=== PATIENT | male | born 1950 | race Caucasian/White ===

== ENCOUNTER 2016-09-20 05:25 | Inpatient (IN) ==
[2016-09-20 06:06] LABS: INR 1.1; Prothrombin Time 11.9 Seconds (9.4-12.1)
[2016-09-20 06:09] LABS: Activated Partial Thrombo Time 31.1 Seconds (26.0-36.0)
[2016-09-20 06:11] LABS: BUN/Creatinine Ratio 15 (6-26); Blood Urea Nitrogen 16 mg/dL (8-26); Calcium 9.6 mg/dL (8.6-10.8); Carbon Dioxide 21 mEq/L (19-29); Chloride 102 mEq/L (98-109); Glucose 313 mg/dL (70-99); Osmolality,Calculated 295 (280-300); Potassium 4.1 mEq/L (3.5-4.5); Sodium 136 mEq/L (136-145); eGFR For African Americans > 60 (> 60); eGFR For Non-African Americans > 60 (> 60)
[2016-09-20 06:22] LABS: Basophils % 0.3 %; Eosinophils # 0.2 K/mcL (0.0-0.6); Eosinophils % 1.8 %; Hemoglobin 14.9 g/dL (12.9-16.9); Immature Granulocytes % 0.6 % (0-4); Lymphocytes # 4.5 K/mcL (0.6-4.6); Lymphocytes % 43.5 %; Mean Corpuscular HGB Conc 33.9 g/dL (31.6-35.5); Mean Corpuscular Hemoglobin 30.7 pg (28.0-33.3); Mean Corpuscular Volume 90.7 fL (83.0-100.0); Mean Platelet Volume 11.4 fL (9.4-12.4); Monocytes # 0.6 K/mcL (0.0-1.3); Monocytes % 6.1 %; Platelet Count 180 K/mcL (140-400); Red Blood Count 4.85 M/mcL (4.19-5.50); Red Cell Distribution Width 13.5 % (11.5-14.5); Segmented Neutrophils % 47.7 %
[2016-09-20] MEDS ORDERED: Aspirin 81 MG TAB.CHEW PO ONE (06:35)
[2016-09-20] MEDS ORDERED: 0.9 % Sodium Chloride 1,000 ML IVC ONE (06:35)
[2016-09-20] MEDS ORDERED: *HR* Morphine 2 MG/ML SYRINGE IV ONE ×2 (06:35→07:33)
[2016-09-20] MEDS ORDERED: Ondansetron 4 MG/2 ML VIAL IV ONE (06:36)
--- NOTE | 2016-09-20 06:47 | Emergency Department Note ---
Disposition Clinical Impression: NSTEMI (non-ST elevated myocardial infarction) Disposition: Admitted As Inpatient Condition: Fair Chest Pain HPI - General Chief Complaint: ED Chest Pain Stated Complaint: CP Time Seen by Provider: 09/20/16 06:24 Source: patient, family Mode of arrival: private vehicle Limitations: no limitations Vital Signs Reviewed: Yes Nursing Notes Reviewed: Yes - History of Present Illness Pt complaint: chest pain Onset (ago): day(s) (1) Duration: constant (Since this AM prior to that it was intermittent) Pain Location: substernal, left chest, other (left arm) Severity: severe Severity scale (1-10): 10 Quality: aching Pain Radiation: RUE, LUE, neck Improves with: nothing Worsens with: nothing Associated symptoms: Reports: dyspnea ("a little"). Denies: nausea, vomiting, diaphoresis, syncope, palpitations, fever, cough, leg swelling Treatments prior to arrival chest pain: aspirin (yesterday, took one baby aspirin) - Related Data Home Medications Medication Instructions Recorded Confirmed Allopurinol [Zyloprim] 300 mg PO DAILY 04/11/15 05/23/15 Aspirin Enteric Coated [Aspirin EC] 81 mg PO DAILY 04/11/15 05/23/15 Atorvastatin Calcium [Lipitor] 80 mg PO HS 04/11/15 05/23/15 Cholecalciferol (Vitamin D3) 2,000 unit PO DAILY 04/11/15 05/23/15 [Vitamin D] Gabapentin [Neurontin] 1,200 mg PO TID 04/11/15 05/23/15 Furosemide 40 mg PO BID 05/23/15 05/23/15 Insulin Regular U-500 33 unit SQ BID 05/23/15 05/23/15 Metoprolol 25 mg PO BID 05/23/15 05/23/15 Multivitamin 1 tab PO DAILY 05/23/15 05/23/15 Plavix 75 mg PO DAILY 05/23/15 05/23/15 Potassium Chloride 40 meq PO BID 05/23/15 05/23/15 Allergies Allergy/AdvReac Type Severity Reaction Status Date / Time Penicillins Allergy Mild Rash, itch Verified 04/11/15 09:19 All systems ED: reviewed and negative except as stated. Constitutional: Denies: fever, chills, weakness, weight change, night sweats ENT ED: Denies: throat pain, dysphagia Cardiovascular: Reports: as per HPI, chest pain, dyspnea on exertion. Denies: palpitations, orthopnea, edema, syncope Respiratory: Reports: dyspnea. Denies: cough, wheezes, hemoptysis, stridor, sputum production Gastrointestinal: Denies: abdominal pain, nausea, vomiting, diarrhea Musculoskeletal: Denies: back pain, neck pain, joint swelling Integumentary: Denies: rash Neurological: Denies: headache, weakness, confusion, abnormal gait, vertigo Hematological/Lymphatic: Denies: easy bleeding, easy bruising Chest Pain PMH - Past Medical History Medical history: Reports: atrial fibrillation, coronary artery disease, diabetes , hyperlipidemia, hypertension, myocardial infarction, other Surgical history: Reports: cholecystectomy, coronary bypass (CABG), orthopedic, other Psychiatric history: Reports: no psych history - Social History Smoking Status: Never smoker Alcohol use: Reports: rarely Drug use: Reports: none Physical Exam - General Limitations: no limitations General appearance: alert, in no apparent distress - Head Head exam: atraumatic, normocephalic, normal inspection - Eye Eye exam: Present: normal appearance, PERRL. Absent: scleral icterus, conjunctival injection - ENT ENT exam: normal exam, normal oropharynx, mucous membranes moist - Neck Neck exam: Present: normal inspection, full ROM, trachea midline. Absent: meningismus - Chest Chest inspection: Present: symmetric chest wall rise, other (WHSS) - Respiratory Respiratory exam: Present: normal lung sounds bilaterally. Absent: respiratory distress, wheezes, stridor - Cardiovascular Cardiovascular exam: Present: regular rate, normal rhythm, normal heart sounds - Abdominal Exam Abdominal exam: Present: soft, Non-Tender. Absent: distention, guarding, rebound, mass - Extremities Exam Extremities exam: Present: full ROM, normal capillary refill. Absent: tenderness, joint swelling, calf tenderness - Back Exam Back exam: Present: normal inspection - Neurological Exam Neurological exam: Present: alert, oriented X3, CN II-XII intact - Psychiatric Psychiatric exam: Present: normal affect, normal mood - Skin Skin exam: Present: warm, dry, intact, normal color Course Course Narrative: Patient presents for evaluation of chest pain. He states, "my chest hurts, but I also have worsening neuropathic pain." He states that the pain began yesterday but was mild and tolerable then last night it increased. He took a baby aspirin and it seemed to help a little bit. As the night progressed, the pain increased so he came in for evaluation. He states that usually his neuropathy is just in his hands, feet and legs below the knees, but since last night. He has had pain in his arms and also in his chest. He describes it as burning and aching. He denies recent trauma. He has a history of coronary artery disease and had a CABG in 2015 at [facility]. He has had no stress test or heart catheterizations since then. He has no dyspnea on exertion or orthopnea, has no calf pain, redness or swelling, is not hypoxic or tachypneic and denies history of DVT or PE. Therefore, I do not suspect PE as the cause of his chest pain. He will require admission for a rule out. Case has been discussed with Dr. Wesley. He has had [id number] time with the patient, reviewed the EKG and lab findings, and agrees with the assessment and plan. - Reevaluation(s) Reevaluation #1: CP better, "neuropathy still an 8". Additional meds ordered. Time: 07:34 Vital Signs Temperature 98.0 F 09/20/16 05:31 Pulse Rate 75 09/20/16 05:31 Respiratory Rate 18 09/20/16 05:31 Blood Pressure 165/74 09/20/16 05:31 O2 Sat by Pulse Oximetry 96 09/20/16 05:31 Temperature 97.8 F 09/20/16 08:53 Pulse Rate 94 09/20/16 08:53 Respiratory Rate 16 09/20/16 08:53 Blood Pressure 160/75 09/20/16 08:53 O2 Sat by Pulse Oximetry 95 09/20/16 08:53 Oxygen Delivery Oxygen Delivery Room Air Chest Pain - Medical Records Medical records reviewed: Yes I reviewed the patient's medical records. - Lab Data Lab results reviewed: Yes I reviewed the patient's lab results. Lab results narrative: Laboratory Last Values WBC 10.4 K/mcL (4.3-11.1) 09/20/16 05:46 RBC 4.85 M/mcL (4.19-5.50) 09/20/16 05:46 Hgb 14.9 g/dL (12.9-16.9) 09/20/16 05:46 Hct 44.0 % (37.5-50.1) 09/20/16 05:46 MCV 90.7 fL (83.0-100.0) 09/20/16 05:46 MCH 30.7 pg (28.0-33.3) 09/20/16 05:46 MCHC 33.9 g/dL (31.6-35.5) 09/20/16 05:46 RDW 13.5 % (11.5-14.5) 09/20/16 05:46 Plt Count 180 K/mcL (140-400) 09/20/16 05:46 MPV 11.4 fL (9.4-12.4) 09/20/16 05:46 Immature Gran % 0.6 % (0-4) 09/20/16 05:46 Seg Neutrophils % 47.7 % 09/20/16 05:46 Lymphocytes % 43.5 % 09/20/16 05:46 Monocytes % 6.1 % 09/20/16 05:46 Eosinophils % 1.8 % 09/20/16 05:46 Basophils % 0.3 % 09/20/16 05:46 Neutrophils # 5.0 K/mcL (1.6-8.9) 09/20/16 05:46 Lymphocytes # 4.5 K/mcL (0.6-4.6) 09/20/16 05:46 Monocytes # 0.6 K/mcL (0.0-1.3) 09/20/16 05:46 Eosinophils # 0.2 K/mcL (0.0-0.6) 09/20/16 05:46 Basophils # 0.0 K/mcL (0.0-0.2) 09/20/16 05:46 PT 11.9 Seconds (9.4-12.1) 09/20/16 05:46 INR 1.1 09/20/16 05:46 APTT 31.1 Seconds (26.0-36.0) 09/20/16 05:46 Sodium 136 mEq/L (136-145) 09/20/16 05:46 Potassium 4.1 mEq/L (3.5-4.5) 09/20/16 05:46 Chloride 102 mEq/L (98-109) 09/20/16 05:46 Carbon Dioxide 21 mEq/L (19-29) 09/20/16 05:46 BUN 16 mg/dL (8-26) 09/20/16 05:46 Creatinine 1.07 mg/dL (0.72-1.25) 09/20/16 05:46 Est GFR ( Amer) > 60 (> 60) 09/20/16 05:46 Est GFR (Non-Af Amer) > 60 (> 60) 09/20/16 05:46 BUN/Creatinine Ratio 15 (6-26) 09/20/16 05:46 Glucose 313 mg/dL (70-99) H 09/20/16 05:46 Calculated Osmolality 295 (280-300) 09/20/16 05:46 Calcium 9.6 mg/dL (8.6-10.8) 09/20/16 05:46 Troponin I 0.07 ng/mL (0-0.03) H* 09/20/16 05:46 Result diagrams: 09/20/16 05:46 09/20/16 05:46 Lab Results 09/20/16 09/20/16 09/20/16 Range/Units 05:46 05:46 05:46 WBC 10.4 (4.3-11.1) K/mcL RBC 4.85 (4.19-5.50) M/mcL Hgb 14.9 (12.9-16.9) g/dL Hct 44.0 (37.5-50.1) % MCV 90.7 (83.0-100.0) fL MCH 30.7 (28.0-33.3) pg MCHC 33.9 (31.6-35.5) g/dL RDW 13.5 (11.5-14.5) % Plt Count 180 (140-400) K/mcL MPV 11.4 (9.4-12.4) fL Immature Gran % 0.6 (0-4) % Seg Neutrophils % 47.7 % Lymphocytes % 43.5 % Monocytes % 6.1 % Eosinophils % 1.8 % Basophils % 0.3 % Neutrophils # 5.0 (1.6-8.9) K/mcL Lymphocytes # 4.5 (0.6-4.6) K/mcL Monocytes # 0.6 (0.0-1.3) K/mcL Eosinophils # 0.2 (0.0-0.6) K/mcL Basophils # 0.0 (0.0-0.2) K/mcL PT 11.9 (9.4-12.1) Seconds INR 1.1 APTT 31.1 (26.0-36.0) Seconds Sodium 136 (136-145) mEq/L Potassium 4.1 (3.5-4.5) mEq/L Chloride 102 (98-109) mEq/L Carbon Dioxide 21 (19-29) mEq/L BUN 16 (8-26) mg/dL Creatinine 1.07 (0.72-1.25) mg/dL Est GFR ( Amer) > 60 (> 60) Est GFR (Non-Af Amer) > 60 (> 60) BUN/Creatinine Ratio 15 (6-26) Glucose 313 H (70-99) mg/dL Calculated Osmolality 295 (280-300) Calcium 9.6 (8.6-10.8) mg/dL Creatine Kinase 137 (30-200) Units/L Troponin I (0-0.03) ng/mL 09/20/16 Range/Units 05:46 WBC (4.3-11.1) K/mcL RBC (4.19-5.50) M/mcL Hgb (12.9-16.9) g/dL Hct (37.5-50.1) % MCV (83.0-100.0) fL MCH (28.0-33.3) pg MCHC (31.6-35.5) g/dL RDW (11.5-14.5) % Plt Count (140-400) K/mcL MPV (9.4-12.4) fL Immature Gran % (0-4) % Seg Neutrophils % % Lymphocytes % % Monocytes % % Eosinophils % % Basophils % % Neutrophils # (1.6-8.9) K/mcL Lymphocytes # (0.6-4.6) K/mcL Monocytes # (0.0-1.3) K/mcL Eosinophils # (0.0-0.6) K/mcL Basophils # (0.0-0.2) K/mcL PT (9.4-12.1) Seconds INR APTT (26.0-36.0) Seconds Sodium (136-145) mEq/L Potassium (3.5-4.5) mEq/L Chloride (98-109) mEq/L Carbon Dioxide (19-29) mEq/L BUN (8-26) mg/dL Creatinine (0.72-1.25) mg/dL Est GFR ( Amer) (> 60) Est GFR (Non-Af Amer) (> 60) BUN/Creatinine Ratio (6-26) Glucose (70-99) mg/dL Calculated Osmolality (280-300) Calcium (8.6-10.8) mg/dL Creatine Kinase (30-200) Units/L Troponin I 0.07 H* (0-0.03) ng/mL - Radiology Data Radiology results reviewed: Yes I reviewed the patient's radiology results. Chest X-Ray 09/20/16 05:38 IMPRESSION: No acute findings. D/ / Maria Guadalupe Colon MD / Maria Guadalupe Colon MD Interpreting Provider: Maria Guadalupe Colon MD - EKG Data EKG attestation: Yes I reviewed and interpreted this EKG. EKG shows normal: sinus rhythm Rate: normal Rhythm: NSR When compared to previous EKG there are: no significant changes Interpretation: unchanged when compared to prior tracing (date) - Core Measures AMI Core Measures Followed: Yes Heart Score - Score History: Moderately Suspicious EKG: Normal Age: Greater than 65 Risk Factors: 1-2 risk factors Troponin: 1-3x normal limit HEART Score Total: 5 Critical Care Time Critical Care Time: Yes Total Critical Care Time: 35 Attestation: Critical care time 35 minutes managing NSTEMI. Attestation Statement - Attestation Attestation: Patient was seen with physician assistant auto center manager. I reviewed the history, physical, assessment and plan, and agree with the findings. I also personally evaluated this patient and had [id number] time with this patient. 66-year-old male with a history of cardiovascular disease presents to the emergency department with chief complaint of chest pain and neuropathic pain. Patient says he has diabetic neuropathy usually in his hands feet and legs, but he says it is from his neck down now. He alsohad chest pain left sided to his shoulder which is very similar to his heart attack pain that prompted a triple bypass approximately year and a half ago. Said the pains been ongoing for last day or so and not getting progressively better. This prompted his visit to the ED. On examination heart is regular rhythm and rate. Lungs are clear to auscultation. Abdomen is soft and nontender. Extremities are unremarkable no appreciable swelling or tenderness. Neurologically the patient is intact. Workup on the patient revealed an elevated troponin. EKG did not show any ST segment elevation. Patient will be admitted to the hospital for an STEMI and pain management. Hospitalist was notified. I agree with the physician assistant auto center manager assessment and plan.
[2016-09-20 06:53] LABS: Creatine Kinase 137 Units/L (30-200)
[2016-09-20] MEDS ORDERED: Nitroglycerin 0.4 MG TAB.SUBL SL PRN (07:33)
[2016-09-20] MEDS ORDERED: *HR* LORazepam 1 MG TABLET PO ONE (12:08)
[2016-09-20] MEDS ORDERED: *HR* Morphine 2 MG/ML SYRINGE IVP PRN (12:13)
[2016-09-20] MEDS ORDERED: (Exenatide Microspheres [Bydureon Pen] 2 MG) SQ SCH (15:45)
[2016-09-20] MEDS ORDERED: Dextrose Gel 15 GM PO PRN ×2 (15:49)
[2016-09-20] MEDS ORDERED: D5% in Water 1,000 ML IV PRN (15:49)
[2016-09-20] MEDS ORDERED: *HR* Dextrose 50 % in Water (Syg) 50 ML SYRINGE IVP PRN (15:49)
--- NOTE | 2016-09-20 16:05 | Internal Med History&Physical ---
<Scott Hanna - Last Filed: 09/20/16 18:21> Date of Encounter: 09/20/16 Time of Encounter: 15:00 Assessment and Plan (1) Chest pain Current visit: Yes Status: Acute -L sided. Non exceptional. Relieved by morphine. CABAG in 2015. -Troponin 0.07x2. CXR WNL. EKG shows abnormalities, however, a lot of artifact. Will get repeat EKG. EKG in 04/14 shows sinus with 1st degree AV block. No ECHO in system -Home meds resumed-plavix, aspirin, HTN. Started on lovenox for DVT ppx, Labs ordered. Telemetry. -Positive troponins. Chronic? Consider cardiac cath, stress test, echo. Consulting cardiology in morning. 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 He takes a very high dose. -Continue home medication-insulin, plavix, aspirin (3) Hypertension Current visit: Yes Status: Acute -Asymptomatic -Continue home medication. Qualifiers: Hypertension type: essential hypertension Qualified Code(s): I10 - Essential (primary) hypertension (4) Peripheral neuropathy Current visit: Yes Status: Acute -Patient originally described sudden intensity of worsening peripheral neuropathy of his arms and legs that was not progressive, ascending or descending. 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 No myelitis. -Patient back to baseline after morphine administration. OARRS negative. -Resume home medication. -Worsening of neuropathy probably secondary to cardiac pathology. -Continue home dose of gabapentin 1200mg TID. Internal Medicine - H&P: HPI Chief complaint: neuropathic pain Admitted From: Emergency Dept Plans for Post Hospital Care: Home History of present illness: Mr. aRndle is a 66 year old male, PMH afib, CAD, DM, HTN, IL, Skin cancer, who presents to the ED with chest pain and worsening neuropathic pain. Patient began to have squeezing chest pain that radiated down the L arm while in a recliner. Pain lasted for a couple of hours. Pain alleviated somewhat by aspirin. Later on that night, the chest pain began suddenly and with more intensity. Patient also began to have worsening of his peripheral neuropathy in his arms and legs. Pain described as a burning/numbing sensation over his entire arms and legs. Patient normally has neuropathy in his legs below the knee and hands, but never in his upper legs, arms or chest. Nothing made the pain worse, morphine has improved symptoms. He denies SOB, headache, blurry vision, trouble speaking, abdominal pain, loss of bowl or bladder function, changes in muscle weakness, recent fever, vaccination, travel or trauma. Right now, the patient feels like he is back at his baseline following the morphine. He is talking with his family in the room, able to walk and is alert and orientedx3 Past Med Surg Social Fam HX - Past Medical History Medical history: atrial fibrillation, coronary artery disease, diabetes, hyperlipidemia, hypertension, myocardial infarction, other Psychiatric history: no psych history - Past Surgical History Surgical History: cholecystectomy, coronary bypass (CABG), orthopedic, other - Social History Smoking Status: Never smoker Smokeless Tobacco Status: No Alcohol use: rarely Drug use: none - Family History Mother Adopted: [place]: daniel Family Member Ethnicity: Non- Living Status: Age at : 77 Hx Family Cardiac Disorders: No Hx Family Respiratory Disorders: Yes (COPD) Hx Family Cancer: Yes Hx Family GI Disorders: No Hx Family Endocrine Disorder: Yes (DM,thyroid) Hx Family Neuromuscular Disorders: Yes (neuropathy) Hx Family Neurologic Disorders: No Hx Family HEENT Disorders: No Hx Family Autoimmune Disorders: No Internal Medicine - H&P: Meds Allopurinol [Zyloprim] 300 mg PO DAILY 04/11/15 [History] Aspirin Enteric Coated [Aspirin EC] 81 mg PO DAILY 04/11/15 [History] Atorvastatin Calcium [Lipitor] 80 mg PO DAILY 04/11/15 [History] Gabapentin [Neurontin] 1,200 mg PO TID 04/11/15 [History] Clopidogrel [Plavix] 75 mg PO DAILY 05/23/15 [History] Furosemide [Lasix] 40 mg PO DAILY 05/23/15 [History] Insulin Regular U-500 [HumuLIN R U-500] 33 unit SQ BID 05/23/15 [History] Metoprolol [Lopressor] 25 mg PO BID 05/23/15 [History] Multivitamin [One Daily Essential] 1 tab PO DAILY 05/23/15 [History] Albuterol Sulfate [Proair Hfa] 2 puff IH Q4H PRN 09/20/16 [History] Amitriptyline [Elavil] 25 mg PO HS 09/20/16 [History] Exenatide Microspheres [Bydureon Pen] 2 mg SQ QWEEK 09/20/16 [History] Lisinopril [Zestril] 20 mg PO DAILY 09/20/16 [History] Potassium Chloride [K-Tab ER] 20 meq PO DAILY 09/20/16 [History] Allergies Penicillins Allergy (Mild, Verified 09/20/16 13:50) Rash All Systems PM: A 10-system review of systems was performed and is negative for pertinent findings except as documented above in the HPI. - Constitutional Constitutional: no chills, no excessive sweating, no fever(s), no falls, no lethargy, no night sweats - EENT Eyes: no blurry vision, no change in vision Ears: ear discharge, no ear pain, no tinnitus Nose, mouth and throat: no dysphagia, no nasal discharge, no neck pain, no sore throat - Cardiovascular Cardiovascular ROS IM: as per HPI, no diaphoresis, no dyspnea, no lightheadedness, no palpitations, no syncope - Respiratory Respiratory: no cough, no dyspnea, no wheezing, no excessive phlegm production - Gastrointestinal Gastrointestinal: no abdominal pain, no change in bowel habits, no constipation , no diarrhea, no hematemesis, no hematochezia, no melena, no nausea, no vomiting - Genitourinary Genitourinary ROS male: no difficulty urinating, no hematuria, no urinary frequency, no urinary hesitancy - Musculoskeletal Musculoskeletal ROS IM: numbness, tingling, no arthralgias, no joint swelling, no muscle weakness - Integumentary Integumentary IM: no erythema, no new lesions, no non-healing lesions, no pruritus, no rash, no skin ulcer, no unusual bruising - Neurological Neurological ROS: numbness, tingling, no confusion, no convulsions, no focal weakness, no headache(s), no loss of vision, no memory loss, no tremor(s) - Constitutional Vitals: Temp Pulse Resp BP Pulse Ox 97.8 F 68 18 153/82 94 L 09/20/16 08:53 09/20/16 15:00 09/20/16 15:00 09/20/16 15:00 09/20/16 15:00 General appearance: Present: A&O X 3, obese, answers questions appropriately - Head Head exam: Present: atraumatic, normal inspection - Eye Eye exam: Present: EOMI, PERRL. Absent: nystagmus, periorbital swelling, periorbital tenderness Pupils: Present: normal accommodation - ENT ENT exam: Present: mucous membranes moist - Neck Neck exam general surgery: Present: normal inspection. Absent: tenderness - Respiratory Respiratory exam: Present: CTAB - Cardiovascular Cardiovascular exam: Present: RRR. Absent: diastolic murmur, systolic murmur - GI/Abdominal GI/Abdominal exam: Present: soft, no peritoneal signs. Absent: distended, tenderness - Expanded Upper Extremities Exam Neurosensory exam: Present: 2-point discrimination - Psychiatric Psychiatric exam: Present: normal affect, normal mood - Skin Additional comments: Sore on R arm from skin cancer biopsy. - Other Additional findings: -Upper extremity. Reflexes WNL, sensation equal bilaterally, normal cap refill, strength. Good peripheral pulses Lower extremity: Unable to elicit reflex and pulses deminished, cool (patient states this is normal). Sensation intact and able to lift legs and walk. Internal Med - H&P Results - Labs CBC & Chem 7: 09/20/16 05:46 09/20/16 05:46 Labs: Cardiac Enzymes 09/20/16 Range/Units 12:01 Troponin I 0.07 H* (0-0.03) ng/mL - Impressions ITS Impressions Cervical Spine MRI 09/20/16 12:06 IMPRESSION: 1. No evidence of a cervical spinal cord lesion or transverse myelitis. 2. Mild central spinal canal narrowing at C6-C7. 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 D/ / Sen Valenzuela MD / Sen Valenzuela MD Interpreting Provider: Sen Valenzuela MD Thoracic Spine MRI 09/20/16 12:06 IMPRESSION: No cord abnormality detected. Acquired on congenital spinal canal stenosis. 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 Current visit: Yes Status: Acute (4) Hypertension Current visit: Yes Status: Acute Qualifiers: Hypertension type: essential hypertension Qualified Code(s): I10 - Essential (primary) hypertension (5) Diabetes Current visit: Yes Status: Acute Qualifiers: Diabetes mellitus type: type 2 Diabetes mellitus complication status: with neurologic complications Diabetes mellitus complication detail: with polyneuropathy Diabetes mellitus residential insulin use: with residential use Qualified Code(s): E11.42 - Type 2 diabetes mellitus with diabetic polyneuropathy; Z79.4 - halfway (current) use of insulin Internal Medicine - H&P: HPI History of present illness: Mr. Randle is a 66 year old male All Systems PM: A 10-system review of systems was performed and is negative for pertinent findings except as documented above in the HPI. - Constitutional Vitals: Temp Pulse Resp BP Pulse Ox 97.8 F 68 18 153/82 94 L 09/20/16 08:53 09/20/16 15:00 09/20/16 15:00 09/20/16 15:00 09/20/16 15:00 Internal Med - H&P Results - Labs CBC & Chem 7: 09/20/16 05:46 09/20/16 05:46 Labs: Cardiac Enzymes 09/20/16 09/20/16 Range/Units 12:01 17:08 Troponin I 0.07 H* 0.06 H* (0-0.03) ng/mL - Impressions ITS Impressions Cervical Spine MRI 09/20/16 12:06 IMPRESSION: 1. No evidence of a cervical spinal cord lesion or transverse myelitis. 2. Mild central spinal canal narrowing at C6-C7. 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 D/ / Sen Valenzuela MD / Sen Valenzuela MD Interpreting Provider: Sen Valenzuela MD Thoracic Spine MRI 09/20/16 12:06 IMPRESSION: No cord abnormality detected. Acquired on congenital spinal canal stenosis. D/ / Sen Valenzuela MD / Sen Valenzuela MD Interpreting Provider: Sen Valenzuela MD - Attending Attestation I examined this patient and my medical decision-making was reviewed with the Resident Physician. I agree with the documented findings, disposition and treatment plan as described except to the extent set forth below. Mr. Randle is 66 y/o male with history of CAD s/p CABG, HTN and DM with diabetic neuropathy presented to ED with L side chest pain and neuropathy pain. He said yesterday he developed severe neuropathic type pain from his neck down. He said he has never had that before and usually it is just his knees down and his hands. It was extremely painful and finally was relieved with morphine in the ED. No prior trauma to neck. No headache or visual changes. No symptoms except some hand tingling currently. Exam alert. Comfortable Mucus membranes moist FRED Heart reg - distant Lungs clear at this time. Abd obese Legs - dependent rubor. Could not palpate pulses (chronic) Decreased sensation bilateral LE and hands. Strength equal. DTRs not hyper. I/P 1. Acute onset of neuropathic pain - MRIs of C,T,L spine nonacute. Continue symptomatic treatment. 2. Chest pain - r/o IL 3. CAD 4. HTN 5. DM with neuropathy Pt placed in observation. Risk is high due to chest pain with multiple risk factors.
[2016-09-20] MEDS: Aspirin Enteric Coated 81 MG Tablet PO SCH (16:26)
[2016-09-20] MEDS: Furosemide 40 MG TABLET PO SCH (16:31)
[2016-09-20] MEDS: Multivit/Ca/Min/Fe/FA 1 TAB TABLET PO SCH (16:32)
[2016-09-20] MEDS: Gabapentin 400 MG CAPSULE PO SCH ×2 (16:32→20:06)
[2016-09-20 18:05] LABS: Folate 13.1 ng/mL (7.0-31.4)
[2016-09-20] MEDS: *HR* Insulin Regular U-500 500 UNIT/ML SQ SCH (20:06)
[2016-09-21 04:25] LABS: Basophils % 0.5 %; Eosinophils # 0.3 K/mcL (0.0-0.6); Eosinophils % 3.4 %; Hematocrit 44.8 % (37.5-50.1); Hemoglobin 14.7 g/dL (12.9-16.9); Immature Granulocytes % 0.6 % (0-4); Lymphocytes # 4.1 K/mcL (0.6-4.6); Mean Corpuscular HGB Conc 32.8 g/dL (31.6-35.5); Mean Corpuscular Hemoglobin 30.6 pg (28.0-33.3); Mean Corpuscular Volume 93.3 fL (83.0-100.0); Mean Platelet Volume 10.8 fL (9.4-12.4); Monocytes # 0.8 K/mcL (0.0-1.3); Neutrophils # 3.3 K/mcL (1.6-8.9); Platelet Count 180 K/mcL (140-400); Red Cell Distribution Width 13.5 % (11.5-14.5); Segmented Neutrophils % 38.5 %
[2016-09-21 04:29] LABS: INR 1.1
[2016-09-21 04:32] LABS: Activated Partial Thrombo Time 32.3 Seconds (26.0-36.0)
[2016-09-21 04:44] LABS: Alanine Aminotransferase 33 Units/L (0-55); Albumin 3.1 g/dL (3.5-5.0); Albumin/Globulin Ratio 0.8 (1.1-2.2); Alkaline Phosphatase 75 Units/L (38-126); Aspartate Amino Transferase 33 Units/L (5-34); BUN/Creatinine Ratio 16 (6-26); Bilirubin,Total 0.8 mg/dL (0.2-1.2); Blood Urea Nitrogen 17 mg/dL (8-26); Calcium 9.2 mg/dL (8.6-10.8); Carbon Dioxide 28 mEq/L (19-29); Chloride 101 mEq/L (98-109); Globulin 3.7 g/dL (2.4-3.5); Glucose 85 mg/dL (70-99); Magnesium 1.7 mg/dL (1.6-2.6); Osmolality,Calculated 289 (280-300); Phosphorous 4.6 mg/dL (2.3-4.7); Potassium 4.1 mEq/L (3.5-4.5); Sodium 139 mEq/L (136-145); Total Protein 6.8 g/dL (6.0-8.3); eGFR For African Americans > 60 (> 60); eGFR For Non-African Americans > 60 (> 60)
--- NOTE | 2016-09-21 06:31 | Electrocardiograph Report ---
Test Date: 2016-09-20 Pat Name: Jesus Randle Department: 105 Room: 2NE26 Gender: M [employer] Supervisor: [facility] : 1950 Requested By: Shahriar Moreno Order Number: [id number] Reading MD: Lai Stone MD Measurements Intervals [place] Rate: 73 P: 32 RI: 236 QRS: 23 QRSD: 82 T: -24 QT: 358 QTc: 384 Interpretive Statements SINUS RHYTHM SEPTAL MYOCARDIAL INFARCTION Electronically Signed On 09-21-16 06:29:05 EST by Lai Stone MD
[2016-09-21] MEDS: *HR* Enoxaparin 40 MG/0.4 ML SYRINGE SQ SCH (08:26)
[2016-09-21] MEDS: Gabapentin 400 MG CAPSULE PO SCH ×3 (08:27→21:00)
[2016-09-21] MEDS: Furosemide 40 MG TABLET PO SCH (08:27)
[2016-09-21] MEDS: Multivit/Ca/Min/Fe/FA 1 TAB TABLET PO SCH (08:27)
[2016-09-21] MEDS: Lisinopril 20 MG TABLET PO SCH (08:27)
[2016-09-21] MEDS: Aspirin Enteric Coated 81 MG Tablet PO SCH (08:27)
[2016-09-21] MEDS: *HR* Insulin Regular U-500 500 UNIT/ML SQ SCH ×2 (08:28→21:01)
--- NOTE | 2016-09-21 08:47 | Cardiology Consult Note ---
Date of Encounter: 09/21/16 Time of Encounter: 09:00 Assessment and Plan (1) Chest pain Current Visit: Yes Status: Acute Per Cardiology: Chest pain atypical and occurred at rest in the setting of neuropathic pain. Additionally was noted to have systolic blood pressure in the 200s. 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 Troponins flat an adynamic at 0.07 2 and 0.06. Of note, had apparent non- STEMI March 2015 with peak troponin 0.45 with subsequent CABG 3. Patient's not had ischemic evaluation since bypass. Suspect demand ischemia in setting of hypertensive urgency, however further ischemic evaluation may be warranted. Has been experiencing increasing fatigue over the past few months. We'll check echocardiogram. I discussed and reviewed with patient regarding further ischemic evaluation in terms of stress test versus heart catheterization. Discussed and reviewed with Dr. Ortega, plans proceed with nonexercise nuclear stress test. Further recs pending echo and stress test results. Qualifiers: Chest pain type: precordial pain Qualified Code(s): R07.2 - Precordial pain (2) CAD (coronary artery disease) Current Visit: Yes Status: Chronic Per Cardiology: Non-STEMI with peak troponin 0.March. Last heart catheterization at [facility] and subsequent CABG 3, however upon review of last office note by Dr. Harley patient with HUBER to LAD and SVG to PDA. On aspirin, Plavix, statin, beta corona, and TROY inhibitor. Recommend providing SL nitroglycerin pill at discharge. Qualifiers: Coronary Disease-Associated Artery/Lesion type: [place] artery [place] vs. transplanted heart: [place] heart Associated angina: angina presence unspecified Qualified Code(s): I25.10 - Atherosclerotic heart disease of [place] coronary artery without angina pectoris (3) Hypertension Current Visit: Yes Status: Acute Per Cardiology: Present with systolic blood pressure in the 180s to 200s, currently better controlled. Continue with current medical regimen. Suspect contributing factor to troponin leak. Qualifiers: Hypertension type: essential hypertension Qualified Code(s): I10 - Essential (primary) hypertension (4) Peripheral neuropathy Current Visit: Yes Status: Acute Per Cardiology: Management per primary service. 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 No myelitis ". Potential contributing factor to chest pain symptoms. Qualifiers: Peripheral neuropathy type: polyneuropathy associated with underlying disease Qualified Code(s): G63 - Polyneuropathy in diseases classified elsewhere Discussion w patient/family: The assessment and plan as outlined above was discussed with the patient who expressed understanding and agreement. All questions were answered. Thank you for involving us in the care of your patient. Please call with any questions. History of Present Illness Consult date: 09/21/16 Requesting physician: Nadir Gardner Consult reason: CP Chief complaint: Chest Heaviness History of present illness: Mr. Randle is a 66 year old male, PMH afib, CAD, DM, HTN, IA, Skin cancer. Reports had multiple dermatological procedures recently. Presented with chest pain and worsening neuropathic pain. Patient began to have squeezing chest pain that radiated down the L arm while in a recliner. Pain lasted for a couple of hours. Pain alleviated somewhat by aspirin. Patient reports prior to this event has not been experiencing any chest pain symptoms. He reports he has not utilize nitroglycerin pills, however he does not have any. Reports his dyspnea on exertion remains about baseline since his bypass surgery March 2015. He does report increasing "sluggishness" the past few months. Denies any recent ischemic evaluation since bypass surgery. Denies any recent fever, chills, nausea, vomiting, diarrhea, cough. Denies any current active bleeding or blood loss. Denies any dizziness, syncope, falls. Denies any palpitations. Past Med Surg Social Fam HX - Past Medical History Attestation: Yes The following information was validated with the patient. Source: patient, old records reviewed Medical history: atrial fibrillation, coronary artery disease, diabetes, hyperlipidemia, hypertension, myocardial infarction, other Psychiatric history: no psych history - Past Surgical History Surgical History: cholecystectomy, coronary bypass (CABG) (CABG 3 at [facility] March 2015.), orthopedic, other - Social History Smoking Status: Never smoker Smokeless Tobacco Status: No Alcohol use: rarely Drug use: none - Family History Mother Adopted: [place]: [place] Family Member Ethnicity: Non- Living Status: Age at : 77 Hx Family Cardiac Disorders: No Hx Family Respiratory Disorders: Yes (COPD) Hx Family Cancer: Yes Hx Family GI Disorders: No Hx Family Endocrine Disorder: Yes (DM,thyroid) Hx Family Neuromuscular Disorders: Yes (neuropathy) Hx Family Neurologic Disorders: No Hx Family HEENT Disorders: No Hx Family Autoimmune Disorders: No Medications and Allergies Allopurinol [Zyloprim] 300 mg PO DAILY 04/11/15 [History] Aspirin Enteric Coated [Aspirin EC] 81 mg PO DAILY 04/11/15 [History] Atorvastatin Calcium [Lipitor] 80 mg PO DAILY 04/11/15 [History] Gabapentin [Neurontin] 1,200 mg PO TID 04/11/15 [History] Clopidogrel [Plavix] 75 mg PO DAILY 05/23/15 [History] Furosemide [Lasix] 40 mg PO DAILY 05/23/15 [History] Insulin Regular U-500 [HumuLIN R U-500] 33 unit SQ BID 05/23/15 [History] Metoprolol [Lopressor] 25 mg PO BID 05/23/15 [History] Multivitamin [One Daily Essential] 1 tab PO DAILY 05/23/15 [History] Albuterol Sulfate [Proair Hfa] 2 puff IH Q4H PRN 09/20/16 [History] Amitriptyline [Elavil] 25 mg PO HS 09/20/16 [History] Exenatide Microspheres [Bydureon Pen] 2 mg SQ QWEEK 09/20/16 [History] Lisinopril [Zestril] 20 mg PO DAILY 09/20/16 [History] Potassium Chloride [K-Tab ER] 20 meq PO DAILY 09/20/16 [History] Allergies Penicillins Allergy (Mild, Verified 09/20/16 13:50) Rash All Systems Review: A 10-system review of systems was performed and is negative for pertinent findings except as documented above in the HPI. - Constitutional Constitutional: fatigue, weight loss (down about 10 pounds) - Cardiovascular Cardiovascular: as per HPI, chest pain at rest, dyspnea on exertion, leg edema - Respiratory Respiratory: dyspnea - Integumentary Integumentary: other (recent lesion removal) - Neurological Neurological: other (Neuropathic pain to bilateral lower extremities) Physical Examination Vital Signs, Last 4 Hours Temp Pulse Resp BP Pulse Ox 09/21/16 07:02 97.8 F 64 16 124/85 97 09/21/16 05:12 98.0 F 59 14 158/80 91 L Selected Entries 09/20/16 06:29 09/20/16 07:20 Blood Pressure 200/90 181/85 General: Conversant, No Apparent Distress HEENT: Atraumatic, Normocephaly, Mucus Membranes Moist Neck: No JVD, Normal carotid pulses Cardiac: Reg Rate and Rhythm, Normal S1 and S2, No Murmur Lungs: Normal Breath Sounds, No Wheeze, Rales, Rhonchi Neuro: Alert and responsive, No focal deficits noted Abdomen: Other (obese) Skin: No rashes noted on visualized skin, Other (Bilateral lower extremities dusky in appearance) Musculoskeletal: No Chest Wall Tenderness Extremities: Other (+1-2 nonpitting bilateral LE, no wounds noted, DP bilateraL 1+ Palp) Results 09/21/16 03:43 09/21/16 03:43 Lab Results Laboratory Tests 04/26/15 09/20/16 09/20/16 08:06 05:46 12:01 INR Magnesium AST ALT Troponin I 0.45 H* 0.07 H* 0.07 H* Albumin 09/20/16 09/21/16 09/21/16 17:08 03:43 03:43 INR 1.1 Magnesium 1.7 AST 33 ALT 33 Troponin I 0.06 H* Albumin 3.1 L ITS Impressions Chest X-Ray 09/20/16 05:38 IMPRESSION: No acute findings. D/ / Maria Guadalupe Colon MD / Maria Guadalupe Colon MD Interpreting Provider: Maria Guadalupe Colon MD Cervical Spine MRI 09/20/16 12:06 IMPRESSION: 1. No evidence of a cervical spinal cord lesion or transverse myelitis. 2. Mild central spinal canal narrowing at C6-C7. 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 D/ / Sen Valenzuela MD / Sen Valenzuela MD Interpreting Provider: Sen Valenzuela MD Thoracic Spine MRI 09/20/16 12:06 IMPRESSION: No cord abnormality detected. Acquired on congenital spinal canal stenosis. D/ / Sen Valenzuela MD / Sen Valenzuela MD Interpreting Provider: Sen Valenzuela MD Active Medications Albuterol Sulfate (Albuterol Inhaler) 2 puff IH Q4H PRN PRN Reason: Shortness Of Breath Stop: 03/22/17 15:40 Allopurinol (Zyloprim) 300 mg PO DAILY JENNIFER Stop: 03/23/17 09:01 Last Admin: 09/21/16 08:27 Dose: 300 mg Amitriptyline HCl (Elavil) 25 mg PO HS PRN PRN Reason: Anxiety Stop: 03/22/17 15:40 Aspirin (Aspirin Ec) 81 mg PO DAILY JENNIFER Stop: 03/22/17 15:46 Last Admin: 09/21/16 08:27 Dose: 81 mg Atorvastatin Calcium (Lipitor) 80 mg PO DAILY JENNIFER Stop: 03/23/17 09:01 Last Admin: 09/21/16 08:27 Dose: 80 mg Clopidogrel Bisulfate (Plavix) 75 mg PO DAILY JENNIFER Stop: 03/22/17 15:46 Last Admin: 09/21/16 08:27 Dose: 75 mg Dextrose/Water (Dextrose 50% (Syg)) 25 ml IVP AD PRN PRN Reason: Hypoglycemia Stop: 03/22/17 15:50 Enoxaparin Sodium (Lovenox) 40 mg SQ 0700 JENNIFER PRN Reason: Protocol Stop: 09/25/16 07:01 Last Admin: 09/21/16 08:26 Dose: 40 mg Furosemide (Lasix) 40 mg PO DAILY JENNIFER Stop: 03/22/17 15:46 Last Admin: 09/21/16 08:27 Dose: 40 mg Gabapentin (Neurontin) 1,200 mg PO TID JENNIFER Stop: 03/22/17 15:46 Last Admin: 09/21/16 08:27 Dose: 1,200 mg Glucagon (Glucagen) 1 mg IM ONCE PRN PRN Reason: Hypoglycemia Stop: 03/22/17 15:50 Glucose (Gluctose) 15 gm PO ONCE PRN PRN Reason: Hypoglycemia Stop: 03/22/17 15:50 Glucose (Gluctose) 30 gm PO ONCE PRN PRN Reason: Hypoglycemia Stop: 03/22/17 15:50 Dextrose (Dextrose 5%) 1,000 mls @ 100 mls/hr IV CONT PRN PRN Reason: HYPOGLYCEMIA Stop: 03/22/17 15:50 Insulin Human Regular (Concentrated (Humulin R U-500) 33 unit SQ BID JENNIFER PRN Reason: Protocol Stop: 09/26/16 21:01 Last Admin: 09/21/16 08:28 Dose: Not Given Lisinopril (Zestril) 20 mg PO DAILY JENNIFER PRN Reason: Protocol Stop: 03/23/17 09:01 Last Admin: 09/21/16 08:27 Dose: 20 mg Metoprolol Tartrate (Lopressor) 25 mg PO BID [facility] Stop: 03/22/17 21:01 Last Admin: 09/21/16 08:27 Dose: 25 mg Morphine Sulfate (Morphine Sulfate) 4 mg IVP Q4HR PRN PRN Reason: Pain Stop: 03/22/17 12:14 Last Admin: 09/20/16 16:01 Dose: 4 mg Multivitamins/Calcium (Thera M Plus) 1 tab PO DAILY [facility] Stop: 03/22/17 15:46 Last Admin: 09/21/16 08:27 Dose: 1 tab Nitroglycerin (Nitroglycerin) 0.4 mg SL Q5MIN PRN PRN Reason: Chest Pain Stop: 03/22/17 07:34 Last Admin: 09/20/16 07:37 Dose: 0.4 mg Pharmacy Profile Note (Patient Taking Own Medication) 0 each SQ QWEEK [facility] Stop: 03/22/17 15:46 Last Admin: 09/20/16 16:27 Dose: Not Given Potassium Chloride (Potassium Chloride) 20 meq PO DAILY [facility] Stop: 03/23/17 09:01 Last Admin: 09/21/16 08:27 Dose: 20 meq - Imaging and Cardiology Chest Xray: report reviewed Echo: pending - EKG Interpretation EKG results cardiology: personally reviewed (Comparable to previous ECG), normal ECG, sinus rhythm (Rate in the 70s), other (24 hour telemetry reviewed with average heart rate 63, sinus rhythm, no significant events noted) Consult Discharge Plan - Plan Referrals: Azul Guillen CNP [Primary Care Provider] -
[2016-09-21] MEDS: Regadenoson 0.4 MG/5 ML SYRINGE IVP ONE ×2 (12:05→12:43)
--- NOTE | 2016-09-21 13:50 | ECHO - Doppler Report ---
Echocardiogram Name: Jesus Randle Date of Study: 09/21/2016 Date: 1950 Ht: 68.0 in Medical Record#: [id number] Age: 66 Wt: 281.0 lb Gender: Male BSA: 2.36 Order #: [id number] Location: [facility] Room #: 2NE26 Reading Physician: Дмитрий Grubbs, DO, FACC, MAGUI, WONG L D Rn: Daysi Tate, RVT, RDCS Ordering Physician: Jere Buchanan CNP Primary Physician: Azul Guillen CNP Indications: Chest pain Impressions: Technically sub-optimal due to body habitus. LVEF 60-65%. Normal LV chamber size and function. Moderate concentric left ventricular hypertrophy. Moderate left ventricular diastolic dysfunction. Right ventricle was not well visualized. Grossly, RV systolic function appears normal. No evidence of pulmonary hypertension. RVSP not well obtained and could be underestimated. No obvious significant valvular dysfunction. Left Ventricular Wall Motion: Rest Echo Findings All wall segments showed normal motion. Findings: Study Quality * Technically sub-optimal due to body habitus. ECG Findings * Normal sinus rhythm. Left Ventricle * LVEF 60-65%. * Normal LV chamber size and function. * Moderate concentric left ventricular hypertrophy. * Moderate left ventricular diastolic dysfunction. Right Ventricle * Right ventricle was not well visualized. Grossly, RV systolic function appears normal. Left Atrium * Mildly dilated left atrium. Right Atrium * Normal right atrial size. Interatrial Septum * Interatrial septum not well evaluated. Aortic Valve * Trileaflet aortic valve. * Mildly sclerotic aortic valve leaflets. * No aortic regurgitation. * No aortic stenosis. Mitral Valve * Normal mitral valve structure and function. * No mitral regurgitation. * No mitral stenosis. Tricuspid Valve * Normal tricuspid valve structure and function. * Trace tricuspid regurgitation. * No evidence of pulmonary hypertension. RVSP not well obtained and could be underestimated. Pulmonic Valve * Pulmonic valve is not well visualized. * No pulmonic regurgitation. Aorta * Normally sized aortic root. Pericardium * The pericardium appears normal. IVC * The IVC is not well evaluated. Pulmonary Artery * Pulmonary artery not well visualized. History Hypertension Diabetes Hypercholesteremia Family History of CAD History of CAD/PTCA Myocardial Infarction Coronary Artery Bypass Graft 07/12/13 a Previous Echo was performed. Measurements: BP: 122/ 69 2D Normal Values RVIDd: 3.90 cm <2.7 cm IVSd: 1.70 cm 0.6 - 1.0 cm LVIDd: 4.20 cm 3.7 - 5.6 cm LVPWd: 1.40 cm 0.6 - 1.1 cm LVIDs: 3.40 cm 1.5 - 3.6 cm AO: 2.60 cm < 4.0 cm LA: 3.70 cm 2.0 - 4.0cm %FS: 19.00 cm >25 % LA volume: 35 Mitral Valve Peak E:.73 m/sec Peak A:.59 m/sec E/A Ratio:1.2 Peak E' Lat Gilbert:10.6 cm/s Peak E' Med Gilbert:5.17 cm/s E/E' Lat Ratio:6.9 E/E' Med Ratio:14.1 Tricuspid Valve TV Regurg Peak Grad: 16.00mmHg TV Regurg Peak Gilbert: 2.03m/sec Updated by Дмитрий Grubbs DO, FACMaryana, WONG KILGORE on 09/21/2016 1:46:48 PM electronically signed on 09/21/2016 1:47:30 PM with status of Final Wall Motion Price: 1=Normal, 2=Hypokinesis, 3=Akinesis, 4=Dyskinesis, 5=Aneurysmal, 6=Hyperkinetic, X=Not Visualized (Blank)=Missing
[2016-09-22] MEDS: *HR* Enoxaparin 40 MG/0.4 ML SYRINGE SQ SCH (06:12)
[2016-09-22 07:58] VITALS: BP 167/89
--- NOTE | 2016-09-22 08:05 | Cardiology Progress Note ---
Date of Encounter: 09/22/16 Time of Encounter: 08:00 Assessment and Plan (1) Chest pain Current Visit: Yes Status: Acute Per Cardiology: Chest pain atypical and occurred at rest in the setting of neuropathic pain. Additionally was noted to have systolic blood pressure in the 200s. 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 Troponins flat an adynamic at 0.07 2 and 0.06. Of note, had apparent non- STEMI March 2015 with peak troponin 0.45 with subsequent CABG 3. Patient's not had ischemic evaluation since bypass. Suspect demand ischemia in setting of hypertensive urgency. Has been experiencing increasing fatigue over the past few months. Echocardiogram showed EF preserved 66 5%, moderate diastolic dysfunction, no significant valvular dysfunction, no segmental wall motion abnormalities. Patient presented yesterday for stress portion of nonexercise nuclear stress test with systolic blood pressure in the 80s unresponsive to 250 mL of saline. Patient proceeded with resting images only yesterday due to already being scheduled for today stress test due to weight. Unfortunately, patient received another resting dose for nuclear test this am instead of his stress dose this morning. Discussed and reviewed with Dr. Ortega, recommendations to proceed with stress portion tomorrow. I had lengthy discussion with patient and unfortunately he desires to leave AMA. Patient is willing to follow-up as outpatient to complete stress portion later this week. Patient will be scheduled for follow-up with cardiology in one to 2 weeks unless he needs to be seen sooner. He is agreeable to follow-up as outpatient. Plan reviewed and discussed with primary service. Qualifiers: Chest pain type: precordial pain Qualified Code(s): R07.2 - Precordial pain (2) CAD (coronary artery disease) Current Visit: Yes Status: Chronic Per Cardiology: Non-STEMI with peak troponin 0.March. Last heart catheterization at [facility] and subsequent CABG 3, however upon review of last office note by Dr. Harley patient with HUBER to LAD and SVG to PDA. On aspirin, Plavix, statin, beta corona, and TROY inhibitor. Patient with no previous history of stenting. Per discussion with Dr. Ortega, recommend discontinuing Plavix at this time. Recommend providing SL nitroglycerin pill at discharge. Patient provide education regarding utilization of nitroglycerin pills and when to call 911. Qualifiers: Coronary Disease-Associated Artery/Lesion type: [place] artery [place] vs. transplanted heart: [place] heart Associated angina: angina presence unspecified Qualified Code(s): I25.10 - Atherosclerotic heart disease of [place] coronary artery without angina pectoris (3) Hypertension Current Visit: Yes Status: Acute Per Cardiology: Present with systolic blood pressure in the 180s to 200s, suspect contributing factor to troponin leak. Patient noted to be hypotensive with systolic blood pressure in the 80s during attempted stress portion of nonexercise nuclear stress test yesterday. Current systolic blood pressures running 140s to 160s. Qualifiers: Hypertension type: essential hypertension Qualified Code(s): I10 - Essential (primary) hypertension (4) Peripheral neuropathy Current Visit: Yes Status: Acute Per Cardiology: Management per primary service. 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 No myelitis ". Potential contributing factor to chest pain symptoms. Qualifiers: Peripheral neuropathy type: polyneuropathy associated with underlying disease Qualified Code(s): G63 - Polyneuropathy in diseases classified elsewhere Discussion w patient/family: The assessment and plan as outlined above was discussed with the patient who expressed understanding and agreement. All questions were answered. Thank you for involving us in the care of your patient. Please call with any questions. Subjective Principal diagnosis: CP, Troponin Elevation Interval history: Patient denies any chest pain, shortness of breath, or palpitations overnight. Denies any clinical concerns other than needing his gabapentin for his neuropathy. Patient frustrated today regarding cancellation of his stress test. Objective Vital Signs, Last 4 Hours Temp Pulse Resp BP Pulse Ox 09/22/16 07:56 98.6 F 61 20 167/89 09/22/16 04:07 98.3 F 64 16 145/80 95 General: Conversant, No Apparent Distress HEENT: Atraumatic, Normocephaly Cardiac: Reg Rate and Rhythm, Normal S1 and S2, No Murmur Lungs: Normal Breath Sounds, No Wheeze, Rales, Rhonchi Neuro: Alert and responsive, No focal deficits noted Skin: No rashes noted on visualized skin Results 09/21/16 03:43 09/21/16 03:43 Active Medications Albuterol Sulfate (Albuterol Inhaler) 2 puff IH Q4H PRN PRN Reason: Shortness Of Breath Stop: 03/22/17 15:40 Allopurinol (Zyloprim) 300 mg PO DAILY [facility]ER Stop: 03/23/17 09:01 Last Admin: 09/21/16 08:27 Dose: 300 mg Amitriptyline HCl (Elavil) 25 mg PO HS PRN PRN Reason: Anxiety Stop: 03/22/17 15:40 Aspirin (Aspirin Ec) 81 mg PO DAILY [facility]ENN[facility]ER Stop: 03/22/17 15:46 Last Admin: 09/21/16 08:27 Dose: 81 mg Atorvastatin Calcium (Lipitor) 80 mg PO DAILY [facility] Stop: 03/23/17 09:01 Last Admin: 09/21/16 08:27 Dose: 80 mg Clopidogrel Bisulfate (Plavix) 75 mg PO DAILY [facility] Stop: 03/22/17 15:46 Last Admin: 09/21/16 08:27 Dose: 75 mg Dextrose/Water (Dextrose 50% (Syg)) 25 ml IVP AD PRN PRN Reason: Hypoglycemia Stop: 03/22/17 15:50 Enoxaparin Sodium (Lovenox) 40 mg SQ 0700 JENNIFER PRN Reason: Protocol Stop: 09/25/16 07:01 Last Admin: 09/22/16 06:12 Dose: 40 mg Furosemide (Lasix) 40 mg PO DAILY [facility] Stop: 03/22/17 15:46 Last Admin: 09/21/16 08:27 Dose: 40 mg Gabapentin (Neurontin) 1,200 mg PO TID [facility] Stop: 03/22/17 15:46 Last Admin: 09/21/16 21:00 Dose: 1,200 mg Glucagon (Glucagen) 1 mg IM ONCE PRN PRN Reason: Hypoglycemia Stop: 03/22/17 15:50 Glucose (Gluctose) 15 gm PO ONCE PRN PRN Reason: Hypoglycemia Stop: 03/22/17 15:50 Glucose (Gluctose) 30 gm PO ONCE PRN PRN Reason: Hypoglycemia Stop: 03/22/17 15:50 Dextrose (Dextrose 5%) 1,000 mls @ 100 mls/hr IV CONT PRN PRN Reason: HYPOGLYCEMIA Stop: 03/22/17 15:50 Insulin Human Regular (Concentrated (Humulin R U-500) 33 unit SQ BID JENNIFER PRN Reason: Protocol Stop: 09/26/16 21:01 Last Admin: 09/21/16 21:01 Dose: 33 unit Lisinopril (Zestril) 20 mg PO DAILY JENNIFER PRN Reason: Protocol Stop: 03/23/17 09:01 Last Admin: 09/21/16 08:27 Dose: 20 mg Metoprolol Tartrate (Lopressor) 25 mg PO BID [facility]ENN[facility]ER Stop: 03/22/17 21:01 Last Admin: 09/21/16 21:01 Dose: 25 mg Morphine Sulfate (Morphine Sulfate) 4 mg IVP Q4HR PRN PRN Reason: Pain Stop: 03/22/17 12:14 Last Admin: 09/20/16 16:01 Dose: 4 mg Multivitamins/Calcium (Thera M Plus) 1 tab PO DAILY JENN[facility]ER Stop: 03/22/17 15:46 Last Admin: 09/21/16 08:27 Dose: 1 tab Nitroglycerin (Nitroglycerin) 0.4 mg SL Q5MIN PRN PRN Reason: Chest Pain Stop: 03/22/17 07:34 Last Admin: 09/20/16 07:37 Dose: 0.4 mg Pharmacy Profile Note (Patient Taking Own Medication) 0 each SQ QWEEK [facility]ENN[facility]ER Stop: 03/22/17 15:46 Last Admin: 09/20/16 16:27 Dose: Not Given Potassium Chloride (Potassium Chloride) 20 meq PO DAILY [facility]ENN[facility]ER Stop: 03/23/17 09:01 Last Admin: 09/21/16 08:27 Dose: 20 meq - Imaging and Cardiology Stress Test: pending Echo: report reviewed - EKG Interpretation EKG results cardiology: other (24 hour telemetry reviewed with average heart rate 66, sinus rhythm, no significant events noted) Consult Discharge Plan - Plan Instructions: Diabetes Mellitus Type 2 in Adults (DC), Chronic Hypertension (DC ) Referrals: Wilmer,Azul Mejia CNP [Primary Care Provider] - 09/28/16 11:00 am Prescriptions: Nitroglycerin 0.4 mg SL Q5MIN PRN #20 tab.subl PRN Reason: Chest Pain
[2016-09-22] MEDS: Multivit/Ca/Min/Fe/FA 1 TAB TABLET PO SCH (09:48)
[2016-09-22] MEDS: Gabapentin 400 MG CAPSULE PO SCH (09:48)
[2016-09-22] MEDS: Furosemide 40 MG TABLET PO SCH (09:49)
[2016-09-22] MEDS: Aspirin Enteric Coated 81 MG Tablet PO SCH (09:49)
[2016-09-22] MEDS: Lisinopril 20 MG TABLET PO SCH (09:51)
--- NOTE | 2016-09-22 10:10 | Discharge Summary ---
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 Status: Acute (3) Hypertension Status: Acute Qualifiers: Hypertension type: essential hypertension Qualified Code(s): I10 - Essential (primary) hypertension (4) Peripheral neuropathy Status: Acute Qualifiers: Peripheral neuropathy type: polyneuropathy associated with underlying disease Qualified Code(s): G63 - Polyneuropathy in diseases classified elsewhere - Discharge Medications Prescriptions: Nitroglycerin 0.4 mg SL Q5MIN PRN #20 tab.subl PRN Reason: Chest Pain Home Medications: Allopurinol [Zyloprim] 300 mg PO DAILY 04/11/15 [History] Aspirin Enteric Coated [Aspirin EC] 81 mg PO DAILY 04/11/15 [History] Atorvastatin Calcium [Lipitor] 80 mg PO DAILY 04/11/15 [History] Gabapentin [Neurontin] 1,200 mg PO TID 04/11/15 [History] Furosemide [Lasix] 40 mg PO DAILY 05/23/15 [History] Insulin Regular U-500 [HumuLIN R U-500] 33 unit SQ BID 05/23/15 [History] Metoprolol [Lopressor] 25 mg PO BID 05/23/15 [History] Multivitamin [One Daily Essential] 1 tab PO DAILY 05/23/15 [History] Albuterol Sulfate [Proair Hfa] 2 puff IH Q4H PRN 09/20/16 [History] Amitriptyline [Elavil] 25 mg PO HS 09/20/16 [History] Exenatide Microspheres [Bydureon Pen] 2 mg SQ QWEEK 09/20/16 [History] Lisinopril [Zestril] 20 mg PO DAILY 09/20/16 [History] Potassium Chloride [K-Tab ER] 20 meq PO DAILY 09/20/16 [History] Nitroglycerin 0.4 mg SL Q5MIN PRN #20 tab.subl 09/22/16 [Rx] Allergies/Adverse Reactions: Allergies Penicillins Allergy (Mild, Verified 09/20/16 13:50) Rash Procedures/tests Complete & Pending: Procedures Performed prior 72 hours Category Date Time Status NM claribel perf SPECT multi [NM] Routine Exams 09/21/16 10:24 Taken MR cervical spine wo/w con [MR] Stat MRI 09/20/16 12:06 Completed MR lumbar spine wo/w con [MR] Stat MRI 09/20/16 12:06 Completed MR thoracic spine wo/w con [MR] Stat MRI 09/20/16 12:06 Completed EKG [ECG 12 lead ECG] [ECG] Routine Y 09/20/16 17:40 Ordered EV echocardiogram Routine Y 09/21/16 10:07 Completed SP pharm nuclear stress Routine Y 09/23/16 08:00 Ordered Date of admission: 09/20/16 08:14 Primary care physician: Azul Guillen CNP Consults: 09/21/16 07:00 Consult to Cardiology [CONS] Routine Comment: Consulting Provider: Cardiology Rosey Reason for Consult: Stress test vs Cath vs ECHO. New onset Chest pain. Possible EKG changes. Trop .07 x2. CABAG 2014. Call Completed: No Discharging clinician: Scott Hanna Anticipated date of discharge: 09/22/16 - Patient Status Disposition: Left Against Medical Advice Condition: Fair Functional capacity at discharge: independent ambulation Overall status at discharge: patient is back to baseline - Discharge Instructions Instructions: Diabetes Mellitus Type 2 in Adults (DC), Chronic Hypertension (DC ) Follow Up With: Azul Guillen CNP [Primary Care Provider] - 09/28/16 11:00 am - Diet and Activity Activity: resume usual activities as tolerated Diet: diabetic diet Hospital course: Mr. Randle is a 66 year old male CABAG, per cardiology patient can stop plavix and continue with the asprin. - Time Spent with Patient Total time spent providing and/or coordinating discharge services: - Constitutional Vitals: Temp Pulse Resp BP Pulse Ox 98.6 F 61 20 167/89 95 09/22/16 07:56 09/22/16 07:56 09/22/16 07:56 09/22/16 07:56 09/22/16 04:07 General appearance: Present: A&O X 3, obese, answers questions appropriately <Nadir Gardner - Last Filed: 09/22/16 18:01> Date of Encounter: 09/22/16 - Discharge Diagnosis (1) Chest pain Priority: Primary Status: Acute Qualifiers: Chest pain type: precordial pain Qualified Code(s): R07.2 - Precordial pain (2) Peripheral neuropathy Priority: Secondary Status: Acute Qualifiers: Peripheral neuropathy type: polyneuropathy associated with underlying disease Qualified Code(s): G63 - Polyneuropathy in diseases classified elsewhere (3) 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 Priority: Secondary Status: Acute (4) Hypertension Priority: Secondary Status: Acute Qualifiers: Hypertension type: essential hypertension Qualified Code(s): I10 - Essential (primary) hypertension (5) Diabetes Priority: Secondary Status: Acute Qualifiers: Diabetes mellitus type: type 2 Diabetes mellitus complication status: with neurologic complications Diabetes mellitus complication detail: with polyneuropathy Diabetes mellitus skilled nursing insulin use: with intermediate card tender use Qualified Code(s): E11.42 - Type 2 diabetes mellitus with diabetic polyneuropathy; 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 Randle is a 66 year old male - Time Spent with Patient Total time spent providing and/or coordinating discharge services: - Constitutional Vitals: Temp Pulse Resp BP Pulse Ox 98.6 F 61 20 167/89 95 09/22/16 07:56 09/22/16 07:56 09/22/16 07:56 09/22/16 07:56 09/22/16 04:07 - Attending Attestation I examined this patient and my medical decision-making was reviewed with the Resident Physician on 09/22/16. I agree with the documented findings, disposition and treatment plan as described except to the extent set forth below. Mr. Randle is very frustrated. He had first part of stress test yesterday ( rest) and was injected for rest not stress today. He wants to leave. He is going to leave AMA. Exam Alert. Comfortable Heart reg No wheeze Plan D/C AMA - he has been educated by card and med team about risks Scripts written.
[2016-09-23] MEDS ORDERED: Regadenoson 0.4 MG/5 ML SYRINGE IVP ONE (06:55)
[2016-09-23] MEDS: Regadenoson 0.4 MG/5 ML SYRINGE IVP ONE ×2 (06:56→08:56)
--- NOTE | 2016-10-04 10:59 | Internal Med Progress Note ---
Date of Encounter: 09/21/16 Time of Encounter: 10:57 - Assessment and plan (1) Chest pain Status: Acute Assessment and plan: No further pain since admit. Had first part of stress test today. Remainder will be tomorrow. Troponins negative. Qualifiers: Chest pain type: precordial pain Qualified Code(s): R07.2 - Precordial pain (2) Peripheral neuropathy Status: Chronic Assessment and plan: Related to diabetes. Seems to be improved at the current time. 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 (4) Hypertension Status: Acute Assessment and plan: Continue home meds. Controlled at this time. Qualifiers: Hypertension type: essential hypertension Qualified Code(s): I10 - Essential (primary) hypertension (5) Diabetes Status: Chronic Assessment and plan: Continue monitoring. 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 He remains moderate risk due to potential for worsening cardiac symptoms. Mr. Randle had part of his stress test today. Second half is to be tomorrow. No further chest pain. Denies SOB. Morphine seemed to make neuropathic pain much better and he has not needed any more since yesterday. - Constitutional Vitals: Temp Pulse Resp BP Pulse Ox 98.6 F 61 20 167/89 95 09/22/16 07:56 09/22/16 07:56 09/22/16 07:56 09/22/16 07:56 09/22/16 04:07 General appearance: Present: A&O X 3, obese, answers questions appropriately - Head Head exam: Present: normocephalic - Eye Eye exam: Present: conjuntiva pink - ENT ENT exam: Present: mucous membranes moist, normal exam - Respiratory Respiratory exam: Present: decreased breath sounds, CTAB. Absent: rhonchi, wheezes - Cardiovascular Cardiovascular exam: Present: distant heart sounds, RRR. Absent: tachycardia - GI/Abdominal GI/Abdominal exam: Present: soft. Absent: tenderness - Extremities Exam Extremities exam: Present: warm Additional comments: Dependent rubor present - Neurological Exam Neurological exam: Present: alert, oriented X3 - Psychiatric Psychiatric exam: Present: normal affect, normal mood - Skin Skin exam: Present: warm Internal Medicine: Result - Labs CBC & Chem 7: 09/21/16 03:43 09/21/16 03:43 - ABG Interpretation ABG results: PT/INR, D-dimer PT 12.0 Seconds (9.4-12.1) 09/21/16 03:43 Consult Discharge Plan - Plan Instructions: Diabetes Mellitus Type 2 in Adults (DC), Chronic Hypertension (DC ) Referrals: Azul Guillen CNP [Primary Care Provider] - 09/28/16 11:00 am Prescriptions: Nitroglycerin 0.4 mg SL Q5MIN PRN #20 tab.subl PRN Reason: Chest Pain
== END 2016-09-22 11:15 | disposition left against medical advice (07) | DRG 311 ==
LOC: EMEROO 05:25 → 2NENU 05:25
PROVIDERS: ADMIT Internal Medicine; ATTEND Internal Medicine

== ENCOUNTER 2016-09-23 16:27 | Inpatient (IN) ==
[2016-09-23] MEDS ORDERED: Aspirin 81 MG TAB.CHEW PO ONE (16:47)
--- NOTE | 2016-09-23 16:52 | Emergency Department Note ---
Disposition Clinical Impression: Unstable angina, ACS (acute coronary syndrome), Diabetic neuropathy, painful, Nausea Disposition: Admitted As Inpatient Condition: Fair Time of Disposition: 17:33 Chest Pain HPI - General Stated Complaint: CHest Pain Source: patient Limitations: no limitations Vital Signs Reviewed: Yes Nursing Notes Reviewed: Yes - History of Present Illness HPI Narrative: Patient is a 66-year-old male presents with chest pain as started 2 hours ago. Patient past medical history significant for triple bypass, COPD, hypertension, diabetes mellitus Patient reports that he had this pain before just 4 days ago. Patient was admitted to the hospital then but left AGAINST MEDICAL ADVICE yesterday. Patient reports back in today after having a stress test this morning. Patient's cleaning technician is Dr. Buchanan. Patient states chest pain 8 out of 10 left upper quadrant of his left chest with radiation to his left shoulder. Patient states the pain is pressure and constant. Patient has not had his aspirin today. Patient also states that his diabetic neuropathy both legs painful at 9 out of 10. Patient states that his pain on Wednesday resolved with aspirin and nitroglycerin. Severity scale (1-10): 8 - Related Data Home Medications Medication Instructions Recorded Confirmed Allopurinol [Zyloprim] 300 mg PO DAILY 04/11/15 09/23/16 Aspirin Enteric Coated [Aspirin EC] 81 mg PO DAILY 04/11/15 09/23/16 Atorvastatin Calcium [Lipitor] 80 mg PO DAILY 04/11/15 09/23/16 Gabapentin [Neurontin] 1,200 mg PO TID 04/11/15 09/23/16 Furosemide [Lasix] 40 mg PO DAILY 05/23/15 09/23/16 Insulin Regular U-500 [HumuLIN R 160 - 185 unit SQ BID 05/23/15 09/23/16 U-500] Metoprolol [Lopressor] 25 mg PO BID 05/23/15 09/23/16 Multivitamin [One Daily Essential] 1 tab PO DAILY 05/23/15 09/23/16 Albuterol Sulfate [Proair Hfa] 2 puff IH Q4H PRN 09/20/16 09/23/16 Amitriptyline [Elavil] 25 mg PO HS 09/20/16 09/23/16 Exenatide Microspheres [Bydureon 2 mg SQ QWEEK 09/20/16 09/23/16 Pen] Lisinopril [Zestril] 20 mg PO DAILY 09/20/16 09/23/16 Potassium Chloride [K-Tab ER] 20 meq PO DAILY 09/20/16 09/23/16 Previous Rx's Medication Instructions Recorded Nitroglycerin 0.4 mg SL Q5MIN PRN #20 tab.subl 09/22/16 Atorvastatin [Lipitor] 80 mg PO HS #30 tablet 09/25/16 Clopidogrel [Plavix] 75 mg PO DAILY #30 tablet 09/25/16 Allergies Allergy/AdvReac Type Severity Reaction Status Date / Time Penicillins Allergy Mild Rash Verified 09/20/16 13:50 Review of Systems: Patient admits to nausea, chest pain, shortness of breath. Patient denies vomiting, fever, chills, lightheadedness, dizziness, changes in vision, cough. Patient has extremity pain secondary to worsening neuropathy. Patient has bilateral lower leg edema All systems ED: reviewed and negative except as stated. Chest Pain PMH - Past Medical History Medical history: Reports: atrial fibrillation, CHF, coronary artery disease, diabetes, hyperlipidemia, hypertension, myocardial infarction, other Surgical history: Reports: cholecystectomy, coronary bypass (CABG) (CABG 3 at [facility] March 2015.), orthopedic, other Psychiatric history: Reports: no psych history - Social History Smoking Status: Never smoker Alcohol use: Reports: rarely Drug use: Reports: none Physical Exam Vital Signs Temperature 97.2 F L 09/23/16 16:30 Pulse Rate 81 09/23/16 16:30 Respiratory Rate 18 09/23/16 16:30 Blood Pressure 196/95 09/23/16 16:30 O2 Sat by Pulse Oximetry 98 09/23/16 16:30 Temperature 97.2 F L 09/23/16 16:30 Pulse Rate 81 09/23/16 16:30 Respiratory Rate 18 09/23/16 16:30 Blood Pressure 196/95 09/23/16 16:30 O2 Sat by Pulse Oximetry 98 09/23/16 16:30 Oxygen Delivery Oxygen Delivery Room Air -General Appearance: Patient is a 66-year-old male who is alert and oriented 3 and in no acute distress. Patient appears calm to at this time. -Neurological exam: Cranial nerves II-12 intact, no focal deficits observed, strength equal 5/5 bilaterally in upper and lower extremities - Head Head exam: atraumatic, normocephalic, normal inspection - Eye Eye exam: Present: normal appearance, PERRL, EOMI, negative for scleral icterus negative for conjunctival pallor - ENT ENT exam: normal exam, normal oropharynx, mucous membranes moist - Neck Neck exam: Present: normal inspection, full ROM, trachea midline, negative JVD - Chest Chest inspection: Present: Patient has bilateral equal rise and fall of chest wall. Non-tender to palpation. - Respiratory Respiratory exam: Clear to auscultation bilaterally without wheezes rales or rhonchi Cardiovascular Cardiovascular exam: Present: regular rate, normal rhythm, normal heart sounds, without murmurs rubs or gallops. - Abdominal Exam Abdominal exam: Present: soft, nondistended, tender to deep palpation lower right and lower left quadrant Bowel sounds normoactive throughout all 4 quadrants. Negative for hyper or hyperresonance. - Extremities Exam Extremities exam: Present: normal inspection, full ROM bilateral lower leg edema pitting 1+, pulses equal radial and pedal - Back Exam Back exam: Present: normal inspection, full ROM. Absent: tenderness, CVA tenderness (R), CVA tenderness (L) - Psychiatric Psychiatric exam: Present: normal affect, normal mood - Skin Skin exam: Present: warm, dry, intact, normal color - General Limitations: no limitations General appearance: alert, in no apparent distress Course Course Narrative: Patient seen and examined. Troponin ordered EKG ordered - Reevaluation(s) Reevaluation #1: Patient had persistent nitroglycerin no change in his chest pressure. Patient states still an 8 out of 10. Patient's blood pressure did come down to 136/76 second dose of nitroglycerin administered. - Consultations Consultation #1: Dr. Ortega of cardiology was consulted. He states as long as patient does not have a change in his troponins that he does not require to be started on heparin. Once patient admitted to the hospital and to expect heart catheterization in the morning he states the patient had an abnormal stress test earlier today. Time: 16:58 Consultation #2: Dr. West is accepted patient for admission Time: 17:32 Vital Signs Temperature 97.2 F L 09/23/16 16:30 Pulse Rate 81 09/23/16 16:30 Respiratory Rate 18 09/23/16 16:30 Blood Pressure 196/95 09/23/16 16:30 O2 Sat by Pulse Oximetry 98 09/23/16 16:30 Temperature 98.1 F 09/25/16 07:34 Pulse Rate 62 09/25/16 07:34 Respiratory Rate 15 09/25/16 07:34 Blood Pressure 131/66 09/25/16 07:34 O2 Sat by Pulse Oximetry 97 09/25/16 07:34 Oxygen Delivery Oxygen Delivery Room Air Chest Pain - MDM Narrative Medical decision making narrative: 66-year-old male with history of triple bypass, diabetes mellitus, hypertension , COPD presents with chest pain/pressure left upper chest with radiation to left shoulder. Patient consented for days ago with similar chest pain that resolved with nitroglycerin and aspirin and patient was admitted the patient left AGAINST MEDICAL ADVICE yesterday. Patient had a stress test this morning with cardiology. 2 hours prior to admission patient had sudden onset of chest pressure again. Troponin was ordered. Aspirin and nitroglycerin administered. Patient had no change in his chest pressure after 1 dose of nitroglycerin but blood pressure, down to 136/76 from 196/95. Dr. Ortega of cardiology was consult at. He stated patient had a abnormal stress test this morning. He recommends admitting the patient to the hospital. The patient's troponin has not changed he does not recommend starting on heparin. He states that patient will have a heart catheterization tomorrow morning. Patient's troponin 0.06 today. Patient has a heart score of 8 Patient is accepted for admission by Dr. West - Lab Data Result diagrams: 09/23/16 22:14 09/23/16 22:14 Lab Results 09/23/16 09/23/16 09/23/16 Range/Units 16:45 22:14 22:14 WBC 11.0 (4.3-11.1) K/mcL RBC 5.02 (4.19-5.50) M/mcL Hgb 15.6 (12.9-16.9) g/dL Hct 46.3 (37.5-50.1) % MCV 92.2 (83.0-100.0) fL MCH 31.1 (28.0-33.3) pg MCHC 33.7 (31.6-35.5) g/dL RDW 13.7 (11.5-14.5) % Plt Count 190 (140-400) K/mcL MPV 10.7 (9.4-12.4) fL Immature Gran % 0.3 (0-4) % Seg Neutrophils % 50.4 % Lymphocytes % 40.8 % Monocytes % 6.6 % Eosinophils % 1.6 % Basophils % 0.3 % Neutrophils # 5.6 (1.6-8.9) K/mcL Lymphocytes # 4.5 (0.6-4.6) K/mcL Monocytes # 0.7 (0.0-1.3) K/mcL Eosinophils # 0.2 (0.0-0.6) K/mcL Basophils # 0.0 (0.0-0.2) K/mcL Sodium (136-145) mEq/L Potassium (3.5-4.5) mEq/L Chloride (98-109) mEq/L Carbon Dioxide (19-29) mEq/L BUN (8-26) mg/dL Creatinine (0.72-1.25) mg/dL Est GFR ( Amer) (> 60) Est GFR (Non-Af Amer) (> 60) BUN/Creatinine Ratio (6-26) Glucose (70-99) mg/dL Calculated Osmolality (280-300) Calcium (8.6-10.8) mg/dL Magnesium 1.7 (1.6-2.6) mg/dL Troponin I 0.06 H* (0-0.03) ng/mL 09/23/16 09/23/16 Range/Units 22:14 22:14 WBC (4.3-11.1) K/mcL RBC (4.19-5.50) M/mcL Hgb (12.9-16.9) g/dL Hct (37.5-50.1) % MCV (83.0-100.0) fL MCH (28.0-33.3) pg MCHC (31.6-35.5) g/dL RDW (11.5-14.5) % Plt Count (140-400) K/mcL MPV (9.4-12.4) fL Immature Gran % (0-4) % Seg Neutrophils % % Lymphocytes % % Monocytes % % Eosinophils % % Basophils % % Neutrophils # (1.6-8.9) K/mcL Lymphocytes # (0.6-4.6) K/mcL Monocytes # (0.0-1.3) K/mcL Eosinophils # (0.0-0.6) K/mcL Basophils # (0.0-0.2) K/mcL Sodium 138 (136-145) mEq/L Potassium 4.3 (3.5-4.5) mEq/L Chloride 104 (98-109) mEq/L Carbon Dioxide 24 (19-29) mEq/L BUN 22 (8-26) mg/dL Creatinine 1.33 H (0.72-1.25) mg/dL Est GFR ( Amer) > 60 (> 60) Est GFR (Non-Af Amer) 53 L (> 60) BUN/Creatinine Ratio 17 (6-26) Glucose 260 H (70-99) mg/dL Calculated Osmolality 298 (280-300) Calcium 9.5 (8.6-10.8) mg/dL Magnesium (1.6-2.6) mg/dL Troponin I 0.07 H* (0-0.03) ng/mL - EKG Data EKG attestation: Yes I reviewed and interpreted this EKG. EKG results narrative: EKG taken 09/23/2016 at 1636 hrs. shows a sinus rhythm with no acute ST abnormalities. Presence of first-degree AV block No change from previous EKG taken 09/20/2016 Heart Score - Score History: Highly Suspicious EKG: Non Specific repolarisation Disturbance Age: Greater than 65 Risk Factors: Equal/Greater than 3 risk factor or history of atherosclerotic disease Troponin: 1-3x normal limit HEART Score Total: 8 Attestation Statement - Attestation Attestation: I examined this patient and my medical decision-making was reviewed with the Resident Physician. I agree with the documented findings, disposition and treatment plan as described.
[2016-09-23] MEDS: Nitroglycerin 0.4 MG TAB.SUBL SL PRN ×3 (16:59→17:42)
[2016-09-23] MEDS ORDERED: Acetaminophen 325 MG TABLET PO PRN (21:43)
[2016-09-23] MEDS ORDERED: Naloxone 0.4 MG/ML INJ IVP PRN (21:43)
[2016-09-23] MEDS ORDERED: Ondansetron 4 MG/2 ML VIAL IVP PRN (21:43)
[2016-09-23] MEDS ORDERED: *HR* Dextrose 50 % in Water (Syg) 50 ML SYRINGE IVP PRN (21:54)
[2016-09-23] MEDS ORDERED: Dextrose Gel 15 GM PO PRN ×2 (21:54)
[2016-09-23] MEDS ORDERED: D5% in Water 1,000 ML IV PRN (21:54)
[2016-09-23 22:38] LABS: Basophils % 0.3 %; Eosinophils # 0.2 K/mcL (0.0-0.6); Eosinophils % 1.6 %; Hematocrit 46.3 % (37.5-50.1); Hemoglobin 15.6 g/dL (12.9-16.9); Immature Granulocytes % 0.3 % (0-4); Lymphocytes # 4.5 K/mcL (0.6-4.6); Lymphocytes % 40.8 %; Mean Corpuscular HGB Conc 33.7 g/dL (31.6-35.5); Mean Corpuscular Hemoglobin 31.1 pg (28.0-33.3); Mean Corpuscular Volume 92.2 fL (83.0-100.0); Mean Platelet Volume 10.7 fL (9.4-12.4); Monocytes # 0.7 K/mcL (0.0-1.3); Monocytes % 6.6 %; Neutrophils # 5.6 K/mcL (1.6-8.9); Platelet Count 190 K/mcL (140-400); Red Blood Count 5.02 M/mcL (4.19-5.50); Red Cell Distribution Width 13.7 % (11.5-14.5); Segmented Neutrophils % 50.4 %
[2016-09-23 22:49] LABS: BUN/Creatinine Ratio 17 (6-26); Blood Urea Nitrogen 22 mg/dL (8-26); Calcium 9.5 mg/dL (8.6-10.8); Carbon Dioxide 24 mEq/L (19-29); Chloride 104 mEq/L (98-109); Glucose 260 mg/dL (70-99); Osmolality,Calculated 298 (280-300); Potassium 4.3 mEq/L (3.5-4.5); Sodium 138 mEq/L (136-145); eGFR For African Americans > 60 (> 60); eGFR For Non-African Americans 53 (> 60)
[2016-09-23] MEDS: *HR* Morphine 2 MG/ML SYRINGE IVP PRN (23:13)
--- NOTE | 2016-09-23 23:15 | Internal Med History&Physical ---
Date of Encounter: 09/23/16 Time of Encounter: 22:30 Assessment and Plan (1) Chest pain Current visit: No Status: Acute 1. patient has been experiencing off and on CP over past 4 days. He has an extensive cardiac hx and underwent a stress test this AM. Troponin 0.06 unchanged from previous presentation. We will continue to cycle cardiac troponins into these be elevated we will initiate on heparin drip 2 consult cardiology patient will undergo cardiac catheter in the a.m. Patient will be nothing by mouth after midnight 3 nitroglycerin morphine as needed for chest pain 4 oxygen as needed to maintain SPO2 greater than 92% 5 continuous cardiac monitoring Qualifiers: Chest pain type: precordial pain Qualified Code(s): R07.2 - Precordial pain (2) COPD (chronic obstructive pulmonary disease) Current visit: Yes Status: Acute 1 presently stable no wheezing noted will continue with oxygen as needed maintain SPO2 greater than 92% 2 bronchodilators as needed Qualifiers: COPD type: unspecified COPD Qualified Code(s): J44.9 - Chronic obstructive pulmonary disease, unspecified (3) 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 Current visit: Yes Status: Chronic 1 Accu-Cheks before meals at bedtime with sliding scale insulin-goals maintained postprandial less than 180 (4) Hypertension Current visit: No Status: Acute 1 we will continue with lisinopril metoprolol close maintain systolic blood pressure less than 140 Qualifiers: Hypertension type: essential hypertension Qualified Code(s): I10 - Essential (primary) hypertension (5) CAD (coronary artery disease) Current visit: No Status: Chronic 1 we will continue with aspirin and beta corona Bird, will obtain lipid profile Qualifiers: Coronary Disease-Associated Artery/Lesion type: [place] artery [place] vs. transplanted heart: [place] heart Associated angina: angina presence unspecified Qualified Code(s): I25.10 - Atherosclerotic heart disease of [place] coronary artery without angina pectoris (6) DVT prophylaxis Current visit: Yes Status: Acute 1) heparin subcutaneous Internal Medicine - H&P: HPI Chief complaint: CP Admitted From: Home Plans for Post Hospital Care: Home History of present illness: Mr. Randle is a 66 year old male with a past medical hx of HTN COPD DM diabetic neuropathy CAD CABGx3 2014, CHF. The patient had CP 4 days ago and presented to the ED Wednesday and was admitted . He left AMA yesterday without completion of stress test. He reported back today after having stress this morning. He began to experience midsternal chest pressure with SOB and nausea as well as neuropathy pain that radiated to his left shoulder . There were no aggravating factors and was relieved with nitro. He presented to the ED. He was noted to have an elevated troponin at 0.06. EKG with no ST T wave changes. ER notified cardiology via telephone and spoke with Dr Diaz who advised to admit patient and would perform cardiac cath in am. Patient was admitted for further workup and evaluation. Presently the patient continues to complain of neuropathy and intermittent chest pressure. He is requesting pain medication for neuropathy . He is hemodynamically stable at this time . I reviewed the case with Dr Weathers who agrees with plan Past Med Surg Social Fam HX - Past Medical History Medical history: atrial fibrillation, CHF, coronary artery disease, diabetes, hyperlipidemia, hypertension, myocardial infarction, other Psychiatric history: no psych history - Past Surgical History Surgical History: cholecystectomy, coronary bypass (CABG), orthopedic, other - Social History Smoking Status: Never smoker Smokeless Tobacco Status: No Alcohol use: rarely Drug use: none - Family History Mother Adopted: No Family Member Ethnicity: Non- Living Status: Hx Family Cardiac Disorders: No Hx Family Respiratory Disorders: Yes (COPD) Hx Family Cancer: Yes Hx Family GI Disorders: No Hx Family Endocrine Disorder: Yes (DM,thyroid) Hx Family Neuromuscular Disorders: Yes (neuropathy) Hx Family Neurologic Disorders: No Hx Family HEENT Disorders: No Hx Family Autoimmune Disorders: No Internal Medicine - H&P: Meds Allopurinol [Zyloprim] 300 mg PO DAILY 04/11/15 [History] Aspirin Enteric Coated [Aspirin EC] 81 mg PO DAILY 04/11/15 [History] Atorvastatin Calcium [Lipitor] 80 mg PO DAILY 04/11/15 [History] Gabapentin [Neurontin] 1,200 mg PO TID 04/11/15 [History] Furosemide [Lasix] 40 mg PO DAILY 05/23/15 [History] Insulin Regular U-500 [HumuLIN R U-500] 160 - 185 unit SQ BID 05/23/15 [History ] Metoprolol [Lopressor] 25 mg PO BID 05/23/15 [History] Multivitamin [One Daily Essential] 1 tab PO DAILY 05/23/15 [History] Albuterol Sulfate [Proair Hfa] 2 puff IH Q4H PRN 09/20/16 [History] Amitriptyline [Elavil] 25 mg PO HS 09/20/16 [History] Exenatide Microspheres [Bydureon Pen] 2 mg SQ QWEEK 09/20/16 [History] Lisinopril [Zestril] 20 mg PO DAILY 09/20/16 [History] Potassium Chloride [K-Tab ER] 20 meq PO DAILY 09/20/16 [History] Nitroglycerin 0.4 mg SL Q5MIN PRN #20 tab.subl 09/22/16 [Rx] Allergies Penicillins Allergy (Mild, Verified 09/20/16 13:50) Rash All Systems PM: A 10-system review of systems was performed and is negative for pertinent findings except as documented above in the HPI. - Constitutional Constitutional: no chills, no fever(s), no night sweats - Cardiovascular Cardiovascular ROS IM: chest pain, dyspnea, no diaphoresis, no lightheadedness, no palpitations, no syncope - Respiratory Respiratory: dyspnea, no cough, no wheezing, no excessive phlegm production - Gastrointestinal Gastrointestinal: nausea - Neurological Neurological ROS: no confusion, no convulsions, no focal weakness, no numbness, no tingling, no tremor(s) - Constitutional Vitals: Temp Pulse Resp BP Pulse Ox 98.2 F 69 17 159/77 97 09/23/16 20:34 09/23/16 20:34 09/23/16 20:34 09/23/16 20:34 09/23/16 20:34 General appearance: Present: A&O X 3, obese - Head Head exam: Present: atraumatic, normocephalic - Eye Eye exam: Present: PERRL, conjuntiva pink, sclera anicteric Pupils: Present: PERRL - Neck Neck exam general surgery: Present: supple, trachea midline. Absent: lymphadenopathy - Respiratory Respiratory exam: Present: CTAB. Absent: accessory muscle use, rales, rhonchi, wheezes - Cardiovascular Cardiovascular exam: Present: RRR, +S1, +S2. Absent: diastolic murmur, gallop, rubs, systolic murmur - GI/Abdominal GI/Abdominal exam: Present: normal bowel sounds, soft, no peritoneal signs. Absent: distended, tenderness - Extremities Exam Extremities exam: Present: cyanotic, pedal edema, warm, radial pulses palpable and symetrical. Absent: calf tenderness Additional comments: lower extremities dusky cool to touch - Neurological Exam Neurological exam: Present: CN II-XII intact, oriented X3, no focal deficits. Absent: pronater drift, facial droop, speech deficit - Skin Skin exam: Present: dry, intact Internal Med - H&P Results - Labs CBC & Chem 7: 09/23/16 22:14 09/23/16 22:14 Labs: Short CBC 09/23/16 Range/Units 22:14 WBC 11.0 (4.3-11.1) K/mcL Hgb 15.6 (12.9-16.9) g/dL Hct 46.3 (37.5-50.1) % Plt Count 190 (140-400) K/mcL Neutrophils # 5.6 (1.6-8.9) K/mcL BMP 09/23/16 22:14 Sodium 138 Potassium 4.3 Chloride 104 Carbon Dioxide 24 BUN 22 Creatinine 1.33 H Glucose 260 H Calcium 9.5 - EKG Data EKG shows normal: sinus rhythm Rate: normal - EKG Data EKG comments: 09/23/16 23:19 first degree AV block
[2016-09-23] MEDS: Insulin LISPRO 300 UNITS/3 ML VIAL SQ SCH (23:29)
[2016-09-24] MEDS: Nitroglycerin 0.4 MG TAB.SUBL SL PRN (00:42)
[2016-09-24] MEDS: *HR* Morphine 2 MG/ML SYRINGE IVP PRN ×2 (03:38→07:43)
[2016-09-24] MEDS: *HR* Heparin 5,000 UNIT/ML VIAL SQ SCH ×2 (05:17→18:08)
[2016-09-24 05:46] LABS: Chol/HDL Ratio 4.5 (0-4.9)
[2016-09-24] MEDS: Aspirin Enteric Coated 81 MG Tablet PO SCH (07:43)
[2016-09-24] MEDS: Lisinopril 20 MG TABLET PO SCH (07:43)
[2016-09-24] MEDS: Insulin LISPRO 300 UNITS/3 ML VIAL SQ SCH ×4 (07:44→21:48)
--- NOTE | 2016-09-24 08:36 | Cardiology Consult Note ---
Date of Encounter: 09/24/16 Time of Encounter: 09:00 Assessment and Plan (1) Chest pain Current Visit: No Status: Acute Per Cardiology: Continues to have atypical chest pain occurring at rest. Patient reports did not utilize nitroglycerin due to not feeling prescription yet. He does indicate nitroglycerin was relieved in the ER with nitroglycerin. 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 Peak troponin again 0.07 peak troponin during hospital cessation a few days ago 0.07 peak troponin during non-STEMI March 2015 0.45 with subsequent CABG 2. Currently chest pain-free. Qualifiers: Chest pain type: precordial pain Qualified Code(s): R07.2 - Precordial pain (2) Abnormal nuclear stress test Current Visit: Yes Status: Acute Per Cardiology: Completed nonexercise nuclear stress test. Patient was scheduled for outpatient follow-up today to discuss potential catheterization. Stress test results reviewed and discussed in showed medium-sized, mild to moderate intensity, reversible perfusion defect involving the inferolateral and anterolateral segments suggestive of ischemia. Patient agreeable to proceed with C today. Discussed and reviewed with Dr. Ortega. Further recs after catheterization. (3) CAD (coronary artery disease) Current Visit: No Status: Chronic Per Cardiology: Known history of CAD with CABG 2 at [facility] March 2015. Op report reviewed and confirmed bypass 2 with HUBER to LAD and SVG to right PDA. On aspirin, beta corona, TROY inhibitor. Will resume previous dose of statin. Plavix recently discontinued during previous hospital stay due to no recent stenting. Qualifiers: Coronary Disease-Associated Artery/Lesion type: [place] artery [place] vs. transplanted heart: [place] heart Associated angina: angina presence unspecified Qualified Code(s): I25.10 - Atherosclerotic heart disease of [place] coronary artery without angina pectoris Discussion w patient/family: The assessment and plan as outlined above was discussed with the patient who expressed understanding and agreement. All questions were answered. Thank you for involving us in the care of your patient. Please call with any questions. History of Present Illness Consult date: 09/24/16 Requesting physician: Nyasia Ambrosio Consult reason: CP Chief complaint: CP History of present illness: Mr. Randle is a 66 year old male with a relevant past medical history of CAD, hypertension, diabetes mellitus type 2, and paroxysmal atrial fibrillation. Patient recently left AMA and did not complete nonexercise nuclear stress test. Patient did return and complete stress portion as outpatient. Completed yesterday. Results noted show abnormal findings and was scheduled for outpatient follow-up this afternoon to discuss potential left heart catheterization. However, patient reports history evening he developed recurrence of his midsternal chest heaviness with accompanying tingling/pain throughout his entire body down to his feet. He reports he came back to the ER and chest pain was relieved with nitroglycerin. He reports the tingling sensations continued on and now relieved with proceeding IV morphine. Currently chest pain-free. He denies any new concerns or complaints. Denies any changes in his past medical history of the past few days. Past Med Surg Social Fam HX - Past Medical History Attestation: Yes The following information was validated with the patient. Source: patient, old records reviewed Medical history: atrial fibrillation, CHF, coronary artery disease, diabetes, hyperlipidemia, hypertension, myocardial infarction, other Psychiatric history: no psych history - Past Surgical History Surgical History: cholecystectomy, coronary bypass (CABG) (CABG 3 at [facility] March 2015.), orthopedic, other - Social History Smoking Status: Never smoker Smokeless Tobacco Status: No Alcohol use: rarely Drug use: none - Family History Mother Adopted: No Family Member Ethnicity: Non- Living Status: Hx Family Cardiac Disorders: No Hx Family Respiratory Disorders: Yes (COPD) Hx Family Cancer: Yes Hx Family GI Disorders: No Hx Family Endocrine Disorder: Yes (DM,thyroid) Hx Family Neuromuscular Disorders: Yes (neuropathy) Hx Family Neurologic Disorders: No Hx Family HEENT Disorders: No Hx Family Autoimmune Disorders: No Medications and Allergies Allopurinol [Zyloprim] 300 mg PO DAILY 04/11/15 [History] Aspirin Enteric Coated [Aspirin EC] 81 mg PO DAILY 04/11/15 [History] Atorvastatin Calcium [Lipitor] 80 mg PO DAILY 04/11/15 [History] Gabapentin [Neurontin] 1,200 mg PO TID 04/11/15 [History] Furosemide [Lasix] 40 mg PO DAILY 05/23/15 [History] Insulin Regular U-500 [HumuLIN R U-500] 160 - 185 unit SQ BID 05/23/15 [History ] Metoprolol [Lopressor] 25 mg PO BID 05/23/15 [History] Multivitamin [One Daily Essential] 1 tab PO DAILY 05/23/15 [History] Albuterol Sulfate [Proair Hfa] 2 puff IH Q4H PRN 09/20/16 [History] Amitriptyline [Elavil] 25 mg PO HS 09/20/16 [History] Exenatide Microspheres [Bydureon Pen] 2 mg SQ QWEEK 09/20/16 [History] Lisinopril [Zestril] 20 mg PO DAILY 09/20/16 [History] Potassium Chloride [K-Tab ER] 20 meq PO DAILY 09/20/16 [History] Nitroglycerin 0.4 mg SL Q5MIN PRN #20 tab.subl 09/22/16 [Rx] Allergies Penicillins Allergy (Mild, Verified 09/20/16 13:50) Rash All Systems Review: A 10-system review of systems was performed and is negative for pertinent findings except as documented above in the HPI. - Cardiovascular Cardiovascular: as per HPI, chest pain at rest, radiating jaw, neck or arm pain Physical Examination Vital Signs, Last 4 Hours Temp Pulse Resp BP Pulse Ox 09/24/16 07:59 97.3 F L 67 16 160/80 95 09/24/16 05:20 98.1 F 72 19 120/76 98 General: Conversant, No Apparent Distress HEENT: Atraumatic, Normocephaly, Mucus Membranes Moist Cardiac: Reg Rate and Rhythm, Normal S1 and S2, No Murmur Lungs: Normal Breath Sounds, No Wheeze, Rales, Rhonchi Neuro: Alert and responsive, No focal deficits noted Abdomen: Soft, Non-Tender Skin: Other (Bilateral lower extremities is dusky colored) Musculoskeletal: No Chest Wall Tenderness Extremities: Other (+2 nonpitting edema to bilateral lower extremities) Results 09/23/16 22:14 09/23/16 22:14 Lab Results Laboratory Tests 09/20/16 09/23/16 09/23/16 12:01 16:45 22:14 Creatinine 1.33 H Est GFR (Non-Af Amer) 53 L Troponin I 0.07 H* 0.06 H* 09/23/16 09/24/16 22:14 04:43 Creatinine Est GFR (Non-Af Amer) Troponin I 0.07 H* 0.05 H* Active Medications Acetaminophen (Tylenol) 650 mg PO Q6HR PRN PRN Reason: Mild Pain (1-3) Stop: 03/25/17 21:44 Albuterol Sulfate (Albuterol Inhaler) 2 puff IH Q4HR PRN PRN Reason: Shortness Of Breath/Wheezing Stop: 03/25/17 21:55 Allopurinol (Zyloprim) 300 mg PO DAILY [facility] Stop: 03/26/17 09:01 Last Admin: 09/24/16 07:43 Dose: 300 mg Amitriptyline HCl (Elavil) 25 mg PO HS [facility] Stop: 03/26/17 21:01 Aspirin (Aspirin Ec) 81 mg PO DAILY [facility] Stop: 03/26/17 09:01 Last Admin: 09/24/16 07:43 Dose: 81 mg Dextrose/Water (Dextrose 50% (Syg)) 25 ml IVP AD PRN PRN Reason: Hypoglycemia Stop: 03/25/17 21:55 Glucagon (Glucagen) 1 mg IM ONCE PRN PRN Reason: Hypoglycemia Stop: 03/25/17 21:55 Glucose (Gluctose) 15 gm PO ONCE PRN PRN Reason: Hypoglycemia Stop: 03/25/17 21:55 Glucose (Gluctose) 30 gm PO ONCE PRN PRN Reason: Hypoglycemia Stop: 03/25/17 21:55 Heparin Sodium (Porcine) (Heparin) 5,000 unit SQ Q12HCO [facility] Stop: 03/26/17 07:01 Last Admin: 09/24/16 05:17 Dose: Not Given Dextrose (Dextrose 5%) 1,000 mls @ 100 mls/hr IV CONT PRN PRN Reason: HYPOGLYCEMIA Stop: 03/25/17 21:55 Insulin Human Lispro (Humalog) 0 units SQ HS [facility] PRN Reason: Protocol Stop: 03/25/17 22:01 Last Admin: 09/23/16 23:29 Dose: 2 units Insulin Human Lispro (Humalog) 0 units SQ TIDAC [facility] PRN Reason: Protocol Stop: 03/26/17 07:31 Last Admin: 09/24/16 07:44 Dose: Not Given Lisinopril (Zestril) 20 mg PO DAILY [facility] PRN Reason: Protocol Stop: 03/26/17 09:01 Last Admin: 09/24/16 07:43 Dose: 20 mg Metoprolol Tartrate (Lopressor) 25 mg PO BID [facility] Stop: 03/25/17 22:01 Last Admin: 09/24/16 07:43 Dose: 25 mg Morphine Sulfate (Morphine Sulfate) 2 mg IVP Q4HR PRN PRN Reason: Moderate Pain Stop: 03/25/17 22:52 Last Admin: 09/24/16 07:43 Dose: 2 mg Naloxone HCl (Narcan) 0.4 mg IVP Q2MIN PRN PRN Reason: Opioid Reversal Stop: 03/25/17 21:44 Nitroglycerin (Nitroglycerin) 0.4 mg SL Q5MIN PRN PRN Reason: Chest Pain Stop: 03/25/17 16:48 Last Admin: 09/24/16 00:42 Dose: 0.4 mg Ondansetron HCl (Zofran) 4 mg IVP Q8HR PRN PRN Reason: Nausea And Vomiting Stop: 03/25/17 21:44 - Imaging and Cardiology Stress Test: report reviewed - EKG Interpretation EKG results cardiology: personally reviewed (Sinus rhythm in the 70s with nonspecific ST changes) Consult Discharge Plan - Plan Referrals: Azul Guillen [facility] [Primary Care Provider] -
--- NOTE | 2016-09-24 11:26 | Neurology - Consult Note ---
<Vern Lucas - Last Filed: 09/24/16 17:07> Date of Encounter: 09/24/16 Time of Encounter: 11:25 Assessment and Plan (1) Diabetic neuropathy, painful Current Visit: Yes Status: Acute - poorly controlled type II diabetes with a hemoglobin A-1 C 10.7 and glucose today of 297 - patient has diminished to absent sensation in his bilateral lower extremities with poor proprioception, he also has a noticeable foot drop to his right foot and reflexia in lower extremity - over the past several days patients neuropathy has worsened, he also has had intermittent chest pain with abnormal stress tests scheduled for heart catheterization today and may be contributing to worsening neuropathy. He is maxed out on his gabapentin and has failed multiple other treatments including Lyrica, Cymbalta, and Amitryptiline. Unfortunately there are limited options for further medical management of his painful diabetic neuropathy outside of better control of his sugars - we discussed increasing his Gabapentin with an additional 600 mg in the morning (3 in AM, 2 and 2) as he continues to tolerate the max dose without much side effects, patient and family are in agreement with plan - his neuropathy extends into his upper extremity however this has been ongoing for the past several years, Guillain [place] Syndrome was considered but highly unlikely - CBC is normal with normal Vit B12 level of 494 from prior admission as well as other vitamins that could suggest other causes for his neuropathy - recommend follow up in the office after discharge History of Present Illness Chief complaint: Diabetic neuropathy HPI: Mr. Randle is a 66 year old male with past medical history of CAD, CABG, uncontrolled insulin-dependent diabetes mellitus with diabetic neuropathy, hypertension, hyperlipidemia, CHF presents to the ED for chest pain. Patient was admitted with abnormal stress tests and is scheduled to have a heart catheterization as a result after leaving AMA from prior admission a few days ago. Neurology was consulted regarding his worsening diabetic neuropathy. Patient states for the past 14 years he has failed Lyrica and Cymbalta and is currently on Max dose 1200 mg TID Gabapentin for the past 10 years. Over the past several days his neuropathy as become increasingly painful. This has coincided with roughly 5 days of chest pain. He reports seeing Dr. Rodrigues, neurologist, 12 years ago. He also sees segment assembler here at [facility] for his diabetes which is poorly controlled. His current HbA1c is 10.7 with his blood sugars averaging 200 to 400 the past several days. He admits to a poor diet consisting mainly of meats and potatoes but he has cut out breads. He does not exercise and is morbidly obese. His neuropathy is mainly in his lower extremities extending up to the knee as well as his fingers up to the forearm. The paresthesias in his arms have been chronic over the past 4 years. He denies any fever, recent illness, stroke, blood clots. Denies any visual loss. He admits to a right foot drop and he has a unsteady gait. He recently was evaluated by Dr. Mcclelland reporting roughly 70% blood flow to the lower extremity. He denies any acute back pain, urinary incontinence, saddle anesthesia. Past Med Surg Social Fam HX - Past Medical History Medical history: atrial fibrillation, CHF, coronary artery disease, diabetes, hyperlipidemia, hypertension, myocardial infarction, other Psychiatric history: no psych history - Past Surgical History Surgical History: cholecystectomy, coronary bypass (CABG) (CABG 3 at [facility] March 2015.), orthopedic, other - Social History Smoking Status: Never smoker Smokeless Tobacco Status: No Alcohol use: rarely Drug use: none - Family History Mother Adopted: No Family Member Ethnicity: Non- Living Status: Hx Family Cardiac Disorders: No Hx Family Respiratory Disorders: Yes (COPD) Hx Family Cancer: Yes Hx Family GI Disorders: No Hx Family Endocrine Disorder: Yes (DM,thyroid) Hx Family Neuromuscular Disorders: Yes (neuropathy) Hx Family Neurologic Disorders: No Hx Family HEENT Disorders: No Hx Family Autoimmune Disorders: No Medications and Allergies Allopurinol [Zyloprim] 300 mg PO DAILY 04/11/15 [History] Aspirin Enteric Coated [Aspirin EC] 81 mg PO DAILY 04/11/15 [History] Atorvastatin Calcium [Lipitor] 80 mg PO DAILY 04/11/15 [History] Gabapentin [Neurontin] 1,200 mg PO TID 04/11/15 [History] Furosemide [Lasix] 40 mg PO DAILY 05/23/15 [History] Insulin Regular U-500 [HumuLIN R U-500] 160 - 185 unit SQ BID 05/23/15 [History ] Metoprolol [Lopressor] 25 mg PO BID 05/23/15 [History] Multivitamin [One Daily Essential] 1 tab PO DAILY 05/23/15 [History] Albuterol Sulfate [Proair Hfa] 2 puff IH Q4H PRN 09/20/16 [History] Amitriptyline [Elavil] 25 mg PO HS 09/20/16 [History] Exenatide Microspheres [Bydureon Pen] 2 mg SQ QWEEK 09/20/16 [History] Lisinopril [Zestril] 20 mg PO DAILY 09/20/16 [History] Potassium Chloride [K-Tab ER] 20 meq PO DAILY 09/20/16 [History] Nitroglycerin 0.4 mg SL Q5MIN PRN #20 tab.subl 09/22/16 [Rx] Allergies Penicillins Allergy (Mild, Verified 09/20/16 13:50) Rash All Systems: A 10-system review of systems was performed and is negative for pertinent findings except as documented above in the HPI. - Constitutional Constitutional ROS IM: no fever(s), no headache(s) - Nose, Mouth, Throat Nose, mouth and throat: as per HPI - Cardiovascular Cardiovascular ROS IM: as per HPI - Respiratory Respiratory IM: as per HPI - Gastrointestinal Gastrointestinal: as per HPI - Genitourinary Genitourinary ROS: as per HPI - Musculoskeletal Musculoskeletal ROS IM: abnormal gait, numbness, no muscle cramps, no neck pain - Integumentary Integumentary IM: as per HPI - Neurological Neurological ROS: abnormal gait, burning sensations, sensory deficit, tingling, no dizziness, no frequent falls, no headache(s), no lack of coordination, no loss of vision, no syncope - Endocrine Endocrine IM: as per HPI Physical Examination - Vital Signs Vital Signs: Initial Vital Signs Temp Pulse Resp BP Pulse Ox 97.2 F L 81 18 196/95 98 09/23/16 16:30 09/23/16 16:30 09/23/16 16:30 09/23/16 16:30 09/23/16 16:30 - Constitutional General appearance: comfortable - Neurologic Sensorimotor examination: intact Detailed motor examination: grossly full strength in all extremities, full strength in all major muscle groups Motor examination - right side: 1/5: toe extension (EHL), plantarflexion, 5/5: deltoids, biceps, triceps, wrist flexion, wrist extension, research and development researcher, hip flexors, tibialis Anterior, quadriceps Motor examination - left side: 5/5: deltoids, biceps, triceps, wrist flexion, wrist extension, hip flexors, research and development researcher, quadriceps, tibialis Anterior, toe extension (EHL), plantarflexion Detailed sensory examination: other (severely diminished sensation in bilateral foot and lower leg, dysthesia in the hands, fingers, and forearm) Reflex and gait examination: foot droop (Right) Reflexes: Biceps: 1+, Triceps: 1+, Brachioradialis: 1+, Patella: 1+, Achilles: 1 + Mental Status Examination: awake, alert, oriented to person, oriented to place, oriented to time, follows commands appropriately, answers questions appropriately, no agnosia, no aphasia, no aproxia Cranial nerve examination: PERRL, EOMI, visual ann intact, sensory to face intact, mastication intact, no facial asymmetry is present, no dysarthria, hearing is intact symmetrically, soft palate elevates bilaterally upon phonation , flexes SCM and trapezius muscles symmetrically with full power, tongue protrudes midline, no atrophy or facial fasiculations present Results - Laboratory Findings CBC and BMP: 09/23/16 22:14 09/23/16 22:14 Abnormal lab findings: Abnormal lab results Creatinine 1.33 mg/dL (0.72-1.25) H 09/23/16 22:14 Est GFR (Non-Af Amer) 53 (> 60) L 09/23/16 22:14 Glucose 260 mg/dL (70-99) H 09/23/16 22:14 Troponin I 0.05 ng/mL (0-0.03) H* 09/24/16 04:43 HDL Cholesterol 22 mg/dL (40-59) L 09/24/16 04:43 Consult Discharge Plan - Plan Referrals: [facility] [Provider Group] - 10/12/16 2:45 pm Guillen,Azul Mejia CNP [Primary Care Provider] - 09/28/16 11:00 am <William Rodrigues - Last Filed: 09/24/16 17:18> Time of Encounter: 17:09 Assessment and Plan (1) Diabetic neuropathy, painful Current Visit: Yes Status: Acute The patient was seen and examined the case was discussed with the patient and his family along with Dr. Lucas. I agree with his assessment and plan as outlined above. Ultimately I did stress the importance of strict glycemic control. I will likely follow up with him in my office after his discharge from the hospital. History of Present Illness HPI: The chart was reviewed, patient was seen and examined along with Dr. Lucas. I agree with Dr. Lucas's history as stated above. All Systems: A 10-system review of systems was performed and is negative for pertinent findings except as documented above in the HPI. Review of Systems: A 10 point review of systems is consistent with the history of present illness and otherwise negative. Physical Examination - Vital Signs Vital Signs: Initial Vital Signs Temp Pulse Resp BP Pulse Ox 97.2 F L 81 18 196/95 98 09/23/16 16:30 09/23/16 16:30 09/23/16 16:30 09/23/16 16:30 09/23/16 16:30 - Neurologic Sensorimotor examination: other (Decreased sensation to light touch and proprioception distally.) Results - Laboratory Findings CBC and BMP: 09/23/16 22:14 09/23/16 22:14 Abnormal lab findings: Abnormal lab results Creatinine 1.33 mg/dL (0.72-1.25) H 09/23/16 22:14 Est GFR (Non-Af Amer) 53 (> 60) L 09/23/16 22:14 Glucose 260 mg/dL (70-99) H 09/23/16 22:14 Troponin I 0.05 ng/mL (0-0.03) H* 09/24/16 04:43 HDL Cholesterol 22 mg/dL (40-59) L 09/24/16 04:43
--- NOTE | 2016-09-24 11:36 | Internal Med Progress Note ---
<Scott Hanna - Last Filed: 09/24/16 13:24> Date of Encounter: 09/24/16 Time of Encounter: 10:30 - Assessment and plan (1) Chest pain Current Visit: No Status: Acute Assessment and plan: -Patient had abnormal stress test. -Per cardiology, patient sent to ED and subsequently admitted -Patient seen by cardiology and will have a cardiac cath this afternoon. Qualifiers: Chest pain type: precordial pain Qualified Code(s): R07.2 - Precordial pain - Time Spent With Patient 25 - 35 minutes - Subjective Interval history: 66M being admitted for abnormal EKG and heart cath procedure today. Patient denies CP, SOB. Is resting comfortably in bed. States that the morphine helps with his peripheral neuropathy. - Constitutional Vitals: Temp Pulse Resp BP Pulse Ox 97.3 F L 67 16 160/80 95 09/24/16 07:59 09/24/16 07:59 09/24/16 07:59 09/24/16 07:59 09/24/16 07:59 General appearance: Present: A&O X 3, obese - Respiratory Respiratory exam: Present: CTAB. Absent: accessory muscle use, rales, rhonchi, wheezes - Cardiovascular Cardiovascular exam: Present: RRR, +S1, +S2. Absent: diastolic murmur, gallop, rubs, systolic murmur - Neurological Exam Neurological exam: Present: oriented X3, no focal deficits. Absent: pronater drift, facial droop, speech deficit - Psychiatric Psychiatric exam: Present: normal affect, normal mood Internal Medicine: Result - Labs CBC & Chem 7: 09/23/16 22:14 09/23/16 22:14 Labs: Cardiac Enzymes 09/24/16 Range/Units 04:43 Troponin I 0.05 H* (0-0.03) ng/mL Consult Discharge Plan - Plan Referrals: [facility] [Provider Group] - 10/12/16 2:45 pm Guillen,Azul Mejia CNP [Primary Care Provider] - 09/28/16 11:00 am <Nadir Gardner - Last Filed: 09/24/16 18:17> - Assessment and plan (1) Unstable angina Current Visit: Yes Status: Acute (2) Abnormal nuclear stress test Current Visit: Yes Status: Acute (3) Diabetic neuropathy, painful Current Visit: Yes Status: Acute (4) 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 transplanted heart: [place] heart Associated angina: angina presence unspecified Qualified Code(s): I25.10 - Atherosclerotic heart disease of [place] coronary artery without angina pectoris (7) Diabetes Current Visit: No Status: Acute Qualifiers: Diabetes mellitus type: type 2 Diabetes mellitus complication status: with neurologic complications Diabetes mellitus complication detail: with polyneuropathy Diabetes mellitus watermaster insulin use: with watermaster use Qualified Code(s): E11.42 - Type 2 diabetes mellitus with diabetic polyneuropathy; Z79.4 - assisted (current) use of insulin (8) Morbid obesity with BMI of 40.0-44.9, adult Current Visit: Yes Status: Acute - Constitutional Vitals: Temp Pulse Resp BP Pulse Ox 97.8 F 65 18 146/85 95 09/24/16 17:15 09/24/16 17:15 09/24/16 17:15 09/24/16 17:15 09/24/16 17:15 Internal Medicine: Result - Labs CBC & Chem 7: 09/23/16 22:14 09/23/16 22:14 Labs: Cardiac Enzymes 09/24/16 Range/Units 04:43 Troponin I 0.05 H* (0-0.03) ng/mL - Attending Attestation I examined this patient and my medical decision-making was reviewed with the Resident Physician on 09/24/16. I agree with the documented findings, disposition and treatment plan as described except to the extent set forth below. Mr. Randle is currently admitted for abnormal stress test and cardiac catheterization. He is high risk due to potential of worsening cardiac complications. Mr. Randle is to have cardiac cath today. His neuropathy pain is a lot worse as well. No other new issues. Exam Alert. Comfortable now. Heart reg Lungs clear I/P 1. [place] - cath today 2. CAD 3. Diabetes Further diagnoses and plan as above.
[2016-09-24] MEDS: Gabapentin 400 MG CAPSULE PO SCH ×3 (11:54→20:24)
--- NOTE | 2016-09-24 11:54 | Pre-Sedation Evaluation ---
Pre-sedation evaluation - Pre-sedation checklist Date of procedure: 09/24/16 Procedure: [facility] Recent Vitals: Last Vital Signs Temp 97.3 F L 09/24/16 07:59 Pulse 67 09/24/16 07:59 Resp 16 09/24/16 07:59 BP 160/80 09/24/16 07:59 Pulse Ox 95 09/24/16 07:59 H&P (including ROS) documented in medical record: Yes Previous reaction to sedatives/anesthetics: No Dietary Status: NPO after Midnight Dentition: No loose teeth or bridges ASA Classification *see protocol: CLASS II-Mild systemic disease Plan of Care: Pt appropriate candidate for procedure/moderate/conscious sedation , Risks/benefits of procedure/sedation discussed w/ patient/family
[2016-09-24] MEDS ORDERED: 0.9 % Sodium Chloride 1,000 ML ONE ×2 (12:21→12:58)
[2016-09-24] MEDS ORDERED: Nitroglycerin 1,000 MCG/10 ML VIAL IV ONE (12:22)
[2016-09-24] MEDS ORDERED: Heparin 1,000 UNITS/500 mL NS 500 ML ONE (12:22)
[2016-09-24] MEDS ORDERED: *HR* Heparin 10,000 UNIT/10 ML VIAL ONE (12:22)
[2016-09-24] MEDS ORDERED: *HR* FentaNYL (PF) 100 MCG/2 ML VIAL ONE (12:57)
[2016-09-24] MEDS ORDERED: *HR* Midazolam HCl 5 MG/5 ML VIAL IVP ONE (12:57)
[2016-09-24] MEDS ORDERED: Tirofiban 12.5 MG/250ML 12.5 MG/250 ML BAG ONE (14:01)
[2016-09-24] MEDS ORDERED: Tirofiban 12.5 MG/250ML 12.5 MG/250 ML BAG IVC SCH (14:30)
[2016-09-24] MEDS ORDERED: *HR* Morphine 2 MG/ML SYRINGE ONE (16:09)
--- NOTE | 2016-09-24 16:50 | Invasive Diagnostic Lab Proc ---
Name: Jesus Randle Date of Study: 09/24/2016 Date: 1950 Ht: 68.1in Medical Record#: [id number] Age: 66 Wt: 288.81lb Gender: Male BSA: 2.39 Order #: [id number] BMI: 43.77 Physicians Procedure Physician: Tyrese Summers MD, FACC Referring MD: Azul Guillen, FIRE HOSE CURER Referring MD: Staff Name Position Time In Flako Kamini RT (R) Scrub 12:57 PM [facility] Kamini RT (R) Monitor 12:57 PM Jacobo James RN Board Lining Machine Operator 12:57 PM Indications Indication Abnormal Test - Stress Unstable Angina Procedures Performed Procedure L HRT ART/GRFT ANGIO PRQ REVASC BYP GRAFT 1 VSL MOD SED OTH PHYS/QHP 5/>YRS MOD SED OTHER PHYS/QHP EA MOD SED OTHER PHYS/QHP EA Pre-Procedure Checklist Informed consent is complete signed and on chart. H\\T\\P is on chart. ID band is on and ID verified with patient. Patient NPO for procedure The procedure was described for the patient and questions were answered. Blood Pressure: 160/80 ECG is on chart. Plan of Care Patient will tolerate the procedure without complications. Adequate level of comfort will be maintained. Hemodynamics will remain stable Patient will recover from procedure without complications. Respiratory function will be maintained. Cardiac rhythm will remain stable. Patient temperature will be maintained. Patient and/or family have verbalized understanding of the procedure. Patient Education Chief Complaint/Reason for Test: Cardiac Cath Developmental Category: Geriatric (65+ years) Developmentally Appropriate for Age: Yes Learning Barriers: None Education Needs: Procedure Education Method: Verbal Information Taught: Cardiac Cath Educational Evaluation: Able to repeat information Intravenous Access Time IV Size Location DC'd Fluid/Drip Rate Units RN 12:37 PM 18g 1 09/02" Patent On Arrival Lt Antecubital 0.9NaCl 25 ml/hr Jacobo James RN Allergies Penicillins Vital Signs Time BP (mmHg) HR (bpm) O2 Sat. RR (bpm) LOC 12:37 PM 160 / 80 67 95 % 16 5 = Fully awake and oriented or at pre-proc level 12:58 PM / % 5 = Fully awake and oriented or at pre-proc level 01:02 PM 174 / 77 76 96 % 15 01:06 PM 129 / 77 65 90 % 24 01:11 PM 130 / 65 59 97 % 21 01:16 PM 134 / 61 60 94 % 17 01:21 PM 124 / 64 60 94 % 18 01:26 PM 115 / 54 59 96 % 16 01:31 PM 127 / 60 58 95 % 17 01:36 PM 127 / 64 68 96 % 19 01:41 PM 140 / 69 63 98 % 13 01:46 PM 154 / 72 66 98 % 27 01:51 PM 167 / 75 65 98 % 31 01:56 PM 164 / 75 64 98 % 16 02:01 PM 164 / 88 67 97 % 18 02:06 PM 178 / 82 65 97 % 21 02:11 PM 183 / 89 69 97 % 18 02:17 PM 170 / 83 70 98 % 17 02:21 PM 184 / 88 68 98 % 21 02:40 PM 153 / 69 61 97 % 18 5 = Fully awake and oriented or at pre-proc level 03:00 PM 162 / 78 59 97 % 18 5 = Fully awake and oriented or at pre-proc level 03:15 PM 147 / 68 59 93 % 16 5 = Fully awake and oriented or at pre-proc level 03:30 PM 125 / 61 58 94 % 16 5 = Fully awake and oriented or at pre-proc level 03:45 PM 167 / 89 57 96 % 16 5 = Fully awake and oriented or at pre-proc level 04:00 PM 156 / 71 61 96 % 16 5 = Fully awake and oriented or at pre-proc level 04:15 PM 149 / 74 56 94 % 16 5 = Fully awake and oriented or at pre-proc level 04:27 PM 147 / 67 55 94 % 16 5 = Fully awake and oriented or at pre-proc level Procedural Medications Time Medication Dose Units Method Given By 12:58 PM Oxygen 2 L/min nasal cannula Jacobo James RN 01:10 PM Versed 3 mg Intravenous HenthornJacobo tay RN 01:12 PM Fentanyl 50 mcg Intravenous VladislavthornJacobo tay RN 01:19 PM Lidocaine 2% 20 ml Subcutaneous Tyrese Summers MD, FACC 01:29 PM Versed 1 mg Intravenous FernandoornJacobo tay RN 01:29 PM Fentanyl 25 mcg Intravenous VladislavthornJacobo tay RN 01:29 PM Lidocaine 2% 10 ml Subcutaneous Tyrese Summers MD, FACC 01:47 PM Heparin 4000 units Intravenous Jacobo James RN 02:02 PM Aggrastat Bolus: 66 ml Intravenous Jacobo James RN 02:03 PM Aggrastat 12.5mg/250ml 24 ml Intravenous Jacobo James RN 02:17 PM Plavix 600 mg Orally Jacobo James RN 04:13 PM Morphine 2 mg Intravenous Maria Luz Lawson RN ASA Classification: CLASS II- Mild systemic disease (i.e. well-controlled diabetes, hypertension, asthma, cigarette smoking) Amy Score Preprocedure Postprocedure Activity 2- Moves 4 extremities sustained head lift Activity 2- Moves 4 extremities sustained head lift Circulation 2- SBP +/= 20 points of pre-anesthetic level Circulation 2- SBP +/= 20 points of pre-anesthetic level Consciousness 2- Awake and alert oriented x 3 Consciousness 2- Awake and alert oriented x 3 O2 Saturation 2- Able to maintain O2 satruation of 92% on room air O2 Saturation 2- Able to maintain O2 satruation of 92% on room air Respiratory 2- Able to deep breathe and cough well Respiratory 2- Able to deep breathe and cough well Total Score 10 Total Score 10 Contrast Agent: Isovue Diagnostic Contrast: 118 ml Total Contrast: 118 ml Fluoro Dose: 1061 mGy Activated Clotting Time Time Seconds to Clot 02:23 PM 201 01:30 PM 168 Procedure Log Time Note Enter By 12:36 PM CathStat 12:57 PM Pt arrived to optical laboratory mechanic 2 at 12:57 twilson 12:57 PM Physician arrived 12:57 twilson 12:57 PM Meet and greet completed twilson 12:57 PM Sign in performed according to hospital policy. twilson 12:57 PM Procedure start 12:57 twilson 12:57 PM Kamini Arriola RT (R) Position: Scrub Time in: 12:57 twilson 12:57 PM Kamini Peters RT (R) Position: Monitor Time in: 12:57 twilson 12:57 PM Jacobo James RN Position: Board Lining Machine Operator Time in: 12:57 twilson 12:57 PM Patient charges- Angio tray pack, Navilyst 3mm J, Pulse Oximetry and ACIST tubing and transducer twilson 12:57 PM Case Delayed No twilson 12:58 PM Time: 12:58 Oxygen on at 2 L/min per nasal cannula by Jacobo James RN twilson 12:58 PM Time: 12:58 Patient comfortable and pain free: Yes twilson 12:58 PM Time: 12:58LOC: 5 = Fully awake and oriented or at pre-proc level twilson 12:58 PM Clinical Presentation: Unstable angina twilson 01:00 PM Vitals capture started with the following parameters, Patient=Adult, Interval=5 min, Initial Ixirmvxq=142 mmHg, Deflation Rate=5 mmHg, Cuff placed on Right Arm 01:02 PM HR=76 bpm, ZBBV=083/77 mmhg, SpO2=96.0 %, Resp=15 B/min 01:06 PM HR=65 bpm, UCDG=196/77 mmhg, SpO2=90.0 %, Resp=24 B/min 01:07 PM Hair removed from procedure site in holding area using clippers. Bilateral groin prepped with Chloraprep by Kamini ArriolaR) then patient draped. Skin intact. twilson 01:08 PM Recorded ECG: HR=62 Condition=Condition 1 01:11 PM HR=59 bpm, OGHW=677/65 mmhg, SpO2=97.0 %, Resp=21 B/min 01:12 PM Time: 13:10 Versed 3 mg Intravenous Given by Jacobo James RN tsites 01:12 PM Time: 13:12 Fentanyl 50 mcg Intravenous Given by Jacobo James RN tsites 01:13 PM Pressure channel 1 zeroed. 01:16 PM HR=60 bpm, HVTY=951/61 mmhg, SpO2=94.0 %, Resp=17 B/min 01:18 PM Time out performed according to hospital policy tsites 01:19 PM Time: 13:19 20 ml Lidocaine 2% to right groin Subcutaneous Given by Tyrese Summers MD, [facility] tsites 01:20 PM Access obtained by percutaneous puncture. 5Fr 10cm Terumo [place] sheath placed in right Femoral artery. [id number] tsites 01:21 PM HR=60 bpm, CVZA=455/64 mmhg, SpO2=94.0 %, Resp=18 B/min 01:22 PM 5cc of contrast injected into the rt fem artery tsites 01:23 PM pressure held to right groin per Dr. Summers tsites 01:26 PM HR=59 bpm, QGVC=284/54 mmhg, SpO2=96 %, Resp=16 B/min 01:29 PM Time: 13:29 Versed 1 mg Intravenous Given by Jacobo James RN tsites 01:29 PM Time: 13:29 Fentanyl 25 mcg Intravenous Given by Jacobo James RN tsites 01:30 PM Time: 13:29 10 ml Lidocaine 2% to right groin Subcutaneous Given by Tyrese Summers MD, [facility] tsites 01:31 PM Access obtained by percutaneous puncture. 5Fr 10cm Terumo [place] sheath placed in right Femoral artery. [id number] tsites 01:31 PM 0.035 145cm Navilyst 3mmJ wire [id number] tsites 01:31 PM 5Fr FL 4 catheter inserted over the wire DN tsites 01:31 PM HR=58 bpm, XYQY=253/60 mmhg, SpO2=95.0 %, Resp=17 B/min 01:32 PM LCA angiography performed in multiple views. tsites 01:34 PM wire reinserted catheter removed tsites 01:34 PM 5Fr FR 4 catheter inserted over the wire [facility] tsites 01:35 PM Recorded Pressure: Ao, HR=65, Condition=Condition 1 (Aorta) Ao 165/62/87 01:36 PM HR=68 bpm, TUDP=237/64 mmhg, SpO2=96.0 %, Resp=19 B/min 01:36 PM SVG to the RPDA angio performed in multiple views. tsites 01:36 PM Recorded Pressure: Ao, HR=67, Condition=Condition 1 (Aorta) Ao 181/-15/60 01:37 PM RCA angiography performed in multiple views. tsites 01:37 PM repositioning catheter tsites 01:37 PM 0.035 260cm Navilyst 3mmJ wire [id number] tsites 01:37 PM Catheter removed tsites 01:40 PM 5Fr IM catheter inserted over the wire [id number] tsites 01:41 PM Left JOHNNIE to the LAD angio performed in multiple views. tsites 01:41 PM HR=63 bpm, ZJSP=502/69 mmhg, SpO2=98.0 %, Resp=13 B/min 01:43 PM wire reinserted catheter removed tsites 01:43 PM Bolus angiogram of right Femoral complete: 2 ml/sec for a total of 4 mls tsites 01:44 PM Sheath exchanged for a 6 Fr 11 cm Cordis Janell sheath [id number] tsites 01:44 PM PCI Status Urgent tsites 01:44 PM PCI Indication: PCI for high risk Non-STEMI or unstable angina tsites 01:46 PM HR=66 bpm, IOOX=197/72 mmhg, SpO2=98.0 %, Resp=27 B/min 01:47 PM Time: 13:47 Heparin 4000 units Intravenous Given by Jacobo James RN tsites 01:47 PM PCI lesion in SVG to Right PDA. tsites 01:48 PM 6Fr MPA Runway guide catheter was used to cannulate the PCI vessel successfully. reused? No tsites 01:48 PM Inflation device was opened. tsites 01:49 PM Filter wire inserted to target lesion. tsites 01:51 PM HR=65 bpm, WJRB=747/75 mmhg, SpO2=98 %, Resp=31 B/min 01:52 PM Coronary Dominance: right tsites 01:53 PM Lesion found in Mid RCA. Pre Stenosis: 100 Pre [place] Flow: 0: No Flow/No perfusion tsites 01:53 PM Lesion found in Proximal LAD. Pre Stenosis: 90 Pre [place] Flow: tsites 01:54 PM Right Coronary, Right Posterior Descending Arteries with Right Posterolateral and Acute Marginal branches with 100 % stenosis. If graft is supplying this area, % stenosis tsites 01:55 PM 2.25 mm x 30 mm Trek Rx balloon across target lesion- successful. reused? No tsites 01:56 PM Balloon inflated @ 12 art for 9 seconds tsites 01:56 PM HR=64 bpm, DSHK=589/75 mmhg, SpO2=98 %, Resp=16 B/min 01:57 PM Balloon inflated @ 14 art for 10 seconds tsites 01:58 PM Balloon catheter removed intact. tsites 02:00 PM 2.75mm x 38mm Synergy drug-eluting stent across target lesion- successful Lot #[id number] tsites 02:01 PM HR=67 bpm, AAVB=442/88 mmhg, SpO2=97.0 %, Resp=18 B/min 02:02 PM Stent deployed @ 18 art for 16 seconds tsites 02:02 PM Time: 14:02 Aggrastat Bolus: 66 ml Intravenous Given by Jacobo James RN [place] pump tsites 02:03 PM Time: 14:03 Aggrastat 12.5mg/250ml 24 ml Intravenous Given by Jacobo James RN [place] pump tsites 02:05 PM Stent delivery system removed intact. tsites 02:05 PM 3.0 mm x 8 mm Emerge Monorail balloon across target lesion- successful. reused? No tsites 02:06 PM Balloon inflated @ 14 art for 11 seconds tsites 02:06 PM HR=65 bpm, BFLY=437/82 mmhg, SpO2=97.0 %, Resp=21 B/min 02:07 PM Balloon catheter removed intact. tsites 02:09 PM filter retrieveal device inserted tsites 02:10 PM filter and retrieveal device removed tsites 02:11 PM Guide catheter removed intact. tsites 02:11 PM HR=69 bpm, YKRE=107/89 mmhg, SpO2=97.0 %, Resp=18 B/min, Comment=SR 02:12 PM 5Fr Pigtail catheter inserted over the wire [facility] tsites 02:12 PM Pressure channel 1 zero failed. 02:13 PM Pressure channel 1 zero failed. 02:13 PM Pressure channel 1 zeroed. 02:13 PM Recorded Pressure: LV, HR=68, Condition=Condition 1 (Left Ventricle) LV 188/-16/8 02:13 PM Catheter selectively placed in left ventricle tsites 02:13 PM Bolus angiogram of left Ventricle complete: 10 ml/sec for a total of 20 mls tsites 02:14 PM Recorded Pressure: LV, Ao, HR=70, Condition=Condition 1 (Left Ventricle) LV 185/-11/13, (Aorta) Ao 182/71/117 02:14 PM Catheter removed tsites 02:14 PM Procedure completed at 14:14 tsites 02:17 PM HR=70 bpm, LLTH=542/83 mmhg, SpO2=98.0 %, Resp=17 B/min, Comment=SR 02:17 PM Sign out completed: Radiation Dose 1061.22 mGy Fluoro Time: 8.8 Isovue 370 - 200ml contrast 118 ml given by Tyrese Summers MD, [facility]. Complications: NoneCardiac Rehab Consult needed: YesConfirmed administered medications: Yes tsites 02:17 PM Time: 14:17 Plavix 600 mg Orally Given by Jacobo James RN tsites 02:20 PM Isovue 370 - 200ml,1 Bottle(s) used. tsites 02:20 PM Sheath left in place to be pulled on floor/holding area tsites 02:20 PM Post ECG NSR tsites 02:20 PM Post Blood Pressure 170/83 tsites 02:21 PM HR=68 bpm, BFAT=588/88 mmhg, SpO2=98.0 %, Resp=21 B/min, Comment=SR 02:22 PM Information taught PCI tsites 02:22 PM Education needs Plan of Care and Responsibilities of Patient in Care tsites 02:22 PM Learning barriers :None tsites 02:22 PM Education Methods Verbal tsites 02:22 PM Education evaluation Able to repeat information tsites 02:22 PM Site status No bleeding/hematoma - Rt Groin as reported by Kamini Arriola RT (R) at 14:22 tsites 02:22 PM Opsite applied tsites 02:22 PM Plavix, Effient or Brilinta given Yes tsites 02:23 PM Delay to floor Bed availability tsites 02:23 PM Family placed in consult room. tsites 02:23 PM Complications: None tsites 02:23 PM At 14:23 the ACT was 201 seconds. tsites 02:23 PM 14:23 Post Pulses Bilateral DP \\T\\ PT Doppler tsites 02:26 PM Vitals capture stopped. 03:38 PM Arterial sheath pulled using manual compression and V+ Pad for 15 minutes by Maria Luz Lawson RN mprater 03:53 PM Arterial sheath pulled, 2x2 closure device used and was Successful S/N. mprater 04:13 PM pt c/o back pain 8/10. morphine 2mg IV given mprater 04:21 PM report called to [facility] mprater 04:40 PM pateint transported to [address] [place] [address] Complications Complication None Hemodynamics Pressures Site Systolic/A Wave Diastolic/V Wave Mean AO 165 62 87 AO 181 -15 60 LV 188 -16 8 LV 185 -11 13 AO 182 71 117 Post Procedure Information Blood Pressure: 170/83 mmHg Rhythm: NSR Post procedural instructions were given Site Checks Time Location Status Staff Sheath In? Note 02:22 PM Rt Groin No bleeding/hematoma Kamini Arriola RT (R) Yes 02:40 PM Rt Groin No bleeding/ No Hematoma Adal Cardenas RN Yes 03:00 PM Rt Groin No bleeding/ No Hematoma Adal Cardenas RN Yes 03:15 PM Rt Groin No bleeding/ No Hematoma Maria Luz Lawson RN Yes 03:30 PM Rt Groin No bleeding/ No Hematoma Maria Luz Lawson RN Yes 04:00 PM Rt Groin No bleeding/ No Hematoma Maria Luz Lawson RN 04:15 PM Rt Groin No bleeding/ No Hematoma Maria Luz Lawson RN 04:25 PM Rt Groin No bleeding/ No Hematoma Maria Luz Lawson RN Pulses Time Site Pre-Procedure Post-Procedure Note 09/24/2016 12:37:00 PM Bilateral DP None 09/24/2016 12:37:00 PM Bilateral PT 1+ 09/24/2016 2:21:00 PM Bilateral DP 2:23:00 PM Bilateral DP \\T\\ PT Doppler 09/24/2016 2:40:00 PM Bilateral DP \\T\\ PT Doppler 09/24/2016 3:00:00 PM Bilateral DP \\T\\ PT 1+ 09/24/2016 3:15:00 PM Bilateral DP \\T\\ PT 1+ 09/24/2016 3:30:00 PM Bilateral DP \\T\\ PT 1+ 09/24/2016 4:00:00 PM Bilateral DP \\T\\ PT 1+ 09/24/2016 4:15:00 PM Bilateral DP \\T\\ PT 1+ 09/24/2016 4:25:00 PM Bilateral DP \\T\\ PT 1+ Updated by Maria Luz Lawson RN on 09/24/2016 4:45:24 PM Maria Luz Lawson RN electronically signed on 09/24/2016 4:46:50 PM with status of Final
[2016-09-25] MEDS: *HR* Heparin 5,000 UNIT/ML VIAL SQ SCH (05:34)
[2016-09-25 07:36] VITALS: BP 131/66
[2016-09-25] MEDS: Insulin LISPRO 300 UNITS/3 ML VIAL SQ SCH ×2 (08:18→11:50)
[2016-09-25] MEDS: Gabapentin 400 MG CAPSULE PO SCH (08:18)
[2016-09-25] MEDS: Aspirin Enteric Coated 81 MG Tablet PO SCH (08:19)
[2016-09-25] MEDS: Lisinopril 20 MG TABLET PO SCH (08:19)
--- NOTE | 2016-09-25 08:20 | Cardiology Progress Note ---
Date of Encounter: 09/25/16 Time of Encounter: 08:30 Assessment and Plan (1) Chest pain Current Visit: No Status: Acute Per Cardiology: Peak troponin 0.07 and peak troponin 0.07 during hospital admission a few days ago. Of note, during non-STEMI March 2015 trop 0.45 with subsequent CABG 2. Suspect NSTEMI vs demand ischemia. Status post left heart catheterization with drug-eluting stent placement to SVG to right PDA. Per discussion with Dr. Summers, patent HUBER to LAD. Cardiac rehabilitation consulted. Currently chest pain- free. Cardiology signoff, reconsult as needed, follow-up appointment scheduled. Qualifiers: Chest pain type: precordial pain Qualified Code(s): R07.2 - Precordial pain (2) Abnormal nuclear stress test Current Visit: Yes Status: Acute Per Cardiology: Stress test results showed medium-sized, mild to moderate intensity, reversible perfusion defect involving the inferolateral and anterolateral segments suggestive of ischemia. (3) CAD (coronary artery disease) Current Visit: No Status: Chronic Per Cardiology: Known history of CAD with CABG 2 at [facility] March 2015. Op report reviewed and confirmed bypass 2 with HUBER to LAD and SVG to right PDA. On aspirin, beta corona, TROY inhibitor, statin, and plavix. Most recent echo during last hospital stay showed EF preserved 60-65%, moderate diastolic dysfunction. Qualifiers: Coronary Disease-Associated Artery/Lesion type: [place] artery [place] vs. transplanted heart: [place] heart Associated angina: angina presence unspecified Qualified Code(s): I25.10 - Atherosclerotic heart disease of [place] coronary artery without angina pectoris Discussion w patient/family: The assessment and plan as outlined above was discussed with the patient who expressed understanding and agreement. All questions were answered. Thank you for involving us in the care of your patient. Please call with any questions. Subjective Principal diagnosis: CP, Abnormal stress test Interval history: Patient denies any CP. Reports some bilateral leg tingling. Objective Vital Signs, Last 4 Hours Temp Pulse Resp BP Pulse Ox 09/25/16 07:34 98.1 F 62 15 131/66 97 General: Conversant, No Apparent Distress HEENT: Atraumatic, Normocephaly Cardiac: Reg Rate and Rhythm, Normal S1 and S2, No Murmur Lungs: Normal Breath Sounds, No Wheeze, Rales, Rhonchi Neuro: Alert and responsive, No focal deficits noted Skin: Other (Right groin site dry and intact no hematoma no ecchymosis, no bleeding, right DP and posterior tibial pulses 2+ palpable) Extremities: Other (+2 nonpitting edema) Results 09/23/16 22:14 09/23/16 22:14 Active Medications Acetaminophen (Tylenol) 650 mg PO Q6HR PRN PRN Reason: Mild Pain (1-3) Stop: 03/25/17 21:44 Albuterol Sulfate (Albuterol Inhaler) 2 puff IH Q4HR PRN PRN Reason: Shortness Of Breath/Wheezing Stop: 03/25/17 21:55 Allopurinol (Zyloprim) 300 mg PO DAILY [facility] Stop: 03/26/17 09:01 Last Admin: 09/24/16 07:43 Dose: 300 mg Amitriptyline HCl (Elavil) 25 mg PO HS [facility] Stop: 03/26/17 21:01 Last Admin: 09/24/16 20:20 Dose: Not Given Aspirin (Aspirin Ec) 81 mg PO DAILY [facility] Stop: 03/26/17 09:01 Last Admin: 09/24/16 07:43 Dose: 81 mg Atorvastatin Calcium (Lipitor) 80 mg PO HS [facility] Stop: 03/26/17 21:01 Last Admin: 09/24/16 20:23 Dose: 80 mg Clopidogrel Bisulfate (Plavix) 75 mg PO DAILY [facility] Stop: 03/27/17 09:01 Dextrose/Water (Dextrose 50% (Syg)) 25 ml IVP AD PRN PRN Reason: Hypoglycemia Stop: 03/25/17 21:55 Gabapentin (Neurontin) 1,200 mg PO TID [facility] Stop: 03/26/17 11:01 Last Admin: 09/24/16 20:24 Dose: 1,200 mg Glucagon (Glucagen) 1 mg IM ONCE PRN PRN Reason: Hypoglycemia Stop: 03/25/17 21:55 Glucose (Gluctose) 15 gm PO ONCE PRN PRN Reason: Hypoglycemia Stop: 03/25/17 21:55 Glucose (Gluctose) 30 gm PO ONCE PRN PRN Reason: Hypoglycemia Stop: 03/25/17 21:55 Heparin Sodium (Porcine) (Heparin) 5,000 unit SQ Q12HCO [facility] Stop: 03/26/17 07:01 Last Admin: 09/25/16 05:34 Dose: 5,000 unit Dextrose (Dextrose 5%) 1,000 mls @ 100 mls/hr IV CONT PRN PRN Reason: HYPOGLYCEMIA Stop: 03/25/17 21:55 Insulin Human Lispro (Humalog) 0 units SQ HS JENNIFER PRN Reason: Protocol Stop: 03/25/17 22:01 Last Admin: 09/24/16 21:48 Dose: 6 units Insulin Human Lispro (Humalog) 0 units SQ TIDAC JENNIFER PRN Reason: Protocol Stop: 03/26/17 07:31 Last Admin: 09/24/16 18:07 Dose: Not Given Lisinopril (Zestril) 20 mg PO DAILY JENNIFER PRN Reason: Protocol Stop: 03/26/17 09:01 Last Admin: 09/24/16 07:43 Dose: 20 mg Metoprolol Tartrate (Lopressor) 25 mg PO BID JENNIFER Stop: 03/25/17 22:01 Last Admin: 09/24/16 20:23 Dose: 25 mg Morphine Sulfate (Morphine Sulfate) 2 mg IVP Q4HR PRN PRN Reason: Moderate Pain Stop: 03/25/17 22:52 Last Admin: 09/24/16 07:43 Dose: 2 mg Naloxone HCl (Narcan) 0.4 mg IVP Q2MIN PRN PRN Reason: Opioid Reversal Stop: 03/25/17 21:44 Nitroglycerin (Nitroglycerin) 0.4 mg SL Q5MIN PRN PRN Reason: Chest Pain Stop: 03/25/17 16:48 Last Admin: 09/24/16 00:42 Dose: 0.4 mg Ondansetron HCl (Zofran) 4 mg IVP Q8HR PRN PRN Reason: Nausea And Vomiting Stop: 03/25/17 21:44 - Imaging and Cardiology Cardiac cath: report reviewed - EKG Interpretation EKG results cardiology: other (24 hour telemetry reviewed with average heart rate 67, sinus rhythm, currently 62 on telemetry) Consult Discharge Plan - Plan Referrals: [facility] [Provider Group] - 10/12/16 2:45 pm Guillen,Azul Mejia CNP [Primary Care Provider] - 09/28/16 11:00 am
--- NOTE | 2016-09-25 08:34 | Neurology Progress Note ---
<Vern Lucas - Last Filed: 09/25/16 09:41> Date of Encounter: 09/25/16 Time of Encounter: 08:34 Assessment and Plan (1) Diabetic neuropathy, painful Status: Acute - marked improvement to neuropathy status post heart catheterization, he received 1200 mg Gabapentin this morning and wishes to not make any changes at this time - he has eaten a diabetic diet here in the hospital and sugars have been in the mid 200s - recommend follow up with Dr. Rodrigues neurology as an outpatient in a week or so to discuss his neuropathic pain, for now will continue his home regimen of 1200 TID and reevaluate - strict glucose control at home is recommended Subjective Principal diagnosis: CP, Abnormal stress test Interval history: Patient seen and examined. He reports marked improvement in his neuropathy as well as being chest pain free. We discussed the options of increasing his Gabapentin to 1800 in the morning, but because of the improvement he wishes to keep the same dosing regimen of 1200 TID. He agrees to bettter glucose control at home and knows that he will have family pushing him to do so. Objective - Constitutional Vitals: Temp Pulse Resp BP Pulse Ox 98.1 F 62 15 131/66 97 09/25/16 07:34 09/25/16 07:34 09/25/16 07:34 09/25/16 07:34 09/25/16 07:34 - Neurological Exam Sensorimotor examination: Present: other (Decreased sensation to light touch and proprioception distally.) Motor Examination: Present: grossly full strength in all extremities, full strength in all major muscle groups Motor examination - right side: 1/5: toe extension (EHL), plantarflexion, 5/5: deltoids, biceps, triceps, wrist flexion, wrist extension, bladder tier, hip flexors, tibialis Anterior, quadriceps Motor examination - left side: 5/5: deltoids, biceps, triceps, wrist flexion, wrist extension, hip flexors, bladder tier, quadriceps, tibialis Anterior, toe extension (EHL), plantarflexion Sensation intact: Present: other (severely diminished sensation in bilateral foot, improvement in sensation on lower leg) Reflex and gait examination: foot droop (Right) Reflexes: Biceps: 1+, Triceps: 1+, Brachioradialis: 1+, Patella: 1+, Achilles: 1 + Mental Status Examination: Present: awake, alert, oriented to person, oriented to place, oriented to time, follows commands appropriately, answers questions appropriately, no agnosia, no aphasia, no aproxia Cranial nerve examination: Present: PERRL, EOMI, visual ann intact, sensory to face intact, mastication intact, no facial asymmetry is present, no dysarthria, hearing is intact symmetrically, soft palate elevates bilaterally upon phonation, flexes SCM and trapezius muscles symmetrically with full power, tongue protrudes midline, no atrophy or facial fasiculations present Results - Laboratory Findings CBC and BMP: 09/23/16 22:14 09/23/16 22:14 Abnormal lab findings: Abnormal lab results Creatinine 1.33 mg/dL (0.72-1.25) H 09/23/16 22:14 Est GFR (Non-Af Amer) 53 (> 60) L 09/23/16 22:14 Glucose 260 mg/dL (70-99) H 09/23/16 22:14 Troponin I 0.05 ng/mL (0-0.03) H* 09/24/16 04:43 HDL Cholesterol 22 mg/dL (40-59) L 09/24/16 04:43 Consult Discharge Plan - Plan Instructions: Atorvastatin (By mouth), Clopidogrel (By mouth), Chest Pain (DC) , Coronary Intravascular Stent Placement (DC), Diabetes Mellitus Type 2 in Adults (DC), Chronic Obstructive Pulmonary Disease (DC), Chronic Hypertension ( DC), Coronary Intravascular Stent Placement, Tin Flopper (GEN) Additional Instructions: RISK FACTORS: STOP SMOKING: If you smoke, STOP. Smoking or tobacco use significantly increases your risk of vascular disease because nicotine causes the arteries to narrow or constrict. It also causes fats to stick to the artery. Your chances of having vascular problems are greatly increased if you continue to smoke. For more information, call the education line for smoking cessation 1-873-XIKSUOW EAT A LOW FAT/CHOLESTEROL/SODIUM DIET: This diet may help reduce your chances of having vascular problems. LIFTING: Avoid lifting anything more than 10 pounds for 5-7 days Prior to straining, laughing, sneezing and/or coughing, apply manual pressure directly over insertion site. ACTIVITY: You may walk or climb stairs as tolerated You can resume sexual activity as tolerated In general, you are encouraged to engage in physical activity, such as walking, 20 minutes twice a day. BATHING Do not submerge the site into water (bath tub, hot tub, swimming pool) for 1 week. This can be a source for infection into the blood stream. You may shower after 24 hours SITE CARE: After 24 hours, you may remove the dressing and leave the site open to air. Keep the site clean and dry. Clean gently and pat dry. You can expect bruising and tenderness that gradually resolve within a week or two. Return to work as instructed per your physician Resume driving as instructed per physician Keep all scheduled follow up appointments Resume medications as instructed IMPORTANT: If prescribed a Platelet Aggregation Inhibitor such as, Plavix, Brilinta or Effient: Duration of therapy is minimum 3 months These medications are often used in combination with Aspirin Never discontinue unless advised by your Vascular Surgeon. STROKE (CVA) Risk factors for a stroke are: Age, cigarette smoking, diabetes, excessive alcohol consumption, family history, high blood pressure, overweight, physical inactivity, prior stroke, heart attack, carotid artery disease or other artery disease. Warning signs: Sudden numbness or weakness of the face, arm or leg; especially on one side of the body, sudden confusion, trouble speaking or understanding, sudden trouble seeing in one eye, sudden trouble walking, dizziness, loss of balance or coordination, sudden severe headache with no cause. Call 911 or go to the Emergency Room. BLEEDING: Although the risk of bleeding is minimal, it can happen. If you have any bleeding from the site, apply firm pressure above the puncture site for 10-15 minutes. If the bleeding does not stop, continue manual pressure and call 911 Contact your physician if: You develop a fever greater than 101 degrees Fahrenheit Your site becomes reddened or has any drainage You have an increase in pain or burning at the site or if a large knot forms at the site.Follow-up with her primary care doctor in the next 4-5 days. Please, Follow-up with your interpretive program coordinator for better control of your diabetes. Referrals: [facility] [Provider Group] - 10/12/16 2:45 pm (Drug eluding stent placement on 09/25/16) Azul Guillen CNP [Primary Care Provider] - 09/28/16 11:00 am Prescriptions: Atorvastatin [Lipitor] 80 mg PO HS #30 tablet Clopidogrel [Plavix] 75 mg PO DAILY #30 tablet <Rodrigues,William E - Last Filed: 09/25/16 16:06> Assessment and Plan (1) Diabetic neuropathy, painful Status: Acute I agree with the above plan as discussed with Dr. Lucas. Objective - Constitutional Vitals: Temp Pulse Resp BP Pulse Ox 98.1 F 62 15 131/66 97 09/25/16 07:34 09/25/16 07:34 09/25/16 07:34 09/25/16 07:34 09/25/16 07:34 Results - Laboratory Findings CBC and BMP: 09/23/16 22:14 09/23/16 22:14 Abnormal lab findings: Abnormal lab results Creatinine 1.33 mg/dL (0.72-1.25) H 09/23/16 22:14 Est GFR (Non-Af Amer) 53 (> 60) L 09/23/16 22:14 Glucose 260 mg/dL (70-99) H 09/23/16 22:14 Troponin I 0.05 ng/mL (0-0.03) H* 09/24/16 04:43 HDL Cholesterol 22 mg/dL (40-59) L 09/24/16 04:43
--- NOTE | 2016-09-25 09:41 | Discharge Summary ---
<Scott Hanna - Last Filed: 09/25/16 10:21> Date of Encounter: 09/25/16 Time of Encounter: 08:00 - Discharge Diagnosis (1) Chest pain Priority: Primary Status: Acute Comments: -Drug eluding stent placement. -Continue plavix, beta corona, statin, TROY and resume home medication Qualifiers: Chest pain type: precordial pain Qualified Code(s): R07.2 - Precordial pain (2) Peripheral neuropathy Priority: Primary Status: Acute Comments: -Neurology saw patient. Patient neuropathy improved with stent placement. Neurology decided not to increase neurotin. Will see as outpatient. Qualifiers: Peripheral neuropathy type: polyneuropathy associated with underlying disease Qualified Code(s): G63 - Polyneuropathy in diseases classified elsewhere (3) Diabetes Status: Acute Qualifiers: Diabetes mellitus type: type 2 Diabetes mellitus complication status: with neurologic complications Diabetes mellitus complication detail: with polyneuropathy Diabetes mellitus mcfp insulin use: with mcfp use Qualified Code(s): E11.42 - Type 2 diabetes mellitus with diabetic polyneuropathy; Z79.4 - snf (current) use of insulin - Discharge Medications Prescriptions: Atorvastatin [Lipitor] 80 mg PO HS #30 tablet Clopidogrel [Plavix] 75 mg PO DAILY #30 tablet Home Medications: Allopurinol [Zyloprim] 300 mg PO DAILY 04/11/15 [History] Aspirin Enteric Coated [Aspirin EC] 81 mg PO DAILY 04/11/15 [History] Atorvastatin Calcium [Lipitor] 80 mg PO DAILY 04/11/15 [History] Gabapentin [Neurontin] 1,200 mg PO TID 04/11/15 [History] Furosemide [Lasix] 40 mg PO DAILY 05/23/15 [History] Insulin Regular U-500 [HumuLIN R U-500] 160 - 185 unit SQ BID 05/23/15 [History ] Metoprolol [Lopressor] 25 mg PO BID 05/23/15 [History] Multivitamin [One Daily Essential] 1 tab PO DAILY 05/23/15 [History] Albuterol Sulfate [Proair Hfa] 2 puff IH Q4H PRN 09/20/16 [History] Amitriptyline [Elavil] 25 mg PO HS 09/20/16 [History] Exenatide Microspheres [Bydureon Pen] 2 mg SQ QWEEK 09/20/16 [History] Lisinopril [Zestril] 20 mg PO DAILY 09/20/16 [History] Potassium Chloride [K-Tab ER] 20 meq PO DAILY 09/20/16 [History] Nitroglycerin 0.4 mg SL Q5MIN PRN #20 tab.subl 09/22/16 [Rx] Atorvastatin [Lipitor] 80 mg PO HS #30 tablet 09/25/16 [Rx] Clopidogrel [Plavix] 75 mg PO DAILY #30 tablet 09/25/16 [Rx] Allergies/Adverse Reactions: Allergies Penicillins Allergy (Mild, Verified 09/20/16 13:50) Rash Procedures/tests Complete & Pending: Procedures Performed prior 72 hours Category Date Time Status CL Cardiac Catheterization [CL] Routine Aggregate Conveyor Operator 09/24/16 09:47 Ordered ECG 12 lead ECG [ECG] Routine Y 09/24/16 00:54 Completed Date of admission: 09/24/16 02:52 Primary care physician: Azul Guillen CNP Consults: 09/24/16 10:14 Consult to Neurology [CONS] Routine Consulting Provider: [facility] Reason for Consult: Worsening Peripheral Neuropathy Call Completed: Yes 09/24/16 14:17 Consult to Cardiac Rehabilitation-Phase1 [CONS] Routine Comment: Reason for Consult: post op cath Call Completed: Yes Discharging clinician: Scott Hanna Anticipated date of discharge: 09/25/16 - Patient Status Disposition: Home, Self-Care Condition: Fair - Discharge Instructions Instructions: Atorvastatin (By mouth), Clopidogrel (By mouth), Chest Pain (DC) , Coronary Intravascular Stent Placement (DC), Diabetes Mellitus Type 2 in Adults (DC), Chronic Obstructive Pulmonary Disease (DC), Chronic Hypertension ( DC), Coronary Intravascular Stent Placement, Commercial Director (GEN) Follow Up With: Azul Guillen CNP [Primary Care Provider] - 09/28/16 11:00 am [facility] [Provider Group] - 10/12/16 2:45 pm (Drug eluding stent placement on 09/25/16) Forms: ED Satisfaction Letter Additional Instructions: RISK FACTORS: STOP SMOKING: If you smoke, STOP. Smoking or tobacco use significantly increases your risk of vascular disease because nicotine causes the arteries to narrow or constrict. It also causes fats to stick to the artery. Your chances of having vascular problems are greatly increased if you continue to smoke. For more information, call the education line for smoking cessation 5-350-HUCSDAH EAT A LOW FAT/CHOLESTEROL/SODIUM DIET: This diet may help reduce your chances of having vascular problems. LIFTING: Avoid lifting anything more than 10 pounds for 5-7 days Prior to straining, laughing, sneezing and/or coughing, apply manual pressure directly over insertion site. ACTIVITY: You may walk or climb stairs as tolerated You can resume sexual activity as tolerated In general, you are encouraged to engage in physical activity, such as walking, 20 minutes twice a day. BATHING Do not submerge the site into water (bath tub, hot tub, swimming pool) for 1 week. This can be a source for infection into the blood stream. You may shower after 24 hours SITE CARE: After 24 hours, you may remove the dressing and leave the site open to air. Keep the site clean and dry. Clean gently and pat dry. You can expect bruising and tenderness that gradually resolve within a week or two. Return to work as instructed per your physician Resume driving as instructed per physician Keep all scheduled follow up appointments Resume medications as instructed IMPORTANT: If prescribed a Platelet Aggregation Inhibitor such as, Plavix, Brilinta or Effient: Duration of therapy is minimum 3 months These medications are often used in combination with Aspirin Never discontinue unless advised by your Vascular Surgeon. STROKE (CVA) Risk factors for a stroke are: Age, cigarette smoking, diabetes, excessive alcohol consumption, family history, high blood pressure, overweight, physical inactivity, prior stroke, heart attack, carotid artery disease or other artery disease. Warning signs: Sudden numbness or weakness of the face, arm or leg; especially on one side of the body, sudden confusion, trouble speaking or understanding, sudden trouble seeing in one eye, sudden trouble walking, dizziness, loss of balance or coordination, sudden severe headache with no cause. Call 911 or go to the Emergency Room. BLEEDING: Although the risk of bleeding is minimal, it can happen. If you have any bleeding from the site, apply firm pressure above the puncture site for 10-15 minutes. If the bleeding does not stop, continue manual pressure and call 911 Contact your physician if: You develop a fever greater than 101 degrees Fahrenheit Your site becomes reddened or has any drainage You have an increase in pain or burning at the site or if a large knot forms at the site.Follow-up with her primary care doctor in the next 4-5 days. Please, Follow-up with your shipyard helper for better control of your diabetes. - Diet and Activity Activity: increase activity as tolerated Diet: diabetic diet Interval History: Patient feeling great today. Peripheral neuropathy has improved. Patient stated that he said has slept better than he has slept in years. Denies chest pain, shortness of breath. Hospital course: Mr. Randle is a 66 year old male who presented to the ED because of abnormal stress test. Seen by cardiology, she received a drug-eluting stent. Patient feels great today. States that his peripheral neuropathy has improved significantly. Patient seen by neurology for peripheral neuropathy. Patient feeling much better, so decided not to increase neurotin dose. They will follow- up as an outpatient - Time Spent with Patient Total time spent providing and/or coordinating discharge services: Greater than 30 minutes - Constitutional Vitals: Temp Pulse Resp BP Pulse Ox 98.1 F 62 15 131/66 97 09/25/16 07:34 09/25/16 07:34 09/25/16 07:34 09/25/16 07:34 09/25/16 07:34 General appearance: Present: cooperative, A&O X 3, pleasant, no acute distress, obese - Respiratory Respiratory exam: Present: CTAB. Absent: accessory muscle use, rales, rhonchi, wheezes - Cardiovascular Cardiovascular exam: Present: RRR, +S1, +S2. Absent: diastolic murmur, gallop, rubs, systolic murmur - GI/Abdominal GI/Abdominal exam: Present: soft, no peritoneal signs. 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 transplanted heart: [place] heart Associated angina: angina presence unspecified Qualified Code(s): I25.810 - Atherosclerosis of coronary artery bypass graft(s) without angina pectoris (7) Diabetes Priority: Secondary Status: Chronic Qualifiers: Diabetes mellitus type: type 2 Diabetes mellitus complication status: with neurologic complications Diabetes mellitus complication detail: with polyneuropathy Diabetes mellitus mcfp insulin use: with mcfp use Qualified Code(s): E11.42 - Type 2 diabetes mellitus with diabetic polyneuropathy; Z79.4 - termite treater helper (current) use of insulin (8) Morbid obesity with BMI of 40.0-44.9, adult Priority: Secondary Status: Chronic Procedures/tests Complete & Pending: Procedures Performed prior 72 hours Category Date Time Status CL Cardiac Catheterization [CL] Routine Aggregate Conveyor Operator 09/24/16 09:47 Ordered ECG 12 lead ECG [ECG] Routine Y 09/24/16 00:54 Completed Date of admission: 09/24/16 02:52 Primary care physician: Azul Guillen CNP Consults: 09/24/16 10:14 Consult to Neurology [CONS] Routine Consulting Provider: [facility] Reason for Consult: Worsening Peripheral Neuropathy Call Completed: Yes 09/24/16 14:17 Consult to Cardiac Rehabilitation-Phase1 [CONS] Routine Comment: Reason for Consult: post op cath Call Completed: Yes Hospital course: Mr. Randle is a 66 year old male - Time Spent with Patient Total time spent providing and/or coordinating discharge services: 40min - Constitutional Vitals: Temp Pulse Resp BP Pulse Ox 98.1 F 62 15 131/66 97 09/25/16 07:34 09/25/16 07:34 09/25/16 07:34 09/25/16 07:34 09/25/16 07:34 - Attending Attestation I examined this patient and my medical decision-making was reviewed with the Resident Physician on 09/25/16. I agree with the documented findings, disposition and treatment plan as described except to the extent set forth below. Mr. Randle feels much better since stent placement. Neuropathy pain feels better as well. Exam alert. Comfortable Heart reg Lungs clear Plan D/C home with outpatient follow up.
--- NOTE | 2016-09-25 16:09 | Electrocardiograph Report ---
[facility] Test Date: 2016-09-24 Pat Name: ALESSIA WIGGINS Department: 111 Room: 2NE24 Gender: M Physician Office Assistant: JADEN : 1950 Requested By: Nadir Gardner Order Number: [id number] Reading MD: Дмитрий Grubbs DO Measurements Intervals [place] Rate: 73 P: -8 [place]: 247 QRS: 22 QRSD: 98 T: 12 QT: 383 QTc: 409 Interpretive Statements SINUS RHYTHM WITH FIRST DEGREE AV BLOCK NONSPECIFIC ST \T\ T-WAVE ABNORMALITY Electronically Signed On 09-25-16 16:08:47 EST by Дмитрий Grubbs DO
--- NOTE | 2016-09-30 14:33 | Invasive Diagnostic Lab ---
Name: Jesus Randle Date of Study: 09/24/2016 Date: 1950 Ht: 173.0 cm /68.1 in Medical Record#: [id number] Age: 66 Wt: 131. kg / 288.81 lb Account/Order#: [id number] Gender: Male BSA: 2.39 Order #: [id number] Fluoro Dose: 1061 mGy BMI: 43.77 Procedure Physician: Tyrese Summers MD, [facility] Referring MD: Azul Guillen MD Referring MD: Procedures Performed: LEFT HEART CATH W/ GRAFTS PCI of Bypass Graft MOD SED OTH PHYS/QHP 5/>YRS MOD SED OTHER PHYS/QHP EA MOD SED OTHER PHYS/QHP EA Iliofemoral angiography Indications: Abnormal Test - Stress, Unstable Angina Impressions: There is severe two vessel coronary artery disease with 2/2 patent but diseased bypass grafts The left ventricle is normal and has normal contractility EF 55% Patient had successful PTCA/Drug-Eluting Stent placement SVG to RPDA with embolic protection device Recommendations: Optimal medical therapy of patient's disease. Aggressive risk factor modification. If continued anginal symptoms, consider PCI HUBER LAD History/Risk Factors: Diabetes Hypertension Dyslipidemia CHF Prior IA Previous CABG Procedure Access obtained in the right Femoral artery by percutaneous puncture Patient had successful PTCA/Drug-Eluting Stent placement in SVG to the RPDA. Right iliofemoral angiography via sheath. Complications: None Contrast: Isovue 118ml Hemodynamics: Pressures Site Systolic/ A Wave Diastolic/ V Wave End Diastolic/ Mean HR AO 165 62 87 65 AO 181 -15 60 67 LV 188 -16 8 68 LV 185 -11 13 70 AO 182 71 117 72 LV Ventriculography Ejection Method: LV Gram Ejection Fraction: 55% Wall Motion: BARRIOS Anterobasal Normal Anterolateral Normal Apical: Normal Inferoapical Normal Inferobasal Normal Coronary Dominance: right Lesion Findings/Interventions * Left Main Coronary Artery The LMCA is angiographically free of disease. * Left Anterior Descending There is a 90% stenosis in the Proximal LAD and 100% mid stenosis. * Circumflex The Circumflex has a proximal 80% stenosis. The 1st Marginal has a 60% stenosis. * Right Coronary Artery There is a 100% stenosis in the Mid RCA. The lesion has a SALBAD[place] flow of 0. There is a long 70-80% stenosis in the SVG to the Right PDA which provides collaterals to the LCx distribution. Additional Findings: Grafts * The saphenous vein graft to the Right PDA with long 70-80 % stenosis in the body of the graft. SALBADOR flow is 3. Interventional Device(s) Vessel Segment Type Name Diameter (mm) Length (mm) Right PDA balloon Emerge Monorail 3 8 Right PDA drug-eluting stent Synergy 2.75 38 Right PDA balloon Trek Rx 2.25 30 Visualized portion of the distal external iliac, PROCUREMENT INSPECTOR, proximal SFA/profunda without significant disease and appropriate sheath placement. Updated by Kamini Sites, RT (R) on 09/24/2016 2:40:06 PM Tyrese Summers MD, FACC electronically signed on 09/30/2016 2:09:12 PM with status of Final
== END 2016-09-25 13:00 | disposition home or self-care (01) | DRG 247 ==
LOC: 2NENU 16:27 → EMEROO 16:27 → 2NENU 20:19
PROVIDERS: ADMIT Internal Medicine; ATTEND Internal Medicine

== ENCOUNTER 2016-10-10 09:36 | Observation (INO) ==
--- NOTE | 2016-10-10 09:38 | Emergency Department Note ---
Disposition Clinical Impression: COPD (chronic obstructive pulmonary disease), Morbid obesity with BMI of 40.0- 44.9, adult, Hypertension, Peripheral neuropathy, CAD (coronary artery disease) , Chest pain, Elevated troponin, Abnormal EKG, Hyperlipidemia, Thrombocythemia Disposition: Admitted As Inpatient Referrals: Azul Guillen CNP [Primary Care Provider] - Forms: ED Satisfaction Letter General Adult HPI - General Chief complaint: ED Chest Pain Stated complaint: chest pain, recent STEMI Time Seen by Provider: 10/10/16 09:38 - History of Present Illness HPI Narrative: 66-year-old male with a history of known coronary artery disease status post coronary bypass graft 7 years ago and recent cardiac stent a few days ago at this institution reports the emergency department complaining of midsternal chest pain which began at 5 AM when he awoke. The patient took 3 nitroglycerin and seemed to get significant relief. The patient has had no jairo shortness of breath there is no history of acute leg swelling or pain or coughing up blood or fever. There is no history of abdominal pain vomiting or diarrhea. No trouble moving the arms or legs independently apart from his chronic right drop foot. There is no history of fall fever or acute back pain no syncope. The patient describes a general numbness throughout his body on both sides. He has known peripheral neuropathy and is treated for that he is diabetic and has a history of hypertension CHF hyperlipidemia and atrial fibrillation. The patient denies being on any blood thinning medication at this time. There is no history of slurred speech or fever or headache. - Related Data Home Medications Medication Instructions Recorded Confirmed Allopurinol [Zyloprim] 300 mg PO DAILY 04/11/15 09/23/16 Aspirin Enteric Coated [Aspirin EC] 81 mg PO DAILY 04/11/15 09/23/16 Atorvastatin Calcium [Lipitor] 80 mg PO DAILY 04/11/15 09/23/16 Gabapentin [Neurontin] 1,200 mg PO TID 04/11/15 09/23/16 Furosemide [Lasix] 40 mg PO DAILY 05/23/15 09/23/16 Insulin Regular U-500 [HumuLIN R 160 - 185 unit SQ BID 05/23/15 09/23/16 U-500] Metoprolol [Lopressor] 25 mg PO BID 05/23/15 09/23/16 Multivitamin [One Daily Essential] 1 tab PO DAILY 05/23/15 09/23/16 Albuterol Sulfate [Proair Hfa] 2 puff IH Q4H PRN 09/20/16 09/23/16 Amitriptyline [Elavil] 25 mg PO HS 09/20/16 09/23/16 Exenatide Microspheres [Bydureon 2 mg SQ QWEEK 09/20/16 09/23/16 Pen] Lisinopril [Zestril] 20 mg PO DAILY 09/20/16 09/23/16 Potassium Chloride [K-Tab ER] 20 meq PO DAILY 09/20/16 09/23/16 Previous Rx's Medication Instructions Recorded Nitroglycerin 0.4 mg SL Q5MIN PRN #20 tab.subl 09/22/16 Atorvastatin [Lipitor] 80 mg PO HS #30 tablet 09/25/16 Clopidogrel [Plavix] 75 mg PO DAILY #30 tablet 09/25/16 Allergies Allergy/AdvReac Type Severity Reaction Status Date / Time Penicillins Allergy Mild Rash Verified 09/20/16 13:50 All systems ED: reviewed and negative except as stated. Past Medical History - Past Medical History Medical history: Reports: atrial fibrillation, CHF, coronary artery disease, diabetes, hyperlipidemia, hypertension, myocardial infarction, other Surgical history: Reports: cholecystectomy, coronary bypass (CABG) (CABG 3 at [facility] March 2015.), orthopedic, other Psychiatric history: Reports: no psych history - Social History Smoking Status: Never smoker Smokeless Tobacco Status: No Alcohol use: Reports: rarely Drug use: Reports: none Physical Exam - General Limitations: no limitations General appearance: alert, in no apparent distress - Head Head exam: atraumatic, normocephalic, normal inspection - Eye Eye exam: Present: normal appearance, PERRL, EOMI. Absent: scleral icterus, conjunctival injection - ENT ENT exam: normal exam, normal oropharynx, mucous membranes moist, TM's normal bilaterally, normal external ear exam - Neck Neck exam: Present: normal inspection, full ROM, trachea midline - Chest Chest inspection: Present: symmetric chest wall rise. Absent: tenderness - Respiratory Respiratory exam: Present: normal lung sounds bilaterally. Absent: respiratory distress - Cardiovascular Cardiovascular exam: Present: regular rate, normal rhythm, normal heart sounds - Abdominal Exam Abdominal exam: Present: soft, Non-Tender, normal bowel sounds. Absent: tenderness, distention, guarding, rebound, rigidity, trauma, pulsatile mass - Extremities Exam Extremities exam: Present: normal inspection, full ROM, normal capillary refill. Absent: tenderness, pedal edema, joint swelling, calf tenderness - Expanded Lower Extremity Exam Neurovascular/Tendon exam: Absent: pulse deficit, motor deficit, sensory deficit , tendon deficit, extremity cold to touch, pallor - Back Exam Back exam: Present: normal inspection, full ROM. Absent: tenderness, CVA tenderness (R), CVA tenderness (L), vertebral tenderness - Neurological Exam Neurological exam: Present: alert, oriented X3, CN II-XII intact, motor sensory deficit (Dropfoot right side chronic, chronic dysesthesia lower extremities per patient, otherwise unremarkable exam from acute standpoint) - Psychiatric Psychiatric exam: Present: normal affect, normal mood - Skin Skin exam: Present: warm, dry, intact, normal color. Absent: rash, cyanosis, diaphoresis, erythema, pallor, mottled Course Vital Signs Temperature 97.9 F 10/10/16 09:38 Pulse Rate 72 10/10/16 09:38 Respiratory Rate 20 10/10/16 09:38 Blood Pressure 194/100 10/10/16 09:38 O2 Sat by Pulse Oximetry 98 10/10/16 09:38 Temperature 97.9 F 10/10/16 09:38 Pulse Rate 64 10/10/16 10:27 Respiratory Rate 16 10/10/16 10:27 Blood Pressure 168/77 10/10/16 10:27 O2 Sat by Pulse Oximetry 97 10/10/16 10:27 Oxygen Delivery Oxygen Delivery Room Air Medical Decision Making - [facility] Narrative Medical decision making narrative: The patient is elderly, has a history of coronary disease with recent cardiac stent, hyperlipidemia, hypertension, diabetes, and is complaining of new onset chest morning which started this morning. His troponin is slightly elevated. His EKG does not show acute ST changes. Based on his comorbidities recent heart stent and acute symptomatology I thought it woud be appropriate to observe the patient in the Hospital. Aspirin was ordered. The patient is currently stable I discussed the case with the hospitalist on-call. - Lab Data Lab results reviewed: Yes I reviewed the patient's lab results. Result diagrams: 10/10/16 09:42 10/10/16 09:42 Lab Results 10/10/16 10/10/16 10/10/16 Range/Units 09:42 09:42 09:42 WBC (4.3-11.1) K/mcL RBC (4.19-5.50) M/mcL Hgb (12.9-16.9) g/dL Hct (37.5-50.1) % MCV (83.0-100.0) fL MCH (28.0-33.3) pg MCHC (31.6-35.5) g/dL RDW (11.5-14.5) % Plt Count (140-400) K/mcL MPV (9.4-12.4) fL Immature Gran % (0-4) % Seg Neutrophils % % Lymphocytes % % Monocytes % % Eosinophils % % Basophils % % Neutrophils # (1.6-8.9) K/mcL Lymphocytes # (0.6-4.6) K/mcL Monocytes # (0.0-1.3) K/mcL Eosinophils # (0.0-0.6) K/mcL Basophils # (0.0-0.2) K/mcL PT 12.1 (9.4-12.1) Seconds INR 1.1 APTT 30.5 (26.0-36.0) Seconds Sodium 137 (136-145) mEq/L Potassium 4.2 (3.5-4.5) mEq/L Chloride 101 (98-109) mEq/L Carbon Dioxide 25 (19-29) mEq/L BUN 16 (8-26) mg/dL Creatinine 1.21 (0.72-1.25) mg/dL Est GFR ( Amer) > 60 (> 60) Est GFR (Non-Af Amer) 60 (> 60) BUN/Creatinine Ratio 13 (6-26) Glucose 312 H (70-99) mg/dL Calculated Osmolality 297 (280-300) Calcium 9.8 (8.6-10.8) mg/dL Total Bilirubin 1.2 (0.2-1.2) mg/dL Direct Bilirubin 0.5 (0.0-0.5) mg/dL Indirect Bilirubin 0.7 (0.0-1.2) mg/dL AST 25 (5-34) Units/L ALT 26 (0-55) Units/L Alkaline Phosphatase 82 (38-126) Units/L Troponin I (0-0.03) ng/mL B-Natriuretic Peptide 97 (0-100) pg/mL Serum Total Protein 7.7 (6.0-8.3) g/dL Albumin 3.7 (3.5-5.0) g/dL Globulin 4.0 H (2.4-3.5) g/dL Albumin/Globulin Ratio 0.9 L (1.1-2.2) Lipase 21 (8-78) Units/L 10/10/16 10/10/16 Range/Units 09:42 09:42 WBC 11.9 H (4.3-11.1) K/mcL RBC 4.83 (4.19-5.50) M/mcL Hgb 15.0 (12.9-16.9) g/dL Hct 43.9 (37.5-50.1) % MCV 90.9 (83.0-100.0) fL MCH 31.1 (28.0-33.3) pg MCHC 34.2 (31.6-35.5) g/dL RDW 14.1 (11.5-14.5) % Plt Count 175 (140-400) K/mcL MPV 10.7 (9.4-12.4) fL Immature Gran % 0.4 (0-4) % Seg Neutrophils % 36.2 % Lymphocytes % 56.2 % Monocytes % 5.3 % Eosinophils % 1.6 % Basophils % 0.3 % Neutrophils # 4.3 (1.6-8.9) K/mcL Lymphocytes # 6.7 H (0.6-4.6) K/mcL Monocytes # 0.6 (0.0-1.3) K/mcL Eosinophils # 0.2 (0.0-0.6) K/mcL Basophils # 0.0 (0.0-0.2) K/mcL PT (9.4-12.1) Seconds INR APTT (26.0-36.0) Seconds Sodium (136-145) mEq/L Potassium (3.5-4.5) mEq/L Chloride (98-109) mEq/L Carbon Dioxide (19-29) mEq/L BUN (8-26) mg/dL Creatinine (0.72-1.25) mg/dL Est GFR ( Amer) (> 60) Est GFR (Non-Af Amer) (> 60) BUN/Creatinine Ratio (6-26) Glucose (70-99) mg/dL Calculated Osmolality (280-300) Calcium (8.6-10.8) mg/dL Total Bilirubin (0.2-1.2) mg/dL Direct Bilirubin (0.0-0.5) mg/dL Indirect Bilirubin (0.0-1.2) mg/dL AST (5-34) Units/L ALT (0-55) Units/L Alkaline Phosphatase (38-126) Units/L Troponin I 0.07 H* (0-0.03) ng/mL B-Natriuretic Peptide (0-100) pg/mL Serum Total Protein (6.0-8.3) g/dL Albumin (3.5-5.0) g/dL Globulin (2.4-3.5) g/dL Albumin/Globulin Ratio (1.1-2.2) Lipase (8-78) Units/L - Radiology Data Radiology results reviewed: Yes I reviewed the patient's radiology results.
[2016-10-10] MEDS ORDERED: 0.9 % Sodium Chloride 500 ML IVC ONE (09:39)
[2016-10-10] MEDS ORDERED: Aspirin 81 MG TAB.CHEW PO ONE (09:39)
[2016-10-10 09:54] LABS: Basophils % 0.3 %; Eosinophils # 0.2 K/mcL (0.0-0.6); Eosinophils % 1.6 %; Hematocrit 43.9 % (37.5-50.1); Immature Granulocytes % 0.4 % (0-4); Lymphocytes # 6.7 K/mcL (0.6-4.6); Lymphocytes % 56.2 %; Mean Corpuscular HGB Conc 34.2 g/dL (31.6-35.5); Mean Corpuscular Hemoglobin 31.1 pg (28.0-33.3); Mean Corpuscular Volume 90.9 fL (83.0-100.0); Mean Platelet Volume 10.7 fL (9.4-12.4); Monocytes # 0.6 K/mcL (0.0-1.3); Monocytes % 5.3 %; Neutrophils # 4.3 K/mcL (1.6-8.9); Platelet Count 175 K/mcL (140-400); Red Blood Count 4.83 M/mcL (4.19-5.50); Red Cell Distribution Width 14.1 % (11.5-14.5); Segmented Neutrophils % 36.2 %
[2016-10-10 10:00] LABS: INR 1.1; Prothrombin Time 12.1 Seconds (9.4-12.1)
[2016-10-10 10:03] LABS: Activated Partial Thrombo Time 30.5 Seconds (26.0-36.0)
[2016-10-10 10:07] LABS: Alanine Aminotransferase 26 Units/L (0-55); Albumin 3.7 g/dL (3.5-5.0); Albumin/Globulin Ratio 0.9 (1.1-2.2); Alkaline Phosphatase 82 Units/L (38-126); Aspartate Amino Transferase 25 Units/L (5-34); BUN/Creatinine Ratio 13 (6-26); Bilirubin,Direct 0.5 mg/dL (0.0-0.5); Bilirubin,Indirect 0.7 mg/dL (0.0-1.2); Bilirubin,Total 1.2 mg/dL (0.2-1.2); Blood Urea Nitrogen 16 mg/dL (8-26); Calcium 9.8 mg/dL (8.6-10.8); Carbon Dioxide 25 mEq/L (19-29); Chloride 101 mEq/L (98-109); Glucose 312 mg/dL (70-99); Lipase 21 Units/L (8-78); Osmolality,Calculated 297 (280-300); Potassium 4.2 mEq/L (3.5-4.5); Sodium 137 mEq/L (136-145); Total Protein 7.7 g/dL (6.0-8.3); eGFR For African Americans > 60 (> 60); eGFR For Non-African Americans 60 (> 60)
[2016-10-10] MEDS ORDERED: *HR* Labetalol 20 MG/4 ML SYRINGE IVP ONE (10:24)
--- NOTE | 2016-10-10 11:06 | Internal Med History&Physical ---
Date of Encounter: 10/10/16 Time of Encounter: 11:02 Assessment and Plan (1) Hyperlipidemia Current visit: Yes Status: Acute We will continue with Lipitor. Check lipid panel in the morning. Cardiac diet. Qualifiers: Hyperlipidemia type: mixed hyperlipidemia Qualified Code(s): E78.2 - Mixed hyperlipidemia (2) Hypertension Current visit: Yes Status: Acute Patient's blood pressure was elevated on presentation. We will obtain pain control and continue treatment of blood pressure with IV labetalol as needed. Resume his home medications including lisinopril and metoprolol. Qualifiers: Hypertension type: essential hypertension Qualified Code(s): I10 - Essential (primary) hypertension (3) CAD (coronary artery disease) Current visit: Yes Status: Chronic Continue with aspirin and Plavix beta corona statin and TROY inhibitor. Consult cardiology. Recent cardiac catheter report reviewed shows significant stenosis status post PCI with stent placement to the SVG graft to RPDA. Qualifiers: Coronary Disease-Associated Artery/Lesion type: bypass graft [place] vs. transplanted heart: samish heart Associated angina: with unstable angina Qualified Code(s): I25.700 - Atherosclerosis of coronary artery bypass graft(s) , unspecified, with unstable angina pectoris (4) Morbid obesity with BMI of 40.0-44.9, adult Current visit: Yes Status: Chronic Outpatient weight loss regimen. Follow-up with PCP. (5) DVT prophylaxis Current visit: No Status: Acute We will use subcutaneous Lovenox. (6) Unstable angina Current visit: No Status: Acute This is postinfarct unstable angina and high risk for progression to acute myocardial infarction and therefore will place the patient in observation, monitor on telemetry, trend troponin every 6 hours. Consult cardiology. We will use nitroglycerin glycerin and morphine for pain, continue aspirin and Plavix Lipitor and metoprolol. 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 We will check hemoglobin A1c. Diabetic diet. (8) Diabetic peripheral neuropathy associated with type 2 diabetes mellitus Current visit: Yes Status: Acute Continue gabapentin per home dose. We will use morphine for uncontrolled pain related to neuropathy. Internal Medicine - H&P: HPI Chief complaint: Chest pressure Admitted From: Emergency Dept Plans for Post Hospital Care: Home History of present illness: Mr. Randle is a 66 year old male with past medical history significant for insulin-dependent diabetes, hypertension and coronary artery disease status post CABG and status post CO with a recent stent placement who presented to the hospital for sudden onset severe, 10/10 precordial chest pressure that started at 5:00 this morning. He says the sensation is similar to the one he had when he had his last heart attack. He reports associated mild nausea, no diaphoresis shortness of breath or lightheadedness. He took 3 tablets of nitroglycerin at home but chest pressure did not improve. Evaluation in the emergency department revealed elevated blood pressure of 194/ 100. EKG was nondiagnostic. Troponin was 0.07. He was referred for admission and further care. Review of systems: Positive for bilateral lower extremity swelling, positive for chronic low back pain, positive for burning sensation in upper and lower extremities secondary to peripheral neuropathy. The remainder of 10 point review of systems was negative except as described above. Family history: Pertinent for history of myocardial infarction in the patient's father, diagnosed in his early 50s. Patient's mother suffered with ovarian cancer and thyroid cancer. Patient has 2 brothers who also suffer with coronary artery disease. Past Med Surg Social Fam HX - Past Medical History Medical history: atrial fibrillation, CHF, coronary artery disease, diabetes, hyperlipidemia, hypertension, myocardial infarction, other Psychiatric history: no psych history - Past Surgical History Surgical History: cholecystectomy, coronary bypass (CABG) (CABG 3 at [facility] March 2015.), orthopedic, other - Social History Smoking Status: Never smoker Smokeless Tobacco Status: No Alcohol use: rarely Drug use: none - Family History Mother Adopted: No Family Member Ethnicity: Non- Living Status: Hx Family Cardiac Disorders: No Hx Family Respiratory Disorders: Yes (COPD) Hx Family Cancer: Yes Hx Family GI Disorders: No Hx Family Endocrine Disorder: Yes (DM,thyroid) Hx Family Neuromuscular Disorders: Yes (neuropathy) Hx Family Neurologic Disorders: No Hx Family HEENT Disorders: No Hx Family Autoimmune Disorders: No Internal Medicine - H&P: Meds Allopurinol [Zyloprim] 300 mg PO DAILY 04/11/15 [History] Aspirin Enteric Coated [Aspirin EC] 81 mg PO DAILY 04/11/15 [History] Atorvastatin Calcium [Lipitor] 80 mg PO DAILY 04/11/15 [History] Gabapentin [Neurontin] 1,200 mg PO TID 04/11/15 [History] Furosemide [Lasix] 40 mg PO DAILY 05/23/15 [History] Insulin Regular U-500 [HumuLIN R U-500] 160 - 185 unit SQ BID 05/23/15 [History ] Metoprolol [Lopressor] 25 mg PO BID 05/23/15 [History] Multivitamin [One Daily Essential] 1 tab PO DAILY 05/23/15 [History] Albuterol Sulfate [Proair Hfa] 2 puff IH Q4H PRN 09/20/16 [History] Amitriptyline [Elavil] 25 mg PO HS 09/20/16 [History] Exenatide Microspheres [Bydureon Pen] 2 mg SQ QWEEK 09/20/16 [History] Lisinopril [Zestril] 20 mg PO DAILY 09/20/16 [History] Potassium Chloride [K-Tab ER] 20 meq PO DAILY 09/20/16 [History] Nitroglycerin 0.4 mg SL Q5MIN PRN #20 tab.subl 09/22/16 [Rx] Atorvastatin [Lipitor] 80 mg PO HS #30 tablet 09/25/16 [Rx] Clopidogrel [Plavix] 75 mg PO DAILY #30 tablet 09/25/16 [Rx] Allergies Penicillins Allergy (Mild, Verified 09/20/16 13:50) Rash All Systems PM: A 10-system review of systems was performed and is negative for pertinent findings except as documented above in the HPI. - Constitutional Vitals: Temp Pulse Resp BP Pulse Ox 97.9 F 69 18 160/79 98 10/10/16 09:38 10/10/16 10:58 10/10/16 10:58 10/10/16 10:58 10/10/16 10:58 - Neck Neck exam general surgery: Present: supple, trachea midline. Absent: lymphadenopathy - Respiratory Respiratory exam: Present: CTAB. Absent: accessory muscle use, rales, rhonchi, wheezes - Cardiovascular Cardiovascular exam: Present: RRR, +S1, +S2. Absent: diastolic murmur, gallop, rubs, systolic murmur Additional comments: Sternotomy scar noted. Healing well. - GI/Abdominal GI/Abdominal exam: Present: normal bowel sounds, soft, no peritoneal signs. Absent: distended, tenderness - Extremities Exam Extremities exam: Present: pedal edema, warm, radial pulses palpable and symetrical. Absent: calf tenderness, cyanotic Additional comments: Bilateral 2+ lower extremity pitting edema - Neurological Exam Neurological exam: Present: CN II-XII intact, oriented X3, no focal deficits. Absent: pronater drift, facial droop, speech deficit - Skin Skin exam: Present: dry, intact Internal Med - H&P Results - Labs CBC & Chem 7: 10/10/16 09:42 10/10/16 09:42 - EKG Data EKG comments: 10/10/16 11:07 EKG reviewed by Alejandro shows normal sinus rhythm at 73 bpm first-degree AV block, no ST or T-wave changes, Q waves in lead 3 and aVF which are unchanged compared to the EKG from 09/24/2016.
[2016-10-10] MEDS ORDERED: Ondansetron 4 MG/2 ML VIAL IVP PRN ×2 (11:20→15:04)
[2016-10-10] MEDS ORDERED: Acetaminophen 325 MG TABLET PO PRN (11:20)
[2016-10-10] MEDS ORDERED: Naloxone 0.4 MG/ML INJ IVP PRN (11:20)
[2016-10-10] MEDS ORDERED: Dextrose Gel 15 GM PO PRN ×2 (11:26)
[2016-10-10] MEDS ORDERED: D5% in Water 1,000 ML IV PRN (11:26)
[2016-10-10] MEDS ORDERED: *HR* Dextrose 50 % in Water (Syg) 50 ML SYRINGE IVP PRN (11:26)
[2016-10-10] MEDS ORDERED: 0.9 % Sodium Chloride 1,000 ML IVC SCH (11:30)
[2016-10-10] MEDS ORDERED: Nitroglycerin 0.4 MG TAB.SUBL SL PRN (11:30)
--- NOTE | 2016-10-10 12:37 | Cardiology Consult Note ---
Date of Encounter: 10/10/16 Time of Encounter: 12:34 Assessment and Plan (1) Chest pain Current Visit: Yes Status: Acute Sxs worrisome for ACS/USA - given recent stenting despite negative work up so far - recommend repeat Angio. NPO now. Risks benefits rationale and alternatives reviewed - patient is agreeable. Continue stardard R/O NH type care. Contine home CV meds. Additional recs based on Angio results. Qualifiers: Ischemic chest pain type: unstable angina pectoris Qualified Code(s): I20.0 - Unstable angina (2) CAD (coronary artery disease) Current Visit: Yes Status: Chronic Continue with aspirin and Plavix beta corona statin and TROY inhibitor. Cath as above. . Qualifiers: Coronary Disease-Associated Artery/Lesion type: bypass graft [place] vs. transplanted heart: [place] heart Associated angina: with unstable angina Qualified Code(s): I25.700 - Atherosclerosis of coronary artery bypass graft(s) , unspecified, with unstable angina pectoris (3) ACS (acute coronary syndrome) Current Visit: No Status: Acute Discussion w patient/family: The assessment and plan as outlined above was discussed with the patient and/or family members who expressed understanding and agreement. All questions were answered. Thank you for involving us in the care of your patient. Please call with any questions. History of Present Illness Consult date: 10/10/16 Consult reason: chest pain Chief complaint: same History of present illness: Mr. Randle is a 66 year old male with known CAD, s/p CABG, s/p PCI < 1 month ago, presents with an anterior chest pain, starting ~ 5 AM this morning slowly getting worse - ultimately bringing him to the ER. Feels identical to his previous anginal pain. Some improvement with NTG - but still having some chest pain Work up so far, EKG, Trop, CXR negative. Denies any other recent sxs - except his chronic Neuropathy - which has flared. He denies missing any medication doses and reports very good compliance. Past Med Surg Social Fam HX - Past Medical History Medical history: atrial fibrillation, CHF, coronary artery disease, diabetes, hyperlipidemia, hypertension, myocardial infarction, other Psychiatric history: no psych history - Past Surgical History Surgical History: cholecystectomy, coronary bypass (CABG), orthopedic, other - Social History Smoking Status: Never smoker Smokeless Tobacco Status: No Alcohol use: rarely Drug use: none - Family History Mother Adopted: No Family Member Ethnicity: Non- Living Status: Hx Family Cardiac Disorders: No Hx Family Respiratory Disorders: Yes (COPD) Hx Family Cancer: Yes Hx Family GI Disorders: No Hx Family Endocrine Disorder: Yes (DM,thyroid) Hx Family Neuromuscular Disorders: Yes (neuropathy) Hx Family Neurologic Disorders: No Hx Family HEENT Disorders: No Hx Family Autoimmune Disorders: No Medications and Allergies Allopurinol [Zyloprim] 300 mg PO DAILY 04/11/15 [History] Aspirin Enteric Coated [Aspirin EC] 81 mg PO DAILY 04/11/15 [History] Atorvastatin Calcium [Lipitor] 80 mg PO DAILY 04/11/15 [History] Gabapentin [Neurontin] 1,200 mg PO TID 04/11/15 [History] Furosemide [Lasix] 40 mg PO DAILY 05/23/15 [History] Insulin Regular U-500 [HumuLIN R U-500] 32 - 36 unit SQ BID 05/23/15 [History] Metoprolol [Lopressor] 25 mg PO BID 05/23/15 [History] Exenatide Microspheres [Bydureon Pen] 2 mg SQ QWEEK 09/20/16 [History] Lisinopril [Zestril] 20 mg PO DAILY 09/20/16 [History] Nitroglycerin 0.4 mg SL Q5MIN PRN #20 tab.subl 09/22/16 [Rx] Clopidogrel [Plavix] 75 mg PO DAILY #30 tablet 09/25/16 [Rx] Potassium Gluconate [Potassium] 198 mg PO DAILY 10/10/16 [History] Allergies amitriptyline Allergy (Mild, Verified 10/10/16 11:53) Itching Penicillins Allergy (Mild, Verified 09/20/16 13:50) Rash All Systems Review: A 10-system review of systems was performed and is negative for pertinent findings except as documented above in the HPI. - Cardiovascular Cardiovascular: chest pain at rest, chest pain with exertion, dyspnea at rest - Respiratory Respiratory: no cough, no dyspnea - Gastrointestinal Gastrointestinal: no abdominal pain Physical Examination Vital Signs, Last 4 Hours Temp Pulse Resp BP Pulse Ox 10/10/16 11:50 98.1 F 62 12 158/74 98 10/10/16 11:06 18 149/67 10/10/16 10:58 69 18 160/79 98 General: Conversant, No Apparent Distress, Other (able to lie flat - breathing easily c/o chest pain) HEENT: Atraumatic, Normocephaly Neck: No JVD Cardiac: Reg Rate and Rhythm, Normal S1 and S2 Lungs: Normal Breath Sounds, No Wheeze, Rales, Rhonchi Neuro: Alert and responsive, No focal deficits noted Abdomen: Soft Skin: No rashes noted on visualized skin Musculoskeletal: No Chest Wall Tenderness Extremities: No Clubbing, No Cyanosis Results 10/10/16 09:42 10/10/16 09:42 - Imaging and Cardiology Chest Xray: report reviewed Cardiac cath: other (Recent cath and PCI report reviewed.) - EKG Interpretation EKG results cardiology: personally reviewed, no diagnostic ischemia Consult Discharge Plan - Plan Referrals: Azul Guillen CNP [Primary Care Provider] -
[2016-10-10] MEDS ORDERED: *HR* Midazolam HCl 2 MG/2 ML VIAL ONE ×2 (13:45→14:12)
[2016-10-10] MEDS ORDERED: *HR* FentaNYL (PF) 100 MCG/2 ML VIAL ONE ×2 (13:45→14:12)
[2016-10-10] MEDS ORDERED: *HR* Heparin 10,000 UNIT/10 ML VIAL ONE (13:46)
[2016-10-10] MEDS ORDERED: 0.9 % Sodium Chloride 1,000 ML ONE ×2 (13:46→14:12)
[2016-10-10] MEDS ORDERED: Heparin 1,000 UNITS/500 mL NS 500 ML ONE (13:46)
[2016-10-10] MEDS ORDERED: Nitroglycerin 1,000 MCG/10 ML VIAL IV ONE (13:47)
[2016-10-10] MEDS: *HR* Morphine 2 MG/ML SYRINGE IVP PRN ×3 (13:53→21:30)
[2016-10-10] MEDS: Insulin LISPRO 300 UNITS/3 ML VIAL SQ SCH ×2 (13:53→21:41)
--- NOTE | 2016-10-10 14:27 | Pre-Sedation Evaluation ---
Pre-sedation evaluation - Pre-sedation checklist Date of procedure: 10/10/16 Procedure: [facility] Recent Vitals: Last Vital Signs Temp 98.1 F 10/10/16 11:50 Pulse 62 10/10/16 11:50 Resp 12 10/10/16 11:50 BP 158/74 10/10/16 11:50 Pulse Ox 98 10/10/16 11:50 H&P (including ROS) documented in medical record: Yes Previous reaction to sedatives/anesthetics: No Dietary Status: NPO after Midnight Dentition: No loose teeth or bridges Possible difficult airway: No ASA Classification *see protocol: CLASS II-Mild systemic disease Plan of Care: Pt appropriate candidate for procedure/moderate/conscious sedation , Risks/benefits of procedure/sedation discussed w/ patient/family, If not NPO; Risk of intake outweiged by necessity to perform procedure
[2016-10-10] MEDS ORDERED: *HR* Bivalirudin 250 MG VIAL IVC ONE (14:49)
--- NOTE | 2016-10-10 15:42 | Invasive Diagnostic Lab Proc ---
Name: Jesus Randle Date of Study: 10/10/2016 Date: 1950 Ht: 68.1in Medical Record#: [id number] Age: 66 Wt: 288.81lb Gender: Male BSA: 2.39 Order #: [id number] BMI: 43.77 Physicians Procedure Physician: Jasvir Santos MD Referring MD: Referring MD: Staff Name Position Time In Jana Garcia RN Applications Programmer Analyst 02:10 PM Cristiana Serna RT 02:10 PM Danna Ramsey RN Monitor 02:10 PM Fran, Kamini RT (R) Scrub 02:10 PM Indications Indication Unstable Angina Procedures Performed Procedure CORONARY ART/GRFT ANGIO S\\T\\I PRQ REVASC BYP GRAFT 1 VSL Pre-Procedure Checklist Informed consent is complete signed and on chart. H\\T\\P is on chart. ID band is on and ID verified with patient. Patient NPO for procedure The procedure was described for the patient and questions were answered. Blood Pressure: 158/74 ECG is on chart. Plan of Care Patient will tolerate the procedure without complications. Adequate level of comfort will be maintained. Hemodynamics will remain stable Patient will recover from procedure without complications. Respiratory function will be maintained. Cardiac rhythm will remain stable. Patient temperature will be maintained. Patient and/or family have verbalized understanding of the procedure. Patient Education Intravenous Access Time IV Size Location DC'd Fluid/Drip Rate Units RN 02:08 PM 18g 1 /" Patent On Arrival Rt Antecubital 0.9NaCl 25 ml/hr Jana Garcia RN Allergies Penicillins amitriptyline Vital Signs Time BP (mmHg) HR (bpm) O2 Sat. RR (bpm) LOC 02:20 PM 158 / 74 62 98 % 16 5 = Fully awake and oriented or at pre-proc level 02:42 PM / % 5 = Fully awake and oriented or at pre-proc level 02:42 PM / % 5 = Fully awake and oriented or at pre-proc level 02:57 PM / % 5 = Fully awake and oriented or at pre-proc level 02:33 PM 196 / 89 65 100 % 15 02:37 PM 183 / 87 67 100 % 14 02:42 PM 179 / 89 69 98 % 15 02:47 PM 184 / 85 75 98 % 10 02:52 PM 138 / 80 76 98 % 23 02:58 PM 166 / 80 70 98 % 23 03:02 PM 173 / 81 72 99 % 18 03:07 PM 172 / 84 68 % 19 03:30 PM 136 / 70 68 98 % 18 Procedural Medications Time Medication Dose Units Method Given By 02:39 PM Lidocaine 2% 13 ml Subcutaneous Jasvir Santos MD 02:51 PM Nitroglycerin 200 mcg Intracoronary Jasvir Santos MD 02:52 PM Angiomax 0.75mg/kg bolus: 19.5 ml Intravenous Jana Garcia RN 02:52 PM Angiomax 1.75mg/kg/hr: 45.5 ml Intravenous Jana Garcia RN 02:38 PM Oxygen 2 L/min nasal cannula Jana Garcia RN 03:06 PM Plavix 300 mg Orally Jana Garcia RN 02:25 PM Versed 1 mg Intravenous Jana Garcia RN 02:25 PM Fentanyl 50 mcg Intravenous Jana Garcia RN ASA Classification: CLASS II- Mild systemic disease (i.e. well-controlled diabetes, hypertension, asthma, cigarette smoking) Amy Score Preprocedure Postprocedure Activity 2- Moves 4 extremities sustained head lift Activity Circulation 2- SBP +/= 20 points of pre-anesthetic level Circulation Consciousness 2- Awake and alert oriented x 3 Consciousness O2 Saturation 2- Able to maintain O2 satruation of 92% on room air O2 Saturation Respiratory 2- Able to deep breathe and cough well Respiratory Total Score 10 Total Score Contrast Agent: Isovue Diagnostic Contrast: 140 ml Total Contrast: 140 ml Fluoro Dose: 6 mGy Procedure Log Time Note Enter By 02:08 PM CathStat 02:10 PM Pt arrived to [facility] [place] 2 at 14:10 scoates 02:10 PM Jana Garcia RN Position: Applications Programmer Analyst Time in: 14:10 scoates 02:10 PM Kamini kim RT Position: Scrub Time in: 14:10 scoates 02:10 PM Danna Ramsey RN Position: Monitor Time in: 14:10 scoates 02:10 PM Patient charges- .Angio tray pack, Navilyst 3mm J, Pulse Oximetry and ACIST tubing and transducer scoates 02:25 PM Time: 14:25 Versed 1 mg Intravenous Given by Jana Garcia RNoheusebio 02:25 PM Meet and greet completed ejohnson 02:25 PM Sign in performed according to hospital policy. ejohnson 02:25 PM Time: 14:25 Fentanyl 50 mcg Intravenous Given by Jana Garcia RN ejohnson 02:25 PM Procedure start 14: ejohnson 02:25 PM ASA Class CLASS II- Mild systemic disease (i.e. well-controlled diabetes, hypertension, asthma, cigarette smoking) ejohnson 02: PM Tia completed ejohnson 02: PM Sign in performed according to hospital policy. ejohnson 02: PM Procedure start 14: ejohnson 02:31 PM Vitals capture started with the following parameters, Patient=Adult, Interval=5 min, Initial Dqrngoum=187 mmHg, Deflation Rate=5 mmHg, Cuff placed on Left Leg 02:31 PM Recorded ECG: HR=69 Condition=Condition 1 02:33 PM LI=006 bpm, QOBG=825/89 mmhg, JoA6=320.0 %, Resp=15 B/min, Comment=SR 02:37 PM HR=67 bpm, IYXW=492/87 mmhg, UbO5=258.0 %, Resp=14 B/min, Comment=SR 02:38 PM Time out performed according to hospital policy ejohnson 02:38 PM Time: 14:38 Oxygen on at 2 L/min per nasal cannula by Jana Garcia RN ejohnson 02:38 PM Pressure channel 1 zeroed. 02:39 PM Time: 14:39 13 ml Lidocaine 2% to right groin Subcutaneous Given by Jasvir Santos MD ejohnson 02:39 PM Access obtained by percutaneous puncture. 6Fr 10cm Terumo [place] sheath placed in right Femoral artery. [id number] ejohnson 02:40 PM 5Fr FL 4 catheter inserted over the wire DN ejohnson 02:41 PM Recorded Pressure: Ao, HR=66, Condition=Condition 1 (Aorta) Ao 170/66/105 02:41 PM Recorded Pressure: Ao, HR=67, Condition=Condition 1 (Aorta) Ao 145/71/102 02:41 PM LCA angiography performed in multiple views. ejohnson 02:42 PM HR=69 bpm, UTDM=509/89 mmhg, SpO2=98.0 %, Resp=15 B/min, Comment=SR 02:42 PM Time: 14:42 Patient comfortable and pain free: Yes ejohnson 02:42 PM Time: 14:42LOC: 5 = Fully awake and oriented or at pre-proc level ejohnson 02:43 PM Catheter removed ejohnson 02:44 PM 5Fr MPA catheter inserted over the wire [id number] ejohnson 02:44 PM Lesion found in Proximal LAD. Pre Stenosis: 90 Pre SALBADOR Flow: 3: Complete and Brisk Flow/Perfusion ejohnson 02:44 PM Lesion found in Mid LAD. Pre Stenosis: 100 Pre SALBADOR Flow: 3 ejohnson 02:44 PM Lesion found in Proximal Circumflex. Pre Stenosis: 30 Pre SALBADOR Flow: 3: Complete and Brisk Flow/Perfusion ejohnson 02:45 PM Lesion found in 1st Marginal. Pre Stenosis: 60 Pre SALBADOR Flow: 3: Complete and Brisk Flow/Perfusion ejohnson 02:45 PM Proximal Left Anterior Descending Coronary Artery with 90% stenosis. ejohnson 02:45 PM Recorded Pressure: Ao, HR=75, Condition=Condition 1 (Aorta) Ao 148/81/113 02:45 PM Mid/Distal Left Anterior Descending Coronary Artery and diagonal branches with 100% stenosis. ejohnson 02:45 PM Circumflex, Obtuse Marginal, Left Posterior Descending, and Left Posterolateral Coronary Arteries with 60 % stenosis. ejohnson 02:46 PM RCA angiography performed in multiple views. ejohnson 02:46 PM 5Fr FR 4 catheter inserted over the wire DN ejohnson 02:47 PM HR=75 bpm, YHRS=390/85 mmhg, SpO2=98.0 %, Resp=10 B/min, Comment=SR 02:47 PM SVG to the RPDA angio performed in multiple views. ejohnson 02:48 PM Catheter removed ejohnson 02:49 PM 6Fr IM Runway guide catheter was used to cannulate the PCI vessel successfully. reused? No ejohnson 02:51 PM Recorded Pressure: Ao, HR=75, Condition=Condition 1 (Aorta) Ao 170/68/110 02:51 PM Time: 14:51 Nitroglycerin 200 mcg Intracoronary Given by Jasvir Santos MD ejohnson 02:52 PM HR=76 bpm, FWYS=516/80 mmhg, SpO2=98.0 %, Resp=23 B/min, Comment=SR 02:52 PM Time: 14:52 Angiomax 0.75mg/kg bolus: 19.5 ml Intravenous Given by Jana Garcia RN [place] pump ejohnson 02:52 PM Time: 14:52 Angiomax 1.75mg/kg/hr: 45.5 ml Intravenous Given by Jana Garcia RN [place] pump ejohnson 02:53 PM Recorded Pressure: Ao, HR=71, Condition=Condition 1 (Aorta) Ao 147/69/101 02:54 PM Recorded Pressure: Ao, HR=70, Condition=Condition 1 (Aorta) Ao 148/68/100 02:56 PM Recorded Pressure: Ao, HR=69, Condition=Condition 1 (Aorta) Ao 142/65/95 02:56 PM 2.0 mm x 8 mm Emerge Monorail balloon across target lesion- successful. reused? No ejohnson 02:56 PM Balloon inflated @ 12 art for 14 seconds ejohnson 02:57 PM Balloon catheter removed intact. ejohnson 02:57 PM Time: 14:42LOC: 5 = Fully awake and oriented or at pre-proc level ejohnson 02:57 PM Time: 14:42 Patient comfortable and pain free: Yes ejohnson 02:58 PM HR=70 bpm, DRLY=548/80 mmhg, SpO2=98.0 %, Resp=23 B/min, Comment=SR 02:58 PM 2.5mm x 12mm Promus Premier Rx drug-eluting stent across target lesion- successful Lot #[id number] ejohnson 02:58 PM Stent deployed @ 14 art for 6 seconds ejohnson 02:59 PM Stent delivery system removed intact. ejohnson 02:59 PM 2.75 mm x 8mm NC Emerge balloon across target lesion- successful. reused? No ejohnson 03:00 PM Recorded Pressure: Ao, HR=73, Condition=Condition 1 (Aorta) Ao 138/60/92 03:00 PM Balloon inflated @ 14 art for 6 seconds ejohnson 03:01 PM Balloon catheter removed intact. ejohnson 03:01 PM Guide wire removed intact. ejohnson 03:01 PM Guide catheter removed intact. ejohnson 03:02 PM Procedure completed at 15:02 ejohnson 03:02 PM HR=72 bpm, QJLW=323/81 mmhg, SpO2=99.0 %, Resp=18 B/min, Comment=SR 03:03 PM Sign out completed: Radiation Dose 5.6 mGy Fluoro Time: 973.27 Isovue 370 - 200ml contrast 140 ml given by Jasvir Santos MD. Complications: NoneCardiac Rehab Consult needed: YesConfirmed administered medications: Yes ejohnson 03:03 PM Time: 14:57LOC: 5 = Fully awake and oriented or at pre-proc level ejohnson 03:03 PM Time: 14:57 Patient comfortable and pain free: Yes ejohnson 03:03 PM Isovue 370 - 200ml,1 Bottle(s) used. ejohnson 03:03 PM Sheath left in place to be pulled on floor/holding area ejohnson 03:04 PM Post ECG NSR ejohnson 03:04 PM Post Blood Pressure 173/81 ejohnson 03:04 PM 15:04 Post Pulses Bilateral DP \\T\\ PT Doppler ejohnson 03:05 PM Information taught Cardiac Cath and PCI ejohnson 03:05 PM Education needs Plan of Care and Responsibilities of Patient in Care ejohnson 03:05 PM Learning barriers :None ejohnson 03:05 PM Education Methods Verbal ejohnson 03:05 PM Education evaluation Able to repeat information ejohnson 03:05 PM Site status No bleeding/hematoma - Rt Groin as reported by Sites, Kamini RT (R) at 15:05 ejohnson 03:05 PM Opsite applied ejohnson 03:05 PM Delay to floor waiting on bed management to call back ejohnson 03:06 PM Time: 15:06 Plavix 300 mg Orally Given by Jana Garcia RN ejohnson 03:07 PM HR=68 bpm, EQNC=917/84 mmhg, Resp=19 B/min 03:11 PM Coronary Dominance: right ejohnson 03:15 PM Family placed in consult room. ejohnson 03:24 PM Fluoro Time: 973.27 ejohnson 03:36 PM Report given to La SARMIENTO Pt taken to 2N Room #7. 15:36 ejohnson 03:36 PM Patient out of room: 15:36 ejohnson 03:36 PM Complications: None ejohnson Complications Complication None None Hemodynamics Pressures Site Systolic/A Wave Diastolic/V Wave Mean AO 170 66 105 AO 145 71 102 AO 148 81 113 AO 170 68 110 AO 147 69 101 AO 148 68 100 AO 142 65 95 AO 138 60 92 Post Procedure Information Blood Pressure: 173/81 mmHg Rhythm: NSR Post procedural instructions were given Site Checks Time Location Status Staff Sheath In? Note 03:05 PM Rt Groin No bleeding/hematoma Sites, Kamini RT (R) Pulses Time Site Pre-Procedure Post-Procedure Note 10/10/2016 2:09:00 PM Bilateral DP \\T\\ PT Doppler 10/10/2016 2:09:00 PM Bilateral radial 2+ 3:04:00 PM Bilateral DP \\T\\ PT Doppler Updated by Danna Ramsey RN on 10/10/2016 3:38:55 PM Danna Ramsey RN electronically signed on 10/10/2016 3:39:40 PM with status of Final
--- NOTE | 2016-10-10 15:55 | Invasive Diagnostic Lab ---
Name: Jesus Randle Date of Study: 10/10/2016 Date: 1950 Ht: 173.0 cm /68.1 in Medical Record#: [id number] Age: 66 Wt: 131. kg / 288.81 lb Account/Order#: [id number] Gender: Male BSA: 2.39 Order #: [id number] Fluoro Dose: 6 mGy BMI: 43.77 Procedure Physician: Jasvir Santos MD Referring MD: Referring MD: Procedures Performed: CORONARY ANGIOGRAPHY W/ GRAFTS PCI of Bypass Graft Indications: Unstable Angina Impressions: There is severe two vessel coronary artery disease. Patient had successful PTCA/Drug-Eluting Stent placement in the HUBER to the LAD at the anastomosis site S/P CABG 2 of 2 patent bypass grafts. Recommendations: Optimal medical therapy of patient's disease. Aggressive risk factor modification. History/Risk Factors: AFib CAD Diabetes Hypertension Dyslipidemia CHF Prior [place] Procedure Access obtained in the right Femoral artery by percutaneous puncture Patient had successful PTCA/Drug-Eluting Stent placement in the HUBER to the mid LAD at the anastomosis. Complications: None Contrast: Isovue 140ml Hemodynamics: Pressures Site Systolic/ A Wave Diastolic/ V Wave End Diastolic/ Mean HR AO 170 66 105 66 AO 145 71 102 67 AO 148 81 113 75 AO 170 68 110 75 AO 147 69 101 71 AO 148 68 100 70 AO 142 65 95 69 AO 138 60 92 73 Coronary Dominance: right Lesion Findings/Interventions * Left Main Coronary Artery The LMCA is angiographically free of disease. * Left Anterior Descending There is a 90% stenosis in the Proximal LAD. The lesion has a SALBADOR flow of 3. There is a 100% stenosis in the Mid LAD. * Circumflex There is a 30% stenosis in the Proximal Circumflex. The lesion has a SALBADOR flow of 3. There is a 60% stenosis in the 1st Marginal. The lesion has a SALBADOR flow of 3. *Right Coronary Artery Additional Findings: Grafts * The saphenous vein graft to the Right PDA is patent. SALBADOR flow is 3. * The left internal mammary graft to the Mid LAD has a 90% stenosis at the anastomosis. SALBADOR flow is 3. Interventional Device(s) Vessel Segment Type Name Diameter (mm) Length (mm) HUBER to Mid LAD balloon NC Emerge 2.75 8 HUBER to Mid LAD drug-eluting stent Promus Premier Rx 2.5 12 HUBER to Mid LAD balloon Emerge Monorail 2 8 Updated by Danna Ramsey RN on 10/10/2016 3:17:12 PM Jasvir Santos MD electronically signed on 10/10/2016 3:52:32 PM with status of Final
[2016-10-10] MEDS ORDERED: *HR* Atropine Sulfate 1 MG/10 ML SYRINGE ONE (16:45)
[2016-10-10] MEDS: *HR* Labetalol 20 MG/4 ML SYRINGE IVP PRN ×3 (18:13→20:34)
[2016-10-10] MEDS: Gabapentin 400 MG CAPSULE PO SCH ×2 (19:23→21:31)
[2016-10-10] MEDS ORDERED: Insulin DETEMIR 100 UNIT/ML X5UNITS SQ SCH (21:00)
[2016-10-11] MEDS: *HR* Morphine 2 MG/ML SYRINGE IVP PRN (01:34)
[2016-10-11] MEDS: Insulin LISPRO 300 UNITS/3 ML VIAL SQ SCH ×3 (01:34→08:01)
[2016-10-11 06:36] LABS: BUN/Creatinine Ratio 13 (6-26); Blood Urea Nitrogen 16 mg/dL (8-26); Calcium 8.8 mg/dL (8.6-10.8); Carbon Dioxide 26 mEq/L (19-29); Chloride 103 mEq/L (98-109); Chol/HDL Ratio 4.3 (0-4.9); Cholesterol 85 mg/dL (< 200); Glucose 247 mg/dL (70-99); HDL Cholesterol 20 mg/dL (40-59); LDL Cholesterol,Calculated 30 mg/dL (0-99); Osmolality,Calculated 295 (280-300); Potassium 3.9 mEq/L (3.5-4.5); Sodium 138 mEq/L (136-145); Triglycerides 176 mg/dL (< 150); eGFR For African Americans > 60 (> 60); eGFR For Non-African Americans 56 (> 60)
[2016-10-11 06:37] LABS: Basophils % 0.2 %; Eosinophils # 0.2 K/mcL (0.0-0.6); Eosinophils % 2.3 %; Hematocrit 41.1 % (37.5-50.1); Hemoglobin 13.5 g/dL (12.9-16.9); Immature Granulocytes % 0.4 % (0-4); Lymphocytes # 3.7 K/mcL (0.6-4.6); Lymphocytes % 38.2 %; Mean Corpuscular HGB Conc 32.8 g/dL (31.6-35.5); Mean Corpuscular Hemoglobin 30.8 pg (28.0-33.3); Mean Corpuscular Volume 93.6 fL (83.0-100.0); Mean Platelet Volume 10.8 fL (9.4-12.4); Monocytes # 0.8 K/mcL (0.0-1.3); Monocytes % 7.8 %; Neutrophils # 4.9 K/mcL (1.6-8.9); Platelet Count 157 K/mcL (140-400); Red Blood Count 4.39 M/mcL (4.19-5.50); Segmented Neutrophils % 51.1 %
[2016-10-11] MEDS ORDERED: *HR* Enoxaparin 40 MG/0.4 ML SYRINGE SQ SCH (07:00)
[2016-10-11] MEDS ORDERED: Perflutren Lipid Microsphere 1.3 ML in 0.9 % Sodium Chloride 8.7 ML IVP ONE (07:47)
[2016-10-11] MEDS: Gabapentin 400 MG CAPSULE PO SCH (07:58)
[2016-10-11] MEDS ORDERED: Insulin LISPRO 300 UNITS/3 ML VIAL SQ SCH ×3 (08:00→21:00)
[2016-10-11] MEDS ORDERED: Perflutren Lipid Microsphere 2 ML VIAL ONE (08:01)
[2016-10-11] MEDS ORDERED: *HR* Dextrose 50 % in Water (Syg) 50 ML SYRINGE IVP PRN (08:30)
[2016-10-11] MEDS ORDERED: Dextrose Gel 15 GM PO PRN ×2 (08:30)
[2016-10-11] MEDS ORDERED: D5% in Water 1,000 ML IV PRN (08:30)
[2016-10-11] MEDS ORDERED: Lisinopril 20 MG TABLET PO SCH (09:00)
[2016-10-11] MEDS ORDERED: Aspirin Enteric Coated 81 MG Tablet PO SCH (09:00)
[2016-10-11] MEDS ORDERED: Aspirin 81 MG TAB.CHEW PO SCH (09:00)
--- NOTE | 2016-10-11 10:30 | Cardiology Progress Note ---
Date of Encounter: 10/11/16 Time of Encounter: 10:28 Assessment and Plan (1) Chest pain Current Visit: Yes Status: Acute Resolved following PCI yesterday. Will need Dual anti-platelet therapy for at least 1 year. Continue previous CV meds. Ongoing aggressive risk factor modification. OK to home today - f/u Cardiology as previously scheduled. Qualifiers: Ischemic chest pain type: unstable angina pectoris Qualified Code(s): I20.0 - Unstable angina (2) CAD (coronary artery disease) Current Visit: Yes Status: Chronic Continue with aspirin and Plavix beta corona statin and TROY inhibitor. Plan as above. . Qualifiers: Coronary Disease-Associated Artery/Lesion type: bypass graft [place] vs. transplanted heart: [place] heart Associated angina: with unstable angina Qualified Code(s): I25.700 - Atherosclerosis of coronary artery bypass graft(s) , unspecified, with unstable angina pectoris (3) ACS (acute coronary syndrome) Current Visit: No Status: Acute Discussion w patient/family: The assessment and plan as outlined above was discussed with the patient and/or family members who expressed understanding and agreement. All questions were answered. Thank you for involving us in the care of your patient. Please call with any questions. Subjective Principal diagnosis: CAD Interval history: Patient reports his chest pain/pressure has completely resolved - he is feeling back to baseline - denies any new complaints. Results of yesterdays Angio were reviewed in detail and questions were answered. Objective Vital Signs, Last 4 Hours Temp Pulse Resp BP Pulse Ox 10/11/16 07:40 98.8 F 99 18 142/65 97 General: Conversant, No Apparent Distress HEENT: Atraumatic, Normocephaly Neck: No JVD, Normal carotid pulses Cardiac: Reg Rate and Rhythm, Normal S1 and S2 Lungs: Normal Breath Sounds, No Wheeze, Rales, Rhonchi Neuro: Alert and responsive, No focal deficits noted Abdomen: Soft, Non-Tender Skin: No rashes noted on visualized skin Musculoskeletal: No Chest Wall Tenderness Extremities: No Clubbing, No Cyanosis, Other (access site WNL) Results 10/11/16 05:47 10/11/16 05:47 Lab Results 10/10/16 10/10/16 10/11/16 12:48 18:35 05:47 WBC 9.6 Hgb 13.5 D Hct 41.1 Plt Count 157 Sodium Potassium Chloride Carbon Dioxide BUN Creatinine Glucose Calcium Troponin I 0.07 H* 0.09 H* 10/11/16 05:47 WBC Hgb Hct Plt Count Sodium 138 Potassium 3.9 Chloride 103 Carbon Dioxide 26 BUN 16 Creatinine 1.28 H Glucose 247 H Calcium 8.8 Troponin I - Imaging and Cardiology Cardiac cath: report reviewed, image reviewed - EKG Interpretation EKG results cardiology: no diagnostic ischemia Consult Discharge Plan - Plan Referrals: Azul Guillen [facility] [Primary Care Provider] -
[2016-10-11] MEDS ORDERED: 0.9 % Sodium Chloride 1,000 ML IVC SCH (11:15)
[2016-10-11 12:06] VITALS: BP 138/63
--- NOTE | 2016-10-11 12:21 | Discharge Summary ---
Date of Encounter: 10/11/16 Time of Encounter: 11:00 - Discharge Diagnosis (1) COPD (chronic obstructive pulmonary disease) Priority: Secondary Status: Acute Qualifiers: COPD type: emphysema Emphysema type: other Qualified Code(s): J43.8 - Other emphysema (2) Hyperlipidemia Priority: Secondary Status: Acute Qualifiers: Hyperlipidemia type: mixed hyperlipidemia Qualified Code(s): E78.2 - Mixed hyperlipidemia (3) Hypertension Priority: Secondary Status: Acute Qualifiers: Hypertension type: essential hypertension Qualified Code(s): I10 - Essential (primary) hypertension (4) CAD (coronary artery disease) Priority: Primary Status: Chronic Qualifiers: Coronary Disease-Associated Artery/Lesion type: bypass graft [place] vs. transplanted heart: [place] heart Associated angina: with unstable angina Qualified Code(s): I25.700 - Atherosclerosis of coronary artery bypass graft(s) , unspecified, with unstable angina pectoris (5) NSTEMI (non-ST elevated myocardial infarction) Priority: Primary Status: Acute (6) Diabetes Priority: Secondary Status: Chronic Qualifiers: Diabetes mellitus type: type 2 Diabetes mellitus complication status: with neurologic complications Diabetes mellitus complication detail: with polyneuropathy Diabetes mellitus longterm insulin use: with longterm use Qualified Code(s): E11.42 - Type 2 diabetes mellitus with diabetic polyneuropathy; Z79.4 - skilled nursing (current) use of insulin - Discharge Medications Home Medications: Allopurinol [Zyloprim] 300 mg PO DAILY 04/11/15 [History] Aspirin Enteric Coated [Aspirin EC] 81 mg PO DAILY 04/11/15 [History] Atorvastatin Calcium [Lipitor] 80 mg PO DAILY 04/11/15 [History] Gabapentin [Neurontin] 1,200 mg PO TID 04/11/15 [History] Furosemide [Lasix] 40 mg PO DAILY 05/23/15 [History] Insulin Regular U-500 [HumuLIN R U-500] 32 - 36 unit SQ BID 05/23/15 [History] Metoprolol [Lopressor] 25 mg PO BID 05/23/15 [History] Exenatide Microspheres [Bydureon Pen] 2 mg SQ QWEEK 09/20/16 [History] Lisinopril [Zestril] 20 mg PO DAILY 09/20/16 [History] Nitroglycerin 0.4 mg SL Q5MIN PRN #20 tab.subl 09/22/16 [Rx] Clopidogrel [Plavix] 75 mg PO DAILY #30 tablet 09/25/16 [Rx] Potassium Gluconate [Potassium] 198 mg PO DAILY 10/10/16 [History] Allergies/Adverse Reactions: Allergies amitriptyline Allergy (Mild, Verified 10/10/16 11:53) Itching Penicillins Allergy (Mild, Verified 09/20/16 13:50) Rash Procedures/tests Complete & Pending: Procedures Performed prior 72 hours Category Date Time Status CL Cardiac Catheterization [CL] Routine Languages And Literature Instructor 10/10/16 12:29 Completed EV limited echocardiogram Routine Y 10/10/16 12:29 Completed Date of admission: 10/10/16 10:39 Primary care physician: Azul Guillen CNP Consults: 10/10/16 11:24 Consult to Physician [CONS] Routine Consulting Provider: Tyrese Summers Reason for Consult: Unstable angina Time Notified: 11:25 Call Completed: Yes 10/10/16 15:04 Consult to Cardiac Rehabilitation-Phase1 [CONS] Routine Comment: Reason for Consult: post op cath Call Completed: Yes Discharging clinician: Tri Brown Anticipated date of discharge: 10/11/16 - Patient Status Disposition: Home, Self-Care Condition: Good Functional capacity at discharge: independent ambulation Overall status at discharge: patient is back to baseline - Discharge Instructions Follow Up With: Azul Guillen CNP [Primary Care Provider] - - Diet and Activity Activity: increase activity as tolerated Diet: diabetic diet Interval History: Mr. Randle is a 66 year old male with past medical history significant for insulin-dependent diabetes, hypertension and coronary artery disease status post CABG and status post CA with a recent stent placement who presented to the hospital for sudden onset severe, 10/10 precordial chest pressure that started at 5:00 this morning. He says the sensation is similar to the one he had when he had his last heart attack. He reports associated mild nausea, no diaphoresis shortness of breath or lightheadedness. He took 3 tablets of nitroglycerin at home but chest pressure did not improve. Hospital course: Mr. Randle is a 66 year old male admitted for chest pain. His troponin is elevated. Cardiology consult was called and the patient did catheterization by cardiology. Patient has stent placed by cardiology. After procedure, patient has no further chest pain or shortness of breath. Cardiology saw patient today and cleared patient for discharge home. Patient was seen and examined. He is awake, alert, oriented 3. Denies chest pain or shortness of breath. Vitals are stable. Patient was discharged home and to follow-up with cardiology and PCP. Patient's diabetes is poorly controlled generally, he was advised to closely follow up PCP as outpatient. - Time Spent with Patient Total time spent providing and/or coordinating discharge services: 43 minutes Greater than 30 minutes - Constitutional Vitals: Temp Pulse Resp BP Pulse Ox 99.2 F 88 16 138/63 98 10/11/16 12:01 10/11/16 12:01 10/11/16 12:01 10/11/16 12:01 10/11/16 12:01 General appearance: Present: A&O X 3, no acute distress, answers questions appropriately - Head Head exam: Present: atraumatic, normocephalic - Eye Eye exam: Present: PERRL, conjuntiva pink, sclera anicteric Pupils: Present: PERRL - Neck Neck exam general surgery: Present: supple, trachea midline. Absent: lymphadenopathy - Respiratory Respiratory exam: Present: CTAB. Absent: accessory muscle use, rales, rhonchi, wheezes - Cardiovascular Cardiovascular exam: Present: RRR, +S1, +S2. Absent: diastolic murmur, gallop, rubs, systolic murmur - GI/Abdominal GI/Abdominal exam: Present: normal bowel sounds, soft, no peritoneal signs. Absent: distended, tenderness - Extremities Exam Extremities exam: Present: warm, radial pulses palpable and symetrical. Absent : calf tenderness, cyanotic, pedal edema - Neurological Exam Neurological exam: Present: CN II-XII intact, oriented X3, no focal deficits. Absent: pronater drift, facial droop, speech deficit - Skin Skin exam: Present: dry, intact
--- NOTE | 2016-10-11 12:31 | ECHO - Doppler Report ---
Limited Echocardiogram Name: Jesus Randle Date of Study: 10/11/2016 Date: 1950 Ht: 68.0 in Medical Record#: [id number] Age: 66 Wt: 290.0 lb Gender: Male BSA: 2.39 Order #: [id number] Location: [facility] Room #: 2N7 Reading Physician: Tamar Villalta DO Antenna Design Engineer: Zita Acosta RDCS Ordering Physician: Bernard Costa MD Primary Physician: Azul Guillen CNP Indications: Chest pain, Status post cath Impressions: LVEF 60%. Not all myocardial segments were well visualized. Normal left ventricular size and systolic function. Normal right ventricular size and function. Left Ventricular Wall Motion: Rest Echo Findings All wall segments showed normal motion. Findings: Study Quality * Technically challenging. Not all myocardial segments were well visualized. ECG Findings * Normal sinus rhythm. Left Ventricle * Normal LV chamber size, wall thickness and function. * LVEF 60%. Right Ventricle * Normal right ventricular structure and function. History Hypertension Diabetes Hypercholesteremia Family History of CAD History of CAD/PTCA Myocardial Infarction Coronary Artery Bypass Graft 09-24-16 a Previous Echo was performed. Measurements: BP: 132/ 62 2D Normal Values IVSd: 1.20 cm 0.6 - 1.0 cm LVIDd: 4.10 cm 3.7 - 5.6 cm LVPWd: 1.20 cm 0.6 - 1.1 cm LVIDs: 2.50 cm 1.5 - 3.6 cm AO: 3.10 cm < 4.0 cm LA: 3.80 cm 2.0 - 4.0cm %FS: 39.00 cm >25 % LVOT Diam: 2.10 cm LA volume: 64 Updated by Tamar Villalta on 10/11/2016 12:24:52 PM electronically signed on 10/11/2016 12:25:37 PM with status of Final Wall Motion Price: 1=Normal, 2=Hypokinesis, 3=Akinesis, 4=Dyskinesis, 5=Aneurysmal, 6=Hyperkinetic, X=Not Visualized (Blank)=Missing
--- NOTE | 2016-10-11 14:04 | Electrocardiograph Report ---
[place] [id number] Test Date: 2016-10-10 Pat Name: Jesus Randle Department: 103 Room: 2N07 Gender: M Industrial Eng: : 1950 Requested By: Fareed Madrid Order Number: [id number] Reading MD: Tamar Villalta Measurements Intervals [place] Rate: 73 P: MN: 0 QRS: 29 QRSD: 98 T: -2 QT: 381 QTc: 407 Interpretive Statements ARTIFACTUAL BASELINE UNCLEAR UNDERLYING RHYTHM CONSIDER NSR CONSIDER OLD INFERIOR INFARCT Electronically Signed On 10-11-2016 14:02:20 EST by Tamar Villalta
== END 2016-10-11 13:39 | disposition home or self-care (01) ==
LOC: EMEROO 09:36 → 3BNU 09:36 → 2NNU 15:29
PROVIDERS: ADMIT Internal Medicine; ATTEND Internal Medicine

== ENCOUNTER 2016-10-17 19:51 | Observation (INO) ==
[2016-10-17] MEDS ORDERED: Aspirin 81 MG TAB.CHEW PO ONE (19:59)
[2016-10-17] MEDS ORDERED: Nitroglycerin 0.4 MG TAB.SUBL SL ONE (19:59)
--- NOTE | 2016-10-17 20:10 | Emergency Department Note ---
Disposition Clinical Impression: Elevated troponin Chest pain Qualifiers: Chest pain type: unspecified Qualified Code(s): R07.9 - Chest pain, unspecified Dyspnea Qualifiers: Dyspnea type: unspecified Qualified Code(s): R06.00 - Dyspnea, unspecified Disposition: Admitted As Inpatient Condition: Critical Chest Pain HPI - General Chief Complaint: ED Chest Pain Stated Complaint: chest pressure Time Seen by Provider: 10/17/16 19:57 Source: patient, EMS Limitations: no limitations Vital Signs Reviewed: Yes Nursing Notes Reviewed: Yes - History of Present Illness HPI Narrative: Mr. Randle, a 66yo male, presents from home via EMS with chief complaint of chest pressure. Onset 45 minutes prior to arrival. Improved but not relieved with a single sublingual nitroglycerin of his own prescription. All chest pressure located in the upper sternum, described as a heaviness, "like a brick sitting on my chest." Nonradiating. With associated left arm weakness and tingling and dyspnea. In the last 3 weeks, patient has has PCI x2 with stents x2. His symptoms today are identical to those in the 2 recent occasions where he was stented. Anticoagulated on Plavix and aspirin 81 mg. PMH: Double bypass. ACS with stent x2 (24 Sep 2016, 10 Oct 2016). Hypertension , hyperlipidemia, [id number]. Bilateral peripheral neuropathy in lower extremities to level of knee and upper extremities and hands. Admits: Chest pressure, nausea, left upper extremity weakness, dyspnea, peripheral neuropathy, difficulty hearing from left ear. Denies: Back pain, abdominal pain, vertigo, fever, chills. Severity scale (1-10): 0 - Related Data Home Medications Medication Instructions Recorded Confirmed Allopurinol [Zyloprim] 300 mg PO DAILY 04/11/15 10/10/16 Aspirin Enteric Coated [Aspirin EC] 81 mg PO DAILY 04/11/15 10/10/16 Atorvastatin Calcium [Lipitor] 80 mg PO DAILY 04/11/15 10/10/16 Gabapentin [Neurontin] 1,200 mg PO TID 04/11/15 10/10/16 Furosemide [Lasix] 40 mg PO DAILY 05/23/15 10/10/16 Insulin Regular U-500 [HumuLIN R 32 - 36 unit SQ BID 05/23/15 10/10/16 U-500] Metoprolol [Lopressor] 25 mg PO BID 05/23/15 10/10/16 Exenatide Microspheres [Bydureon 2 mg SQ QWEEK 09/20/16 10/10/16 Pen] Lisinopril [Zestril] 20 mg PO DAILY 09/20/16 10/10/16 Potassium Gluconate [Potassium] 198 mg PO DAILY 10/10/16 10/10/16 FentaNYL PATCH [Duragesic] 12 mcg TD Q72H 10/17/16 10/17/16 Spironolactone [Aldactone] 25 mg PO DAILY 10/17/16 10/17/16 Previous Rx's Medication Instructions Recorded Nitroglycerin 0.4 mg SL Q5MIN PRN #20 tab.subl 09/22/16 Clopidogrel [Plavix] 75 mg PO DAILY #30 tablet 09/25/16 Allergies Allergy/AdvReac Type Severity Reaction Status Date / Time amitriptyline Allergy Mild Itching Verified 10/10/16 11:53 Penicillins Allergy Mild Rash Verified 09/20/16 13:50 All systems ED: reviewed and negative except as stated. (As per history of present illness) Chest Pain PMH - Past Medical History Medical history: Reports: atrial fibrillation, CHF, COPD, coronary artery disease, diabetes, hyperlipidemia, hypertension, myocardial infarction, other Surgical history: Reports: cholecystectomy, coronary bypass (CABG), orthopedic, other Psychiatric history: Reports: no psych history - Social History Smoking Status: Never smoker Alcohol use: Reports: rarely Drug use: Reports: none Physical Exam General: Patient is alert, oriented, and in no acute distress. HEENT: No facial asymmetry. Head is normocephalic and atraumatic. PERRLA. Oral mucosa moist. Trachea midline. Cardiovascular: Heart regular rate and rhythm without clicks, rubs, gallops, or murmurs. No JVD. PMI nondisplaced. Bilateral 1+ pedal edema. Bilateral peripheral venous stasis changes. Dorsalis pedis bilaterally 1+. Respiratory: Symmetric chest rise with good respiratory effort. Bilateral breath sounds are clear without wheezing, crackles, or rhonchi. Abdomen: Obese. Bowel sounds present normoactive x-4 quadrants. Abdomen is soft, nondistended, and nontender. No organomegaly noted. Psych: Patient's affect is appropriate for situation. - General Limitations: no limitations General appearance: alert, in no apparent distress Course Course Narrative: Perform chest pain workup. 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 AFter Nitro x3, patient's CP taken from 04/08 to 01/06. Will begin nitro drip. Spoke with patient regarding his lab findings and my concerns and wish for admission for continued management. He is on board. 21:[address] Villalta, clinic receptionist cardiology. We reviewed shayy's recent cath reports and cardiology progress note. She recommends starting IV Heparin, Plavix 300mg bolus, continue Nitro drip. She will consult with hospitalist admitting. 21:[address] Reddy, clinic receptionist hospitalist. He accepts the patient with request for tele bed. 22:20 Patient reports bilateral hip pain. Previously relieved with morphine. Will dose Fentanyl. BP 121 systolic on nitro drip. Vital Signs Temperature 97.7 F 10/17/16 19:55 Pulse Rate 66 10/17/16 19:55 Respiratory Rate 13 10/17/16 19:55 Blood Pressure 154/76 10/17/16 19:55 O2 Sat by Pulse Oximetry 98 10/17/16 19:55 Temperature 97.7 F 10/17/16 19:55 Pulse Rate 70 10/17/16 22:18 Respiratory Rate 16 10/17/16 22:44 Blood Pressure 100/46 10/17/16 22:44 O2 Sat by Pulse Oximetry 98 10/17/16 22:18 Oxygen Delivery Oxygen Delivery Nasal Cannula Chest Pain - Medical Records Medical records reviewed: Yes I reviewed the patient's medical records. - Lab Data Lab results reviewed: Yes I reviewed the patient's lab results. Result diagrams: 10/17/16 20:28 10/17/16 20:28 Lab Results 10/17/16 10/17/16 10/17/16 Range/Units 20:28 20:28 20:28 WBC 13.9 H D (4.3-11.1) K/mcL RBC 4.89 (4.19-5.50) M/mcL Hgb 14.9 (12.9-16.9) g/dL Hct 43.5 (37.5-50.1) % MCV 89.0 (83.0-100.0) fL MCH 30.5 (28.0-33.3) pg MCHC 34.3 (31.6-35.5) g/dL RDW 14.3 (11.5-14.5) % Plt Count 218 (140-400) K/mcL MPV 10.4 (9.4-12.4) fL Immature Gran % 0.4 (0-4) % Seg Neutrophils % 41.8 % Lymphocytes % 49.1 % Monocytes % 7.3 % Eosinophils % 1.3 % Basophils % 0.1 % Neutrophils # 5.8 (1.6-8.9) K/mcL Lymphocytes # 6.8 H (0.6-4.6) K/mcL Monocytes # 1.0 (0.0-1.3) K/mcL Eosinophils # 0.2 (0.0-0.6) K/mcL Basophils # 0.0 (0.0-0.2) K/mcL PT 13.2 H (9.4-12.1) Seconds INR 1.2 APTT 30.0 (26.0-36.0) Seconds Sodium (136-145) mEq/L Potassium (3.5-4.5) mEq/L Chloride (98-109) mEq/L Carbon Dioxide (19-29) mEq/L BUN (8-26) mg/dL Creatinine (0.72-1.25) mg/dL Est GFR ( Amer) (> 60) Est GFR (Non-Af Amer) (> 60) BUN/Creatinine Ratio (6-26) Glucose (70-99) mg/dL Calculated Osmolality (280-300) Calcium (8.6-10.8) mg/dL Troponin I (0-0.03) ng/mL B-Natriuretic Peptide 22 (0-100) pg/mL 10/17/16 10/17/16 Range/Units 20:28 20:28 WBC (4.3-11.1) K/mcL RBC (4.19-5.50) M/mcL Hgb (12.9-16.9) g/dL Hct (37.5-50.1) % MCV (83.0-100.0) fL MCH (28.0-33.3) pg MCHC (31.6-35.5) g/dL RDW (11.5-14.5) % Plt Count (140-400) K/mcL MPV (9.4-12.4) fL Immature Gran % (0-4) % Seg Neutrophils % % Lymphocytes % % Monocytes % % Eosinophils % % Basophils % % Neutrophils # (1.6-8.9) K/mcL Lymphocytes # (0.6-4.6) K/mcL Monocytes # (0.0-1.3) K/mcL Eosinophils # (0.0-0.6) K/mcL Basophils # (0.0-0.2) K/mcL PT (9.4-12.1) Seconds INR APTT (26.0-36.0) Seconds Sodium 138 (136-145) mEq/L Potassium 3.6 (3.5-4.5) mEq/L Chloride 105 (98-109) mEq/L Carbon Dioxide 20 (19-29) mEq/L BUN 19 (8-26) mg/dL Creatinine 1.27 H (0.72-1.25) mg/dL Est GFR ( Amer) > 60 (> 60) Est GFR (Non-Af Amer) 56 L (> 60) BUN/Creatinine Ratio 15 (6-26) Glucose 96 (70-99) mg/dL Calculated Osmolality 288 (280-300) Calcium 9.5 (8.6-10.8) mg/dL Troponin I 0.07 H* (0-0.03) ng/mL B-Natriuretic Peptide (0-100) pg/mL - EKG Data EKG attestation: Yes I reviewed and interpreted this EKG. EKG results narrative: EKG dated 10/17/16 interpreted as sinus rhythm with a rate of 63. First-degree AV block with prolonged MA interval of 234. QRS 96, QT/QTc 383/91. Normal axis. Patient has T-wave flattening in leads V4, V5, V6. Compared to previous dated 10/10/2016 whose comparable leads of V4, V5 and V6 do not show this T- wave flattening. Heart Score - Score History: Highly Suspicious EKG: Significant ST-Depression Age: Greater than 65 Risk Factors: Equal/Greater than 3 risk factor or history of atherosclerotic disease Troponin: 1-3x normal limit HEART Score Total: 9 Critical Care Time Critical Care Time: Yes Total Critical Care Time: 40 Attestation: Critical care performed: Time is exclusive of separately billable procedures. Time includes: direct patient care, patient reassessment, coordination of patient care, interpretation of data (laboratory data, radiology data, and respiratory data), review of patient's medical records, medical consultation and documentation of patient care. Procedures included in critical care time: Procedures excluded from critical care time: Attestation Statement - Attestation Attestation: I, Shahriar Moreno MD, personally performed a history and physical exam of the patient and discussed their management with the resident. I reviewed the resident's note and agree with the documented findings, medical decision making , and plan of care. 66-year-old male presents to the emergency department complaining of some upper chest pressure and heaviness which radiates to the left arm. He also complains of shortness of breath. No diaphoresis. Patient states this feels the same as his recent previous episodes of chest pain which required coronary artery stents. He has a history of bypass in the past and had a coronary stent placed on 09/18/16 and had another coronary artery stent placed on 10/10/16. He states these symptoms feel the same as his pain at that time. He did take nitroglycerin at home with some improvement in the chest pain. He rated the pain a 9 out of 10 at the worst. Presently rates the pain as 6 out of 10. On examination patient is a well-developed well-nourished elderly male in no acute distress. He is alert and oriented 3. There is no cyanosis or diaphoresis. Chest is nontender to palpation. Breath sounds are clear and equal bilaterally. Heart regular rate and rhythm. Labs reviewed. Troponin 0.07 which appears to be baseline when compared to previous labs. EKG does show some lateral ischemic changes with flattened slightly inverted T waves which were not present on his prior EKG. Chest x-ray negative. Dr. Don discussed the case with the auto body mechanic apprentice on-call, Dr. Villalta. She recommended admission by the hospitalist with cardiology consultation. The patient will be placed on heparin and nitroglycerin infusion. We will consult the hospitalist for admission.
[2016-10-17 20:33] LABS: Basophils % 0.1 %; Eosinophils # 0.2 K/mcL (0.0-0.6); Eosinophils % 1.3 %; Hematocrit 43.5 % (37.5-50.1); Hemoglobin 14.9 g/dL (12.9-16.9); Immature Granulocytes % 0.4 % (0-4); Lymphocytes # 6.8 K/mcL (0.6-4.6); Lymphocytes % 49.1 %; Mean Corpuscular HGB Conc 34.3 g/dL (31.6-35.5); Mean Corpuscular Hemoglobin 30.5 pg (28.0-33.3); Mean Platelet Volume 10.4 fL (9.4-12.4); Monocytes % 7.3 %; Neutrophils # 5.8 K/mcL (1.6-8.9); Platelet Count 218 K/mcL (140-400); Red Blood Count 4.89 M/mcL (4.19-5.50); Red Cell Distribution Width 14.3 % (11.5-14.5); Segmented Neutrophils % 41.8 %
[2016-10-17 20:38] LABS: INR 1.2; Prothrombin Time 13.2 Seconds (9.4-12.1)
[2016-10-17 20:45] LABS: BUN/Creatinine Ratio 15 (6-26); Blood Urea Nitrogen 19 mg/dL (8-26); Calcium 9.5 mg/dL (8.6-10.8); Carbon Dioxide 20 mEq/L (19-29); Chloride 105 mEq/L (98-109); Glucose 96 mg/dL (70-99); Osmolality,Calculated 288 (280-300); Potassium 3.6 mEq/L (3.5-4.5); Sodium 138 mEq/L (136-145); eGFR For African Americans > 60 (> 60); eGFR For Non-African Americans 56 (> 60)
[2016-10-17] MEDS ORDERED: Nitroglycerin 25 MG/250 ML INFUS..BTL IVC SCH (21:00)
[2016-10-17] MEDS ORDERED: Ondansetron 4 MG/2 ML VIAL IVP ONE (21:01)
[2016-10-17] MEDS ORDERED: *HR* Morphine 2 MG/ML SYRINGE IVP ONE (21:01)
[2016-10-17] MEDS ORDERED: *HR* Heparin 5,000 UNIT/ML VIAL IVP ONE (21:43)
[2016-10-17] MEDS: Heparin 25,000 UNIT/500 ML D5W 25,000 UNIT/500 ML MLS IVC SCH (22:16)
[2016-10-17] MEDS ORDERED: *HR* FentaNYL (PF) 100 MCG/2 ML VIAL IVP ONE (22:20)
[2016-10-17] MEDS ORDERED: 0.9 % Sodium Chloride 250 ML IVC ONE (22:33)
[2016-10-17] MEDS ORDERED: 0.9 % Sodium Chloride 250 ML ONE (22:34)
[2016-10-17] MEDS ORDERED: Acetaminophen 325 MG TABLET PO PRN (23:25)
[2016-10-17] MEDS ORDERED: Naloxone 0.4 MG/ML INJ IVP PRN (23:25)
[2016-10-17] MEDS ORDERED: Ondansetron 4 MG/2 ML VIAL IVP PRN (23:25)
--- NOTE | 2016-10-17 23:32 | Internal Med History&Physical ---
Date of Encounter: 10/17/16 Time of Encounter: 22:50 Internal Medicine - H&P: HPI Chief complaint: SOB, CHEST PAIN X 1 DAY, nausea x 3 days Admitted From: Emergency Dept Plans for Post Hospital Care: Home History of present illness: Mr. Randle is a 66 year old male Jer, with severe CAD sp 2-vessel CABG, 2 ADMISSION AND 2 c WITH DEPLOYMENT OF 2 stents in the past month, presents with SOB and chest pRESSURE x 1 day. Symptoms was preceded for 2 days by nausea , which he relates to recent prescription for Fentanyl patch for peripheral neuropathy. He was brought in by EMS. It is described as heaviness, and "brick sitting on my chest." The pain is non-radiating. It is associated with weakness , dyspnea. hE WAS PARTICULARLY WORRIED ABOUT sob HE HAD NEVER HAD SOb WITH PRIOR EPISODES OF ACS. In the past month, 2 cardiac cath and 2 PCI intervations. In the ED, Edin Roland (bottom pounder cement shoes) was sort, she recommended, heparin drip, nitro drip. He is DNR-CCA as per discussion. He nominates his son as his NOK/POA. i WILL RFER TO NOTES ON LAST ADMISSION FOR SUMMARY OF CARDIAC REPORTS. ROS: a 10-POINT ros WAS PERFORMED, POSITIVES AND RELEVANT NEGATIVES ARE DETAILED , SYSTEM-SYMPTOMS NOT MENTAION ARE ASSUMED NEGATIVE UNLESS OTHERWISE STATE Vital Signs Temperature 97.7 F 10/17/16 19:55 Pulse Rate 66 10/17/16 19:55 Respiratory Rate 13 10/17/16 19:55 Blood Pressure 154/76 10/17/16 19:55 O2 Sat by Pulse Oximetry 98 10/17/16 19:55 Temperature 97.7 F 10/17/16 19:55 Pulse Rate 70 10/17/16 22:18 Respiratory Rate 20 10/17/16 22:18 Blood Pressure 121/59 10/17/16 22:18 O2 Sat by Pulse Oximetry 98 10/17/16 22:18 O/E: Not in distress, obese HEENT: Not pale, anicteric, afebrile, acyanotic Chest: CTAB Heart: RRR, HS1.2 no murmur Abdomen: soft, non-tender, no masses. BS+ cook station; aao x 3, anesthesia in the skin of the lower foot bilaterally. Psychiatry: mood is good, affect is congruent, speech is normal. Thought process is logical and goal-directed. Extremities: No pedal edema, normal pedal edema, no calf tenderness. Stasis dermatitis in the LE bilaterally. Faily good pulse in the lower extremities. Lab Results 10/17/16 10/17/16 10/17/16 Range/Units 20:28 20:28 20:28 WBC 13.9 H D (4.3-11.1) K/mcL RBC 4.89 (4.19-5.50) M/mcL Hgb 14.9 (12.9-16.9) g/dL Hct 43.5 (37.5-50.1) % MCV 89.0 (83.0-100.0) fL MCH 30.5 (28.0-33.3) pg MCHC 34.3 (31.6-35.5) g/dL RDW 14.3 (11.5-14.5) % Plt Count 218 (140-400) K/mcL MPV 10.4 (9.4-12.4) fL Immature Gran % 0.4 (0-4) % Seg Neutrophils % 41.8 % Lymphocytes % 49.1 % Monocytes % 7.3 % Eosinophils % 1.3 % Basophils % 0.1 % Neutrophils # 5.8 (1.6-8.9) K/mcL Lymphocytes # 6.8 H (0.6-4.6) K/mcL Monocytes # 1.0 (0.0-1.3) K/mcL Eosinophils # 0.2 (0.0-0.6) K/mcL Basophils # 0.0 (0.0-0.2) K/mcL PT 13.2 H (9.4-12.1) Seconds INR 1.2 APTT 30.0 (26.0-36.0) Seconds Sodium (136-145) mEq/L Potassium (3.5-4.5) mEq/L Chloride (98-109) mEq/L Carbon Dioxide (19-29) mEq/L BUN (8-26) mg/dL Creatinine (0.72-1.25) mg/dL Est GFR ( Amer) (> 60) Est GFR (Non-Af Amer) (> 60) BUN/Creatinine Ratio (6-26) Glucose (70-99) mg/dL Calculated Osmolality (280-300) Calcium (8.6-10.8) mg/dL Troponin I (0-0.03) ng/mL B-Natriuretic Peptide 22 (0-100) pg/mL 10/17/16 10/17/16 Range/Units 20:28 20:28 WBC (4.3-11.1) K/mcL RBC (4.19-5.50) M/mcL Hgb (12.9-16.9) g/dL Hct (37.5-50.1) % MCV (83.0-100.0) fL MCH (28.0-33.3) pg MCHC (31.6-35.5) g/dL RDW (11.5-14.5) % Plt Count (140-400) K/mcL MPV (9.4-12.4) fL Immature Gran % (0-4) % Seg Neutrophils % % Lymphocytes % % Monocytes % % Eosinophils % % Basophils % % Neutrophils # (1.6-8.9) K/mcL Lymphocytes # (0.6-4.6) K/mcL Monocytes # (0.0-1.3) K/mcL Eosinophils # (0.0-0.6) K/mcL Basophils # (0.0-0.2) K/mcL PT (9.4-12.1) Seconds INR APTT (26.0-36.0) Seconds Sodium 138 (136-145) mEq/L Potassium 3.6 (3.5-4.5) mEq/L Chloride 105 (98-109) mEq/L Carbon Dioxide 20 (19-29) mEq/L BUN 19 (8-26) mg/dL Creatinine 1.27 H (0.72-1.25) mg/dL Est GFR ( Amer) > 60 (> 60) Est GFR (Non-Af Amer) 56 L (> 60) BUN/Creatinine Ratio 15 (6-26) Glucose 96 (70-99) mg/dL Calculated Osmolality 288 (280-300) Calcium 9.5 (8.6-10.8) mg/dL Troponin I 0.07 H* (0-0.03) ng/mL B-Natriuretic Peptide (0-100) pg/mL CXR: No acute cardiopulmoary process. EKG NSR @ 63, first degree heart block, T-wave flattening in V4-V6 (suggest lateral ischemia). IMP Atypical chest pain, NSTEMI vs unstable angina with chronically elevated troponin. Stent occlusion and small vessel disease is a consideration Chronic morbidities HTN HLD CAD s/p 2 -vessel CABG (2014), PCI (08/2016) dm2 PERIPHERAL NEUROPATHY Obesity Mild MAI PLAN Admit case already discussed with cardiology Heparin and nitro drip initiated Morphine IV for chest pain Mild increase in serum creatinine may be related to contrast study Gentle hydration Continue other essential medications of chronic morbidities DVT prophylaxis heparin, I discussed my findings and assessment with the patient, he verbalized understanding, his was at bedise. They were agreeable to admission. Past Med Surg Social Fam HX - Past Medical History Medical history: atrial fibrillation, CHF, COPD, coronary artery disease, diabetes, hyperlipidemia, hypertension, myocardial infarction, other Psychiatric history: no psych history - Past Surgical History Surgical History: cholecystectomy, coronary bypass (CABG), orthopedic, other - Social History Smoking Status: Never smoker Smokeless Tobacco Status: No Alcohol use: rarely Drug use: none - Family History Mother Adopted: No Family Member Ethnicity: Non- Living Status: Hx Family Cardiac Disorders: No Hx Family Respiratory Disorders: Yes (COPD) Hx Family Cancer: Yes Hx Family GI Disorders: No Hx Family Endocrine Disorder: Yes (DM,thyroid) Hx Family Neuromuscular Disorders: Yes (neuropathy) Hx Family Neurologic Disorders: No Hx Family HEENT Disorders: No Hx Family Autoimmune Disorders: No Internal Medicine - H&P: Meds Allopurinol [Zyloprim] 300 mg PO DAILY 04/11/15 [History] Aspirin Enteric Coated [Aspirin EC] 81 mg PO DAILY 04/11/15 [History] Atorvastatin Calcium [Lipitor] 80 mg PO DAILY 04/11/15 [History] Gabapentin [Neurontin] 1,200 mg PO TID 04/11/15 [History] Furosemide [Lasix] 40 mg PO DAILY 05/23/15 [History] Insulin Regular U-500 [HumuLIN R U-500] 32 - 36 unit SQ BID 05/23/15 [History] Metoprolol [Lopressor] 25 mg PO BID 05/23/15 [History] Exenatide Microspheres [Bydureon Pen] 2 mg SQ QWEEK 09/20/16 [History] Lisinopril [Zestril] 20 mg PO DAILY 09/20/16 [History] Nitroglycerin 0.4 mg SL Q5MIN PRN #20 tab.subl 09/22/16 [Rx] Clopidogrel [Plavix] 75 mg PO DAILY #30 tablet 09/25/16 [Rx] Potassium Gluconate [Potassium] 198 mg PO DAILY 10/10/16 [History] FentaNYL PATCH [Duragesic] 12 mcg TD Q72H 10/17/16 [History] Spironolactone [Aldactone] 25 mg PO DAILY 10/17/16 [History] Allergies amitriptyline Allergy (Mild, Verified 10/10/16 11:53) Itching Penicillins Allergy (Mild, Verified 09/20/16 13:50) Rash All Systems PM: A 10-system review of systems was performed and is negative for pertinent findings except as documented above in the HPI. - Constitutional Vitals: Temp Pulse Resp BP Pulse Ox 97.7 F 70 16 100/46 98 10/17/16 19:55 10/17/16 22:18 10/17/16 22:44 10/17/16 22:44 10/17/16 22:18 Internal Med - H&P Results - Labs CBC & Chem 7: 10/17/16 20:28 10/17/16 20:28
[2016-10-18] MEDS: *HR* Morphine 2 MG/ML SYRINGE IVP PRN ×2 (00:30→03:39)
[2016-10-18] MEDS: 0.9 % Sodium Chloride 1,000 ML IVC SCH ×2 (00:32→20:19)
[2016-10-18] MEDS: *HR* HYDROcodone/Acet 5/325 mg TABLET PO PRN ×2 (03:39→09:01)
[2016-10-18] MEDS ORDERED: *HR* Insulin Regular U-500 500 UNIT/ML SQ SCH (08:00)
[2016-10-18] MEDS: POTASSIUM GLUCONATE 198 MG PO SCH (08:52)
[2016-10-18] MEDS: Aspirin Enteric Coated 81 MG Tablet PO SCH (08:53)
[2016-10-18] MEDS: Gabapentin 400 MG CAPSULE PO SCH ×3 (08:53→20:19)
[2016-10-18] MEDS: Spironolactone 25 MG TABLET PO SCH (08:53)
[2016-10-18] MEDS: *HR* Insulin Regular U-500 500 UNIT/ML SQ SCH ×2 (08:56→16:58)
--- NOTE | 2016-10-18 09:32 | Cardiology Consult Note ---
<CarlosMikelArlin L - Last Filed: 10/18/16 09:39> Date of Encounter: 10/18/16 Time of Encounter: 07:20 Assessment and Plan (1) Elevated troponin Current Visit: Yes Status: Acute Troponin 0.07, 0.06--noted to be chronically elevated. Recent PCI to HUBER on 07/16. No acute ischemic ECG changes. Pain free upon exam. Recent PCI to HUBER-LAD and also SVG-R PDA. Reports medication compliance. EF 60% per TTE on 10/11/16. Agree with heparin gtt, infuse for at least 24 hours. Re-loaded with plavix in ED. Recommend medical management, patient agrees. Start long-acting nitrate; if patient continues to have symptoms despite medical therapy, will re-consider LHC. Continue DAPT ( asa + plavix) uninterrupted for at least 1 year. Continue betablocker and statin. Will continue to follow. (2) CAD (coronary artery disease) Current Visit: Yes Status: Chronic plan as above. Qualifiers: Coronary Disease-Associated Artery/Lesion type: [place] artery [place] vs. transplanted heart: [place] heart Associated angina: with stable angina Qualified Code(s): I25.118 - Atherosclerotic heart disease of [place] coronary artery with other forms of angina pectoris (3) Hypertension Current Visit: Yes Status: Acute Controlled, continue current medications. Qualifiers: Hypertension type: essential hypertension Qualified Code(s): I10 - Essential (primary) hypertension Discussion w patient/family: The assessment and plan as outlined above was discussed with the patient and/or family members who expressed understanding and agreement. All questions were answered. Thank you for involving us in the care of your patient. Please call with any questions. The patient will be discussed and reviewed with Dr. Villalta; changes to be made accordingly. History of Present Illness Consult date: 10/18/16 Requesting physician: Garcia Reddy Consult reason: Elevated troponin Chief complaint: Chest pain, shortness of breath History of present illness: Mr. Randle is a 66 year old male with PMH significant for CAD s/p CABG, PCI, HTN, DMII, HLD, and peripheral neuropathy who presents to the ED with acute onset of shortness of breath and chest discomfort. He reports severe peripheral neuropathy symptoms over the past week, he was recently started on Fentanyl transdermal patch and has not felt right since--reports nausea and fatigue. Has been recently admitted x2 in the past 3 weeks with chest discomfort and with subsequent PCI to bypass grafts. Upon exam he is pain free--NTG gtt has been off. Recent CV testing includes: 10/11/16 TTE: EF 60%, normal wall motion 10/10/16 LHC: PTCA/JOSEPH to HUBER-LAD at anastomosis site, s/p 2 of 2 patent bypass grafts 09/24/16 LHC: PTCA/JOSEPH to SVG to R PDA with embolic protection device, recommend PCI to HUBER with recurrent angina 09/21/16 TTE: EF 60-65%, moderate cLVH, moderate LVDD, no significant valvular dysfunction. Past Med Surg Social Fam HX - Past Medical History Medical history: atrial fibrillation, CHF (chronic, diastolic), COPD, coronary artery disease, diabetes, hyperlipidemia, hypertension, myocardial infarction Psychiatric history: no psych history - Past Surgical History Surgical History: cholecystectomy, coronary bypass (CABG), orthopedic, other - Social History Smoking Status: Never smoker Smokeless Tobacco Status: No Alcohol use: rarely Drug use: none - Family History Mother Adopted: No Family Member Ethnicity: Non- Living Status: Hx Family Cardiac Disorders: No Hx Family Respiratory Disorders: Yes (COPD) Hx Family Cancer: Yes Hx Family GI Disorders: No Hx Family Endocrine Disorder: Yes (DM,thyroid) Hx Family Neuromuscular Disorders: Yes (neuropathy) Hx Family Neurologic Disorders: No Hx Family HEENT Disorders: No Hx Family Autoimmune Disorders: No Medications and Allergies Allopurinol [Zyloprim] 300 mg PO DAILY 04/11/15 [History] Aspirin Enteric Coated [Aspirin EC] 81 mg PO DAILY 04/11/15 [History] Atorvastatin Calcium [Lipitor] 80 mg PO DAILY 04/11/15 [History] Gabapentin [Neurontin] 1,200 mg PO TID 04/11/15 [History] Furosemide [Lasix] 40 mg PO DAILY PRN 05/23/15 [History] Insulin Regular U-500 [HumuLIN R U-500] 39 unit SQ BID 05/23/15 [History] Metoprolol [Lopressor] 25 mg PO BID 05/23/15 [History] Exenatide Microspheres [Bydureon Pen] 2 mg SQ TU 09/20/16 [History] Lisinopril [Zestril] 20 mg PO DAILY 09/20/16 [History] Nitroglycerin 0.4 mg SL Q5MIN PRN #20 tab.subl 09/22/16 [Rx] Clopidogrel [Plavix] 75 mg PO DAILY #30 tablet 09/25/16 [Rx] FentaNYL PATCH [Duragesic] 12 mcg TD Q72H 10/17/16 [History] Spironolactone [Aldactone] 25 mg PO DAILY 10/17/16 [History] Potassium Chloride [Potassium Chloride] 20 meq PO DAILY 10/18/16 [History] Allergies amitriptyline Allergy (Mild, Verified 10/10/16 11:53) Itching Penicillins Allergy (Mild, Verified 09/20/16 13:50) Rash All Systems Review: A 10-system review of systems was performed and is negative for pertinent findings except as documented above in the HPI. - Cardiovascular Cardiovascular: as per HPI Physical Examination Vital Signs, Last 4 Hours Temp Pulse Resp BP Pulse Ox 10/18/16 07:17 98.7 F 60 18 131/77 97 General: Conversant, No Apparent Distress, Other (obese) Cardiac: Reg Rate and Rhythm, Normal S1 and S2 Lungs: Normal Breath Sounds Neuro: Alert and responsive Abdomen: Soft, Other (large, distended) Skin: No rashes noted on visualized skin Musculoskeletal: No Chest Wall Tenderness Extremities: Other (BLE discoloration, reports no feeling (chronic), pulses by doppler) Results 10/17/16 20:28 10/17/16 20:28 Lab Results 10/18/16 10/18/16 03:37 06:13 APTT 90.5 H D Troponin I 0.06 H* Active Medications Acetaminophen (Tylenol) 650 mg PO Q6HR PRN PRN Reason: Mild Pain (1-3) Stop: 04/18/17 23:26 Acetaminophen/Hydrocodone Bitart ([place] 5-325 Mg) 1 tab PO Q4HR PRN PRN Reason: Moderate Pain Stop: 04/19/17 01:24 Last Admin: 10/18/16 09:01 Dose: 1 tab Allopurinol (Zyloprim) 300 mg PO DAILY [facility] Stop: 04/19/17 09:01 Last Admin: 10/18/16 08:53 Dose: 300 mg Aspirin (Aspirin Ec) 81 mg PO DAILY [facility] Stop: 04/19/17 09:01 Last Admin: 10/18/16 08:53 Dose: 81 mg Atorvastatin Calcium (Lipitor) 80 mg PO DAILY [facility] Stop: 04/19/17 09:01 Last Admin: 10/18/16 08:53 Dose: 80 mg Clopidogrel Bisulfate (Plavix) 75 mg PO DAILY [facility] Stop: 04/19/17 09:01 Last Admin: 10/18/16 08:53 Dose: 75 mg Gabapentin (Neurontin) 1,200 mg PO TID [facility] Stop: 04/19/17 09:01 Last Admin: 10/18/16 08:53 Dose: 1,200 mg Heparin Sodium/Dextrose (Heparin 25,000 Unit/500 Ml D5w) 25,000 unit in 500 mls @ 22.861 mls/hr IVC .[id number] [facility]; 12 UNIT/KG/HR PRN Reason: Protocol Stop: 04/18/17 21:46 Last Admin: 10/17/16 22:16 Dose: 12 unit/kg/hr, 22.861 mls/hr Sodium Chloride (0.9 % Sodium Chloride) 1,000 mls @ 50 mls/hr IVC .Q20H [facility] Stop: 04/18/17 23:31 Last Admin: 10/18/16 00:32 Dose: 50 mls/hr Insulin Human Regular (Concentrated (Humulin R U-500) 167 unit SQ BIDWM [facility] PRN Reason: Protocol Stop: 04/19/17 08:01 Last Admin: 10/18/16 08:56 Dose: Not Given Isosorbide Mononitrate (Imdur) 30 mg PO DAILY [facility] Stop: 04/19/17 09:46 Metoprolol Tartrate (Lopressor) 25 mg PO BID [facility] Stop: 04/19/17 09:01 Last Admin: 10/18/16 08:53 Dose: 25 mg Morphine Sulfate (Morphine Sulfate) 2 mg IVP Q2HR PRN PRN Reason: Severe Pain (7-10) Stop: 04/18/17 23:26 Last Admin: 10/18/16 03:39 Dose: 2 mg Naloxone HCl (Narcan) 0.4 mg IVP Q2MIN PRN PRN Reason: Opioid Reversal Stop: 04/18/17 23:26 Ondansetron HCl (Zofran) 4 mg IVP Q8HR PRN PRN Reason: Nausea And Vomiting Stop: 04/18/17 23:26 Pharmacy Profile Note (Patient Taking Own Medication) 0 each PO DAILY [facility] Stop: 04/19/17 09:01 Last Admin: 10/18/16 08:52 Dose: Not Given Spironolactone (Aldactone) 25 mg PO DAILY [facility] Stop: 04/19/17 09:01 Last Admin: 10/18/16 08:53 Dose: 25 mg - Imaging and Cardiology Echo: report reviewed Cardiac cath: report reviewed - EKG Interpretation EKG results cardiology: personally reviewed Consult Discharge Plan - Plan Referrals: Azul Guillen CNP [Primary Care Provider] - <Tamar Villalta - Last Filed: 10/18/16 19:51> Date of Encounter: 10/18/16 Assessment and Plan Discussion w patient/family: The assessment and plan as outlined above was discussed with the patient and/or family members who expressed understanding and agreement. All questions were answered. Thank you for involving us in the care of your patient. Please call with any questions. History of Present Illness History of present illness: Mr. Randle is a 66 year old male All Systems Review: A 10-system review of systems was performed and is negative for pertinent findings except as documented above in the HPI. Results 10/17/16 20:28 10/17/16 20:28 Lab Results 10/18/16 10/18/16 10/18/16 03:37 06:13 12:15 APTT 90.5 H D 61.0 H Troponin I 0.06 H* - Attending Attestation I examined this patient and my medical decision-making was reviewed with the PERSONAL FINANCIAL COUNSELOR/PA/Advanced Practice Nurse/Resident Physician. I agree with the documented findings, disposition and treatment plan. Mr. Randle presents with chest pain and flat and adynamic troponin elevation after recent PCI. He has been compliant with medical therapy. ECG demonstrates nonspecific findings. We recommend and have discussed medical therapy for now. The patient is in agreement. We will add on Imdur and re- evaluate patient tomorrow. He should have also received plavix load and has been started on heparin. He is now chest pain free.
[2016-10-18] MEDS: Isosorbide MONOnitrate (24 HR) 30 MG TAB.ER.24H PO SCH (11:46)
[2016-10-18] MEDS ORDERED: *HR* FentaNYL PATCH 12 MCG PATCH TD SCH (17:00)
--- NOTE | 2016-10-18 17:21 | Internal Med Progress Note ---
Date of Encounter: 10/18/16 Time of Encounter: 17:00 - Assessment and plan (1) Unstable angina Current Visit: Yes Status: Acute Assessment and plan: Has been started on long acting Imdur and appears to have some improvement. Will continue to follow overnight and anticipate d/c tomorrow if no acute issues. (2) Diabetes Current Visit: Yes Status: Chronic Assessment and plan: Monitoring blood sugar and covering with insulin. Takes very high dose insulin at home. Qualifiers: Diabetes mellitus type: type 2 Diabetes mellitus complication status: with neurologic complications Diabetes mellitus complication detail: with polyneuropathy Diabetes mellitus care home insulin use: with long term acute care registered nurse use Qualified Code(s): E11.42 - Type 2 diabetes mellitus with diabetic polyneuropathy; Z79.4 - care home (current) use of insulin (3) Chronic pain Current Visit: Yes Status: Chronic Assessment and plan: Related to diabetic neuropathy. On Fentanyl patch. [place] has helped as well. Qualifiers: Chronic pain type: other chronic pain Qualified Code(s): G89.29 - Other chronic pain (4) Hypertension Current Visit: Yes Status: Chronic Assessment and plan: Continuing home medications. Qualifiers: Hypertension type: essential hypertension Qualified Code(s): I10 - Essential (primary) hypertension (5) Hyperlipidemia Current Visit: Yes Status: Chronic Assessment and plan: Continuing home medications. Qualifiers: Hyperlipidemia type: mixed hyperlipidemia Qualified Code(s): E78.2 - Mixed hyperlipidemia (6) CAD (coronary artery disease) Current Visit: Yes Status: Chronic Qualifiers: Coronary Disease-Associated Artery/Lesion type: [place] artery [place] vs. transplanted heart: [place] heart Associated angina: with stable angina Qualified Code(s): I25.118 - Atherosclerotic heart disease of [place] coronary artery with other forms of angina pectoris (7) History of coronary artery stent placement Current Visit: Yes Status: Chronic (8) Obesity (BMI 30-39.9) Current Visit: Yes Status: Chronic - Subjective Interval history: Mr. Randle is currently in observation for chest pain and nausea. He is high risk due to his recent prior history of cardiac disease and 2 recent stents. Mr. Randle is feeling better at this time. He thinks the [place] has helped. He is still wearing his Fentanyl patch and it is due to be changed. No further nausea. No fever or cough. - Constitutional Vitals: Temp Pulse Resp BP Pulse Ox 98.4 F 60 16 146/71 96 10/18/16 11:26 10/18/16 11:26 10/18/16 11:26 10/18/16 11:26 10/18/16 11:26 General appearance: Present: A&O X 3, pleasant, answers questions appropriately - Head Head exam: Present: normocephalic - Eye Eye exam: Present: conjuntiva pink - ENT ENT exam: Present: mucous membranes moist - Respiratory Respiratory exam: Present: decreased breath sounds, CTAB - Cardiovascular Cardiovascular exam: Present: RRR. Absent: tachycardia - GI/Abdominal GI/Abdominal exam: Present: soft. Absent: tenderness - Extremities Exam Extremities exam: Present: warm - Neurological Exam Neurological exam: Present: alert, oriented X3 - Psychiatric Psychiatric exam: Present: normal affect, normal mood - Skin Skin exam: Present: dry, warm Internal Medicine: Result - Labs CBC & Chem 7: 10/17/16 20:28 10/17/16 20:28 Labs: Cardiac Enzymes 10/18/16 Range/Units 03:37 Troponin I 0.06 H* (0-0.03) ng/mL - ABG Interpretation ABG results: PT/INR, D-dimer PT 13.2 Seconds (9.4-12.1) H 10/17/16 20:28 Consult Discharge Plan - Plan Referrals: Azul Guillen CNP [Primary Care Provider] -
[2016-10-18] MEDS: Heparin 25,000 UNIT/500 ML D5W 25,000 UNIT/500 ML MLS IVC SCH (20:59)
[2016-10-19] MEDS: Gabapentin 400 MG CAPSULE PO SCH (09:58)
[2016-10-19] MEDS: Spironolactone 25 MG TABLET PO SCH (09:59)
[2016-10-19] MEDS: Aspirin Enteric Coated 81 MG Tablet PO SCH (10:00)
[2016-10-19] MEDS: *HR* Insulin Regular U-500 500 UNIT/ML SQ SCH (10:00)
[2016-10-19] MEDS: Isosorbide MONOnitrate (24 HR) 30 MG TAB.ER.24H PO SCH (10:00)
[2016-10-19] MEDS: POTASSIUM GLUCONATE 198 MG PO SCH (10:00)
--- NOTE | 2016-10-19 10:27 | Cardiology Progress Note ---
Date of Encounter: 10/19/16 Time of Encounter: 10:20 Assessment and Plan (1) Elevated troponin Current Visit: Yes Status: Acute Troponin 0.07, 0.06--noted to be chronically elevated. Recent PCI to HUBER on 07/16. No acute ischemic ECG changes. Pain free upon exam. Recent PCI to HUBER-LAD and also SVG-R PDA. Reports medication compliance. EF 60% per TTE on 10/11/16. Stop IV heparin gtt. Has been chest pain free since addition of long-acting nitrate, Imdur 30; has been up and ambulating in [place] without symptoms. Continue DAPT ( asa + plavix) uninterrupted for at least 1 year. Continue betablocker and statin. Follow-up with [facility] in 2-3 weeks. Cardiology will sign-off, please call with questions. Will coordinate appt. with office. (2) CAD (coronary artery disease) Current Visit: Yes Status: Chronic plan as above. Qualifiers: Coronary Disease-Associated Artery/Lesion type: [place] artery [place] vs. transplanted heart: [place] heart Associated angina: with stable angina Qualified Code(s): I25.118 - Atherosclerotic heart disease of [place] coronary artery with other forms of angina pectoris (3) Hypertension Current Visit: Yes Status: Chronic Controlled, continue current medications. Qualifiers: Hypertension type: essential hypertension Qualified Code(s): I10 - Essential (primary) hypertension Discussion w patient/family: The assessment and plan as outlined above was discussed with the patient and/or family members who expressed understanding and agreement. All questions were answered. Thank you for involving us in the care of your patient. Please call with any questions. The patient was discussed and reviewed with Dr. Jackson; Cardiology will sign-off , please call with questions. Subjective Principal diagnosis: Elevated troponin Interval history: Seen and examined. Denies recurrent chest pain or discomfort overnight. Denies dyspnea. Fentanyl patch re-applied without issues, states BLE pain nearly resolved. Objective Vital Signs, Last 4 Hours Temp Pulse Resp BP Pulse Ox 10/19/16 08:00 97.7 F 60 16 104/68 100 General: Conversant, No Apparent Distress HEENT: Atraumatic, Normocephaly, Mucus Membranes Moist Cardiac: Reg Rate and Rhythm, Normal S1 and S2 Lungs: Normal Breath Sounds Neuro: Alert and responsive Abdomen: Soft Skin: No rashes noted on visualized skin Extremities: Other (dusky/purple BLE, pulses per doppler) Results 10/17/16 20:28 10/17/16 20:28 Lab Results 10/18/16 12:15 APTT 61.0 H Active Medications Acetaminophen (Tylenol) 650 mg PO Q6HR PRN PRN Reason: Mild Pain (1-3) Stop: 04/18/17 23:26 Acetaminophen/Hydrocodone Bitart ([place] 5-325 Mg) 1 tab PO Q4HR PRN PRN Reason: Moderate Pain Stop: 04/19/17 01:24 Last Admin: 10/18/16 09:01 Dose: 1 tab Allopurinol (Zyloprim) 300 mg PO DAILY [facility] Stop: 04/19/17 09:01 Last Admin: 10/19/16 10:00 Dose: 300 mg Aspirin (Aspirin Ec) 81 mg PO DAILY [facility] Stop: 04/19/17 09:01 Last Admin: 10/19/16 10:00 Dose: 81 mg Atorvastatin Calcium (Lipitor) 80 mg PO DAILY [facility] Stop: 04/19/17 09:01 Last Admin: 10/19/16 09:59 Dose: 80 mg Clopidogrel Bisulfate (Plavix) 75 mg PO DAILY [facility] Stop: 04/19/17 09:01 Last Admin: 10/19/16 09:59 Dose: 75 mg Fentanyl (Duragesic) 12 mcg TD Q72H [facility] Stop: 04/19/17 17:01 Last Admin: 10/18/16 17:07 Dose: 12 mcg Gabapentin (Neurontin) 1,200 mg PO TID [facility] Stop: 04/19/17 09:01 Last Admin: 10/19/16 09:58 Dose: 1,200 mg Sodium Chloride (0.9 % Sodium Chloride) 1,000 mls @ 50 mls/hr IVC .Q20H [facility] Stop: 04/18/17 23:31 Last Admin: 10/18/16 20:19 Dose: 50 mls/hr Insulin Human Regular (Concentrated (Humulin R U-500) 167 unit SQ BIDWM JENNIFER PRN Reason: Protocol Stop: 04/19/17 08:01 Last Admin: 10/19/16 10:00 Dose: Not Given Isosorbide Mononitrate (Imdur) 30 mg PO DAILY [facility] Stop: 04/19/17 09:46 Last Admin: 10/19/16 10:00 Dose: 30 mg Metoprolol Tartrate (Lopressor) 25 mg PO BID [facility] Stop: 04/19/17 09:01 Last Admin: 10/19/16 09:59 Dose: 25 mg Morphine Sulfate (Morphine Sulfate) 2 mg IVP Q2HR PRN PRN Reason: Severe Pain (7-10) Stop: 04/18/17 23:26 Last Admin: 10/18/16 03:39 Dose: 2 mg Naloxone HCl (Narcan) 0.4 mg IVP Q2MIN PRN PRN Reason: Opioid Reversal Stop: 04/18/17 23:26 Ondansetron HCl (Zofran) 4 mg IVP Q8HR PRN PRN Reason: Nausea And Vomiting Stop: 04/18/17 23:26 Pharmacy Profile Note (Patient Taking Own Medication) 0 each PO DAILY [facility] Stop: 04/19/17 09:01 Last Admin: 10/19/16 10:00 Dose: Not Given Potassium Chloride (Potassium Chloride) 20 meq PO DAILY [facility] Stop: 04/20/17 09:01 Last Admin: 10/19/16 09:59 Dose: 20 meq Spironolactone (Aldactone) 25 mg PO DAILY [facility] Stop: 04/19/17 09:01 Last Admin: 10/19/16 09:59 Dose: 25 mg - Imaging and Cardiology Echo: report reviewed Cardiac cath: report reviewed - EKG Interpretation EKG results cardiology: personally reviewed Consult Discharge Plan - Plan Referrals: Azul Guillen PRECISION AGRONOMIST [Primary Care Provider] -
[2016-10-19 12:20] VITALS: BP 130/72
--- NOTE | 2016-10-19 12:42 | Discharge Summary ---
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 (3) Chronic pain Priority: Secondary Status: Chronic Qualifiers: Chronic pain type: other chronic pain Qualified Code(s): G89.29 - Other chronic pain (4) Hypertension Priority: Secondary Status: Chronic Qualifiers: Hypertension type: essential hypertension Qualified Code(s): I10 - Essential (primary) hypertension (5) Hyperlipidemia Priority: Secondary Status: Chronic Qualifiers: Hyperlipidemia type: mixed hyperlipidemia Qualified Code(s): E78.2 - Mixed hyperlipidemia (6) CAD (coronary artery disease) Priority: Secondary Status: Chronic Qualifiers: Coronary Disease-Associated Artery/Lesion type: [place] artery [place] vs. transplanted heart: [place] heart Associated angina: with stable angina Qualified Code(s): I25.118 - Atherosclerotic heart disease of [place] coronary artery with other forms of angina pectoris (7) History of coronary artery stent placement Priority: Secondary Status: Chronic (8) Obesity (BMI 30-39.9) Priority: Secondary Status: Chronic - Discharge Medications Prescriptions: HYDROcodone/Acet 5/325 mg [[place] 5-325 mg] 1 tab PO Q4HR PRN #30 tablet PRN Reason: Moderate Pain Isosorbide MONOnitrate (24 HR) [Imdur] 30 mg PO DAILY #30 tab.er.24h Home Medications: Allopurinol [Zyloprim] 300 mg PO DAILY 04/11/15 [History] Aspirin Enteric Coated [Aspirin EC] 81 mg PO DAILY 04/11/15 [History] Atorvastatin Calcium [Lipitor] 80 mg PO DAILY 04/11/15 [History] Gabapentin [Neurontin] 1,200 mg PO TID 04/11/15 [History] Furosemide [Lasix] 40 mg PO DAILY PRN 05/23/15 [History] Insulin Regular U-500 [HumuLIN R U-500] 39 unit SQ BID 05/23/15 [History] Metoprolol [Lopressor] 25 mg PO BID 05/23/15 [History] Exenatide Microspheres [Bydureon Pen] 2 mg SQ TU 09/20/16 [History] Lisinopril [Zestril] 20 mg PO DAILY 09/20/16 [History] Nitroglycerin 0.4 mg SL Q5MIN PRN #20 tab.subl 09/22/16 [Rx] Clopidogrel [Plavix] 75 mg PO DAILY #30 tablet 09/25/16 [Rx] FentaNYL PATCH [Duragesic] 12 mcg TD Q72H 10/17/16 [History] Spironolactone [Aldactone] 25 mg PO DAILY 10/17/16 [History] Potassium Chloride 20 meq PO DAILY 10/18/16 [History] HYDROcodone/Acet 5/325 mg [[place] 5-325 mg] 1 tab PO Q4HR PRN #30 tablet [Rx] Isosorbide MONOnitrate (24 HR) [Imdur] 30 mg PO DAILY #30 tab.er.24h 10/19/16 [ Rx] Allergies/Adverse Reactions: Allergies amitriptyline Allergy (Mild, Verified 10/10/16 11:53) Itching Penicillins Allergy (Mild, Verified 09/20/16 13:50) Rash Date of admission: 10/17/16 22:18 Primary care physician: Azul Guillen CNP Consults: Cardiology Discharging clinician: Nadir Gardner Anticipated date of discharge: 10/19/16 - Patient Status Disposition: Home, Self-Care Condition: Fair Functional capacity at discharge: independent ambulation Overall status at discharge: patient is progressing back to baseline - Discharge Instructions Follow Up With: Azul Guillen CNP [Primary Care Provider] - Additional Instructions: Follow with cardiology in 2-3 weeks - to be arranged. - Diet and Activity Activity: increase activity as tolerated Diet: advance to your usual diet Hospital course: Mr. Randle is a 66 year old male with hx of insulin requiring DM (with significant insulin resistance), diabetic neuropathy and CAD s/p 2 stents presented to ED with complaints of chest pain. He has had 2 JOSEPH placed in the last month. Due to concern for further coronary disease, he was placed in observation. Mr. Randle was placed in observation. Heparin drip was started and he was evaluated by cardiology. Troponins did not elevate. Symptoms overall improved after the addition of PO Imdur. He had no new issues overnight. On the morning of 10/19/16 he was feeling well. His BP was stable on current management. Heparin drip was stopped and he was felt stable for discharge home. Prescription for PO [place] was added to his regimen as it helped his pain significantly. He was discharged in stable condition. - Time Spent with Patient Total time spent providing and/or coordinating discharge services: 39min - Constitutional Vitals: Temp Pulse Resp BP Pulse Ox 98.4 F 58 16 130/72 97 10/19/16 12:00 10/19/16 12:00 10/19/16 12:00 10/19/16 12:00 10/19/16 12:00 General appearance: Present: A&O X 3, pleasant, answers questions appropriately - Head Head exam: Present: normocephalic - Eye Eye exam: Present: conjuntiva pink - ENT ENT exam: Present: mucous membranes moist - Respiratory Respiratory exam: Present: decreased breath sounds, CTAB - Cardiovascular Cardiovascular exam: Present: RRR. Absent: systolic murmur, tachycardia - GI/Abdominal GI/Abdominal exam: Present: soft. Absent: tenderness - Extremities Exam Extremities exam: Present: warm. Absent: tenderness - Neurological Exam Neurological exam: Present: alert, oriented X3 - Psychiatric Psychiatric exam: Present: normal affect, normal mood - Skin Skin exam: Present: dry, warm. Absent: rash
--- NOTE | 2016-10-20 06:25 | Electrocardiograph Report ---
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
== END 2016-10-19 14:02 | disposition home or self-care (01) ==
LOC: 2NENU 19:51 → EMEROO 19:51 → 2NENU 23:48
PROVIDERS: ADMIT Internal Medicine; ATTEND Internal Medicine

== ENCOUNTER 2016-11-03 14:41 | Observation (INO) ==
[2016-11-03 15:14] LABS: Basophils % 0.4 %; Eosinophils # 0.1 K/mcL (0.0-0.6); Eosinophils % 1.2 %; Hematocrit 43.4 % (37.5-50.1); Hemoglobin 14.8 g/dL (12.9-16.9); Immature Granulocytes % 0.6 % (0-4); Lymphocytes # 4.5 K/mcL (0.6-4.6); Lymphocytes % 42.9 %; Mean Corpuscular HGB Conc 34.1 g/dL (31.6-35.5); Mean Corpuscular Hemoglobin 30.6 pg (28.0-33.3); Mean Corpuscular Volume 89.9 fL (83.0-100.0); Mean Platelet Volume 10.7 fL (9.4-12.4); Monocytes # 0.6 K/mcL (0.0-1.3); Monocytes % 5.4 %; Neutrophils # 5.2 K/mcL (1.6-8.9); Platelet Count 174 K/mcL (140-400); Red Blood Count 4.83 M/mcL (4.19-5.50); Red Cell Distribution Width 14.4 % (11.5-14.5); Segmented Neutrophils % 49.5 %
[2016-11-03 15:22] LABS: INR 1.2; Prothrombin Time 12.6 Seconds (9.4-12.1)
[2016-11-03 15:28] LABS: BUN/Creatinine Ratio 13 (6-26); Blood Urea Nitrogen 18 mg/dL (8-26); Calcium 9.6 mg/dL (8.6-10.8); Carbon Dioxide 23 mEq/L (19-29); Chloride 100 mEq/L (98-109); Glucose 330 mg/dL (70-99); Osmolality,Calculated 293 (280-300); Potassium 4.5 mEq/L (3.5-4.5); Sodium 134 mEq/L (136-145); eGFR For African Americans > 60 (> 60); eGFR For Non-African Americans 50 (> 60)
--- NOTE | 2016-11-03 15:46 | Emergency Department Note ---
Disposition Clinical Impression: Elevated troponin Chest pain Qualifiers: Chest pain type: unspecified Qualified Code(s): R07.9 - Chest pain, unspecified Disposition: Admitted As Inpatient Referrals: Azul Guillen CNP [Primary Care Provider] - Forms: ED Satisfaction Letter Time of Disposition: 18:37 Chest Pain HPI - General Chief Complaint: ED Chest Pain Stated Complaint: CP Time Seen by Provider: 11/03/16 14:54 Source: patient Limitations: no limitations Vital Signs Reviewed: Yes Nursing Notes Reviewed: Yes - History of Present Illness HPI Narrative: 58-year-old male with history of coronary artery disease status post remote CABG as well as 2 stents in the last month presents with multiple complaints including abrupt onset chest pain and shortness of breath which she states has been going on for the last several days, but is worse this morning. Additionally, he notes that he has poorly-controlled neuropathy to bilateral hands and feet. He did note to the attending physician of this feels just like the pain that caused him to have a stent last month, but reported differently to me. He took a nitroglycerin home without significant improvement. He denies any hemoptysis, cough, fever, confusion, abdominal pain, change in urination or bowel movements, nausea or vomiting or diaphoresis. Severity scale (1-10): 8 - Related Data Home Medications Medication Instructions Recorded Confirmed Allopurinol [Zyloprim] 300 mg PO DAILY 04/11/15 10/18/16 Aspirin Enteric Coated [Aspirin EC] 81 mg PO DAILY 04/11/15 10/18/16 Atorvastatin Calcium [Lipitor] 80 mg PO DAILY 04/11/15 10/18/16 Gabapentin [Neurontin] 1,200 mg PO TID 04/11/15 10/18/16 Furosemide [Lasix] 40 mg PO DAILY PRN 05/23/15 10/18/16 Insulin Regular U-500 [HumuLIN R 39 unit SQ BID 05/23/15 10/18/16 U-500] Metoprolol [Lopressor] 25 mg PO BID 05/23/15 10/18/16 Exenatide Microspheres [Bydureon 2 mg SQ TU 09/20/16 10/18/16 Pen] Lisinopril [Zestril] 20 mg PO DAILY 09/20/16 10/18/16 FentaNYL PATCH [Duragesic] 12 mcg TD Q72H 10/17/16 10/18/16 Spironolactone [Aldactone] 25 mg PO DAILY 10/17/16 10/18/16 Potassium Chloride 20 meq PO DAILY 10/18/16 10/18/16 Previous Rx's Medication Instructions Recorded Nitroglycerin 0.4 mg SL Q5MIN PRN #20 tab.subl 09/22/16 Clopidogrel [Plavix] 75 mg PO DAILY #30 tablet 09/25/16 HYDROcodone/Acet 5/325 mg [[place] 1 tab PO Q4HR PRN #30 tablet 10/19/16 5-325 mg] Isosorbide MONOnitrate (24 HR) 30 mg PO DAILY #30 tab.er.24h 10/19/16 [Imdur] Allergies Allergy/AdvReac Type Severity Reaction Status Date / Time amitriptyline Allergy Mild Itching Verified 10/10/16 11:53 Penicillins Allergy Mild Rash Verified 09/20/16 13:50 All systems ED: reviewed and negative except as stated. Chest Pain PMH - Past Medical History Medical history: Reports: atrial fibrillation, CHF, COPD, coronary artery disease, diabetes, hyperlipidemia, hypertension, myocardial infarction Surgical history: Reports: cholecystectomy, coronary bypass (CABG), orthopedic, other Psychiatric history: Reports: no psych history - Social History Smoking Status: Never smoker Alcohol use: Reports: rarely Drug use: Reports: none Physical Exam - Head Head exam: atraumatic, normocephalic, normal inspection - Eye Eye exam: Present: normal appearance, PERRL, EOMI - ENT ENT exam: normal exam, normal oropharynx, mucous membranes moist - Neck Neck exam: Present: normal inspection, full ROM, trachea midline - Chest Nontender. Status post CABG. - Respiratory Respiratory exam: Clear to auscultation bilaterally without wheezes rales or rhonchi Cardiovascular Cardiovascular exam: Present: regular rate, normal rhythm, normal heart sounds - Abdominal Exam Abdominal exam: Present: soft, Non-Tender. Absent: tenderness, distention, guarding, rebound, rigidity - Extremities Exam Extremities exam: Present: normal inspection, full ROM - Expanded Lower Extremity Exam Hip/Pelvis exam: Present: normal inspection, full ROM - Back Exam Back exam: Present: normal inspection, full ROM. Absent: tenderness, CVA tenderness (R), CVA tenderness (L) - Neurological Exam Neurological exam: Present: alert, oriented X3, CN II-XII intact - Psychiatric Psychiatric exam: Present: normal affect, normal mood - Skin Skin exam: Present: warm, dry, intact, normal color - General Limitations: no limitations General appearance: alert, anxious Course - Reevaluation(s) Reevaluation #1: Troponin improved from prior. 0.06 is essentially the lowest we ever see the patient. EKG improved from prior. D-dimer is slightly elevated. CTA is pending. Time: 17:03 Reevaluation #2: Troponin is unchanged from prior. CT of the chest is negative. Patient is feeling better and would like to go home at this time. I encouraged him to at least stay for a repeat troponin to make sure that it is stable 2. We will also repeat an EKG and give the patient something to eat. He has an appointment scheduled with Dr. Guillen tomorrow in the morning. Time: 17:40 Reevaluation #3: Accepted by Nyasia Ambrosio nurse practitioner with hospitalist service. Time: 18:36 Vital Signs Temperature 97.9 F 11/03/16 14:44 Pulse Rate 77 11/03/16 14:44 Respiratory Rate 20 11/03/16 14:44 Blood Pressure 176/75 11/03/16 14:44 O2 Sat by Pulse Oximetry 98 11/03/16 14:44 Temperature 97.9 F 11/03/16 14:44 Pulse Rate 73 11/03/16 18:46 Respiratory Rate 18 11/03/16 18:46 Blood Pressure 138/72 11/03/16 18:46 O2 Sat by Pulse Oximetry 95 11/03/16 18:46 Oxygen Delivery Oxygen Delivery Room Air Chest Pain - Lab Data Result diagrams: 11/03/16 15:05 11/03/16 15:05 Lab Results 11/03/16 11/03/16 11/03/16 Range/Units 15:05 15:05 15:05 WBC 10.4 (4.3-11.1) K/mcL RBC 4.83 (4.19-5.50) M/mcL Hgb 14.8 (12.9-16.9) g/dL Hct 43.4 (37.5-50.1) % MCV 89.9 (83.0-100.0) fL MCH 30.6 (28.0-33.3) pg MCHC 34.1 (31.6-35.5) g/dL RDW 14.4 (11.5-14.5) % Plt Count 174 (140-400) K/mcL MPV 10.7 (9.4-12.4) fL Immature Gran % 0.6 (0-4) % Seg Neutrophils % 49.5 % Lymphocytes % 42.9 % Monocytes % 5.4 % Eosinophils % 1.2 % Basophils % 0.4 % Neutrophils # 5.2 (1.6-8.9) K/mcL Lymphocytes # 4.5 (0.6-4.6) K/mcL Monocytes # 0.6 (0.0-1.3) K/mcL Eosinophils # 0.1 (0.0-0.6) K/mcL Basophils # 0.0 (0.0-0.2) K/mcL PT 12.6 H (9.4-12.1) Seconds INR 1.2 APTT 31.0 (26.0-36.0) Seconds D-Dimer 846 H (0-500) ng/mLFEU Sodium 134 L (136-145) mEq/L Potassium 4.5 (3.5-4.5) mEq/L Chloride 100 (98-109) mEq/L Carbon Dioxide 23 (19-29) mEq/L BUN 18 (8-26) mg/dL Creatinine 1.40 H (0.72-1.25) mg/dL Est GFR ( Amer) > 60 (> 60) Est GFR (Non-Af Amer) 50 L (> 60) BUN/Creatinine Ratio 13 (6-26) Glucose 330 H (70-99) mg/dL Calculated Osmolality 293 (280-300) Calcium 9.6 (8.6-10.8) mg/dL Troponin I (0-0.03) ng/mL 11/03/16 11/03/16 Range/Units 15:05 17:46 WBC (4.3-11.1) K/mcL RBC (4.19-5.50) M/mcL Hgb (12.9-16.9) g/dL Hct (37.5-50.1) % MCV (83.0-100.0) fL MCH (28.0-33.3) pg MCHC (31.6-35.5) g/dL RDW (11.5-14.5) % Plt Count (140-400) K/mcL MPV (9.4-12.4) fL Immature Gran % (0-4) % Seg Neutrophils % % Lymphocytes % % Monocytes % % Eosinophils % % Basophils % % Neutrophils # (1.6-8.9) K/mcL Lymphocytes # (0.6-4.6) K/mcL Monocytes # (0.0-1.3) K/mcL Eosinophils # (0.0-0.6) K/mcL Basophils # (0.0-0.2) K/mcL PT (9.4-12.1) Seconds INR APTT (26.0-36.0) Seconds D-Dimer (0-500) ng/mLFEU Sodium (136-145) mEq/L Potassium (3.5-4.5) mEq/L Chloride (98-109) mEq/L Carbon Dioxide (19-29) mEq/L BUN (8-26) mg/dL Creatinine (0.72-1.25) mg/dL Est GFR ( Amer) (> 60) Est GFR (Non-Af Amer) (> 60) BUN/Creatinine Ratio (6-26) Glucose (70-99) mg/dL Calculated Osmolality (280-300) Calcium (8.6-10.8) mg/dL Troponin I 0.06 H* 0.07 H* (0-0.03) ng/mL - EKG Data EKG attestation: Yes I reviewed and interpreted this EKG. EKG results narrative: Normal sinus rhythm at 76 normal axis, WI increased to 228. No ST elevation or depression. No T-wave inversions. There are nonspecific flattening of T waves in lead 3. There are septal Q waves. EKG is improved from 10/17/2016. Repeat EKG at 1801 is normal sinus rhythm at 66 with first-degree AV block with [place] interval of 243. Nonspecific ST flattening is again seen in lead 3. This EKG is unchanged from prior EKG. Attestation Statement - Attestation Attestation: I examined this patient and my medical decision-making was reviewed with the PRIMER WATERPROOFING MACHINE OPERATOR/PA/Advanced Practice Nurse/Resident Physician. I agree with the documented findings, disposition and treatment plan as described except to the extent set forth below. Patient presents to the emergency department with chest pain. Substernal. It felt like it did when he had 2 stents put in a month ago. Patient states that the pain is [place] is neuropathy pain worsening needs a pain shot. On exam he is in no distress. He is obese. Lungs clear. Plan. The patient's Department is positive, but it is always positive. Will discuss with cardiology. Patient's repeat troponin elevated. He is admitted to medicine.
[2016-11-03] MEDS ORDERED: Nitroglycerin 0.4 MG TAB.SUBL SL PRN (16:14)
[2016-11-03] MEDS ORDERED: Ondansetron 4 MG/2 ML VIAL IVP STA (16:50)
[2016-11-03] MEDS ORDERED: *HR* Morphine 2 MG/ML SYRINGE IV ONE (16:50)
[2016-11-03] MEDS: *HR* Morphine 2 MG/ML SYRINGE IVP PRN (22:15)
[2016-11-03] MEDS ORDERED: Naloxone 0.4 MG/ML INJ IVP PRN (23:34)
--- NOTE | 2016-11-03 23:39 | Internal Med History&Physical ---
Date of Encounter: 11/03/16 Time of Encounter: 23:20 Assessment and Plan (1) Chest pain Current visit: Yes Status: Acute Patient with Known Coronary Artery Disease and Recent Interventions Presents with Chest Pain. Mild elevation of troponin, similar to the previous admission. Will consult quality assurance advisor for further advice. Telemetry monitoring. trend troponins. Qualifiers: Chest pain type: unspecified Qualified Code(s): R07.9 - Chest pain, unspecified (2) Elevated troponin Current visit: Yes Status: Acute Troponn 0.07, which is similar to previous admission. Trend troponins. Cardiology consultation. (3) Diabetic peripheral neuropathy associated with type 2 diabetes mellitus Current visit: Yes Status: Chronic Continue gabapentin (4) Insulin dependent type 2 diabetes mellitus Current visit: No Status: Acute (5) Hyperlipidemia Current visit: Yes Status: Chronic Continue atorvastatin Qualifiers: Hyperlipidemia type: mixed hyperlipidemia Qualified Code(s): E78.2 - Mixed hyperlipidemia (6) Hypertension Current visit: Yes Status: Chronic Continue home medications Qualifiers: Hypertension type: essential hypertension Qualified Code(s): I10 - Essential (primary) hypertension (7) Morbid obesity with BMI of 40.0-44.9, adult Current visit: Yes Status: Chronic supportive care Internal Medicine - H&P: HPI Chief complaint: Chest pain Admitted From: Emergency Dept Plans for Post Hospital Care: Home History of present illness: Mr. Randle is a 66 year old male PMH significant for CAD s/p CABG, PCI, HTN, DM, peripheral neuropathy, COPD, and hyperlipidemia presents to the ED with chest pain. He reports that he woke up at about 5 AM with chest pain in the central chest, felt like pressure (8.5/10) and was nonradiating. He took nitroglycerin which relieved the pain and he went back to sleep. Later in the day he had another episode of chest pain which was promptly relieved with nitroglycerin. At about 2 PM he had another episode of chest pain which was not relieved with nitroglycerin and hence he presented to the emergency department. He reports that the pain was similar to his previous episode of chest pain, which needed Left heart cath. Chest pain was relieved after treatment in the emergency department. He had no further chest pain. He denies palpitations, but reports shortness of breath, with chest pain. No cough , expectation, fever, chills, abdominal pain, urinary or bowel problems. He reports peripheral neuropathy affecting upper and lower extremities and has been on gabapentin for many years. He thinks it is not effective anymore. He was supposed to see his primary care physician to adjust the dosing earlier today but could not make it. Patient was evaluated in the emergency department and admitted to the hospitalist so further management. 10/10/16 LHC: PTCA/JOSEPH to HUBER-LAD at anastomosis site, s/p 2 of 2 patent bypass grafts 09/24/16 LHC: PTCA/JOSEPH to SVG to R PDA with embolic protection device, recommend PCI to HUBER with recurrent angina Past Med Surg Social Fam HX - Past Medical History Medical history: atrial fibrillation, CHF, COPD, coronary artery disease, diabetes, hyperlipidemia, hypertension, myocardial infarction Psychiatric history: no psych history - Past Surgical History Surgical History: cholecystectomy, coronary bypass (CABG), orthopedic, other - Social History Smoking Status: Never smoker Smokeless Tobacco Status: No Alcohol use: rarely Drug use: none - Family History Mother Adopted: No Family Member Ethnicity: Non- Living Status: Hx Family Cardiac Disorders: No Hx Family Respiratory Disorders: Yes (COPD) Hx Family Cancer: Yes Hx Family GI Disorders: No Hx Family Endocrine Disorder: Yes (DM,thyroid) Hx Family Neuromuscular Disorders: Yes (neuropathy) Hx Family Neurologic Disorders: No Hx Family HEENT Disorders: No Hx Family Autoimmune Disorders: No Internal Medicine - H&P: Meds Allopurinol [Zyloprim] 300 mg PO DAILY 04/11/15 [History] Aspirin Enteric Coated [Aspirin EC] 81 mg PO DAILY 04/11/15 [History] Atorvastatin Calcium [Lipitor] 80 mg PO DAILY 04/11/15 [History] Gabapentin [Neurontin] 1,200 mg PO TID 04/11/15 [History] Furosemide [Lasix] 40 mg PO DAILY PRN 05/23/15 [History] Insulin Regular U-500 [HumuLIN R U-500] 200 unit SQ BID 05/23/15 [History] Metoprolol [Lopressor] 25 mg PO BID 05/23/15 [History] Exenatide Microspheres [Bydureon Pen] 2 mg SQ TU 09/20/16 [History] Lisinopril [Zestril] 20 mg PO DAILY 09/20/16 [History] Nitroglycerin 0.4 mg SL Q5MIN PRN #20 tab.subl 09/22/16 [Rx] Clopidogrel [Plavix] 75 mg PO DAILY #30 tablet 09/25/16 [Rx] FentaNYL PATCH [Duragesic] 12 mcg TD Q72H 10/17/16 [History] Spironolactone [Aldactone] 25 mg PO DAILY 10/17/16 [History] Potassium Chloride 20 meq PO DAILY 10/18/16 [History] HYDROcodone/Acet 5/325 mg [[place] 5-325 mg] 1 tab PO Q4HR PRN #30 tablet [Rx] Isosorbide MONOnitrate (24 HR) [Imdur] 30 mg PO DAILY #30 tab.er.24h 10/19/16 [ Rx] Docusate [Colace] 100 mg PO BID 11/03/16 [History] Allergies amitriptyline Allergy (Mild, Verified 10/10/16 11:53) Itching Penicillins Allergy (Mild, Verified 09/20/16 13:50) Rash All Systems PM: A 10-system review of systems was performed and is negative for pertinent findings except as documented above in the HPI. - Constitutional Vitals: Temp Pulse Resp BP Pulse Ox 98.2 F 65 16 152/71 96 11/03/16 23:28 11/03/16 23:28 11/03/16 23:28 11/03/16 23:28 11/03/16 23:28 Exam: General: Not in acute distress at the time of my evaluation HEENT: Oral mucosa is moist. No conjunctival palor or scleral icterus Neck: No obvious neck swellings Lungs: Clear to auscultation Cardiac: Regular rate and rhythm. No significant murmurs Abdomen: Soft, non tender. Bowel sounds present Genitourinary: No gale catheter Neurological: Alert and oriented. No gross localizing deficits Psych: Not aggressive or agitated Extremities: leg edema present Skin: No generalized rash Internal Med - H&P Results - Labs CBC & Chem 7: 11/03/16 15:05 11/03/16 15:05 - EKG Data -: EKG Interpreted by Myself EKG shows normal: sinus rhythm - EKG Data EKG comments: 1st degree A-V block; no acute ischemic changes 11/04/16 07:40 - Impressions ITS Impressions Chest X-Ray 11/03/16 14:49 IMPRESSION: No acute cardiopulmonary process. D/ / Claudia Phelps MD / Claudia Phelps MD Interpreting Provider: Claudia Phelps MD Chest CTA 11/03/16 16:35 IMPRESSION: No evidence of pulmonary embolism or acute pulmonary abnormality. D/ / 11/03/2016 17:33:44 Carloz Felix MD / earnold Interpreting Provider: Carloz Felix MD
[2016-11-04] MEDS ORDERED: Furosemide 40 MG TABLET PO PRN (01:56)
[2016-11-04] MEDS ORDERED: *HR* HYDROcodone/Acet 5/325 mg TABLET PO PRN (01:56)
[2016-11-04] MEDS ORDERED: *HR* FentaNYL PATCH 12 MCG PATCH TD SCH (02:00)
[2016-11-04 02:05] LABS: Chol/HDL Ratio 4.5 (0-4.9)
[2016-11-04] MEDS ORDERED: Ondansetron 4 MG/2 ML VIAL IV ONE (04:16)
[2016-11-04] MEDS ORDERED: *HR* Dextrose 50 % in Water (Syg) 50 ML SYRINGE IVP PRN (07:46)
[2016-11-04] MEDS ORDERED: D5% in Water 1,000 ML IV PRN (07:46)
[2016-11-04] MEDS ORDERED: Dextrose Gel 15 GM PO PRN ×2 (07:46)
[2016-11-04] MEDS ORDERED: Spironolactone 25 MG TABLET PO SCH (09:00)
[2016-11-04] MEDS ORDERED: Lisinopril 20 MG TABLET PO SCH (09:00)
[2016-11-04] MEDS ORDERED: Isosorbide MONOnitrate (24 HR) 30 MG TAB.ER.24H PO SCH ×3 (09:00→17:53)
[2016-11-04] MEDS ORDERED: Isosorbide MONOnitrate (24 HR) 30 MG TAB.ER.24H PO ONE (09:31)
[2016-11-04] MEDS: *HR* Morphine 2 MG/ML SYRINGE IVP PRN (09:38)
--- NOTE | 2016-11-04 10:19 | Cardiology Consult Note ---
Date of Encounter: 11/04/16 Time of Encounter: 09:00 Assessment and Plan (1) Chest pain Current Visit: Yes Status: Acute Per cardiology: -Atypical chest pain that occured at rest. -KNown history of CAD with recent PTCA. -Chest pain 11/06 in the setting of suspected viral illness. -ECG unchanged from previous admission. -Currently on imdur 30mg PO daily. -Hypertensive on admission with BP 170-180 systolic. -Will check limited echocardiogram. -Will increase imdur to 60mg PO Daily. -Will increase beta corona. -Further recommedations pending echo. (MARIA D) Qualifiers: Chest pain type: unspecified Qualified Code(s): R07.9 - Chest pain, unspecified (2) Nausea Current Visit: No Status: Acute Per cardiology: -Nause at home. -Admits to dry heaves and poor oral intake. -Admits sick contacts. -Will check influenza swab per discussion with Dr. Grubbs. -Management per primary service. (MARIA D) (3) Elevated troponin Current Visit: Yes Status: Acute Per cardiology: -Troponins flat and adynamic 0.06, 0.07, 0.07, 0.07. Similar to previous admission. -Hypertensive on admission with BPs 170-180 systolic -Recent cath 09/24/16 with JOSEPH to SVG to PDA. -Most recent cath 10/10/16 left main angiographyically free of disease, 90% stenosis proximal LAD, 100% stenosis mid LAD. 30% stenosis proximal circumflex. 60% stenosis 1st OM. SVG to PDA patent. HUBER to LAD with 90% stenosis at anastamosis wit successful JOSEPH to HUBER to LAD. -Patient on asa, plavix, imdur, beta corona, jason, and lipitor. -ECG unchanged from previous admission. -Will check echocardiogram. -Further recommendations once echocardiogram complete. (MARIA D) (4) Hypertension Current Visit: Yes Status: Chronic Per cardiology: -KNown history of hypertension. -Hypertensive on admission with systolic BPS 170-180s. -BP currently 150-160s systolic and 70s diastolic, -Will increase lopressor to 50mg po BID. -WIll continue to monitor. (MARIA D) Qualifiers: Hypertension type: essential hypertension Qualified Code(s): I10 - Essential (primary) hypertension (5) CAD (coronary artery disease) Current Visit: No Status: Chronic Per cardiology: -Patient with known history of CAD status post 2 vessel CABG and recent stenting. See cath above. -ON asa, plavix, imdur, beta corona, jason, and nitro PRN. -Echo 08/2016 with EF 60-65%, no pulmonary hypertension, no significant valvular issues, no wall motion abnormalities, moderate diastolic dysfunction. -Echo 09/2016 EF 60%, normal LV size and function, no wall motion abnormalities. -Echo pending. -Will continue to monitor. (MARIA D). Qualifiers: Coronary Disease-Associated Artery/Lesion type: koi artery [place] vs. transplanted heart: koi heart Associated angina: with stable angina Qualified Code(s): I25.118 - Atherosclerotic heart disease of koi coronary artery with other forms of angina pectoris Discussion w patient/family: The assessment and plan as outlined above was discussed with the patient who expressed understanding and agreement. All questions were answered. Thank you for involving us in the care of your patient. Please call with any questions. Patient was seen and examined with ARAVIND Oquendo Discussed and reviewed with Dr. Grubbs. History of Present Illness Consult date: 11/04/16 Requesting physician: Val Campbell Consult reason: chest pain Chief complaint: chest pain History of present illness: Mr. Randle is a 66 year old male with a relevant past medical history of CAD status post CABG and PTCA, HTN, COPD, DM, hyperlipidemia, ANATOLY, and diabetic neuropathy. Patient presented with chest pain and nausea. Patient states for the past 3 days he has had chills, dry, heaves, and generally not feeling well. Patient states he has not eaten in 3 days. Reports poor oral intake. Patient also states he has chest pain 3/10. Pateint states he attempted nitro at home. He states first two episodes were relieved with nitro. Patient states third episode was not relieved with nitro and he came into the hospital. Patient states his girlfriend and granddaughter have also had vomiting. Patient states he does not believe he has missed any doses of asa or plavis, but he said he was not positive. Patient states current chest pain 3/10. (MARIA D) Past Med Surg Social Fam HX - Past Medical History Attestation: Yes The following information was validated with the patient. Source: patient, old records reviewed Medical history: atrial fibrillation, CHF, COPD, coronary artery disease, diabetes, hyperlipidemia, hypertension, myocardial infarction Psychiatric history: no psych history - Past Surgical History Surgical History: angioplasty/stent, cholecystectomy, coronary bypass (CABG), orthopedic, other - Social History Smoking Status: Never smoker Smokeless Tobacco Status: No Alcohol use: rarely Drug use: none - Family History Mother Adopted: No Family Member Ethnicity: Non- Living Status: Hx Family Cardiac Disorders: No Hx Family Respiratory Disorders: Yes (COPD) Hx Family Cancer: Yes Hx Family GI Disorders: No Hx Family Endocrine Disorder: Yes (DM,thyroid) Hx Family Neuromuscular Disorders: Yes (neuropathy) Hx Family Neurologic Disorders: No Hx Family HEENT Disorders: No Hx Family Autoimmune Disorders: No Medications and Allergies Allopurinol [Zyloprim] 300 mg PO DAILY 04/11/15 [History] Aspirin Enteric Coated [Aspirin EC] 81 mg PO DAILY 04/11/15 [History] Atorvastatin Calcium [Lipitor] 80 mg PO DAILY 04/11/15 [History] Gabapentin [Neurontin] 1,200 mg PO TID 04/11/15 [History] Furosemide [Lasix] 40 mg PO DAILY PRN 05/23/15 [History] Insulin Regular U-500 [HumuLIN R U-500] 200 unit SQ BID 05/23/15 [History] Metoprolol [Lopressor] 25 mg PO BID 05/23/15 [History] Exenatide Microspheres [Bydureon Pen] 2 mg SQ TU 09/20/16 [History] Lisinopril [Zestril] 20 mg PO DAILY 09/20/16 [History] Nitroglycerin 0.4 mg SL Q5MIN PRN #20 tab.subl 09/22/16 [Rx] Clopidogrel [Plavix] 75 mg PO DAILY #30 tablet 09/25/16 [Rx] FentaNYL PATCH [Duragesic] 12 mcg TD Q72H 10/17/16 [History] Spironolactone [Aldactone] 25 mg PO DAILY 10/17/16 [History] Potassium Chloride 20 meq PO DAILY 10/18/16 [History] HYDROcodone/Acet 5/325 mg [[place] 5-325 mg] 1 tab PO Q4HR PRN #30 tablet [Rx] Isosorbide MONOnitrate (24 HR) [Imdur] 30 mg PO DAILY #30 tab.er.24h 10/19/16 [ Rx] Docusate [Colace] 100 mg PO BID 11/03/16 [History] Allergies amitriptyline Allergy (Mild, Verified 10/10/16 11:53) Itching Penicillins Allergy (Mild, Verified 09/20/16 13:50) Rash All Systems Review: A 10-system review of systems was performed and is negative for pertinent findings except as documented above in the HPI. - Constitutional Constitutional: chills - Cardiovascular Cardiovascular: as per HPI, chest pain at rest, leg edema - Gastrointestinal Gastrointestinal: nausea Physical Examination Vital Signs, Last 4 Hours Temp Pulse Resp BP Pulse Ox 11/04/16 07:11 98.2 F 64 17 163/72 97 General: Conversant, No Apparent Distress HEENT: Atraumatic, Normocephaly, Mucus Membranes Moist Neck: No JVD, Normal carotid pulses Cardiac: Reg Rate and Rhythm, Normal S1 and S2, No Murmur Lungs: No Wheeze, Rales, Rhonchi, Other (Diminished lung sounds bilateral lower bases. ) Neuro: Alert and responsive, No focal deficits noted Abdomen: Soft, Non-Tender Skin: No rashes noted on visualized skin, Other (Bilateral lower extremities with discoloration. ) Musculoskeletal: No Chest Wall Tenderness Extremities: No Clubbing, No Cyanosis, Other (Bilateral lower extremities with 3 + pitting edema. ) Results 11/03/16 15:05 11/03/16 15:05 Lab Results Laboratory Tests 09/20/16 09/20/16 09/20/16 05:46 05:46 12:01 Creatinine 1.07 Troponin I 0.07 H* 0.07 H* 09/20/16 09/21/16 09/23/16 17:08 03:43 16:45 Creatinine 1.07 Troponin I 0.06 H* 0.06 H* 09/23/16 09/23/16 09/24/16 22:14 22:14 04:43 Creatinine 1.33 H Troponin I 0.07 H* 0.05 H* 10/07/16 10/10/16 10/10/16 09:43 09:42 09:42 Creatinine 1.32 H 1.21 Troponin I 0.07 H* 10/10/16 10/10/16 10/11/16 12:48 18:35 05:47 Creatinine 1.28 H Troponin I 0.07 H* 0.09 H* 10/15/16 10/17/16 10/17/16 10:13 20:28 20:28 Creatinine 1.37 H 1.27 H Troponin I 0.07 H* 10/18/16 11/03/16 11/03/16 03:37 15:05 15:05 Creatinine 1.40 H Troponin I 0.06 H* 0.06 H* 11/03/16 11/04/16 11/04/16 17:46 01:35 06:46 Creatinine Troponin I 0.07 H* 0.07 H* 0.07 H* Impressions Chest X-Ray 11/03/16 14:49 IMPRESSION: No acute cardiopulmonary process. D/ / Claudia Phelps MD / Claudia Phelps MD Interpreting Provider: Claudia Phelps MD Chest CTA 11/03/16 16:35 IMPRESSION: No evidence of pulmonary embolism or acute pulmonary abnormality. D/ / 11/03/2016 17:33:44 Carloz Felix MD / earnold Interpreting Provider: Carloz Felix MD Active Medications Acetaminophen/Hydrocodone Bitart ([place] 5-325 Mg) 1 tab PO Q4HR PRN PRN Reason: Moderate Pain Stop: 05/06/17 01:57 Allopurinol (Zyloprim) 300 mg PO DAILY [facility] Stop: 05/06/17 09:01 Aspirin (Aspirin Ec) 81 mg PO DAILY [facility] Stop: 05/06/17 09:01 Atorvastatin Calcium (Lipitor) 80 mg PO DAILY [facility] Stop: 05/06/17 09:01 Clopidogrel Bisulfate (Plavix) 75 mg PO DAILY [facility] Stop: 05/06/17 09:01 Dextrose/Water (Dextrose 50% (Syg)) 25 ml IVP AD PRN PRN Reason: Hypoglycemia Stop: 05/06/17 07:47 Docusate Sodium (Colace) 100 mg PO BID [facility]ENN[facility]ER PRN Reason: Protocol Stop: 05/06/17 09:01 Fentanyl (Duragesic) 12 mcg TD Q72H [facility] Stop: 05/06/17 02:01 Last Admin: 11/04/16 04:29 Dose: Not Given Furosemide (Lasix) 40 mg PO DAILY PRN PRN Reason: fluid retention Stop: 05/06/17 01:57 Gabapentin (Neurontin) 1,200 mg PO TID [facility] Stop: 05/06/17 09:01 Glucagon (Glucagen) 1 mg IM ONCE PRN PRN Reason: Hypoglycemia Stop: 05/06/17 07:47 Glucose (Gluctose) 15 gm PO ONCE PRN PRN Reason: Hypoglycemia Stop: 05/06/17 07:47 Glucose (Gluctose) 30 gm PO ONCE PRN PRN Reason: Hypoglycemia Stop: 05/06/17 07:47 Dextrose (Dextrose 5%) 1,000 mls @ 100 mls/hr IV CONT PRN PRN Reason: HYPOGLYCEMIA Stop: 05/06/17 07:47 Insulin Human Lispro (Humalog) 0 units SQ TIDAC [facility] PRN Reason: Protocol Stop: 05/06/17 08:01 Insulin Human Lispro (Humalog) 0 units SQ HS [facility] PRN Reason: Protocol Stop: 05/06/17 21:01 Insulin Human Regular (Concentrated (Humulin R U-500) 200 unit SQ BID [facility]ER PRN Reason: Protocol Stop: 05/06/17 09:01 Isosorbide Mononitrate (Imdur) 60 mg PO DAILY [facility] Stop: 05/06/17 09:01 Lisinopril (Zestril) 20 mg PO DAILY [facility] PRN Reason: Protocol Stop: 05/06/17 09:01 Metoprolol Tartrate (Lopressor) 50 mg PO BID [facility] Stop: 05/06/17 09:01 Morphine Sulfate (Morphine Sulfate) 2 mg IVP Q4HR PRN PRN Reason: Moderate Pain Stop: 05/05/17 21:45 Last Admin: 11/04/16 09:38 Dose: 2 mg Naloxone HCl (Narcan) 0.4 mg IVP Q2MIN PRN PRN Reason: Opioid Reversal Stop: 05/05/17 23:35 Nitroglycerin (Nitroglycerin) 0.4 mg SL Q5MIN PRN PRN Reason: Chest Pain Stop: 05/05/17 16:15 Last Admin: 11/03/16 16:38 Dose: 0.4 mg Pharmacy Profile Note (Patient Taking Own Medication) 0 each SQ TU [facility] Stop: 05/12/17 01:57 Spironolactone (Aldactone) 25 mg PO DAILY [facility] Stop: 05/06/17 09:01 - Imaging and Cardiology Chest Xray: report reviewed Echo: pending, report reviewed Cardiac cath: report reviewed Other Results: CTA report reviewed. - EKG Interpretation EKG results cardiology: personally reviewed (ECG with sinus rhythm with 1st degree block, HR 66.), other (Telemetry reviewed with average heart rate 67. Rare PVCs noted.) Consult Discharge Plan - Plan Referrals: Azul Guillen DIFFERENTIAL SPECIALIST [Primary Care Provider] -
[2016-11-04] MEDS: Aspirin Enteric Coated 81 MG Tablet PO SCH (11:20)
[2016-11-04] MEDS: Gabapentin 400 MG CAPSULE PO SCH ×3 (11:21→20:41)
[2016-11-04] MEDS: Insulin LISPRO 300 UNITS/3 ML VIAL SQ SCH ×3 (12:17→18:36)
[2016-11-04] MEDS: *HR* Insulin Regular U-500 500 UNIT/ML SQ SCH ×2 (12:38→20:41)
--- NOTE | 2016-11-04 13:50 | Electrocardiograph Report ---
[place] [id number] Test Date: 2016-11-03 Pat Name: Jesus Randle Department: 105 Room: 3B21 Gender: M Resin Coater: : 1950 Requested By: Dwight Mohr Order Number: [id number] Reading MD: Tyrese Summers MD Measurements Intervals [place] Rate: 66 P: -16 [place]: 243 QRS: 8 QRSD: 96 T: 20 QT: 399 QTc: 413 Interpretive Statements SINUS RHYTHM WITH FIRST DEGREE AV BLOCK Electronically Signed On 11-04-2016 13:49:00 EST by Tyrese Summers MD
--- NOTE | 2016-11-04 13:56 | Internal Med Progress Note ---
Date of Encounter: 11/04/16 Time of Encounter: 12:30 - Assessment and plan (1) Chest pain Current Visit: Yes Status: Acute Assessment and plan: Patient sitting his chest pain has improved but remains with mild chest pain. His biggest complaint is generalized body aches. Patient stating he has had flu symptoms since Wednesday. Cardiology is on board, metoprolol and Imdur dosage is increased. Patient requesting an increase on his gabapentin however he is already maxed out at 5600 mg per day. We will continue to address his pain. Echocardiogram pending. Mild troponin elevation noted however chronic for the patient. Mild acute kidney injury versus chronic kidney disease stage 2 - will continue to trend. Chest x-ray negative. Chest CT and negative. ITS Impressions Chest X-Ray 11/03/16 14:49 IMPRESSION: No acute cardiopulmonary process D/ / Claudia Phelps MD / Claudia Phelps MD Interpreting Provider: Claudia Phelps MD Chest CTA 11/03/16 16:35 IMPRESSION: No evidence of pulmonary embolism or acute pulmonary abnormality. D/ / 11/03/2016 17:33:44 Carloz Felix MD / [facility] Interpreting Provider: Carloz Felix MD Qualifiers: Chest pain type: unspecified Qualified Code(s): R07.9 - Chest pain, unspecified (2) Elevated troponin Current Visit: Yes Status: Chronic Assessment and plan: Acute on chronic, the patient's troponins have been elevated since 2014, they are currently at the low end of his normal. (3) Hyperlipidemia Current Visit: Yes Status: Chronic Assessment and plan: Mildly elevated triglycerides, rest of lipid panel unremarkable. Recommend low- cholesterol diet and continuing high-dose statin (4) Hypertension Current Visit: Yes Status: Chronic Assessment and plan: Borderline hypertensive at times however patient still endorsing severe pain. At home, patient is on spironolactone 25 mg, metoprolol 25 mg twice a day, lisinopril 20 mg daily, Imdur 30 mg daily, furosemide 40 mg daily as needed. Metoprolol dosage increased to 50 mg twice a day and Imdur increased to 60 mg daily. Continue to trend. Qualifiers: Hypertension type: essential hypertension Qualified Code(s): I10 - Essential (primary) hypertension (5) Morbid obesity with BMI of 40.0-44.9, adult Current Visit: Yes Status: Chronic (6) COPD (chronic obstructive pulmonary disease) Current Visit: No Status: Chronic Assessment and plan: No acute exacerbation. Patient denies shortness of breath above his norm. (7) DVT prophylaxis Current Visit: No Status: Acute Assessment and plan: IPC's ordered (8) Diabetic neuropathy, painful Current Visit: No Status: Chronic Assessment and plan: Acute on chronic. Patient stating he was going to see his primary care provider yesterday to increase his gabapentin dosage however he is already on the maximal dose of 3600 mg daily. I spoke to him about possibly adding Cymbalta however he states he tried this a couple years ago and it did not work. He has a documented allergy to amitriptyline. Recommend continued follow -up outpatient. (9) Insulin dependent type 2 diabetes mellitus Current Visit: No Status: Chronic Assessment and plan: Uncontrolled with an A1c of 11.0% last month. Continue sliding scale while admitted-glucose is currently in the 300s, we will increase for medium sliding scale to high dose sliding scale (10) Nausea Current Visit: No Status: Resolved Assessment and plan: Tolerating a regular diet (11) CAD (coronary artery disease) Current Visit: No Status: Chronic (12) Chronic pain Current Visit: No Status: Chronic Assessment and plan: At home, patient is on [place] 5 mg every 4 hours as needed, fentanyl patch (13) History of coronary artery stent placement Current Visit: No Status: Chronic - Subjective Interval history: Patient seen and examined. On examination, patient sitting upright on the side of his bed eating lunch. Patient complains of generalized body aches with increased pain to his hands and feet. He states his pain is but going on for quite some time. He states that he has not been eating and drinking very much since Wednesday secondary to what he refers to as "the flu." Patient still endorsing mild chest pain. - Constitutional Vitals: Temp Pulse Resp BP Pulse Ox 98.5 F 73 17 134/74 97 11/04/16 10:54 11/04/16 10:54 11/04/16 10:54 11/04/16 11:24 11/04/16 10:54 General appearance: Present: A&O X 3, morbidly obese, no acute distress, answers questions appropriately - Head Head exam: Present: atraumatic, normocephalic - Eye Eye exam: Present: PERRL, conjuntiva pink, sclera anicteric Pupils: Present: PERRL - Neck Neck exam general surgery: Present: supple, trachea midline. Absent: lymphadenopathy - Respiratory Respiratory exam: Present: decreased breath sounds. Absent: accessory muscle use, rales, respiratory distress, rhonchi, wheezes - Cardiovascular Cardiovascular exam: Present: RRR, +S1, +S2. Absent: diastolic murmur, gallop, rubs, systolic murmur - GI/Abdominal GI/Abdominal exam: Present: distended, normal bowel sounds, soft, no peritoneal signs. Absent: tenderness - Extremities Exam Extremities exam: Present: warm, radial pulses palpable and symetrical. Absent : calf tenderness, cyanotic, pedal edema - Neurological Exam Neurological exam: Present: alert, CN II-XII intact, normal gait, oriented X3, no focal deficits, strengths equal and symetr throughout. Absent: pronater drift, facial droop, speech deficit - Skin Skin exam: Present: dry, intact, normal color, warm Internal Medicine: Result - Labs CBC & Chem 7: 11/03/16 15:05 11/03/16 15:05 Labs: Cardiac Enzymes 11/04/16 11/04/16 Range/Units 01:35 06:46 Troponin I 0.07 H* 0.07 H* (0-0.03) ng/mL - ABG Interpretation ABG results: PT/INR, D-dimer PT 12.6 Seconds (9.4-12.1) H 11/03/16 15:05 D-Dimer 846 ng/mLFEU (0-500) H 11/03/16 15:05 Consult Discharge Plan - Plan Referrals: Azul Guillen CNP [Primary Care Provider] -
[2016-11-04] MEDS ORDERED: 0.9 % Sodium Chloride 1,000 ML ONE (17:43)
[2016-11-04] MEDS ORDERED: 0.9 % Sodium Chloride 500 ML IVC ONE (17:52)
[2016-11-04] MEDS ORDERED: Perflutren Lipid Microsphere 1.3 ML in 0.9 % Sodium Chloride 8.7 ML IVP ONE (20:07)
[2016-11-04] MEDS ORDERED: Perflutren Lipid Microsphere 2 ML VIAL ONE (20:14)
[2016-11-04] MEDS ORDERED: Insulin LISPRO 300 UNITS/3 ML VIAL SQ SCH (21:00)
[2016-11-05] MEDS ORDERED: 0.9 % Sodium Chloride 500 ML IVC ONE (00:05)
--- NOTE | 2016-11-05 03:09 | Electrocardiograph Report ---
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
[2016-11-05 05:06] LABS: Calcium 8.6 mg/dL (8.6-10.8); Potassium 3.5 mEq/L (3.5-4.5)
--- NOTE | 2016-11-05 07:44 | ECHO - Doppler Report ---
Limited Echo with Imaging Enhancement Agent Name: Jesus Randle Date of Study: 11/04/2016 Date: 1950 Ht: 68.0 in Medical Record#: [id number] Age: 66 Wt: 290.0 lb Gender: Male BSA: 2.39 Order #: [id number] Location: [facility] Room #: 3B21 Reading Physician: William Ortega MD, [facility] Journeyman Painter: Mendy Bazzi Ordering Physician: Jere Buchanan CNP Primary Physician: Azul Guillen CNP Indications: Chest pain, Elevated troponin Impressions: Normal LV systolic function, LVEF 60%. Atypical septal motion consistent with prior cardiac surgery. Moderate concentric left ventricular hypertrophy. Valvular function was not assessed on this limited study. Left Ventricular Wall Motion: Rest Echo Findings All wall segments showed normal motion. Findings: Study Quality * Suboptimal echo windows. Echo contrast was used. ECG Findings * Normal sinus rhythm. Left Ventricle * Normal LV systolic function, LVEF 60%. * Atypical septal motion consistent with prior cardiac surgery. * Moderate concentric left ventricular hypertrophy. Right Ventricle * Normal right ventricular size and function. Left Atrium * Normal left atrial size. Right Atrium * Normal right atrial size. Aorta * Normally sized aortic root. Pericardium * There is no pericardial effusion present. History Hypertension Diabetes Hypercholesteremia Family History of CAD History of CAD/PTCA Myocardial Infarction Coronary Artery Bypass Graft 10/11/2016 a Previous Echo was performed. Contrast: Definity 1.3 ml in 8.7 ml of saline 2 ml. Measurements: BP: 92/ 58 2D Normal Values IVSd: 1.60 cm 0.6 - 1.0 cm LVIDd: 4.10 cm 3.7 - 5.6 cm LVPWd: 1.60 cm 0.6 - 1.1 cm LVIDs: 2.80 cm 1.5 - 3.6 cm AO: 3.20 cm < 4.0 cm %FS: 32.40 cm >25 % LA volume: 40 Updated by William Ortega MD, [facility] on 11/05/2016 7:38:13 AM electronically signed on 11/05/2016 7:40:07 AM with status of Final Wall Motion Price: 1=Normal, 2=Hypokinesis, 3=Akinesis, 4=Dyskinesis, 5=Aneurysmal, 6=Hyperkinetic, X=Not Visualized (Blank)=Missing
[2016-11-05] MEDS: Insulin LISPRO 300 UNITS/3 ML VIAL SQ SCH ×2 (08:31→13:31)
--- NOTE | 2016-11-05 09:14 | Cardiology Progress Note ---
Date of Encounter: 11/05/16 Time of Encounter: 09:12 Assessment and Plan (1) Chest pain Current Visit: Yes Status: Acute Per cardiology: Atypical chest pain that occured at rest. Known history of CAD with recent PTCA. ECG unchanged from previous admission. Hypertensive on admission with BP 170-180 systolic, which could have contributed to symptoms. Limited echo EF preserved 60%, no wall motion abnormalities noted. Moderate LVH. BB and Nitrates increased yesterday, but pt became hypotensive with BP as ow as 70s/40s. Will decrease back to original home dose. No further cardiac work-up warranted. Cardiology signing off. Reconsult PRN. Recommend outpt follow-up in 2-3 weeks. Qualifiers: Chest pain type: unspecified Qualified Code(s): R07.9 - Chest pain, unspecified (2) Elevated troponin Current Visit: Yes Status: Chronic Per cardiology: Troponins flat and adynamic 0.06, 0.07, 0.07, 0.07. Similar to previous admission. Hypertensive on admission with BPs 170-180 systolic. Recent cath 10/10/16 left main angiographyically free of disease, 90% stenosis proximal LAD, 100% stenosis mid LAD. 30% stenosis proximal circumflex. 60% stenosis 1st OM. SVG to PDA patent. HUBER to LAD with 90% stenosis at anastamosis wit successful JOSEPH to HUBER to LAD. Continue asa, plavix, imdur, beta corona, and lipitor. Hold TROY-I due to MAI. EKG with no acute ischemic changes. Limited echo EF preserved 60%, no wall motion abnormalities. No repeat ischemic work-up warranted. (3) Hypertension Current Visit: Yes Status: Chronic Per cardiology: Hypertensive on admission with systolic BP 170-180s. Lopressor and Imdur were increased yesterday, then pt became hypotensive with lowest BP 70s/40s, requiring fluid boluses. Now with MAI likely secondary to hypotension. Decrease BB and Imdur back to home dose. Hold TROY-I in setting of MAI. BP 103/60 this AM. Qualifiers: Hypertension type: essential hypertension Qualified Code(s): I10 - Essential (primary) hypertension (4) CAD (coronary artery disease) Current Visit: No Status: Chronic Per cardiology: Hx of CAD status post 2 vessel CABG and recent stenting. See cath above. Continue asa, plavix, imdur, beta corona. Qualifiers: Coronary Disease-Associated Artery/Lesion type: bypass graft [place] vs. transplanted heart: [place] heart Associated angina: with stable angina Qualified Code(s): I25.708 - Atherosclerosis of coronary artery bypass graft(s) , unspecified, with other forms of angina pectoris (5) MAI (acute kidney injury) Current Visit: Yes Status: Acute Creatinine 1.40 11/03, now worsened to 2.51. Hold all nephrotoxic agents. MAI likely secondary to hypotension that occurred overnight. Management per primary team. Recommend nephrology consult if no improvement. (6) Nausea Current Visit: No Status: Resolved Per cardiology: Influenza swab negative. Discussion w patient/family: The assessment and plan as outlined above was discussed with the patient and/or family members who expressed understanding and agreement. All questions were answered. Thank you for involving us in the care of your patient. Please call with any questions. I will discuss all the above with Dr. Grubbs and make changes as necessary. Subjective Principal diagnosis: Chest pain Interval history: Pt denies any recurrent chest pain overnight. Only complaint this AM is low back pain. Pt became hypotensive overnight after BB and nitrates were increased yesterday--requiring fluid boluses. Limited echo revealed EF preserved 60% with no wall motion abnormalities, moderate LVH. Renal function worsened--creatinine 1.4 on 11/03, 2.51 today. Objective Vital Signs, Last 4 Hours Temp Pulse Resp BP Pulse Ox 11/05/16 07:39 97.7 F 60 17 103/60 97 Vital Signs Temp Pulse Resp BP Pulse Ox 11/05/16 07:39 97.7 F 60 17 103/60 97 11/05/16 03:39 97.4 F L 55 16 103/56 98 11/05/16 01:46 55 15 110/55 94 L 11/05/16 00:45 88/47 11/05/16 00:09 85/55 11/04/16 23:41 80/50 11/04/16 23:38 97.9 F 61 16 77/46 95 11/04/16 20:53 98 F 59 16 111/66 96 11/04/16 18:38 97.7 F 59 16 125/70 96 11/04/16 16:46 60 100/58 11/04/16 15:06 98.3 F 58 16 92/58 94 L 11/04/16 11:24 134/74 11/04/16 10:54 98.5 F 73 17 163/70 97 Intake and Output 11/04/16 11/05/16 11/05/16 23:59 07:59 15:59 Other: Blood Glucose* 187 85 General: Conversant, No Apparent Distress HEENT: Atraumatic, Normocephaly, Mucus Membranes Moist Neck: No JVD, Normal carotid pulses Cardiac: Reg Rate and Rhythm, Normal S1 and S2, No Murmur Lungs: Normal Breath Sounds, No Wheeze, Rales, Rhonchi Neuro: Alert and responsive, No focal deficits noted Abdomen: Soft, Non-Tender Skin: No rashes noted on visualized skin Musculoskeletal: No Chest Wall Tenderness Extremities: No Clubbing, No Cyanosis, No Edema, Normal Pulses Results 11/03/16 15:05 11/05/16 03:57 Lab Results 11/04/16 11/05/16 18:02 03:57 Sodium 139 Potassium 3.5 D Chloride 102 Carbon Dioxide 27 BUN 29 H D Creatinine 2.51 H D Glucose 68 L Calcium 8.6 Troponin I 0.07 H* BMP 11/05/16 Range/Units 03:57 Sodium 139 (136-145) mEq/L Potassium 3.5 D (3.5-4.5) mEq/L Chloride 102 (98-109) mEq/L Carbon Dioxide 27 (19-29) mEq/L BUN 29 H D (8-26) mg/dL Creatinine 2.51 H D (0.72-1.25) mg/dL Glucose 68 L (70-99) mg/dL Calcium 8.6 (8.6-10.8) mg/dL Cardiac Enzymes 11/04/16 Range/Units 18:02 Troponin I 0.07 H* (0-0.03) ng/mL Active Medications Acetaminophen/Hydrocodone Bitart ([place] 5-325 Mg) 1 tab PO Q4HR PRN PRN Reason: Moderate Pain Stop: 05/06/17 01:57 Last Admin: 11/04/16 12:45 Dose: 1 tab Allopurinol (Zyloprim) 300 mg PO DAILY [facility] Stop: 05/06/17 09:01 Last Admin: 11/04/16 11:19 Dose: 300 mg Aspirin (Aspirin Ec) 81 mg PO DAILY [facility] Stop: 05/06/17 09:01 Last Admin: 11/04/16 11:20 Dose: 81 mg Atorvastatin Calcium (Lipitor) 80 mg PO DAILY [facility] Stop: 05/06/17 09:01 Last Admin: 11/04/16 11:18 Dose: 80 mg Clopidogrel Bisulfate (Plavix) 75 mg PO DAILY [facility] Stop: 05/06/17 09:01 Last Admin: 11/04/16 11:20 Dose: 75 mg Dextrose/Water (Dextrose 50% (Syg)) 25 ml IVP AD PRN PRN Reason: Hypoglycemia Stop: 05/06/17 07:47 Docusate Sodium (Colace) 100 mg PO BID [facility] PRN Reason: Protocol Stop: 05/06/17 09:01 Last Admin: 11/04/16 20:54 Dose: Not Given Fentanyl (Duragesic) 12 mcg TD Q72H [facility] Stop: 05/06/17 02:01 Last Admin: 11/04/16 04:29 Dose: Not Given Furosemide (Lasix) 40 mg PO DAILY PRN PRN Reason: fluid retention Stop: 05/06/17 01:57 Gabapentin (Neurontin) 1,200 mg PO TID [facility] Stop: 05/06/17 09:01 Last Admin: 11/04/16 20:41 Dose: 1,200 mg Glucagon (Glucagen) 1 mg IM ONCE PRN PRN Reason: Hypoglycemia Stop: 05/06/17 07:47 Glucose (Gluctose) 15 gm PO ONCE PRN PRN Reason: Hypoglycemia Stop: 05/06/17 07:47 Glucose (Gluctose) 30 gm PO ONCE PRN PRN Reason: Hypoglycemia Stop: 05/06/17 07:47 Dextrose (Dextrose 5%) 1,000 mls @ 100 mls/hr IV CONT PRN PRN Reason: HYPOGLYCEMIA Stop: 05/06/17 07:47 Insulin Human Lispro (Humalog) 0 units SQ HS [facility] PRN Reason: Protocol Stop: 05/06/17 21:01 Last Admin: 11/04/16 20:55 Dose: Not Given Insulin Human Lispro (Humalog) 0 units SQ TIDAC [facility] PRN Reason: Protocol Stop: 05/06/17 08:01 Last Admin: 11/05/16 08:31 Dose: Not Given Insulin Human Regular (Concentrated (Humulin R U-500) 200 unit SQ BID [facility] PRN Reason: Protocol Stop: 05/06/17 09:01 Last Admin: 11/04/16 20:41 Dose: 200 unit Isosorbide Mononitrate (Imdur) 30 mg PO DAILY [facility] Stop: 05/07/17 09:16 Lisinopril (Zestril) 20 mg PO DAILY JENNIFER PRN Reason: Protocol Stop: 05/06/17 09:01 Last Admin: 11/04/16 11:17 Dose: 20 mg Metoprolol Tartrate (Lopressor) 25 mg PO BID [facility] Stop: 05/06/17 21:01 Last Admin: 11/04/16 20:54 Dose: Not Given Morphine Sulfate (Morphine Sulfate) 2 mg IVP Q4HR PRN PRN Reason: Moderate Pain Stop: 05/05/17 21:45 Last Admin: 11/04/16 09:38 Dose: 2 mg Naloxone HCl (Narcan) 0.4 mg IVP Q2MIN PRN PRN Reason: Opioid Reversal Stop: 05/05/17 23:35 Nitroglycerin (Nitroglycerin) 0.4 mg SL Q5MIN PRN PRN Reason: Chest Pain Stop: 05/05/17 16:15 Last Admin: 11/03/16 16:38 Dose: 0.4 mg Pharmacy Profile Note (Patient Taking Own Medication) 0 each SQ TU [facility] Stop: 05/12/17 01:57 Spironolactone (Aldactone) 25 mg PO DAILY [facility] Stop: 05/06/17 09:01 Last Admin: 11/04/16 11:20 Dose: 25 mg - Imaging and Cardiology Echo: report reviewed (EF 60%, no wall motion abnormalities. Moderate LVH.) - EKG Interpretation EKG results cardiology: other (12 hour tele AVG HR 58, no significant pauses or arrhythmias.) Consult Discharge Plan - Plan Referrals: Guillen,Azul Mejia, LADLE FILLER [Primary Care Provider] -
[2016-11-05] MEDS ORDERED: Isosorbide MONOnitrate (24 HR) 30 MG TAB.ER.24H PO SCH (09:15)
[2016-11-05] MEDS: Aspirin Enteric Coated 81 MG Tablet PO SCH (11:02)
[2016-11-05] MEDS: Gabapentin 400 MG CAPSULE PO SCH (11:02)
[2016-11-05] MEDS: *HR* Insulin Regular U-500 500 UNIT/ML SQ SCH (11:04)
[2016-11-05 15:00] LABS: Calcium 8.6 mg/dL (8.6-10.8); Potassium 4.1 mEq/L (3.5-4.5)
[2016-11-05 15:13] VITALS: BP 93/56
--- NOTE | 2016-11-05 15:47 | Discharge Summary ---
Date of Encounter: 11/05/16 Time of Encounter: 09:30 (and 1430) - Discharge Diagnosis (1) Chest pain Priority: Primary Status: Resolved Comments: Patient denied chest pain on the discharge. Chest x-ray negative. Chest CTA negative. Echocardiogram unremarkable for acute changes. Cardiology on board and initially adjusted his medications however patient became hypotensive so his medications were returned back to normal. No indication for further ischemic workup, follow-up outpatient. Qualifiers: Chest pain type: unspecified Qualified Code(s): R07.9 - Chest pain, unspecified (2) Elevated troponin Priority: Secondary Status: Chronic Comments: Chronic, adynamic, stable (3) Hyperlipidemia Priority: Secondary Status: Chronic Comments: Mildly elevated triglycerides, rest of lipid panel unremarkable. Recommend low- cholesterol diet and continuing high-dose statin (4) Hypertension Priority: Secondary Status: Chronic Comments: Patient was initially borderline hypertensive however after his medications were adjusted, he became hypotensive after his metoprolol and Imdur were increased. Medications changed back to the original dosing, and blood pressure was better controlled. Recommend daily blood pressure checks at home, and following up outpatient. Qualifiers: Hypertension type: essential hypertension Qualified Code(s): I10 - Essential (primary) hypertension (5) Morbid obesity with BMI of 40.0-44.9, adult Priority: Secondary Status: Chronic (6) COPD (chronic obstructive pulmonary disease) Priority: Secondary Status: Chronic Comments: No acute exacerbation. Patient denies shortness of breath above his norm throughout this admission (7) DVT prophylaxis Priority: Primary Status: Acute Comments: IPCs while admitted (8) Diabetic neuropathy, painful Priority: Secondary Status: Chronic Comments: Acute on chronic. Patient stating he was going to see his primary care provider yesterday to increase his gabapentin dosage however he is already on the maximal dose of 3600 mg daily. I spoke to him about possibly adding Cymbalta however he states he tried this a couple years ago and it did not work. He has a documented allergy to amitriptyline. Recommend continued follow -up outpatient. (9) Insulin dependent type 2 diabetes mellitus Priority: Secondary Status: Chronic Comments: Uncontrolled with an A1c of 11.0% last month. Recommend continued follow-up outpatient (10) Nausea Priority: Primary Status: Resolved (11) CAD (coronary artery disease) Priority: Secondary Status: Chronic (12) Chronic pain Priority: Secondary Status: Chronic (13) History of coronary artery stent placement Priority: Secondary Status: Chronic (14) Malaise Priority: Primary Status: Suspected - Discharge Medications Home Medications: Allopurinol [Zyloprim] 300 mg PO DAILY 04/11/15 [History] Aspirin Enteric Coated [Aspirin EC] 81 mg PO DAILY 04/11/15 [History] Atorvastatin Calcium [Lipitor] 80 mg PO DAILY 04/11/15 [History] Gabapentin [Neurontin] 1,200 mg PO TID 04/11/15 [History] Furosemide [Lasix] 40 mg PO DAILY PRN 05/23/15 [History] Insulin Regular U-500 [HumuLIN R U-500] 200 unit SQ BID 05/23/15 [History] Metoprolol [Lopressor] 25 mg PO BID 05/23/15 [History] Exenatide Microspheres [Bydureon Pen] 2 mg SQ TU 09/20/16 [History] Nitroglycerin 0.4 mg SL Q5MIN PRN #20 tab.subl 09/22/16 [Rx] Clopidogrel [Plavix] 75 mg PO DAILY #30 tablet 09/25/16 [Rx] FentaNYL PATCH [Duragesic] 12 mcg TD Q72H 10/17/16 [History] Potassium Chloride 20 meq PO DAILY 10/18/16 [History] HYDROcodone/Acet 5/325 mg [[place] 5-325 mg] 1 tab PO Q4HR PRN #30 tablet [Rx] Isosorbide MONOnitrate (24 HR) [Imdur] 30 mg PO DAILY #30 tab.er.24h 10/19/16 [ Rx] Docusate [Colace] 100 mg PO BID 11/03/16 [History] Allergies/Adverse Reactions: Allergies amitriptyline Allergy (Mild, Verified 10/10/16 11:53) Itching Penicillins Allergy (Mild, Verified 09/20/16 13:50) Rash Procedures/tests Complete & Pending: Procedures Performed prior 72 hours Category Date Time Status EKG [ECG 12 lead ECG] [ECG] Stat Y 11/04/16 17:45 Completed EV limited echo w enhance Routine Y 11/04/16 09:31 Completed Date of admission: 11/03/16 19:25 Primary care physician: Azul Guillen CNP Consults: 11/03/16 23:37 Consult to Cardiology [CONS] Routine Comment: Consulting Provider: Georgie Currie Reason for Consult: Chest pain Call Completed: No Discharging clinician: Trice Slade Anticipated date of discharge: 11/05/16 (ariana improved) - Patient Status Disposition: Home, Self-Care Condition: Good Functional capacity at discharge: independent ambulation Overall status at discharge: patient is back to baseline - Discharge Instructions Follow Up With: Arlin Gonzalez CNP [Partnered Physician] - 11/23/16 2:00 pm Wilmer,Azul Mejia CNP [Primary Care Provider] - Additional Instructions: Follow-up with cardiology and her primary care provider as scheduled - Diet and Activity Activity: increase activity as tolerated Diet: diabetic diet, low fat, low cholesterol, low salt diet Hospital course: Mr. Randle is a 66 year old male with past medical history of CAD status post CABG and stent, hypertension, diabetes, peripheral neuropathy, COPD, hyperlipidemia, morbid obesity. Patient presented to the emergency department chief complaint chest pain. Patient stated he woke up at 5:00 in the morning on the morning of presentation and had chest pain to his central chest that felt more like pressure and did not radiate. Patient took a nitroglycerin which relieved the pain and he went back to sleep. Later on in the day he had another episode of chest pain that was also relieved with nitroglycerin. He then had a third episode of chest pain but this one was not relieved with nitroglycerin prompting his presentation to the emergency department. Patient stating this pain was similar to his prior episodes of chest pain which necessitated a left heart catheter. Patient's chest pain resolved while in the emergency department. Workup in the emergency department unremarkable. Chest x -ray negative. Chest CTA negative for acute processes. Patient was admitted to the hospitalist service for further evaluation and management. Troponin noted to be elevated however consistent with his baseline. Cardiology brought on board who performed a limited echo which did not reveal acute findings and revealed preserved ejection fraction of 60%. Patient was initially hypertensive and his metoprolol and Imdur were increased and he was observed overnight. Overnight, his blood pressure decreased to 70s over 40s and responded well to a 500 mL bolus. During this episode, patient had mild acute kidney injury that improved on day of discharge. His TROY inhibitor was held at discharge and he was instructed to follow-up closely outpatient. Patient's main complaint during this admission was generalized body aches, feet pain, and hand pain. He states that prior to this visit that he has had nausea vomiting and viral syndromes with decreased by mouth intake. His examination was consistent with generalized malaise after a viral infection. He states he was supposed to see his primary care provider to increase his gabapentin dosage however he is already on the maximal recommended dose of 3600 mg daily. Other possibilities included adding Cymbalta however he states this did not work for him and he has a documented allergy to amitriptyline-recommend follow-up outpatient for his neuropathy. His diabetes is uncontrolled with an A1c of 11% . He was returned to his original dosage of his metoprolol and Imdur. Cardiology cleared him for outpatient follow-up and he was discharged home in stable condition. Recommend repeat CMP within 1 week ITS Impressions Chest X-Ray 11/03/16 14:49 IMPRESSION: No acute cardiopulmonary process. D/ / Claudia Phelps MD / Claudia Phelps MD Interpreting Provider: Claudia Phelps MD Chest CTA 11/03/16 16:35 IMPRESSION: No evidence of pulmonary embolism or acute pulmonary abnormality. D/ / 11/03/2016 17:33:44 Carloz Felix MD / earnonita Interpreting Provider: Carloz Felix MD Limited echo with a imaging enhancement agent impressions: Normal LV systolic function, LVEF 60%. Atypical septal motion consistent with prior cardiac surgery. Moderate concentric left ventricular hypertrophy. Valvular function was not assessed on this limited study. - Time Spent with Patient Total time spent providing and/or coordinating discharge services: - Constitutional Vitals: Temp Pulse Resp BP Pulse Ox 97.5 F L 61 18 93/56 96 11/05/16 15:13 11/05/16 15:13 11/05/16 15:13 11/05/16 15:13 11/05/16 15:13 General appearance: Present: A&O X 3, morbidly obese, no acute distress, answers questions appropriately - Head Head exam: Present: atraumatic, normocephalic - Eye Eye exam: Present: PERRL, conjuntiva pink, sclera anicteric Pupils: Present: PERRL - Neck Neck exam general surgery: Present: supple, trachea midline. Absent: lymphadenopathy - Respiratory Respiratory exam: Present: CTAB. Absent: accessory muscle use, rales, respiratory distress, rhonchi, wheezes - Cardiovascular Cardiovascular exam: Present: RRR, +S1, +S2. Absent: diastolic murmur, gallop, rubs, systolic murmur - GI/Abdominal GI/Abdominal exam: Present: normal bowel sounds, soft, no peritoneal signs. Absent: distended, tenderness - Extremities Exam Extremities exam: Present: warm, radial pulses palpable and symetrical. Absent : calf tenderness, cyanotic, pedal edema - Neurological Exam Neurological exam: Present: alert, CN II-XII intact, normal gait, oriented X3, no focal deficits, strengths equal and symetr throughout. Absent: pronater drift, facial droop, speech deficit - Skin Skin exam: Present: dry, intact, normal color, warm
--- NOTE | 2016-11-05 15:55 | Electrocardiograph Report ---
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
[2016-11-10] MEDS ORDERED: (Exenatide Microspheres [Bydureon Pen] 2 MG) SQ SCH (01:56)
== END 2016-11-05 17:04 | disposition home or self-care (01) ==
LOC: EMEROO 14:41 → 3BNU 14:41
PROVIDERS: ADMIT Internal Medicine; ATTEND Nurse Practitioner Family

== ENCOUNTER 2016-11-30 12:52 | Inpatient (IN) ==
[2016-11-30] MEDS: 0.9 % Sodium Chloride 1,000 ML IVC SCH ×3 (13:25→20:28)
[2016-11-30 13:27] LABS: VBG HCO3 20.7 mEq/L (21-27); VBG PH 7.27 pH Units (7.32-7.42)
[2016-11-30 13:33] LABS: Prothrombin Time 11.2 Seconds (9.4-12.1)
--- NOTE | 2016-11-30 13:33 | Emergency Department Note ---
Disposition Clinical Impression: Dehydration, Generalized weakness Hypotension Qualifiers: Hypotension type: unspecified hypotension type Qualified Code(s): I95.9 - Hypotension, unspecified Disposition: Admitted As Inpatient Condition: Good Forms: ED Satisfaction Letter Time of Disposition: 16:05 General Adult HPI - General Chief complaint: ED Syncope Stated complaint: low BP Time Seen by Provider: 11/30/16 12:56 Source: patient, family, EMS Mode of arrival: ambulatory Limitations: no limitations Nursing Notes Reviewed: Yes Vital Signs Reviewed: Yes - History of Present Illness HPI Narrative: Patient presents emergency room by EMS for generalized weakness at home. His fontanelle blood pressure 60/40 according to EMS. He does not have any other new medical issues according to him. Family is concerned because he was unable to get out of bed over the last several days. Denies fevers chills nausea vomiting diarrhea. Denies chest pain interns breath headache or vision change. Onset (ago): day(s) Location: other (3 days generalized) Radiation: non-radiation Pain Severity: mild Pain Scale: 0 Consistency: constant Improves with: nothing Worsens with: movement Associated symptoms: Reports: loss of appetite, malaise Treatments Prior to Arrival: none - Related Data Home Medications Medication Instructions Recorded Confirmed Allopurinol [Zyloprim] 300 mg PO DAILY 04/11/15 11/03/16 Aspirin Enteric Coated [Aspirin EC] 81 mg PO DAILY 04/11/15 11/03/16 Atorvastatin Calcium [Lipitor] 80 mg PO DAILY 04/11/15 11/03/16 Gabapentin [Neurontin] 1,200 mg PO TID 04/11/15 11/03/16 Furosemide [Lasix] 40 mg PO DAILY PRN 05/23/15 11/03/16 Insulin Regular U-500 [HumuLIN R 200 unit SQ BID 05/23/15 11/03/16 U-500] Exenatide Microspheres [Bydureon 2 mg SQ TU 09/20/16 11/03/16 Pen] Potassium Chloride 20 meq PO DAILY 10/18/16 11/03/16 Docusate [Colace] 100 mg PO BID 11/03/16 11/03/16 FentaNYL PATCH [Duragesic] 25 mcg TD Q72H 11/30/16 11/30/16 Lisinopril [Zestril] 20 mg PO DAILY 11/30/16 11/30/16 Omeprazole [PriLOSEC] 20 mg PO BIDAC 11/30/16 11/30/16 Ranolazine [Ranexa] 500 mg PO BID 11/30/16 11/30/16 Spironolactone [Aldactone] 25 mg PO DAILY 11/30/16 11/30/16 Previous Rx's Medication Instructions Recorded Nitroglycerin 0.4 mg SL Q5MIN PRN #20 tab.subl 09/22/16 Clopidogrel [Plavix] 75 mg PO DAILY #30 tablet 09/25/16 Isosorbide MONOnitrate (24 HR) 30 mg PO DAILY #30 tab.er.24h 10/19/16 [Imdur] Allergies Allergy/AdvReac Type Severity Reaction Status Date / Time amitriptyline Allergy Mild Itching Verified 10/10/16 11:53 Penicillins Allergy Mild Rash Verified 09/20/16 13:50 All systems ED: reviewed and negative except as stated. Constitutional: Reports: weakness. Denies: fever, chills Cardiovascular: Denies: chest pain, palpitations, dyspnea on exertion Respiratory: Denies: cough, dyspnea, wheezes Gastrointestinal: Denies: abdominal pain, nausea, vomiting, diarrhea Genitourinary: Denies: dysuria, frequency Musculoskeletal: Denies: back pain, neck pain Neurological: Denies: headache Endocrine: Reports: fatigue Past Medical History - Past Medical History Attestation: Yes The following information was validated with the patient. Source: patient Medical history: Reports: atrial fibrillation, CHF, COPD, coronary artery disease, diabetes, hyperlipidemia, hypertension, myocardial infarction Surgical history: Reports: angioplasty/stent, cholecystectomy, coronary bypass ( CABG), orthopedic, other Psychiatric history: Reports: no psych history - Social History Smoking Status: Never smoker Smokeless Tobacco Status: No Alcohol use: Reports: none Drug use: Reports: none Physical Exam - General Limitations: no limitations General appearance: alert - Eye Eye exam: Present: normal appearance, PERRL, EOMI. Absent: scleral icterus, conjunctival injection, miosis, mydriasis, periorbital swelling - ENT ENT exam: normal exam, normal oropharynx, mucous membranes moist - Neck Neck exam: Present: normal inspection, full ROM, trachea midline. Absent: tenderness, meningismus, lymphadenopathy - Chest Chest inspection: Present: normal inspection, symmetric chest wall rise. Absent : tenderness - Respiratory Respiratory exam: Present: normal lung sounds bilaterally. Absent: respiratory distress, wheezes, stridor, accessory muscle use - Cardiovascular Cardiovascular exam: Present: regular rate, normal rhythm, normal heart sounds - Abdominal Exam Abdominal exam: Present: soft, Non-Tender, normal bowel sounds. Absent: tenderness, distention, guarding, rebound, rigidity, Mesa's sign, Rovsing's sign, tenderness at McBurney's Point - Extremities Exam Extremities exam: Present: normal inspection, full ROM, normal capillary refill , pedal edema (Bilateral lower extremity pitting edema). Absent: tenderness - Back Exam Back exam: Present: normal inspection, full ROM. Absent: tenderness - Neurological Exam Neurological exam: Present: alert, oriented X3, CN II-XII intact - Skin Skin exam: Present: warm, dry, intact, normal color Course Course Narrative: Patient seen and examined the time of arrival. See history of present illness. 66-year-old male presents emergency room from home and generalized weakness. Patient also found to have hypotension. He has had weakness over the last 3 or 4 days. Denies any other medical history or complaints at that changed recently. He has multiple other medical conditions but does not recall any changes in recent medications, trauma, injuries, illnesses. Denies fevers chills nausea vomiting or diarrhea. Denies chest pain shortness breath headache or vision change. Denies other medical concerns at this point. Patient said he just did not feel well on presentation patient does not have IV access. He speaking appropriately and answering questions. He is not obtunded. Patient is showing signs of generalized weakness. Physical exam is benign. Head is atraumatic pupils are equal round reactive to light. Mucous members are moist. Conjunctiva is normal color. Patient does not have diminished pulses on exam. Blood pressure taken in evaluation is 85/50. Heart rate is normal. Lungs are clear heart is regular abdomen soft nontender nondistended. Lateral extremities appear stable. Bilateral lower extremities have mild pitting edema with no significant signs of breakdown of the tissue or infection. Patient had a sentinel patch on the right shoulder. We examined the rest of the body did not find any other fungal patches. This was removed. Patient will have 2 large-bore IVs placed. Lateral workup for sepsis ordered at this time. Influenza swab also ordered. Chest x-ray and laboratory workup to be initiated. Patient had 2 L of fluid provider this time. He does have a previous sternotomy scar so concern is for cardiac heart failure. Will judiciously provide fluids to patient as needed for blood pressure. Concern is for iza the patient/pulmonary edema patient stable, related bad. We will continue to monitor as fluids are provided workup is completed. Otherwise, denies any changes in medication or symptoms. This is acting appropriately just been weak over the last 3 days. - Reevaluation(s) Reevaluation #1: Patient found have a hemoglobin of 8.6. This is a significant drop. Hemoccult testing taken at this time. Chest x-ray shows stable presentation from previous evaluation. No signs of pulmonary infiltrate. Mediastinum is stable. Patient is concerning for other underlying etiology. CT of the chest and abdomen or this time. Disposition will be admission to hospital. Blood pressure has still been labile after 2 L of fluid. The fluid this time. If needed will place central line started on pressor medication. Patient stable we will continue to monitor. Time: 14:45 Reevaluation #2: Patient has negative CT scan for acute infiltrate. Vital signs reviewed. Patient discussed with the hospitalist Dr. martinez. Patient otherwise shows stable hemoglobin with blood pressure this responsive to fluids at this time. Also given a be admitted for acute kidney insufficiency. Patient is in no distress this point Mr. process to be completed this time. No other recommendations at this time for nostrils Time: 16:05 Vital Signs Temperature 97.6 F 11/30/16 12:54 Pulse Rate 88 11/30/16 12:54 Respiratory Rate 18 11/30/16 12:54 Blood Pressure 82/50 11/30/16 12:54 O2 Sat by Pulse Oximetry 96 11/30/16 12:54 Temperature 97.6 F 11/30/16 12:54 Pulse Rate 77 11/30/16 14:27 Respiratory Rate 18 11/30/16 14:27 Blood Pressure 81/45 11/30/16 14:27 O2 Sat by Pulse Oximetry 96 11/30/16 14:27 Oxygen Delivery Oxygen Delivery Room Air Medical Decision Making - MDM Narrative Medical decision making narrative: Generalized weakness, hypotension - Medical Records Medical records reviewed: Yes I reviewed the patient's medical records. - Lab Data Lab results reviewed: Yes I reviewed the patient's lab results. Result diagrams: 11/30/16 14:07 11/30/16 13:10 Lab Results 11/30/16 11/30/16 11/30/16 Range/Units 12:55 13:10 13:10 WBC (4.3-11.1) K/mcL RBC (4.19-5.50) M/mcL Hgb (12.9-16.9) g/dL Hct (37.5-50.1) % MCV (83.0-100.0) fL MCH (28.0-33.3) pg MCHC (31.6-35.5) g/dL RDW (11.5-14.5) % Plt Count (140-400) K/mcL MPV (9.4-12.4) fL Immature Gran % (0-4) % Seg Neutrophils % % Lymphocytes % % Monocytes % % Eosinophils % % Basophils % % Neutrophils # (1.6-8.9) K/mcL Lymphocytes # (0.6-4.6) K/mcL Monocytes # (0.0-1.3) K/mcL Eosinophils # (0.0-0.6) K/mcL Basophils # (0.0-0.2) K/mcL Immature Plt Fraction (1.1-6.1) % PT 11.2 (9.4-12.1) Seconds INR 1.0 APTT 30.3 (26.0-36.0) Seconds VBG pH (7.32-7.42) pH Units VBG pCO2 (41-51) mmHg VBG pO2 (25-40) mmHg VBG HCO3 (21-27) mEq/L Sodium 133 L (136-145) mEq/L Potassium 4.2 (3.5-4.5) mEq/L Chloride 99 (98-109) mEq/L Carbon Dioxide 19 (19-29) mEq/L BUN 43 H (8-26) mg/dL Creatinine 4.62 H (0.72-1.25) mg/dL Est GFR ( Amer) 15 L (> 60) Est GFR (Non-Af Amer) 13 L (> 60) BUN/Creatinine Ratio 9 (6-26) Glucose 319 H (70-99) mg/dL POC Glucose 326 H (58-89) Calculated Osmolality 299 (280-300) Lactic Acid (0.5-2.2) mmol/L Calcium 8.2 L (8.6-10.8) mg/dL Phosphorus 3.1 (2.3-4.7) mg/dL Magnesium 1.5 L (1.6-2.6) mg/dL Total Bilirubin 0.7 (0.2-1.2) mg/dL Direct Bilirubin 0.3 (0.0-0.5) mg/dL Indirect Bilirubin 0.4 (0.0-1.2) mg/dL AST 26 (5-34) Units/L ALT 23 (0-55) Units/L Alkaline Phosphatase 73 (38-126) Units/L Troponin I (0-0.03) ng/mL Serum Total Protein 6.6 (6.0-8.3) g/dL Albumin 3.0 L (3.5-5.0) g/dL Globulin 3.6 H (2.4-3.5) g/dL Albumin/Globulin Ratio 0.8 L (1.1-2.2) Beta-Hydroxybutyric Acd 0.27 (0.02-0.27) mmol/L Specimen Rejected 11/30/16 11/30/16 11/30/16 Range/Units 13:10 13:10 13:10 WBC (4.3-11.1) K/mcL RBC (4.19-5.50) M/mcL Hgb (12.9-16.9) g/dL Hct (37.5-50.1) % MCV (83.0-100.0) fL MCH (28.0-33.3) pg MCHC (31.6-35.5) g/dL RDW (11.5-14.5) % Plt Count (140-400) K/mcL MPV (9.4-12.4) fL Immature Gran % (0-4) % Seg Neutrophils % % Lymphocytes % % Monocytes % % Eosinophils % % Basophils % % Neutrophils # (1.6-8.9) K/mcL Lymphocytes # (0.6-4.6) K/mcL Monocytes # (0.0-1.3) K/mcL Eosinophils # (0.0-0.6) K/mcL Basophils # (0.0-0.2) K/mcL Immature Plt Fraction (1.1-6.1) % PT (9.4-12.1) Seconds INR APTT (26.0-36.0) Seconds VBG pH 7.27 L (7.32-7.42) pH Units VBG pCO2 45 (41-51) mmHg VBG pO2 32 (25-40) mmHg VBG HCO3 20.7 L (21-27) mEq/L Sodium (136-145) mEq/L Potassium (3.5-4.5) mEq/L Chloride (98-109) mEq/L Carbon Dioxide (19-29) mEq/L BUN (8-26) mg/dL Creatinine (0.72-1.25) mg/dL Est GFR ( Amer) (> 60) Est GFR (Non-Af Amer) (> 60) BUN/Creatinine Ratio (6-26) Glucose (70-99) mg/dL POC Glucose (58-89) Calculated Osmolality (280-300) Lactic Acid 4.2 H* (0.5-2.2) mmol/L Calcium (8.6-10.8) mg/dL Phosphorus (2.3-4.7) mg/dL Magnesium (1.6-2.6) mg/dL Total Bilirubin (0.2-1.2) mg/dL Direct Bilirubin (0.0-0.5) mg/dL Indirect Bilirubin (0.0-1.2) mg/dL AST (5-34) Units/L ALT (0-55) Units/L Alkaline Phosphatase (38-126) Units/L Troponin I 0.07 H* (0-0.03) ng/mL Serum Total Protein (6.0-8.3) g/dL Albumin (3.5-5.0) g/dL Globulin (2.4-3.5) g/dL Albumin/Globulin Ratio (1.1-2.2) Beta-Hydroxybutyric Acd (0.02-0.27) mmol/L Specimen Rejected 11/30/16 11/30/16 Range/Units 13:38 14:07 WBC 8.7 (4.3-11.1) K/mcL RBC 2.74 L (4.19-5.50) M/mcL Hgb 8.7 L (12.9-16.9) g/dL Hct 27.0 L (37.5-50.1) % MCV 98.5 D (83.0-100.0) fL MCH 31.8 (28.0-33.3) pg MCHC 32.2 (31.6-35.5) g/dL RDW 15.1 H (11.5-14.5) % Plt Count 113 L (140-400) K/mcL MPV 10.6 (9.4-12.4) fL Immature Gran % 0.3 (0-4) % Seg Neutrophils % 53.0 % Lymphocytes % 38.0 % Monocytes % 7.1 % Eosinophils % 1.5 % Basophils % 0.1 % Neutrophils # 4.6 (1.6-8.9) K/mcL Lymphocytes # 3.3 (0.6-4.6) K/mcL Monocytes # 0.6 (0.0-1.3) K/mcL Eosinophils # 0.1 (0.0-0.6) K/mcL Basophils # 0.0 (0.0-0.2) K/mcL Immature Plt Fraction 4.4 (1.1-6.1) % PT (9.4-12.1) Seconds INR APTT (26.0-36.0) Seconds VBG pH (7.32-7.42) pH Units VBG pCO2 (41-51) mmHg VBG pO2 (25-40) mmHg VBG HCO3 (21-27) mEq/L Sodium (136-145) mEq/L Potassium (3.5-4.5) mEq/L Chloride (98-109) mEq/L Carbon Dioxide (19-29) mEq/L BUN (8-26) mg/dL Creatinine (0.72-1.25) mg/dL Est GFR ( Amer) (> 60) Est GFR (Non-Af Amer) (> 60) BUN/Creatinine Ratio (6-26) Glucose (70-99) mg/dL POC Glucose (58-89) Calculated Osmolality (280-300) Lactic Acid (0.5-2.2) mmol/L Calcium (8.6-10.8) mg/dL Phosphorus (2.3-4.7) mg/dL Magnesium (1.6-2.6) mg/dL Total Bilirubin (0.2-1.2) mg/dL Direct Bilirubin (0.0-0.5) mg/dL Indirect Bilirubin (0.0-1.2) mg/dL AST (5-34) Units/L ALT (0-55) Units/L Alkaline Phosphatase (38-126) Units/L Troponin I (0-0.03) ng/mL Serum Total Protein (6.0-8.3) g/dL Albumin (3.5-5.0) g/dL Globulin (2.4-3.5) g/dL Albumin/Globulin Ratio (1.1-2.2) Beta-Hydroxybutyric Acd (0.02-0.27) mmol/L Specimen Rejected MCV Delta - Radiology Data Radiology results reviewed: Yes I reviewed the patient's radiology results. Chest x-ray negative. CT of the chest and abdomen are negative for acute pathology. - EKG Data EKG #1 EKG attestation: Yes I reviewed and interpreted this EKG. EKG shows normal: sinus rhythm, axis, intervals, QRS complexes, ST-T waves Rate: normal Rhythm: NSR [place]/QRS: normal When compared to previous EKG there are: no significant changes Interpretation: no acute changes, unchanged when compared to prior tracing (date ) (11/04/16) Critical Care Time Critical Care Time: Yes Total Critical Care Time: 45 Attestation: Independent of procedures and medical management Attestation Statement - Attestation Attestation: I examined this patient and my medical decision-making was reviewed with the DIPLOMATIC INTERPRETER/PA/Advanced Practice Nurse/Resident Physician. I agree with the documented findings, disposition and treatment plan as described except to the extent set forth below. Patient emergency department with low blood pressure and altered mental status. Patient states he seeing kaye spots and losing consciousness. His blood pressures been running low. Admits to some diarrhea yesterday. No vomiting. No fever. No cough. No urinary symptoms. History of coronary bypass surgery 2 years ago. On examination he is awake and alert and appropriate. Obese. Scar well healed. At that was noted on his right shoulder. Abrasions to bilateral knees. Plan. He is hypotensive. He is given a 2 L fluid bolus. He is found to be in acute renal failure with a creatinine greater than 4. Lactate high as well. CBC has to be redrawn. Treating for sepsis. The patient will be admitted.
[2016-11-30 13:35] LABS: Activated Partial Thrombo Time 30.3 Seconds (26.0-36.0)
[2016-11-30 13:43] LABS: Albumin/Globulin Ratio 0.8 (1.1-2.2); Bilirubin,Direct 0.3 mg/dL (0.0-0.5); Bilirubin,Indirect 0.4 mg/dL (0.0-1.2); Bilirubin,Total 0.7 mg/dL (0.2-1.2); Calcium 8.2 mg/dL (8.6-10.8); Globulin 3.6 g/dL (2.4-3.5); Magnesium 1.5 mg/dL (1.6-2.6); Phosphorous 3.1 mg/dL (2.3-4.7); Potassium 4.2 mEq/L (3.5-4.5); Total Protein 6.6 g/dL (6.0-8.3)
[2016-11-30 13:45] LABS: Beta-Hydroxybutyric Acid 0.27 mmol/L (0.02-0.27)
[2016-11-30 14:14] LABS: Basophils % 0.1 %; Eosinophils # 0.1 K/mcL (0.0-0.6); Eosinophils % 1.5 %; Immature Granulocytes % 0.3 % (0-4); Immature Platelets 4.4 % (1.1-6.1); Lymphocytes # 3.3 K/mcL (0.6-4.6); Mean Corpuscular HGB Conc 32.2 g/dL (31.6-35.5); Mean Corpuscular Hemoglobin 31.8 pg (28.0-33.3); Mean Corpuscular Volume 98.5 fL (83.0-100.0); Mean Platelet Volume 10.6 fL (9.4-12.4); Monocytes # 0.6 K/mcL (0.0-1.3); Monocytes % 7.1 %; Neutrophils # 4.6 K/mcL (1.6-8.9); Platelet Count 113 K/mcL (140-400); Red Blood Count 2.74 M/mcL (4.19-5.50); Red Cell Distribution Width 15.1 % (11.5-14.5)
[2016-11-30 14:15] LABS: Hemoglobin 8.7 g/dL (12.9-16.9)
[2016-11-30] MEDS ORDERED: 0.9 % Sodium Chloride 1,000 ML IVC ONE (14:45)
[2016-11-30 16:24] LABS: Bilirubin,Urine Small (Negative); Blood,Urine Negative (Negative); Clarity,Urine Cloudy (Clear); Color,Urine Dark Yellow (Yellow); Glucose,Urine (UA) Normal (Normal); Ketones,Urine Negative (Negative); Leukocyte Esterase,Urine Small (Negative); Nitrite,Urine Negative (Negative); Protein,Urine Trace mg/dL (Neg-Trace); Urobilinogen,Urine Normal (Normal)
[2016-11-30 16:26] LABS: Bacteria,Urine None Seen per hpf (None-Few); RBC,Urine 0-3 per hpf (0-3); Squamous Epithelial Cell,Urine Many per lpf (None-Few)
[2016-11-30] MEDS ORDERED: Insulin Regular, Human 100 UNIT/ML SQ ONE (16:26)
[2016-11-30] MEDS ORDERED: Naloxone 0.4 MG/ML INJ IVP PRN (16:44)
[2016-11-30] MEDS ORDERED: Ondansetron 4 MG/2 ML VIAL IVP PRN (16:44)
[2016-11-30] MEDS ORDERED: Nitroglycerin 0.4 MG TAB.SUBL SL PRN (16:46)
[2016-11-30] MEDS ORDERED: D5% in Water 1,000 ML IVC PRN (16:50)
[2016-11-30] MEDS ORDERED: Dextrose Gel 15 GM PO PRN ×2 (16:50)
[2016-11-30] MEDS ORDERED: *HR* Dextrose 50 % in Water (Syg) 50 ML SYRINGE IVP PRN (16:50)
[2016-11-30 16:52] LABS: Hyaline Casts,Urine Few per lpf (None-Few)
--- NOTE | 2016-11-30 16:55 | Internal Med History&Physical ---
Date of Encounter: 11/30/16 Time of Encounter: 16:20 Assessment and Plan (1) Hypotension Current visit: Yes Status: Acute Likely secondary to decreased PO intake and medication induced Responded well to IV fluids will hold antihypertensive agents at this time continue to closely monitor BP Qualifiers: Hypotension type: unspecified hypotension type Qualified Code(s): I95.9 - Hypotension, unspecified (2) Acute renal failure Current visit: Yes Status: Acute Likely secondary to dehydration and medication induced Will hold nephrotoxic agents at this time (Lisinopril, Lasix, Spironolactone, Allopurinol) continue gentle hydration given history of CHF CT abd/pelvis noted: no renal pathology reported will continue to closely monitor if renal function deteriorates, will consider nephrology eval Qualifiers: Acute renal failure type: unspecified Qualified Code(s): N17.9 - Acute kidney failure, unspecified (3) Gastroenteritis Current visit: Yes Status: Acute Given patient's history of nausea,vomiting, diarrhea-it appears patient may have had viral gastroenteritis that may have contributed to his current presentation NO nausea, vomiting, or diarrhea reported at this time will continue IV fluids Zofran IV PRN supportive care (4) Anemia Current visit: Yes Status: Acute of unclear etiology last Hbg from October 2016 was 14.8 Denies any GI bleed Stool occult negative H&H low at this time but acceptable no acute bleeding reported at this time will continue to closely monitor will obtain iron studies, Vitamin B12, folate Given cardiac history, will continue ASA and plavix at this time as there is not acute evident bleeding reported. Qualifiers: Anemia type: unspecified type Qualified Code(s): D64.9 - Anemia, unspecified (5) Hyperglycemia due to type 2 diabetes mellitus Current visit: Yes Status: Acute Pt reports of not taking home insulin today on [id number] BID patient asked to bring his home insulin while hospitalized will start on sliding scale insulin algorithm and adjust therapy as needed patient received insulin 10units SQ in the ER continue to monitor FS and BG Qualifiers: Diabetes mellitus skilled nursing insulin use: with skilled nursing use Qualified Code( s): E11.65 - Type 2 diabetes mellitus with hyperglycemia; Z79.4 - medical sociologist ( current) use of insulin (6) Elevated troponin Current visit: Yes Status: Chronic history of CAD current TNI level consistent with TNI upon prior discharge no signs of angina present at this time (7) CAD (coronary artery disease) Current visit: Yes Status: Acute No signs of angina present at this time continue home medications (ASA, PLavix, statin) Not noted to be on BB at home Qualifiers: Coronary Disease-Associated Artery/Lesion type: unspecified vessel or lesion type [place] vs. transplanted heart: [place] heart Associated angina: angina presence unspecified Qualified Code(s): I25.10 - Atherosclerotic heart disease of [place] coronary artery without angina pectoris (8) CHF (congestive heart failure) Current visit: Yes Status: Chronic Not in acute exacerbation on PRN Lasix at home but states he takes it on daily basis Reports of have chronic pedal edema will hold lasix at this time given renal function will closely monitor for signs of fluid overload given IV fluid administration. Qualifiers: Congestive heart failure type: unspecified congestive heart failure type Congestive heart failure chronicity: chronic Qualified Code(s): I50.9 - Heart failure, unspecified (9) Morbid obesity with BMI of 40.0-44.9, adult Current visit: Yes Status: Chronic (10) Peripheral neuropathic pain Current visit: Yes Status: Chronic Will continue Gabapentin Discontinued Fentanyl patch in the ER due to hypotension Will closely monitor and adjust therapy as needed. (11) DVT prophylaxis Current visit: Yes Status: Acute Heparin SQ Internal Medicine - H&P: HPI Chief complaint: low blood pressure Admitted From: Home Plans for Post Hospital Care: Home History of present illness: Mr. Randle is a 66 year old male with PMH of CAD s/p CABG, HTN, DM, peripheral neuropathy, COPD, HLD who was brought to the ER for evaluation of low blood pressure. Patient states he has been feeling ill for the last few days with nausea, dry heaving, diarrhea and has had low PO intake. He has been feeling weak but has continued to take his home medications as directed. As per family, present at bedside, patient has been excessively somnolent for the last couple of days and earlier today was noted to have significantly low blood pressure due to which they brought him to the hospital. He states he has not had any episodes of diarrhea today and denies any nausea or vomiting at this time. He has history of severe peripheral neuropathy which is controlled with Gabapentin and Fentanyl patch. Upon arrival to the ER patient was noted to have BP of 82/50 with Hgb of 8.7 and Creatinine of 4.62. Patient was started on aggressive IV fluid resuscitation to which he responded appropriately. He also had a bedside guaic test which was negative. At this time patient is resting comfortably in bed. Denies any headache, lightheadedness, dizziness, sob, chest pain, abd pain, n/v, fever, or chills. Denies any acute blood loss in bowels, melena, or hematochezia. Reports of feeling better since hospitalization. Past Med Surg Social Fam HX - Past Medical History Medical history: atrial fibrillation, CHF, COPD, coronary artery disease, diabetes, hyperlipidemia, hypertension, myocardial infarction Psychiatric history: no psych history - Past Surgical History Surgical History: angioplasty/stent, cholecystectomy, coronary bypass (CABG), orthopedic, other - Social History Smoking Status: Never smoker Smokeless Tobacco Status: No Alcohol use: none Drug use: none - Family History Mother Adopted: No Family Member Ethnicity: Non- Living Status: Hx Family Cardiac Disorders: No Hx Family Respiratory Disorders: Yes (COPD) Hx Family Cancer: Yes Hx Family GI Disorders: No Hx Family Endocrine Disorder: Yes (DM,thyroid) Hx Family Neuromuscular Disorders: Yes (neuropathy) Hx Family Neurologic Disorders: No Hx Family HEENT Disorders: No Hx Family Autoimmune Disorders: No Internal Medicine - H&P: Meds Allopurinol [Zyloprim] 300 mg PO DAILY 04/11/15 [History] Aspirin Enteric Coated [Aspirin EC] 81 mg PO DAILY 04/11/15 [History] Atorvastatin Calcium [Lipitor] 80 mg PO DAILY 04/11/15 [History] Gabapentin [Neurontin] 1,200 mg PO TID 04/11/15 [History] Furosemide [Lasix] 40 mg PO DAILY PRN 05/23/15 [History] Insulin Regular U-500 [HumuLIN R U-500] 200 unit SQ BID 05/23/15 [History] Exenatide Microspheres [Bydureon Pen] 2 mg SQ TU 09/20/16 [History] Nitroglycerin 0.4 mg SL Q5MIN PRN #20 tab.subl 09/22/16 [Rx] Clopidogrel [Plavix] 75 mg PO DAILY #30 tablet 09/25/16 [Rx] Potassium Chloride 20 meq PO DAILY 10/18/16 [History] Isosorbide MONOnitrate (24 HR) [Imdur] 30 mg PO DAILY #30 tab.er.24h 10/19/16 [ Rx] Docusate [Colace] 100 mg PO BID 11/03/16 [History] FentaNYL PATCH [Duragesic] 25 mcg TD Q72H 11/30/16 [History] Lisinopril [Zestril] 20 mg PO DAILY 11/30/16 [History] Omeprazole [PriLOSEC] 20 mg PO BIDAC 11/30/16 [History] Ranolazine [Ranexa] 500 mg PO BID 11/30/16 [History] Spironolactone [Aldactone] 25 mg PO DAILY 11/30/16 [History] Allergies amitriptyline Allergy (Mild, Verified 10/10/16 11:53) Itching Penicillins Allergy (Mild, Verified 09/20/16 13:50) Rash All Systems PM: A 10-system review of systems was performed and is negative for pertinent findings except as documented above in the HPI. - Constitutional Constitutional: as per HPI - Constitutional Vitals: Temp Pulse Resp BP Pulse Ox 97.6 F 88 18 148/61 98 11/30/16 12:54 11/30/16 16:38 11/30/16 16:38 11/30/16 16:38 11/30/16 16:38 General appearance: Present: A&O X 3, morbidly obese, no acute distress, answers questions appropriately - Head Head exam: Present: atraumatic, normocephalic - Eye Eye exam: Present: EOMI, normal appearance, PERRL, conjuntiva pink, sclera anicteric - Respiratory Respiratory exam: Present: CTAB. Absent: accessory muscle use, rales, rhonchi, wheezes - Cardiovascular Cardiovascular exam: Present: RRR, +S1, +S2. Absent: diastolic murmur, gallop, rubs, systolic murmur - GI/Abdominal GI/Abdominal exam: Present: normal bowel sounds, soft, no peritoneal signs. Absent: distended, tenderness - Extremities Exam Extremities exam: Present: pedal edema (bilateral lower extremity mild pitting edema ), warm, radial pulses palpable and symetrical. Absent: calf tenderness - Neurological Exam Neurological exam: Present: alert, oriented X3 - Psychiatric Psychiatric exam: Present: normal affect, normal mood Internal Med - H&P Results - Labs CBC & Chem 7: 11/30/16 14:07 11/30/16 13:10
[2016-11-30] MEDS ORDERED: *HR* Heparin 5,000 UNIT/ML VIAL SQ SCH (18:00)
[2016-11-30] MEDS: Insulin LISPRO 300 UNITS/3 ML VIAL SQ SCH ×2 (19:27→21:31)
[2016-11-30] MEDS: *HR* Morphine 2 MG/ML SYRINGE IVP PRN (20:26)
[2016-11-30] MEDS: Ranolazine 500 MG TAB.ER.12H PO SCH (20:27)
[2016-11-30] MEDS ORDERED: Gabapentin 400 MG CAPSULE PO SCH (21:00)
[2016-11-30] MEDS: Gabapentin 400 MG CAPSULE PO SCH (23:52)
[2016-12-01] MEDS: *HR* Morphine 2 MG/ML SYRINGE IVP PRN ×2 (04:11→21:14)
[2016-12-01] MEDS: 0.9 % Sodium Chloride 1,000 ML IVC SCH (04:11)
[2016-12-01 07:38] LABS: Calcium 8.1 mg/dL (8.6-10.8); Magnesium 1.5 mg/dL (1.6-2.6); Potassium 4.5 mEq/L (3.5-4.5)
[2016-12-01] MEDS ORDERED: Magnesium Sulfate 1 GM in D5% in Water 100 ML IVPB ONE (07:48)
[2016-12-01] MEDS: Ranolazine 500 MG TAB.ER.12H PO SCH ×2 (08:10→21:05)
[2016-12-01] MEDS: Aspirin Enteric Coated 81 MG Tablet PO SCH (08:10)
[2016-12-01] MEDS: Gabapentin 400 MG CAPSULE PO SCH ×2 (08:10→09:31)
[2016-12-01] MEDS: Isosorbide MONOnitrate (24 HR) 30 MG TAB.ER.24H PO SCH (08:10)
[2016-12-01] MEDS: Insulin LISPRO 300 UNITS/3 ML VIAL SQ SCH ×4 (08:20→21:06)
[2016-12-01 08:57] LABS: Basophils % 0.2 %; Eosinophils # 0.2 K/mcL (0.0-0.6); Eosinophils % 2.7 %; Hematocrit 38.1 % (37.5-50.1); Hemoglobin 12.5 g/dL (12.9-16.9); Immature Granulocytes % 0.6 % (0-4); Immature Platelets 4.4 % (1.1-6.1); Lymphocytes # 3.3 K/mcL (0.6-4.6); Lymphocytes % 38.1 %; Mean Corpuscular HGB Conc 32.8 g/dL (31.6-35.5); Mean Corpuscular Hemoglobin 31.6 pg (28.0-33.3); Mean Corpuscular Volume 96.2 fL (83.0-100.0); Mean Platelet Volume 10.8 fL (9.4-12.4); Monocytes # 0.6 K/mcL (0.0-1.3); Neutrophils # 4.4 K/mcL (1.6-8.9); Platelet Count 137 K/mcL (140-400); Red Blood Count 3.96 M/mcL (4.19-5.50); Red Cell Distribution Width 14.8 % (11.5-14.5); Segmented Neutrophils % 51.4 %
[2016-12-01 10:26] LABS: Folate 7.9 ng/mL (7.0-31.4)
--- NOTE | 2016-12-01 10:41 | Electrocardiograph Report ---
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
--- NOTE | 2016-12-01 10:46 | Internal Med Progress Note ---
Date of Encounter: 12/01/16 Time of Encounter: 10:00 - Assessment and plan (1) Hypotension Current Visit: Yes Status: Acute Assessment and plan: Resolved at this time BP within acceptable range continue to hold antihypertensive agents at this time continue gentle IV fluid hydration will continue to closely monitor BP Qualifiers: Hypotension type: unspecified hypotension type Qualified Code(s): I95.9 - Hypotension, unspecified (2) Acute renal failure Current Visit: Yes Status: Acute Assessment and plan: Improved from previous day Will continue to hold nephrotoxic agents at this time (Lisinopril, Lasix, Spironolactone, Allopurinol) continue gentle IV fluid hydration continue to closely monitor renal function Qualifiers: Acute renal failure type: unspecified Qualified Code(s): N17.9 - Acute kidney failure, unspecified (3) Gastroenteritis Current Visit: Yes Status: Acute Assessment and plan: resolved at this time no reported nausea, vomiting, diarrhea tolerating PO intake well (4) Anemia Current Visit: Yes Status: Acute Assessment and plan: H&H improved from previous day Iron studies consistent with anemia of chronic disease H&H low but acceptable no acute bleeding reported at this time will continue to closely monitor Qualifiers: Anemia type: unspecified type Qualified Code(s): D64.9 - Anemia, unspecified (5) Hyperglycemia due to type 2 diabetes mellitus Current Visit: Yes Status: Acute Assessment and plan: BG within acceptable range continue ss insulin algorithm continue to monitor FS and BG patient asked to bring home insulin (U500) Qualifiers: Diabetes mellitus half-way insulin use: with case management assistant use Qualified Code( s): E11.65 - Type 2 diabetes mellitus with hyperglycemia; 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 transplanted heart: [place] heart Associated angina: angina presence unspecified Qualified Code(s): I25.10 - Atherosclerotic heart disease of [place] coronary artery without angina pectoris (8) CHF (congestive heart failure) Current Visit: Yes Status: Chronic Assessment and plan: NO signs of CHF decompensation Will continue to closely monitor for signs of volume overload Qualifiers: Congestive heart failure type: unspecified congestive heart failure type Congestive heart failure chronicity: chronic Qualified Code(s): I50.9 - Heart failure, unspecified (9) Morbid obesity with BMI of 40.0-44.9, adult Current Visit: Yes Status: Chronic (10) Peripheral neuropathic pain Current Visit: Yes Status: Chronic Assessment and plan: Continue Gapapentin (medication dosed as per renal function) (11) Hypomagnesemia Current Visit: Yes Status: Acute Assessment and plan: Mg supplemented continue to monitor electrolytes and replace as needed (12) DVT prophylaxis Current Visit: Yes Status: Acute Assessment and plan: IPCD given thrombocytopenia - Subjective Interval history: Patient seen and examined at bedside. Reports of feeling significantly better compared to previous day, tolerating PO intake well. No overnight issues reported States he does not have history of COPD and is a never smoker, states he is unclear how that diagnosis has been associated with him. Denies any respiratory discomfort at this time. saturating well on room air. - Constitutional Vitals: Temp Pulse Resp BP Pulse Ox 97.7 F 70 14 122/51 96 12/01/16 07:12 12/01/16 08:00 12/01/16 07:12 12/01/16 07:12 12/01/16 07:12 General appearance: Present: A&O X 3, morbidly obese, no acute distress, answers questions appropriately - Head Head exam: Present: atraumatic, normocephalic - Eye Eye exam: Present: EOMI, normal appearance, conjuntiva pink, sclera anicteric - Respiratory Respiratory exam: Present: CTAB. Absent: accessory muscle use, rales, rhonchi, wheezes - Cardiovascular Cardiovascular exam: Present: RRR, +S1, +S2. Absent: diastolic murmur, gallop, rubs, systolic murmur - GI/Abdominal GI/Abdominal exam: Present: normal bowel sounds, soft, no peritoneal signs. Absent: distended, tenderness - Extremities Exam Extremities exam: Present: pedal edema (mild pedal edema bilaterally), warm, radial pulses palpable and symetrical. Absent: calf tenderness, cyanotic - Neurological Exam Neurological exam: Present: alert, oriented X3 - Psychiatric Psychiatric exam: Present: normal affect, normal mood Internal Medicine: Result - Labs CBC & Chem 7: 12/01/16 08:43 12/01/16 06:57 Labs: Short CBC 12/01/16 Range/Units 08:43 WBC 8.6 (4.3-11.1) K/mcL Hgb 12.5 L D (12.9-16.9) g/dL Hct 38.1 (37.5-50.1) % Plt Count 137 L (140-400) K/mcL Neutrophils # 4.4 (1.6-8.9) K/mcL BMP 12/01/16 06:57 Sodium 138 Potassium 4.5 Chloride 106 Carbon Dioxide 22 BUN 41 H Creatinine 2.56 H Glucose 178 H Calcium 8.1 L - ABG Interpretation ABG results: PT/INR, D-dimer PT 11.2 Seconds (9.4-12.1) 11/30/16 13:10 Consult Discharge Plan - Plan Referrals: Azul Guillen CNP [Primary Care Provider] - 12/08/16 9:00 am
[2016-12-01] MEDS: 0.9 % Sodium Chloride 1,000 ML IV SCH (16:17)
[2016-12-01] MEDS ORDERED: Gabapentin 300 MG CAPSULE PO SCH (21:00)
[2016-12-02] MEDS: *HR* OxyCODONE/APAP 5/325 TABLET PO PRN ×3 (01:30→17:18)
[2016-12-02 04:47] LABS: Basophils % 0.1 %; Eosinophils # 0.2 K/mcL (0.0-0.6); Eosinophils % 2.7 %; Hematocrit 38.2 % (37.5-50.1); Hemoglobin 12.8 g/dL (12.9-16.9); Immature Granulocytes % 0.6 % (0-4); Lymphocytes # 2.9 K/mcL (0.6-4.6); Lymphocytes % 33.2 %; Mean Corpuscular HGB Conc 33.5 g/dL (31.6-35.5); Mean Corpuscular Hemoglobin 31.1 pg (28.0-33.3); Mean Corpuscular Volume 92.9 fL (83.0-100.0); Mean Platelet Volume 10.9 fL (9.4-12.4); Monocytes # 0.6 K/mcL (0.0-1.3); Neutrophils # 4.8 K/mcL (1.6-8.9); Platelet Count 137 K/mcL (140-400); Red Blood Count 4.11 M/mcL (4.19-5.50); Red Cell Distribution Width 14.6 % (11.5-14.5); Segmented Neutrophils % 56.4 %
[2016-12-02 05:08] LABS: Calcium 8.9 mg/dL (8.6-10.8); Magnesium 1.8 mg/dL (1.6-2.6); Phosphorous 2.4 mg/dL (2.3-4.7); Potassium 4.5 mEq/L (3.5-4.5)
[2016-12-02] MEDS: Isosorbide MONOnitrate (24 HR) 30 MG TAB.ER.24H PO SCH (08:04)
[2016-12-02] MEDS: Aspirin Enteric Coated 81 MG Tablet PO SCH (08:04)
[2016-12-02] MEDS: Gabapentin 400 MG CAPSULE PO SCH ×2 (08:04→20:18)
[2016-12-02] MEDS: Ranolazine 500 MG TAB.ER.12H PO SCH ×2 (08:04→20:18)
[2016-12-02] MEDS: Insulin LISPRO 300 UNITS/3 ML VIAL SQ SCH ×4 (08:05→20:19)
[2016-12-02] MEDS: 0.9 % Sodium Chloride 1,000 ML IV SCH (11:47)
--- NOTE | 2016-12-02 13:18 | Internal Med Progress Note ---
Date of Encounter: 12/02/16 Time of Encounter: 12:55 - Assessment and plan (1) Hypotension Current Visit: Yes Status: Acute Assessment and plan: Resolved at this time Noted to be hypertensive this morning Received one dose of IV Hydralazine this morning with appropriate BP control will discontinue IV fluids Restart Low dose Lasix will continue to closely monitor BP Qualifiers: Hypotension type: unspecified hypotension type Qualified Code(s): I95.9 - Hypotension, unspecified (2) Acute renal failure Current Visit: Yes Status: Acute Assessment and plan: Improved from previous day Will continue to hold nephrotoxic agents at this time (Lisinopril, Spironolactone, Allopurinol) Will discontinue IV fluids given pedal edema and significant improvement in renal function Will restart low dose lasix this evening continue to closely monitor renal function Likely discharge in am Qualifiers: Acute renal failure type: unspecified Qualified Code(s): N17.9 - Acute kidney failure, unspecified (3) Gastroenteritis Current Visit: Yes Status: Acute Assessment and plan: resolved at this time no reported nausea, vomiting, diarrhea tolerating PO intake well (4) Anemia Current Visit: Yes Status: Acute Assessment and plan: H&H improved from previous day Iron studies consistent with anemia of chronic disease H&H low but acceptable no acute bleeding reported at this time will continue to closely monitor Qualifiers: Anemia type: unspecified type Qualified Code(s): D64.9 - Anemia, unspecified (5) Hyperglycemia due to type 2 diabetes mellitus Current Visit: Yes Status: Acute Assessment and plan: BG within acceptable range continue ss insulin algorithm continue to monitor FS and BG patient asked to bring home insulin (U500) Qualifiers: Diabetes mellitus 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 transplanted heart: [place] heart Associated angina: angina presence unspecified Qualified Code(s): I25.10 - Atherosclerotic heart disease of [place] coronary artery without angina pectoris (8) CHF (congestive heart failure) Current Visit: Yes Status: Chronic Assessment and plan: NO signs of CHF decompensation restart low dose lasix this evening given worsening b/l pedal edema Qualifiers: Congestive heart failure type: unspecified congestive heart failure type Congestive heart failure chronicity: chronic Qualified Code(s): I50.9 - Heart failure, unspecified (9) Morbid obesity with BMI of 40.0-44.9, adult Current Visit: Yes Status: Chronic (10) Peripheral neuropathic pain Current Visit: Yes Status: Chronic Assessment and plan: Continue Gapapentin (medication dosed as per renal function) (11) Hypomagnesemia Current Visit: Yes Status: Resolved Assessment and plan: continue to monitor electrolytes and replace as needed (12) DVT prophylaxis Current Visit: Yes Status: Acute Assessment and plan: IPCD - Subjective Interval history: Patient seen and examined at bedside. Resting in chair and reports of feeling better. Noted to have worsening bilateral pedal edema. Denies any chest pain, sob at this time. No overnight issues were reported. - Constitutional Vitals: Temp Pulse Resp BP Pulse Ox 98 F 60 16 117/56 97 12/02/16 11:07 12/02/16 11:40 12/02/16 11:07 12/02/16 11:07 12/02/16 11:07 General appearance: Present: A&O X 3, morbidly obese, no acute distress, answers questions appropriately - Head Head exam: Present: atraumatic, normocephalic - Eye Eye exam: Present: normal appearance, PERRL, conjuntiva pink, sclera anicteric - Respiratory Respiratory exam: Present: CTAB. Absent: accessory muscle use, rales, rhonchi, wheezes - Cardiovascular Cardiovascular exam: Present: RRR, +S1, +S2. Absent: diastolic murmur, gallop, rubs, systolic murmur - GI/Abdominal GI/Abdominal exam: Present: normal bowel sounds, soft, no peritoneal signs. Absent: distended, tenderness - Extremities Exam Extremities exam: Present: calf tenderness, pedal edema, warm, radial pulses palpable and symetrical - Neurological Exam Neurological exam: Present: alert, oriented X3, no focal deficits. Absent: pronater drift, facial droop, speech deficit - Psychiatric Psychiatric exam: Present: normal affect, normal mood Internal Medicine: Result - Labs CBC & Chem 7: 04/05/17 04:33 12/02/16 04:33 Labs: Short CBC 12/02/16 Range/Units 04:33 WBC 8.6 (4.3-11.1) K/mcL Hgb 12.8 L (12.9-16.9) g/dL Hct 38.2 (37.5-50.1) % Plt Count 137 L (140-400) K/mcL Neutrophils # 4.8 (1.6-8.9) K/mcL BMP 12/02/16 04:33 Sodium 137 Potassium 4.5 Chloride 108 Carbon Dioxide 19 BUN 29 H D Creatinine 1.48 H Glucose 202 H Calcium 8.9 - ABG Interpretation ABG results: PT/INR, D-dimer PT 11.2 Seconds (9.4-12.1) 11/30/16 13:10 Consult Discharge Plan - Plan Referrals: Azul Guillen CNP [Primary Care Provider] - 12/08/16 9:00 am
[2016-12-02] MEDS: Furosemide 20 MG TABLET PO SCH (17:18)
[2016-12-03] MEDS: *HR* OxyCODONE/APAP 5/325 TABLET PO PRN ×2 (00:20→09:19)
[2016-12-03 05:47] LABS: Basophils % 0.2 %; Eosinophils # 0.2 K/mcL (0.0-0.6); Eosinophils % 2.8 %; Hematocrit 37.5 % (37.5-50.1); Hemoglobin 12.5 g/dL (12.9-16.9); Immature Granulocytes % 0.5 % (0-4); Lymphocytes # 3.1 K/mcL (0.6-4.6); Mean Corpuscular HGB Conc 33.3 g/dL (31.6-35.5); Mean Corpuscular Hemoglobin 31.1 pg (28.0-33.3); Mean Corpuscular Volume 93.3 fL (83.0-100.0); Mean Platelet Volume 11.5 fL (9.4-12.4); Monocytes # 0.6 K/mcL (0.0-1.3); Monocytes % 7.3 %; Neutrophils # 4.2 K/mcL (1.6-8.9); Platelet Count 139 K/mcL (140-400); Red Blood Count 4.02 M/mcL (4.19-5.50); Red Cell Distribution Width 14.6 % (11.5-14.5); Segmented Neutrophils % 51.2 %
[2016-12-03 06:07] LABS: BUN/Creatinine Ratio 18 (6-26); Blood Urea Nitrogen 21 mg/dL (8-26); Carbon Dioxide 21 mEq/L (19-29); Chloride 105 mEq/L (98-109); Glucose 154 mg/dL (70-99); Magnesium 1.6 mg/dL (1.6-2.6); Osmolality,Calculated 286 (280-300); Phosphorous 3.3 mg/dL (2.3-4.7); Potassium 4.2 mEq/L (3.5-4.5); Sodium 135 mEq/L (136-145); eGFR For African Americans > 60 (> 60); eGFR For Non-African Americans > 60 (> 60)
[2016-12-03] MEDS: Ranolazine 500 MG TAB.ER.12H PO SCH (09:18)
[2016-12-03] MEDS: Aspirin Enteric Coated 81 MG Tablet PO SCH (09:18)
[2016-12-03] MEDS: Furosemide 20 MG TABLET PO SCH (09:18)
[2016-12-03] MEDS: Gabapentin 400 MG CAPSULE PO SCH (09:20)
[2016-12-03] MEDS: Isosorbide MONOnitrate (24 HR) 30 MG TAB.ER.24H PO SCH (09:21)
[2016-12-03] MEDS: Insulin LISPRO 300 UNITS/3 ML VIAL SQ SCH ×2 (09:28→11:33)
[2016-12-03 11:11] VITALS: BP 115/63
--- NOTE | 2016-12-03 11:22 | Discharge Summary ---
Date of Encounter: 12/03/16 Time of Encounter: 10:35 - Discharge Diagnosis (1) Hypotension Priority: Primary Status: Acute Qualifiers: Hypotension type: unspecified hypotension type Qualified Code(s): I95.9 - Hypotension, unspecified (2) Acute renal failure Priority: Primary Status: Resolved Qualifiers: Acute renal failure type: unspecified Qualified Code(s): N17.9 - Acute kidney failure, unspecified (3) Gastroenteritis Priority: Secondary Status: Resolved (4) Anemia Priority: Secondary Status: Chronic Qualifiers: Anemia type: unspecified type Qualified Code(s): D64.9 - Anemia, unspecified (5) Hyperglycemia due to type 2 diabetes mellitus Priority: Secondary Status: Chronic Qualifiers: 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 transplanted heart: [place] heart Associated angina: angina presence unspecified Qualified Code(s): I25.10 - Atherosclerotic heart disease of [place] coronary artery without angina pectoris (8) CHF (congestive heart failure) Priority: Secondary Status: Chronic Qualifiers: Congestive heart failure type: unspecified congestive heart failure type Congestive heart failure chronicity: chronic Qualified Code(s): I50.9 - Heart failure, unspecified (9) Morbid obesity with BMI of 40.0-44.9, adult Priority: Secondary Status: Chronic (10) Peripheral neuropathic pain Priority: Secondary Status: Chronic (11) Hypomagnesemia Priority: Secondary Status: Resolved (12) DVT prophylaxis Priority: Secondary Status: Acute - Discharge Medications Prescriptions: Furosemide [Lasix] 20 mg PO DAILY PRN #20 tablet PRN Reason: pedal edema Gabapentin [Neurontin] 800 mg PO TID #30 capsule Lisinopril [Zestril] 2.5 mg PO DAILY #20 tablet Home Medications: Allopurinol [Zyloprim] 300 mg PO DAILY 04/11/15 [History] Aspirin Enteric Coated [Aspirin EC] 81 mg PO DAILY 04/11/15 [History] Atorvastatin Calcium [Lipitor] 80 mg PO DAILY 04/11/15 [History] Insulin Regular U-500 [HumuLIN R U-500] 200 unit SQ BID 05/23/15 [History] Exenatide Microspheres [Bydureon Pen] 2 mg SQ TU 09/20/16 [History] Nitroglycerin 0.4 mg SL Q5MIN PRN #20 tab.subl 09/22/16 [Rx] Clopidogrel [Plavix] 75 mg PO DAILY #30 tablet 09/25/16 [Rx] Potassium Chloride 20 meq PO DAILY 10/18/16 [History] Isosorbide MONOnitrate (24 HR) [Imdur] 30 mg PO DAILY #30 tab.er.24h 10/19/16 [ Rx] Docusate [Colace] 100 mg PO BID 11/03/16 [History] FentaNYL PATCH [Duragesic] 25 mcg TD Q72H 11/30/16 [History] Omeprazole [PriLOSEC] 20 mg PO BIDAC 11/30/16 [History] Ranolazine [Ranexa] 500 mg PO BID 11/30/16 [History] Spironolactone [Aldactone] 25 mg PO DAILY 11/30/16 [History] Furosemide [Lasix] 20 mg PO DAILY PRN #20 tablet 12/03/16 [Rx] Gabapentin [Neurontin] 800 mg PO TID #30 capsule 12/03/16 [Rx] Lisinopril [Zestril] 2.5 mg PO DAILY #20 tablet 12/03/16 [Rx] Allergies/Adverse Reactions: Allergies amitriptyline Allergy (Mild, Verified 10/10/16 11:53) Itching Penicillins Allergy (Mild, Verified 09/20/16 13:50) Rash Date of admission: 11/30/16 16:44 Primary care physician: Azul Guillen CNP Consults: 11/30/16 20:04 Consult to Nutrition [CONS] Routine Comment: Consulting Provider: NUTRITION Reason for Dietary Consult: MST Score Discharging clinician: Mari Tyson Anticipated date of discharge: 12/03/16 - Patient Status Disposition: Home, Self-Care Condition: Good Functional capacity at discharge: independent ambulation Overall status at discharge: patient is back to baseline - Discharge Instructions Follow Up With: Azul Guillen CNP [Primary Care Provider] - 12/08/16 9:00 am Additional Instructions: Please follow up with your primary care physician within one week after your discharge from the hospital. Your home medications have been readjusted according to your blood pressure readings and kidney function. Your home dose of Lisinopril has been decreased to 2.5mg once a day, please take this medication as prescribed and closely monitor your blood pressure. Your home medication of Lasix has been changed to 20mg once a day as needed for worsening lower extremity edema. Please closely monitor your blood pressure. You can resume your home dose of Spironolactone with close monitoring of your blood pressure. Your home dose of Gabapentin has been decreased to 800mg three times a day. Please take this medication as prescribed. You may resume use of the Fentanyl patch with close monitoring of your blood pressure. Hold your blood pressure medications if your SBP is below 120. Please inform your primary care physician of all the above changes. Please resume all your home medications as prescribed by your primary care physician. - Diet and Activity Activity: resume usual activities as tolerated Diet: diabetic diet, low salt diet Hospital course: Mr. Randle is a 66 year old male with PMH of CAD s/p CABG, HTN, DM, peripheral neuropathy, COPD, HLD who was brought to the ER for evaluation of low blood pressure. Upon arrival to the ER, he was found to have hypotension, acute renal failure, and anemia. He was started on IV fluids and all his home dose of antihypertensives and nephrotoxic agents were placed on hold. He responded well to therapy with resolution of his hypotension and return of his renal function back to baseline. Repeat labs also showed H&H was back to his baseline. At this time patient is hemodynamically stable and will be discharged to home with follow up with his PCP. His home medications have been readjusted to support his current blood pressure and these changes have been discussed in detail with the patient. He demonstrates understanding of his diagnosis and agrees with the discharge care plan. - Time Spent with Patient Total time spent providing and/or coordinating discharge services: Greater than 30 minutes - Constitutional Vitals: Temp Pulse Resp BP Pulse Ox 99.0 F 64 18 115/63 95 12/03/16 11:09 12/03/16 11:11 12/03/16 11:09 12/03/16 11:09 12/03/16 11:09 General appearance: Present: cooperative, A&O X 3, morbidly obese, pleasant, no acute distress, answers questions appropriately - Head Head exam: Present: atraumatic, normocephalic - Eye Eye exam: Present: normal appearance, conjuntiva pink, sclera anicteric - Respiratory Respiratory exam: Present: CTAB. Absent: accessory muscle use, rales, rhonchi, wheezes - Cardiovascular Cardiovascular exam: Present: RRR, +S1, +S2. Absent: diastolic murmur, gallop, rubs, systolic murmur - GI/Abdominal GI/Abdominal exam: Present: normal bowel sounds, soft, no peritoneal signs. Absent: distended, tenderness - Extremities Exam Extremities exam: Present: pedal edema, warm, radial pulses palpable and symetrical. Absent: calf tenderness - Neurological Exam Neurological exam: Present: alert, oriented X3 - Psychiatric Psychiatric exam: Present: normal affect, normal mood - VTE Documentation of Mechanical Device: Intermittent pneumatic compression device
== END 2016-12-03 13:57 | disposition home or self-care (01) | DRG 683 ==
LOC: EMEROO 12:52 → 2ANU 12:52 → 2NNU 16:25
PROVIDERS: ADMIT Internal Medicine; ATTEND Internal Medicine

== ENCOUNTER 2018-02-19 02:35 | Inpatient (IN) ==
[2018-02-19] MEDS ORDERED: Acetaminophen 325 MG TABLET PO ONE (03:00)
--- NOTE | 2018-02-19 03:25 | Emergency Department Note ---
Disposition Clinical Impression: Lactic acidosis, Hyperglycemia, Elevated troponin Disposition: Admitted As Inpatient Condition: Undetermined General Adult HPI - General Chief complaint: ED General Medical Stated complaint: Headache Time Seen by Provider: 02/19/18 02:36 Source: patient Mode of arrival: private vehicle Limitations: no limitations Nursing Notes Reviewed: Yes Vital Signs Reviewed: Yes - History of Present Illness HPI Narrative: 67-year-old male with a history of diabetes, diabetic ulcer, CABG, A. fib, CHF, COPD, hyperlipidemia, hypertension, [place] presents emergency department for generalized weakness, temporal headache 1 day. He states he has been around sick contacts with upper respiratory infections. He complains of having a headache, being slightly short of breath. Patient denies fevers, chills, difficulty in swallowing, HEENT complaints, abdominal pain, nausea, vomiting, diarrhea, constipation, genitourinary complaints. Pt wears a Fentanyl patch for pain mnagement Onset (ago): day(s) Pain Scale: 5 Improves with: nothing Worsens with: nothing Treatments Prior to Arrival: none - Related Data Home Medications Medication Instructions Recorded Confirmed Allopurinol [Zyloprim] 300 mg PO DAILY 04/11/15 06/02/17 Aspirin Enteric Coated [Aspirin EC] 81 mg PO DAILY 04/11/15 06/02/17 Atorvastatin Calcium [Lipitor] 80 mg PO DAILY 04/11/15 06/02/17 Insulin Regular U-500 [HumuLIN R 200 unit SQ BID 05/23/15 11/30/16 U-500] Exenatide Microspheres [Bydureon 2 mg SQ TU 09/20/16 06/02/17 Pen] Potassium Chloride 20 meq PO DAILY 10/18/16 11/30/16 FentaNYL PATCH [Duragesic] 25 mcg TD Q72H 11/30/16 06/02/17 Omeprazole [PriLOSEC] 20 mg PO BIDAC 11/30/16 11/30/16 Spironolactone [Aldactone] 25 mg PO DAILY 11/30/16 11/30/16 Mv,Minerals/FA/Lycopene/Ginkgo 1 each PO 07/07/17 [One Daily For Men 50+ Adv Tab] Previous Rx's Medication Instructions Recorded Nitroglycerin 0.4 mg SL Q5MIN PRN #20 tab.subl 09/22/16 Clopidogrel [Plavix] 75 mg PO DAILY #30 tablet 09/25/16 Isosorbide MONOnitrate (24 HR) 30 mg PO DAILY #30 tab.er.24h 10/19/16 [Imdur] Furosemide [Lasix] 20 mg PO DAILY PRN #20 tablet 12/03/16 Gabapentin [Neurontin] 800 mg PO TID #30 capsule 12/03/16 Lisinopril [Zestril] 2.5 mg PO DAILY #20 tablet 12/03/16 Promethazine [Phenergan] 25 mg PO Q8HR PRN #10 tablet 12/25/16 Promethazine [Phenergan] 25 mg RC Q6HR PRN #12 supp.rect 12/25/16 Allergies Allergy/AdvReac Type Severity Reaction Status Date / Time amitriptyline Allergy Mild Itching Verified 02/01/18 14:14 Penicillins Allergy Mild Rash Verified 02/01/18 14:14 All systems ED: reviewed and negative except as stated. Review of Systems: As Per HPI Past Medical History - Past Medical History Attestation: Yes The following information was validated with the patient. Source: patient, old records reviewed Medical history: Reports: atrial fibrillation, CHF, COPD, coronary artery disease, diabetes, hyperlipidemia, hypertension, myocardial infarction Surgical history: Reports: angioplasty/stent, cholecystectomy, coronary bypass ( CABG), orthopedic, other Psychiatric history: Reports: no psych history - Social History Smoking Status: Never smoker Smokeless Tobacco Status: No Alcohol use: Reports: rarely Drug use: Reports: none Physical Exam - General Limitations: no limitations General appearance: alert, in no apparent distress - Head Head exam: atraumatic, normocephalic, normal inspection - Eye Eye exam: Present: normal appearance, PERRL, EOMI - ENT ENT exam: mucous membranes moist - Neck Neck exam: Present: normal inspection, full ROM, trachea midline. Absent: tenderness, meningismus, lymphadenopathy - Chest Chest inspection: Present: normal inspection, symmetric chest wall rise - Respiratory Respiratory exam: Present: normal lung sounds bilaterally - Cardiovascular Cardiovascular exam: Present: regular rate, normal rhythm, normal heart sounds - Abdominal Exam Abdominal exam: Present: soft, Non-Tender, normal bowel sounds. Absent: tenderness, distention, guarding, rebound, rigidity - Extremities Exam Extremities exam: Present: full ROM, other (clean dry wraps on diabetic ulcer to L foot, LE) - Expanded Lower Extremity Exam Neurovascular/Tendon exam: Present: normal capillary refill. Absent: motor deficit, sensory deficit, tendon deficit Gait: not tested/not observed - Back Exam Back exam: Present: normal inspection, full ROM. Absent: tenderness - Neurological Exam Neurological exam: Present: alert, oriented X3, CN II-XII intact. Absent: motor sensory deficit - Expanded Neurological Exam Patient oriented to: Present: person, place, time Speech: Present: fluid speech Cranial nerves: EOM function (II, III, IV, ): Normal, facial sensation (V): Normal, facial palsy (VII): Normal, gag reflex (IX): Normal, spinal accessory function (XI): Normal, tongue deviation (XII): Normal Cerebellar function: normal gait Motor strength - LUE: 5/5 Motor strength - RUE: 5/5 Motor strength - LLE: 5/5 Motor strength - RLE: 5/5 Coma Scale Eye Opening: Spontaneous Coma Scale Motor Response: Obeys Commands Coma Scale Verbal Response: Oriented Coma Scale Total: 15 - Psychiatric Psychiatric exam: Present: normal affect, normal mood - Skin Skin exam: Present: warm, dry, intact, normal color Course Course Narrative: Healthy-appearing, well-hydrated male in no acute distress. Patient does appear tired and he is noted to drift off during examination. He awakes easily with his name or touch. He states his headache is "between his ears" but is unable to describe his headache or give any further detail. He is alert and oriented, neurologically intact. I did not appreciate any lymphadenopathy or meningeal-isms, respirations are easy and even, lungs clear to auscultate he speaks in full sentences without any distress. Heart rate regular rhythm, EKG reveals sinus rhythm with a first-degree block with a ventricular rate of 82, normal intervals, QTC 393 ms, axis is within normal limits. No edema, left lower extremity noted with a clean/dry dressing changed yesterday by Dr. Dunbar podiatry. Wound bed dry, no drainage, no active signs of infection He is scheduled for debridement next Wednesday with him. SPO2 96% on room air, this is at patient's baseline. However he states he feels short of breath so we will provide supplemental oxygen as needed. Patient does not have home O2. He is slightly febrile 100.1 degrees. - Reevaluation(s) Reevaluation #1: Patient has been resting quietly, CBC returns benign, glucose 407, sodium 1:30, lactic acid 2.3, BNP 148, pH a 0.28, troponin 0.11. Patient baseline troponin ranges from 0.06 to 0.2, patient not complaining of chest pain at this time. Patient with slight lactic acidosis, anion gap 10, hyponatremia related to elevated blood glucose. Chest x-ray reveals possible pulmonary edema We will start IV fluids to assist with hyperglycemia regulation and lactic acidosis. Patient will need to be admitted to the hospitalist for further care and monitoring due to hyperglycemia, lactic acidosis. Spoke with Dr. Moreno who is agreeable to plan of care and his had one-on-one face time with the patient. Patient states he takes insulin in the mornings and control of his diabetes, he states he has not missed any doses. Patient attempting to urinate earlier missed the urinal creating need for bed change. Patient denies any episodes of incontinence. Time: 04:14 Reevaluation #2: Hospital system with patient seen, will be admitted at this time. Hospitalist requesting CT left lower extremity, CT and lumbar spine, CT of abdomen to rule out infectious process, and other modalities. Time: 05:19 Vital Signs Temperature 100.1 F H 02/19/18 02:38 Pulse Rate 95 02/19/18 02:38 Respiratory Rate 18 02/19/18 02:38 Blood Pressure 169/83 02/19/18 02:38 O2 Sat by Pulse Oximetry 96 02/19/18 02:38 Temperature 98.3 F 02/19/18 06:26 Pulse Rate 79 02/19/18 06:26 Respiratory Rate 18 02/19/18 06:26 Blood Pressure 141/57 02/19/18 06:26 O2 Sat by Pulse Oximetry 93 02/19/18 06:26 Oxygen Delivery Oxygen Delivery Room Air Medical Decision Making - Medical Records Medical records reviewed: Yes I reviewed the patient's medical records. - Lab Data Lab results reviewed: Yes I reviewed the patient's lab results. Result diagrams: 02/19/18 03:08 02/19/18 03:08 Lab Results 02/19/18 02/19/18 02/19/18 Range/Units 03:08 03:08 03:08 WBC 10.6 (4.3-11.1) K/mcL RBC 4.95 (4.19-5.50) M/mcL Hgb 15.1 (12.9-16.9) g/dL Hct 44.4 (37.5-50.1) % MCV 89.7 (83.0-100.0) fL MCH 30.5 (28.0-33.3) pg MCHC 34.0 (31.6-35.5) g/dL RDW 13.2 (11.5-14.5) % Plt Count 148 (140-400) K/mcL MPV 11.2 (9.4-12.4) fL Immature Gran % 0.6 (0-4) % Seg Neutrophils % 80.6 % Lymphocytes % 10.9 % Monocytes % 7.4 % Eosinophils % 0.3 % Basophils % 0.2 % Neutrophils # 8.5 (1.6-8.9) K/mcL Lymphocytes # 1.2 (0.6-4.6) K/mcL Monocytes # 0.8 (0.0-1.3) K/mcL Eosinophils # 0.0 (0.0-0.6) K/mcL Basophils # 0.0 (0.0-0.2) K/mcL Sodium 130 L (136-145) mEq/L Potassium 4.7 (3.5-5.1) mEq/L Chloride 98 (98-107) mEq/L Carbon Dioxide 22 L (23-29) mEq/L BUN 18 (8-23) mg/dL Creatinine 1.11 (0.70-1.30) mg/dL Est GFR ( Amer) > 60 (> 60) Est GFR (Non-Af Amer) > 60 (> 60) BUN/Creatinine Ratio 16 (6-26) Glucose 407 H (70-105) mg/dL Calculated Osmolality 289 (280-300) Lactic Acid (0.5-2.2) mmol/L Calcium 9.3 (8.6-10.3) mg/dL Troponin I 0.11 H* (< 0.04) ng/mL B-Natriuretic Peptide 148 H (Less than 100) pg/mL Beta-Hydroxybutyric Acd (0.02-0.27) mmol/L Urine Color (Yellow) Urine Clarity (Clear) Urine pH (5.0-8.0) pH Units Ur Specific [place] (1.010-1.025) Urine Protein (Neg-Trace) mg/dL Urine Glucose (UA) (Normal) mg/dL Urine Ketones (Negative) mg/dL Urine Blood (Negative) Urine Nitrite (Negative) Urine Bilirubin (Negative) Urine Urobilinogen (Normal) mg/dL Ur Leukocyte Esterase (Negative) Urine Microscopic RBC (0-3) per hpf Urine Microscopic WBC (0-3) per hpf Ur Squamous Epith Cells (None-Few) per lpf Urine Bacteria (None-Few) per hpf Hyaline Casts (None-Few) per lpf Ur Culture Indicated? (NO) 02/19/18 02/19/18 02/19/18 Range/Units 03:08 03:08 04:29 WBC (4.3-11.1) K/mcL RBC (4.19-5.50) M/mcL Hgb (12.9-16.9) g/dL Hct (37.5-50.1) % MCV (83.0-100.0) fL MCH (28.0-33.3) pg MCHC (31.6-35.5) g/dL RDW (11.5-14.5) % Plt Count (140-400) K/mcL MPV (9.4-12.4) fL Immature Gran % (0-4) % Seg Neutrophils % % Lymphocytes % % Monocytes % % Eosinophils % % Basophils % % Neutrophils # (1.6-8.9) K/mcL Lymphocytes # (0.6-4.6) K/mcL Monocytes # (0.0-1.3) K/mcL Eosinophils # (0.0-0.6) K/mcL Basophils # (0.0-0.2) K/mcL Sodium (136-145) mEq/L Potassium (3.5-5.1) mEq/L Chloride (98-107) mEq/L Carbon Dioxide (23-29) mEq/L BUN (8-23) mg/dL Creatinine (0.70-1.30) mg/dL Est GFR ( Amer) (> 60) Est GFR (Non-Af Amer) (> 60) BUN/Creatinine Ratio (6-26) Glucose (70-105) mg/dL Calculated Osmolality (280-300) Lactic Acid 2.3 H (0.5-2.2) mmol/L Calcium (8.6-10.3) mg/dL Troponin I (< 0.04) ng/mL B-Natriuretic Peptide (Less than 100) pg/mL Beta-Hydroxybutyric Acd 0.28 H (0.02-0.27) mmol/L Urine Color Yellow (Yellow) Urine Clarity Clear (Clear) Urine pH 6.5 (5.0-8.0) pH Units Ur Specific [place] 1.026 H (1.010-1.025) Urine Protein 100 H (Neg-Trace) mg/dL Urine Glucose (UA) >=1000 H (Normal) mg/dL Urine Ketones Negative (Negative) mg/dL Urine Blood Moderate H (Negative) Urine Nitrite Negative (Negative) Urine Bilirubin Negative (Negative) Urine Urobilinogen Normal (Normal) mg/dL Ur Leukocyte Esterase Negative (Negative) Urine Microscopic RBC 5-15 H (0-3) per hpf Urine Microscopic WBC 0-3 (0-3) per hpf Ur Squamous Epith Cells Moderate H (None-Few) per lpf Urine Bacteria None Seen (None-Few) per hpf Hyaline Casts None Seen (None-Few) per lpf Ur Culture Indicated? NO (NO) - Radiology Data Radiology results reviewed: Yes I reviewed the patient's radiology results. Chest X-Ray 02/19/18 02:59 IMPRESSION: Possible mild pulmonary edema. D/ / Guzman Squires MD / Guzman Squires MD Interpreting Provider: Guzman Squires MD - EKG Data EKG #1 EKG attestation: Yes I reviewed and interpreted this EKG.
[2018-02-19 03:33] LABS: Basophils % 0.2 %; Eosinophils % 0.3 %; Hematocrit 44.4 % (37.5-50.1); Hemoglobin 15.1 g/dL (12.9-16.9); Immature Granulocytes % 0.6 % (0-4); Lymphocytes # 1.2 K/mcL (0.6-4.6); Lymphocytes % 10.9 %; Mean Corpuscular Hemoglobin 30.5 pg (28.0-33.3); Mean Corpuscular Volume 89.7 fL (83.0-100.0); Mean Platelet Volume 11.2 fL (9.4-12.4); Monocytes # 0.8 K/mcL (0.0-1.3); Monocytes % 7.4 %; Neutrophils # 8.5 K/mcL (1.6-8.9); Platelet Count 148 K/mcL (140-400); Red Blood Count 4.95 M/mcL (4.19-5.50); Red Cell Distribution Width 13.2 % (11.5-14.5); Segmented Neutrophils % 80.6 %
[2018-02-19 03:48] LABS: BUN/Creatinine Ratio 16 (6-26); Blood Urea Nitrogen 18 mg/dL (8-23); Calcium 9.3 mg/dL (8.6-10.3); Carbon Dioxide 22 mEq/L (23-29); Chloride 98 mEq/L (98-107); Glucose 407 mg/dL (70-105); Osmolality,Calculated 289 (280-300); Potassium 4.7 mEq/L (3.5-5.1); Sodium 130 mEq/L (136-145); eGFR For African Americans > 60 (> 60); eGFR For Non-African Americans > 60 (> 60)
[2018-02-19 03:55] LABS: Troponin I 0.11 ng/mL (< 0.04)
[2018-02-19] MEDS ORDERED: 0.9 % Sodium Chloride 1,000 ML IVC ONE (03:56)
[2018-02-19] MEDS ORDERED: Aspirin 81 MG TAB.CHEW PO ONE (04:14)
[2018-02-19] MEDS ORDERED: Ibuprofen 600 MG TABLET PO ONE (04:42)
[2018-02-19 04:47] LABS: Bilirubin,Urine Negative (Negative); Blood,Urine Moderate (Negative); Clarity,Urine Clear (Clear); Color,Urine Yellow (Yellow); Glucose,Urine (UA) >=1000 mg/dL (Normal); Ketones,Urine Negative (Negative); Leukocyte Esterase,Urine Negative (Negative); Nitrite,Urine Negative (Negative); PH,Urine 6.5 pH Units (5.0-8.0); Protein,Urine 100 mg/dL (Neg-Trace); Specific Gravity,Urine 1.026 (1.010-1.025); Urobilinogen,Urine Normal (Normal)
[2018-02-19 04:48] LABS: Bacteria,Urine None Seen per hpf (None-Few); Hyaline Casts,Urine None Seen per lpf (None-Few); Squamous Epithelial Cell,Urine Moderate per lpf (None-Few); WBC,Urine 0-3 per hpf (0-3)
[2018-02-19] MEDS ORDERED: D5% in Water 1,000 ML IVC PRN (05:39)
[2018-02-19] MEDS ORDERED: Dextrose Gel 15 GM/37.5 ML TUBE PO PRN ×2 (05:39)
[2018-02-19] MEDS ORDERED: *HR* Dextrose 50 % in Water (Syg) 50 ML SYRINGE IVP PRN (05:39)
[2018-02-19] MEDS ORDERED: Naloxone 0.4 MG/ML INJ IVP PRN (05:40)
[2018-02-19] MEDS ORDERED: Nitroglycerin 0.4 MG TAB.SUBL SL PRN (05:44)
[2018-02-19] MEDS ORDERED: 0.9 % Sodium Chloride 1,000 ML IVC SCH (05:45)
--- NOTE | 2018-02-19 06:26 | Internal Med History&Physical ---
Date of Encounter: 02/19/18 Time of Encounter: 05:30 Internal Medicine - H&P: HPI Chief complaint: Weakness and fever Admitted From: Home Plans for Post Hospital Care: Home History of present illness: Mr. Randle is a 67 year old male presented to ER for weakness and fever. Past medical history is significant for diabetes, diabetic neuropathy, CAD S/P stent and CABG, S/P spinal fusion surgery. Patient has generalized weakness, fatigue, headache, and fever since yesterday. Patient denies runny nose, sore throat, cough. Patient has mild headache but no mental status change or neck rigidity. Patient has mild shortness of breath , nausea but no vomiting. Patient has one episode of chest pain earlier, resolved spontaneously after 1 hour. Patient had chronic diabetic foot wound on left heel, follow-up with podiatry as outpatient. In the emergency room, he has fever with temperature 101.4. Patient is very lethargic, has elevated glucose, troponin, and lactate acid level. Sepsis is highly suspected, probably due to left foot wound infection. Antibiotic was started after blood culture has been drawn. Patient was placed on CT left foot. Per patient's , patient has urinary incontinence recently. Patient denies leg weakness and sensation is at his baseline (patient has diabetic neuropathy and has a chronically decreased sensation) and equal bilaterally. Past Med Surg Social Fam HX - Past Medical History Medical history: atrial fibrillation, CHF, COPD, coronary artery disease, diabetes, hyperlipidemia, hypertension, myocardial infarction Additional medical history: sleep apnea Psychiatric history: no psych history - Past Surgical History Surgical History: angioplasty/stent, cholecystectomy, coronary bypass (CABG), orthopedic, other Additional surgical history: lower back fusion - Social History Smoking Status: Never smoker Smokeless Tobacco Status: No Alcohol use: rarely Drug use: none - Family History Mother Adopted: No Family Member Ethnicity: Non- Living Status: Hx Family Cardiac Disorders: No Hx Family Respiratory Disorders: Yes (COPD) Hx Family Cancer: Yes Hx Family GI Disorders: No Hx Family Endocrine Disorder: Yes (DM,thyroid) Hx Family Neuromuscular Disorders: Yes (neuropathy) Hx Family Neurologic Disorders: No Hx Family HEENT Disorders: No Hx Family Autoimmune Disorders: No Internal Medicine - H&P: Meds Allopurinol [Zyloprim] 300 mg PO DAILY 04/11/15 [History] Aspirin Enteric Coated [Aspirin EC] 81 mg PO DAILY 04/11/15 [History] Atorvastatin Calcium [Lipitor] 80 mg PO DAILY 04/11/15 [History] Insulin Regular U-500 [HumuLIN R U-500] 200 unit SQ BID 05/23/15 [History] Exenatide Microspheres [Bydureon Pen] 2 mg SQ TU 09/20/16 [History] Nitroglycerin 0.4 mg SL Q5MIN PRN #20 tab.subl 09/22/16 [Rx] Clopidogrel [Plavix] 75 mg PO DAILY #30 tablet 09/25/16 [Rx] Potassium Chloride 20 meq PO DAILY 10/18/16 [History] Isosorbide MONOnitrate (24 HR) [Imdur] 30 mg PO DAILY #30 tab.er.24h 10/19/16 [ Rx] FentaNYL PATCH [Duragesic] 25 mcg TD Q72H 11/30/16 [History] Omeprazole [PriLOSEC] 20 mg PO BIDAC 11/30/16 [History] Spironolactone [Aldactone] 25 mg PO DAILY 11/30/16 [History] Furosemide [Lasix] 20 mg PO DAILY PRN #20 tablet 12/03/16 [Rx] Gabapentin [Neurontin] 800 mg PO TID #30 capsule 12/03/16 [Rx] Lisinopril [Zestril] 2.5 mg PO DAILY #20 tablet 12/03/16 [Rx] Promethazine [Phenergan] 25 mg PO Q8HR PRN #10 tablet 12/25/16 [Rx] Promethazine [Phenergan] 25 mg RC Q6HR PRN #12 supp.rect 12/25/16 [Rx] Mv,Minerals/FA/Lycopene/Ginkgo [One Daily For Men 50+ Adv Tab] 1 each PO [History] 3 Allergy/AdvReac Type Severity Reaction Status Date / Time amitriptyline Allergy Mild Itching Verified 02/01/18 14:14 Penicillins Allergy Mild Rash Verified 02/01/18 14:14 All Systems PM: A 10-system review of systems was performed and is negative for pertinent findings except as documented above in the HPI. - Constitutional Vitals: Temp Pulse Resp BP Pulse Ox 101.5 F H 81 18 169/73 98 02/19/18 04:30 02/19/18 04:30 02/19/18 05:27 02/19/18 05:27 02/19/18 04:30 General appearance: Present: A&O X 3, morbidly obese, no acute distress, answers questions appropriately - Head Head exam: Present: atraumatic, normocephalic - Eye Eye exam: Present: PERRL, conjuntiva pink, sclera anicteric Pupils: Present: PERRL - Neck Neck exam general surgery: Present: supple, trachea midline. Absent: lymphadenopathy - Respiratory Respiratory exam: Present: CTAB. Absent: accessory muscle use, rales, rhonchi, wheezes - Cardiovascular Cardiovascular exam: Present: RRR, +S1, +S2. Absent: diastolic murmur, gallop, rubs, systolic murmur - GI/Abdominal GI/Abdominal exam: Present: normal bowel sounds, soft, tenderness (Mild tenderness on left flank area, no rebound or guarding), no peritoneal signs. Absent: distended - Extremities Exam Extremities exam: Present: warm, radial pulses palpable and symmetrical. Absent : calf tenderness, cyanotic, pedal edema Additional comments: Left heel wound with surround skin warmth, no discharge. - Neurological Exam Neurological exam: Present: CN II-XII intact, oriented X3, no focal deficits. Absent: pronater drift, facial droop, speech deficit - Skin Skin exam: Present: dry, intact Internal Med - H&P Results - Labs CBC & Chem 7: 02/19/18 03:08 02/19/18 03:08 - Assessment and plan (1) Sepsis Current Visit: Yes Status: Acute Assessment and plan: Patient to meet sepsis criteria with tachycardia (95) and fever. His WBC level is also higher than baseline. - Consider left heel wound infection. CT left lower leg has been placed, result is pending. - Started IV fluid and IV antibiotics with Vanco and meropenem - Follow-up of blood culture - Initial lactate acid mild elevated. Will repeat in 6 hours. - Patient also has mild left flank pain, urine analysis negative. Will also order CT abdomen to rule out intra-abdominal infection Qualifiers: Sepsis type: sepsis due to unspecified organism Qualified Code(s): A41.9 - Sepsis, unspecified organism (2) Hypertension Current Visit: No Status: Chronic Assessment and plan: Continue home medications Qualifiers: Hypertension type: essential hypertension Qualified Code(s): I10 - Essential (primary) hypertension (3) Chest pain Current Visit: No Status: Acute Assessment and plan: Patient has mild chest pain for about 1 hour and resolved by itself. Mild elevated troponin. Need to rule out ACS. - Continue cardiac monitoring. - Track 3 sets of troponin Qualifiers: Ischemic chest pain type: unstable angina pectoris Qualified Code(s): I20.0 - Unstable angina (4) Diabetes Current Visit: No Status: Chronic Assessment and plan: Place patient on basal and sliding scale insulin coverage. Closely monitor glucose level. 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 Troponin elevation is also possibly due to demand ischemia caused by sepsis. Patient has chronically elevated troponin. (8) CAD (coronary artery disease) Current Visit: No Status: Chronic Assessment and plan: Continue home medications. Rule out ACS as described above Qualifiers: Coronary Disease-Associated Artery/Lesion type: unspecified vessel or lesion type [place] vs. transplanted heart: [place] heart Associated angina: angina presence unspecified Qualified Code(s): I25.10 - Atherosclerotic heart disease of [place] coronary artery without angina pectoris (9) Heel ulcer due to DM Current Visit: No Status: Acute Assessment and plan: CT left lower leg placed. Qualifiers: Diabetes mellitus type: type 2 Laterality: left Non-pressure ulcer stage : with fat layer exposed Qualified Code(s): E11.621 - Type 2 diabetes mellitus with foot ulcer; L97.422 - Non-pressure chronic ulcer of left heel and midfoot with fat layer exposed (10) Urinary incontinence Current Visit: Yes Status: Acute Assessment and plan: Most likely due to generalized weakness and the patient cannot go to bathroom immediately. Patient denies increased weakness, numbness of lower extremity. On physical exam, sensation of lower extremity is generally intact. Patient denies increased low back pain. However will order lumbar spine CT to rule out stenosis or infection. Qualifiers: Urinary Incontinence type: unspecified incontinence Qualified Code(s): R32 - Unspecified urinary incontinence - Time Spent With Patient Total time spent is greater than 50% in coordination of care (as documented) at patient's floor/unit and/or counseling patient: 40 minutes Greater than 35 minutes
[2018-02-19] MEDS: *HR* Heparin 5,000 UNIT/ML VIAL SQ SCH ×2 (06:44→18:26)
[2018-02-19] MEDS: Insulin LISPRO 300 UNITS/3 ML VIAL SQ SCH ×4 (06:44→20:51)
--- NOTE | 2018-02-19 07:28 | Emergency Department Note ---
Disposition Clinical Impression: Lactic acidosis, Hyperglycemia, Elevated troponin Disposition: Admitted As Inpatient Condition: Undetermined General Adult HPI - General Chief complaint: ED Fever Stated complaint: Headache Time Seen by Provider: 02/19/18 02:36 Source: patient Mode of arrival: private vehicle Limitations: no limitations Nursing Notes Reviewed: Yes Vital Signs Reviewed: Yes - History of Present Illness Pain Scale: 5 Improves with: nothing Worsens with: nothing Treatments Prior to Arrival: none - Related Data Home Medications Medication Instructions Recorded Confirmed Allopurinol [Zyloprim] 300 mg PO DAILY 04/11/15 06/02/17 Aspirin Enteric Coated [Aspirin EC] 81 mg PO DAILY 04/11/15 06/02/17 Atorvastatin Calcium [Lipitor] 80 mg PO DAILY 04/11/15 06/02/17 Insulin Regular U-500 [HumuLIN R 200 unit SQ BID 05/23/15 11/30/16 U-500] Exenatide Microspheres [Bydureon 2 mg SQ TU 09/20/16 06/02/17 Pen] Potassium Chloride 20 meq PO DAILY 10/18/16 11/30/16 FentaNYL PATCH [Duragesic] 25 mcg TD Q72H 11/30/16 06/02/17 Omeprazole [PriLOSEC] 20 mg PO BIDAC 11/30/16 11/30/16 Spironolactone [Aldactone] 25 mg PO DAILY 11/30/16 11/30/16 Mv,Minerals/FA/Lycopene/Ginkgo 1 each PO 07/07/17 [One Daily For Men 50+ Adv Tab] Previous Rx's Medication Instructions Recorded Nitroglycerin 0.4 mg SL Q5MIN PRN #20 tab.subl 09/22/16 Clopidogrel [Plavix] 75 mg PO DAILY #30 tablet 09/25/16 Isosorbide MONOnitrate (24 HR) 30 mg PO DAILY #30 tab.er.24h 10/19/16 [Imdur] Furosemide [Lasix] 20 mg PO DAILY PRN #20 tablet 12/03/16 Gabapentin [Neurontin] 800 mg PO TID #30 capsule 12/03/16 Lisinopril [Zestril] 2.5 mg PO DAILY #20 tablet 12/03/16 Promethazine [Phenergan] 25 mg PO Q8HR PRN #10 tablet 12/25/16 Promethazine [Phenergan] 25 mg RC Q6HR PRN #12 supp.rect 12/25/16 Allergies Allergy/AdvReac Type Severity Reaction Status Date / Time amitriptyline Allergy Mild Itching Verified 02/01/18 14:14 Penicillins Allergy Mild Rash Verified 02/01/18 14:14 Past Medical History - Past Medical History Medical history: Reports: atrial fibrillation, CHF, COPD, coronary artery disease, diabetes, hyperlipidemia, hypertension, myocardial infarction Surgical history: Reports: angioplasty/stent, cholecystectomy, coronary bypass ( CABG), orthopedic, other Psychiatric history: Reports: no psych history - Social History Smoking Status: Never smoker Smokeless Tobacco Status: No Alcohol use: Reports: rarely Drug use: Reports: none Physical Exam - General Limitations: no limitations General appearance: alert, in no apparent distress Course Vital Signs Temperature 100.1 F H 02/19/18 02:38 Pulse Rate 95 02/19/18 02:38 Respiratory Rate 18 02/19/18 02:38 Blood Pressure 169/83 02/19/18 02:38 O2 Sat by Pulse Oximetry 96 02/19/18 02:38 Temperature 98.3 F 02/19/18 06:26 Pulse Rate 79 02/19/18 06:26 Respiratory Rate 18 02/19/18 06:26 Blood Pressure 141/57 02/19/18 06:26 O2 Sat by Pulse Oximetry 93 02/19/18 06:26 Oxygen Delivery Oxygen Delivery Room Air Medical Decision Making - Lab Data Result diagrams: 02/19/18 03:08 02/19/18 03:08 Lab Results 02/19/18 02/19/18 02/19/18 Range/Units 03:08 03:08 03:08 WBC 10.6 (4.3-11.1) K/mcL RBC 4.95 (4.19-5.50) M/mcL Hgb 15.1 (12.9-16.9) g/dL Hct 44.4 (37.5-50.1) % MCV 89.7 (83.0-100.0) fL MCH 30.5 (28.0-33.3) pg MCHC 34.0 (31.6-35.5) g/dL RDW 13.2 (11.5-14.5) % Plt Count 148 (140-400) K/mcL MPV 11.2 (9.4-12.4) fL Immature Gran % 0.6 (0-4) % Seg Neutrophils % 80.6 % Lymphocytes % 10.9 % Monocytes % 7.4 % Eosinophils % 0.3 % Basophils % 0.2 % Neutrophils # 8.5 (1.6-8.9) K/mcL Lymphocytes # 1.2 (0.6-4.6) K/mcL Monocytes # 0.8 (0.0-1.3) K/mcL Eosinophils # 0.0 (0.0-0.6) K/mcL Basophils # 0.0 (0.0-0.2) K/mcL Sodium 130 L (136-145) mEq/L Potassium 4.7 (3.5-5.1) mEq/L Chloride 98 (98-107) mEq/L Carbon Dioxide 22 L (23-29) mEq/L BUN 18 (8-23) mg/dL Creatinine 1.11 (0.70-1.30) mg/dL Est GFR ( Amer) > 60 (> 60) Est GFR (Non-Af Amer) > 60 (> 60) BUN/Creatinine Ratio 16 (6-26) Glucose 407 H (70-105) mg/dL Calculated Osmolality 289 (280-300) Lactic Acid (0.5-2.2) mmol/L Calcium 9.3 (8.6-10.3) mg/dL Troponin I 0.11 H* (< 0.04) ng/mL B-Natriuretic Peptide 148 H (Less than 100) pg/mL Beta-Hydroxybutyric Acd (0.02-0.27) mmol/L Urine Color (Yellow) Urine Clarity (Clear) Urine pH (5.0-8.0) pH Units Ur Specific [place] (1.010-1.025) Urine Protein (Neg-Trace) mg/dL Urine Glucose (UA) (Normal) mg/dL Urine Ketones (Negative) mg/dL Urine Blood (Negative) Urine Nitrite (Negative) Urine Bilirubin (Negative) Urine Urobilinogen (Normal) mg/dL Ur Leukocyte Esterase (Negative) Urine Microscopic RBC (0-3) per hpf Urine Microscopic WBC (0-3) per hpf Ur Squamous Epith Cells (None-Few) per lpf Urine Bacteria (None-Few) per hpf Hyaline Casts (None-Few) per lpf Ur Culture Indicated? (NO) 02/19/18 02/19/18 02/19/18 Range/Units 03:08 03:08 04:29 WBC (4.3-11.1) K/mcL RBC (4.19-5.50) M/mcL Hgb (12.9-16.9) g/dL Hct (37.5-50.1) % MCV (83.0-100.0) fL MCH (28.0-33.3) pg MCHC (31.6-35.5) g/dL RDW (11.5-14.5) % Plt Count (140-400) K/mcL MPV (9.4-12.4) fL Immature Gran % (0-4) % Seg Neutrophils % % Lymphocytes % % Monocytes % % Eosinophils % % Basophils % % Neutrophils # (1.6-8.9) K/mcL Lymphocytes # (0.6-4.6) K/mcL Monocytes # (0.0-1.3) K/mcL Eosinophils # (0.0-0.6) K/mcL Basophils # (0.0-0.2) K/mcL Sodium (136-145) mEq/L Potassium (3.5-5.1) mEq/L Chloride (98-107) mEq/L Carbon Dioxide (23-29) mEq/L BUN (8-23) mg/dL Creatinine (0.70-1.30) mg/dL Est GFR ( Amer) (> 60) Est GFR (Non-Af Amer) (> 60) BUN/Creatinine Ratio (6-26) Glucose (70-105) mg/dL Calculated Osmolality (280-300) Lactic Acid 2.3 H (0.5-2.2) mmol/L Calcium (8.6-10.3) mg/dL Troponin I (< 0.04) ng/mL B-Natriuretic Peptide (Less than 100) pg/mL Beta-Hydroxybutyric Acd 0.28 H (0.02-0.27) mmol/L Urine Color Yellow (Yellow) Urine Clarity Clear (Clear) Urine pH 6.5 (5.0-8.0) pH Units Ur Specific [place] 1.026 H (1.010-1.025) Urine Protein 100 H (Neg-Trace) mg/dL Urine Glucose (UA) >=1000 H (Normal) mg/dL Urine Ketones Negative (Negative) mg/dL Urine Blood Moderate H (Negative) Urine Nitrite Negative (Negative) Urine Bilirubin Negative (Negative) Urine Urobilinogen Normal (Normal) mg/dL Ur Leukocyte Esterase Negative (Negative) Urine Microscopic RBC 5-15 H (0-3) per hpf Urine Microscopic WBC 0-3 (0-3) per hpf Ur Squamous Epith Cells Moderate H (None-Few) per lpf Urine Bacteria None Seen (None-Few) per hpf Hyaline Casts None Seen (None-Few) per lpf Ur Culture Indicated? NO (NO) Attestation Statement - Attestation Attestation: I, Shahriar Moreno MD, personally evaluated this patient and discussed their management with the resident physician. I reviewed the resident's note and agree with the documented findings, medical decision making, and plan of care. 67-year-old male presents to the emergency department complaining of some generalized weakness and headache for 1 day prior to arrival. Patient complains he just generally does not feel well. He has been mildly short of breath. He has a chronic diabetic ulcer on the left foot which has been present for 8 months. He complains of increased pain in his foot and leg. Subjective fever today. On examination patient is a well-developed well-nourished elderly male in no acute distress. He is alert and oriented 3. There is no cyanosis or diaphoresis. Breath sounds are clear and equal bilaterally. Heart regular rate and rhythm. Abdomen is soft and nontender with normal bowel sounds. Labs reviewed. Hyperglycemia. Elevated lactic acid. Troponin 0.11 however patient's troponin is always mildly elevated. Chest x-ray showed: Possible mild pulmonary edema. The hospitalist, Dr. Brown, was consulted and accepted admission of the patient.
--- NOTE | 2018-02-19 08:45 | Internal Med Progress Note ---
<Honey John - Last Filed: 02/19/18 12:39> Date of Encounter: 02/19/18 Time of Encounter: 08:42 - Assessment and plan (1) Chest pain Current Visit: No Status: Acute Assessment and plan: Patient had mild chest pain for about 1 hour and resolved by itself at admission. Elevated troponin: 0.11, 0.12 ECHO 11/04/16: LVEV 60% with normal LV systolic function, atypical septal motion consistent with prior cardiac surgery, moderate concentric LV hypertrophy [facility] 10/10/16: severe 2 vessel CAD, successful PTCA/JOSEPH placement in [place] to LAD S/P CABG 2 of 2 patent bypass grafts Denies CP currently Plan: ACS r/o Will get TTE Continue cardiac monitoring. (2) Diabetes Current Visit: No Status: Chronic Assessment and plan: Patient presents with uncontrolled DMII on U500 200 units BID at home. Presenting glucose 407 Na 130, corrected to 136 Anion Gap Acidosis of 16 Beta-hydroxybutyric acid 0.28 Negative for urine ketones Plan: Continue daily long acting and SSI insulin Accuchecks ACHS ADA diet Qualifiers: Diabetes mellitus type: type 2 Diabetes mellitus termination clerk insulin use: with termination clerk use Diabetes mellitus complication status: with neurologic complications Diabetes mellitus complication detail: with polyneuropathy Qualified Code(s): E11.42 - Type 2 diabetes mellitus with diabetic polyneuropathy; Z79.4 - lobsterman (current) use of insulin (3) Heel ulcer due to DM Current Visit: No Status: Acute Assessment and plan: Appears dry, no surrounding erythema or purulent drainage. Pt states wound care has been treating x8 months. CT leg: Focal extensive soft tissue swelling/phlegmonous change involving the soft tissues at the posterior left calcaneus, with associated shallow ulceration. 2. No evidence of osteomyelitis. Note that noncontrast CT is relatively insensitive for detection of early osteomyelitis. 3. Diffuse muscle atrophy involving the distal leg and foot. 4. 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 5. Mild tricompartmental osteoarthritis of the left knee is identified on this noncontrast study. Plan: Wound care MRI to eval for osteomyelitis Qualifiers: Diabetes mellitus type: type 2 Laterality: left Non-pressure ulcer stage : with fat layer exposed Qualified Code(s): E11.621 - Type 2 diabetes mellitus with foot ulcer; L97.422 - Non-pressure chronic ulcer of left heel and midfoot with fat layer exposed (4) Elevated troponin Current Visit: No Status: Acute Assessment and plan: Management as above. Troponin elevation is also possibly due to demand ischemia caused by sepsis. Patient has chronically elevated troponin. (5) Morbid obesity with BMI of 40.0-44.9, adult Current Visit: No Status: Chronic Assessment and plan: Need lifestyle modification as outpatient (6) CAD (coronary artery disease) Current Visit: No Status: Chronic Assessment and plan: Continue home medications. Rule out ACS as described above Qualifiers: Coronary Disease-Associated Artery/Lesion type: unspecified vessel or lesion type [place] vs. transplanted heart: [place] heart Associated angina: angina presence unspecified Qualified Code(s): I25.10 - Atherosclerotic heart disease of [place] coronary artery without angina pectoris (7) Hypertension Current Visit: No Status: Chronic Assessment and plan: Continue home medications Qualifiers: Hypertension type: essential hypertension Qualified Code(s): I10 - Essential (primary) hypertension (8) DVT prophylaxis Current Visit: No Status: Acute Assessment and plan: Heparin subcutaneously (9) Sepsis Current Visit: Yes Status: Acute Assessment and plan: Patient to meet sepsis criteria with tachycardia (95) and fever. Consideration for left heel wound as source of infection was given at admission , CT left lower leg: Focal extensive soft tissue swelling/phlegmonous change involving the soft tissues at the posterior left calcaneus, with associated shallow ulceration. 2. No evidence of osteomyelitis. Note that noncontrast CT is relatively insensitive for detection of early osteomyelitis. 3. Diffuse muscle atrophy involving the distal leg and foot. 4. 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 5. Mild tricompartmental osteoarthritis of the left knee is identified on this noncontrast study. He was started on IV fluid and IV antibiotics with Vanco and meropenem ( suspected meropenem was chosen for pseudomonal coverage in heel wound.) Blood culture was drawn prior to abx administration CXR negative UA negative WBC 10.6 Lactic acid: 2.3, 2.1, 2.2, 1.9 Ct abdomen negative Consideration for viral infection, viral encephalopathy, osteomyelitis, myocarditis, endocarditis. Utility of LP poor as pt has already been started on abx and this would scew results. Pt currently A&Ox3, no neuro deficits on exam. Consider neuro consult if this changes or LP may seem necessary, Plan: Continue vanc and meropenem Plan to de-escalate abx as able HSV, VZV labs MRI head r/o encephalitis MRI left foot r/o osteomyelitis ECHO r/o myocarditis, endocarditis Continue to monitor vitals, mental status. Qualifiers: Sepsis type: sepsis due to unspecified organism Qualified Code(s): A41.9 - Sepsis, unspecified organism - Time Spent With Patient Total time spent is greater than 50% in coordination of care (as documented) at patient's floor/unit and/or counseling patient: - Subjective Interval history: Pt seen and examined, sleeping in bed but is easily arousable. Pt denies ROJAS, dizziness, visual changes, neck pain, CP, SOB, N/V, abd pain. He states that his DM is poorly controlled and that he has been having his foot ulcer treated for the last 8 months. He has not had any purulent drainage or erythema. With re -evaluation pt is sitting up in bed taking his morning meds, moving neck without apparent pain. - Constitutional Vitals: Temp Pulse Resp BP Pulse Ox 98.3 F 79 18 141/57 93 02/19/18 06:26 02/19/18 06:26 02/19/18 06:26 02/19/18 06:26 02/19/18 06:26 General appearance: Present: A&O X 3, morbidly obese, no acute distress, answers questions appropriately - Head Head exam: Present: atraumatic, normocephalic - Eye Eye exam: Present: PERRL, conjuntiva pink, sclera anicteric Pupils: Present: PERRL - ENT ENT exam: Present: mucous membranes dry - Neck Neck exam general surgery: Present: supple, trachea midline. Absent: lymphadenopathy - Respiratory Respiratory exam: Present: CTAB. Absent: accessory muscle use, rales, rhonchi, wheezes - Cardiovascular Cardiovascular exam: Present: RRR, +S1, +S2. Absent: diastolic murmur, gallop, rubs, systolic murmur - GI/Abdominal GI/Abdominal exam: Present: normal bowel sounds, soft, no peritoneal signs. Absent: distended, tenderness - Extremities Exam Extremities exam: Present: warm, radial pulses palpable and symmetrical. Absent : calf tenderness, cyanotic, pedal edema Additional comments: dry ulcer without surrounding erythema or purulent drainage on the heel of the left foot. - Neurological Exam Neurological exam: Present: alert, CN II-XII intact, oriented X3, no focal deficits, strengths equal and symetr throughout. Absent: motor sensory deficit , pronater drift, facial droop, speech deficit Additional comments: negative kernig and saiki - Expanded Neurological Exam Neurological exam expanded: Absent: tremor Patient oriented to: Present: person, place, time Speech: Present: fluid speech - Psychiatric Psychiatric exam: Present: normal affect, normal mood - Skin Skin exam: Present: diaphoretic Internal Medicine: Result - Labs CBC & Chem 7: 02/19/18 03:08 02/19/18 03:08 Labs: Cardiac Enzymes 02/19/18 Range/Units 06:21 Troponin I 0.12 H* (< 0.04) ng/mL Consult Discharge Plan - Plan Referrals: Azul Guillen [employer] [Primary Care Provider] - <Sylvester Abraham - Last Filed: 02/19/18 15:12> Date of Encounter: 02/19/18 - Assessment and plan (1) Hypertension Current Visit: No Status: Chronic Qualifiers: Hypertension type: essential hypertension Qualified Code(s): I10 - Essential (primary) hypertension (2) Chest pain Current Visit: No Status: Acute (3) Diabetes Current Visit: No Status: Chronic Qualifiers: Diabetes mellitus type: type 2 Diabetes mellitus termination clerk insulin use: with termination clerk use Diabetes mellitus complication status: with neurologic complications Diabetes mellitus complication detail: with polyneuropathy Qualified Code(s): E11.42 - Type 2 diabetes mellitus with diabetic polyneuropathy; Z79.4 - FDC (current) use of insulin (4) DVT prophylaxis Current Visit: No Status: Acute (5) Morbid obesity with BMI of 40.0-44.9, adult Current Visit: No Status: Chronic (6) Elevated troponin Current Visit: No Status: Acute (7) CAD (coronary artery disease) Current Visit: No Status: Chronic Qualifiers: Coronary Disease-Associated Artery/Lesion type: unspecified vessel or lesion type [place] vs. transplanted heart: [place] heart Associated angina: angina presence unspecified Qualified Code(s): I25.10 - Atherosclerotic heart disease of [place] coronary artery without angina pectoris (8) Heel ulcer due to DM Current Visit: No Status: Acute Qualifiers: Diabetes mellitus type: type 2 Laterality: left Non-pressure ulcer stage : with fat layer exposed Qualified Code(s): E11.621 - Type 2 diabetes mellitus with foot ulcer; L97.422 - Non-pressure chronic ulcer of left heel and midfoot with fat layer exposed (9) Sepsis Current Visit: Yes Status: Acute - Time Spent With Patient Total time spent is greater than 50% in coordination of care (as documented) at patient's floor/unit and/or counseling patient: - Constitutional Vitals: Temp Pulse Resp BP Pulse Ox 97.3 F L 63 18 150/68 99 02/19/18 11:36 02/19/18 11:36 02/19/18 11:36 02/19/18 11:36 02/19/18 11:36 Internal Medicine: Result - Labs CBC & Chem 7: 02/19/18 03:08 02/19/18 03:08 Labs: Cardiac Enzymes 02/19/18 02/19/18 Range/Units 06:21 11:34 Troponin I 0.12 H* 0.08 H* (< 0.04) ng/mL - Attending Attestation I examined this patient and my medical decision-making was reviewed with the Resident Physician. I agree with the documented findings, disposition and treatment plan as described except to the extent set forth below. On my exam patient is in no acute distress. Neurological exam is benign there is no focal neurological deficits, CN II-XII are intact. There is no nuchal rigidity. Foot ulcer does not appear tender, nor does it appear erythematous. He does not have headache any longer. Currently afebrile. Labs show leukocytosis, elevated glucose (400s) with resulting in pseudohyponatremia. Urinalysis is negative for signs of infection. CXR showed possibly mild pulmonary edema, no pneumonia appreciated, no effusions. CT abdomen/pelvis showed no intraabdominal process. Troponin peaked at 0.12 and trended down to 0.08. His baseline troponin level is 0.07. No signs of infection on CT of foot. Lactic acid elevated now resolved. A/P: 1. Sepsis - currently unsure of source. Differentials include foot ulcer, encephalitis, myocarditis/endocarditis. Less likely meningitis. An LP would not be helpful in this case since patient has already received IV antibiotics 2. Elevated troponin 3. Atrial fibrillation 4. Heart failure 5. DM 6. Coronary artery disease 7. COPD - Continue emperic IV antibiotic therapy. De escalate when able, or if source found. Based on history of his chronic ulcer, need MRI of foot to rule out osteomyelitis. Elevated troponin with sepsis, will check echocardiogram. Follow-up blood cultures, monitor vitals and trend WBC. - Troponin is near patient's established baseline and he does not complain of chest pain at this time. No need to check troponin further. May need cardiac workup here or as outpatient. Will determine after patient sepsis is treated. - Continue Cardiac medications - Has history documented of atrial fibrillation but he is not on any anticoagulation medication. - Start basal insulin with sliding scale and diabetic diet
[2018-02-19] MEDS: Insulin DETEMIR 100 UNIT/ML X5UNITS SQ SCH (10:23)
[2018-02-19] MEDS: Aspirin Enteric Coated 81 MG Tablet PO SCH (10:23)
[2018-02-19] MEDS: Isosorbide MONOnitrate (24 HR) 30 MG TAB.ER.24H PO SCH (10:23)
[2018-02-19] MEDS: Meropenem 1,000 MG in Water for inj. (sterile) 20 ML 10 ML IVP SCH ×3 (10:24→23:31)
[2018-02-19] MEDS: Gabapentin 400 MG CAPSULE PO SCH ×2 (15:07→20:44)
[2018-02-19] MEDS ORDERED: *HR* FentaNYL PATCH 25 MCG PATCH TD ONE (19:08)
[2018-02-19 20:59] LABS: Acinetobacter baumannii by PCR Not Detected (Not Detect); Enterococcus by PCR Not Detected (Not Detect); Escherichia coli by PCR Not Detected (Not Detect); Klebsiella oxytoca by PCR Not Detected (Not Detect); Staphylococcus aureus by PCR Not Detected (Not Detect); Streptococcus pneumoniae PCR Not Detected (Not Detect); Streptococcus pyogenes (A) PCR Not Detected (Not Detect)
[2018-02-19 21:00] LABS: Candida albicans by PCR Not Detected (Not Detect); Candida glabrata by PCR Not Detected (Not Detect); Candida krusei by PCR Not Detected (Not Detect); Candida parapsilosis by PCR Not Detected (Not Detect); Candida tropicalis by PCR Not Detected (Not Detect); Klebsiella pneumoniae by PCR Not Detected (Not Detect); Pseudomonas aeruginosa by PCR Not Detected (Not Detect); Serratia marcescens by PCR Not Detected (Not Detect); Streptococcus agalactiae(B)PCR ***DETECTED*** (Not Detect); Streptococcus by PCR ***DETECTED*** (Not Detect)
[2018-02-19] MEDS: Acetaminophen 325 MG TABLET PO PRN (23:25)
[2018-02-20 04:15] LABS: Basophils % 0.3 %; Eosinophils % 0.4 %; Hematocrit 39.6 % (37.5-50.1); Immature Granulocytes % 0.4 % (0-4); Lymphocytes # 2.2 K/mcL (0.6-4.6); Lymphocytes % 30.3 %; Mean Corpuscular HGB Conc 33.1 g/dL (31.6-35.5); Mean Corpuscular Volume 90.6 fL (83.0-100.0); Mean Platelet Volume 10.3 fL (9.4-12.4); Monocytes # 0.8 K/mcL (0.0-1.3); Monocytes % 10.4 %; Neutrophils # 4.3 K/mcL (1.6-8.9); Platelet Count 120 K/mcL (140-400); Red Blood Count 4.37 M/mcL (4.19-5.50); Red Cell Distribution Width 13.7 % (11.5-14.5); Segmented Neutrophils % 58.2 %
[2018-02-20 04:24] LABS: Hemoglobin 13.1 g/dL (12.9-16.9)
[2018-02-20 04:36] LABS: BUN/Creatinine Ratio 15 (6-26); Blood Urea Nitrogen 15 mg/dL (8-23); Calcium 8.8 mg/dL (8.6-10.3); Carbon Dioxide 27 mEq/L (23-29); Chloride 102 mEq/L (98-107); Glucose 205 mg/dL (70-105); Osmolality,Calculated 285 (280-300); Potassium 3.9 mEq/L (3.5-5.1); Sodium 134 mEq/L (136-145); eGFR For African Americans > 60 (> 60); eGFR For Non-African Americans > 60 (> 60)
[2018-02-20] MEDS: *HR* Heparin 5,000 UNIT/ML VIAL SQ SCH ×2 (06:22→16:44)
[2018-02-20] MEDS: Acetaminophen 325 MG TABLET PO PRN (06:22)
--- NOTE | 2018-02-20 07:50 | Internal Med Progress Note ---
<Honey John - Last Filed: 02/20/18 13:15> Date of Encounter: 02/20/18 Time of Encounter: 07:46 - Assessment and plan (1) Chest pain Current Visit: No Status: Acute Assessment and plan: Patient had mild chest pain for about 1 hour and resolved by itself at admission. Elevated troponin: 0.11, 0.12, 0.08 ECHO 11/04/16: LVEV 60% with normal LV systolic function, atypical septal motion consistent with prior cardiac surgery, moderate concentric LV hypertrophy [facility] 10/10/16: severe 2 vessel CAD, successful PTCA/JOSEPH placement in [place] to LAD S/P CABG 2 of 2 patent bypass grafts Denies CP currently Plan: ACS r/o ECHO pending Continue cardiac monitoring. Qualifiers: Ischemic chest pain type: unstable angina pectoris Qualified Code(s): I20.0 - Unstable angina (2) Diabetes Current Visit: No Status: Chronic Assessment and plan: Patient presents with uncontrolled DMII on U500 200 units BID at home. Presenting glucose 407 Glucose this AM is 177 Plan: Continue daily long acting and SSI insulin Accuchecks ACHS ADA diet Qualifiers: Diabetes mellitus type: type 2 Diabetes mellitus extermination inspector insulin use: with assisted use Diabetes mellitus complication status: with neurologic complications Diabetes mellitus complication detail: with polyneuropathy Qualified Code(s): E11.42 - Type 2 diabetes mellitus with diabetic polyneuropathy; Z79.4 - extermination inspector (current) use of insulin (3) Heel ulcer due to DM Current Visit: No Status: Acute Assessment and plan: Appears dry, no surrounding erythema or purulent drainage. Pt states wound care has been treating x8 months. CT leg: Focal extensive soft tissue swelling/phlegmonous change involving the soft tissues at the posterior left calcaneus, with associated shallow ulceration. 2. No evidence of osteomyelitis. Note that noncontrast CT is relatively insensitive for detection of early osteomyelitis. 3. Diffuse muscle atrophy involving the distal leg and foot. 4. 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 5. Mild tricompartmental osteoarthritis of the left knee is identified on this noncontrast study. MRI negative for osteo, shows mild cellulitis of underlying soft tissues Plan: Wound care Qualifiers: Diabetes mellitus type: type 2 Laterality: left Non-pressure ulcer stage : with fat layer exposed Qualified Code(s): E11.621 - Type 2 diabetes mellitus with foot ulcer; L97.422 - Non-pressure chronic ulcer of left heel and midfoot with fat layer exposed (4) Elevated troponin Current Visit: No Status: Acute Assessment and plan: Management as above. Troponin elevation is also possibly due to demand ischemia caused by sepsis. Patient has chronically elevated troponin. (5) Morbid obesity with BMI of 40.0-44.9, adult Current Visit: No Status: Chronic Assessment and plan: Need lifestyle modification as outpatient (6) CAD (coronary artery disease) Current Visit: No Status: Chronic Assessment and plan: Continue home medications. Rule out ACS as described above Qualifiers: Coronary Disease-Associated Artery/Lesion type: unspecified vessel or lesion type [place] vs. transplanted heart: [place] heart Associated angina: angina presence unspecified Qualified Code(s): I25.10 - Atherosclerotic heart disease of [place] coronary artery without angina pectoris (7) Hypertension Current Visit: No Status: Chronic Assessment and plan: Continue home medications Qualifiers: Hypertension type: essential hypertension Qualified Code(s): I10 - Essential (primary) hypertension (8) DVT prophylaxis Current Visit: No Status: Acute Assessment and plan: Heparin subcutaneously (9) Sepsis Current Visit: Yes Status: Acute Assessment and plan: Patient to meet sepsis criteria with tachycardia (95) and fever. Consideration for left heel wound as source of infection was given at admission , CT left lower leg: Focal extensive soft tissue swelling/phlegmonous change involving the soft tissues at the posterior left calcaneus, with associated shallow ulceration. 2. No evidence of osteomyelitis. Note that noncontrast CT is relatively insensitive for detection of early osteomyelitis. 3. Diffuse muscle atrophy involving the distal leg and foot. 4. 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 5. Mild tricompartmental osteoarthritis of the left knee is identified on this noncontrast study. He was started on IV fluid and IV antibiotics with Vanco and meropenem ( suspected meropenem was chosen for pseudomonal coverage in heel wound.) Will stop meropenem and start cefepime for gram negative and pseudomonal coverage with mild underlying cellulitis of left foot. Blood culture was drawn prior to abx administration growing GBS. CXR negative UA negative WBC 10.6 Lactic acid: 2.3, 2.1, 2.2, 1.9 Ct abdomen negative MRI head negative MRI foot negative for osteomyelits, shows mild cellulitis of the underlying soft tissues ECHO pending Plan: Continue vanc for GBS coverage as patient has PCN allergy of rash. Start cefepime 1Gm Q8hr for gram neg/pseudomonal coverage Discontinue meropenem MRSA nasal swab. Continue to monitor vitals, mental status. Qualifiers: Sepsis type: sepsis due to unspecified organism Qualified Code(s): A41.9 - Sepsis, unspecified organism - Time Spent With Patient Total time spent is greater than 50% in coordination of care (as documented) at patient's floor/unit and/or counseling patient: - Subjective Interval history: Pt seen and examined, sleeping in bed but is easily arousable. Pt denies ROJAS, dizziness, visual changes, neck pain, CP, SOB, N/V, abd pain. He states that his DM is poorly controlled and that he has been having his foot ulcer treated for the last 8 months. He has not had any purulent drainage or erythema. With re -evaluation pt is sitting up in bed taking his morning meds, moving neck without apparent pain. - Constitutional Vitals: Temp Pulse Resp BP Pulse Ox 97.8 F 70 18 162/63 98 02/20/18 04:11 02/20/18 04:11 02/20/18 04:11 02/20/18 04:11 02/20/18 04:11 General appearance: Present: A&O X 3, morbidly obese, no acute distress, answers questions appropriately - Back Exam Back exam: Present: normal inspection. Absent: rash noted, vertebral tenderness Internal Medicine: Result - Labs CBC & Chem 7: 02/20/18 04:00 02/20/18 04:00 Labs: Short CBC 02/20/18 Range/Units 04:00 WBC 7.4 (4.3-11.1) K/mcL Hgb 13.1 D (12.9-16.9) g/dL Hct 39.6 (37.5-50.1) % Plt Count 120 L (140-400) K/mcL Neutrophils # 4.3 (1.6-8.9) K/mcL BMP 02/20/18 04:00 Sodium 134 L Potassium 3.9 Chloride 102 Carbon Dioxide 27 BUN 15 Creatinine 1.03 Glucose 205 H Calcium 8.8 Cardiac Enzymes 02/19/18 Range/Units 11:34 Troponin I 0.08 H* (< 0.04) ng/mL - Impressions Impressions Brain MRI 02/19/18 10:56 IMPRESSION: 1. No evidence of acute intracranial abnormality. 2. Sequela of mild chronic microvascular ischemic changes. D/ / Lamar Rutherford MD / Lamar Rutherford MD Interpreting Provider: Lamar Rutherford MD Foot MRI 02/19/18 10:56 IMPRESSION: 1. No osteomyelitis. 2. Shallow soft tissue ulceration over the plantar aspect of the heel with mild underlying cellulitis. No sinus tract or drainable fluid collection. D/ / Дмитрий Bush MD / Дмитрий Bush MD Interpreting Provider: Дмитрий Bush MD Consult Discharge Plan - Plan Referrals: Azul Guillen CNP [Primary Care Provider] - <JasonniharikahugoRuchi Radhajero - Last Filed: 02/20/18 16:02> Date of Encounter: 02/20/18 - Assessment and plan (1) Hypertension Current Visit: No Status: Chronic Qualifiers: Hypertension type: essential hypertension Qualified Code(s): I10 - Essential (primary) hypertension (2) Chest pain Current Visit: No Status: Acute (3) Diabetes Current Visit: No Status: Chronic Qualifiers: Diabetes mellitus type: type 2 Diabetes mellitus assisted insulin use: with assisted use Diabetes mellitus complication status: with neurologic complications Diabetes mellitus complication detail: with polyneuropathy Qualified Code(s): E11.42 - Type 2 diabetes mellitus with diabetic polyneuropathy; Z79.4 - extermination inspector (current) use of insulin (4) DVT prophylaxis Current Visit: No Status: Acute (5) Morbid obesity with BMI of 40.0-44.9, adult Current Visit: No Status: Chronic (6) Elevated troponin Current Visit: No Status: Acute (7) CAD (coronary artery disease) Current Visit: No Status: Chronic Qualifiers: Coronary Disease-Associated Artery/Lesion type: unspecified vessel or lesion type [place] vs. transplanted heart: [place] heart Associated angina: angina presence unspecified Qualified Code(s): I25.10 - Atherosclerotic heart disease of [place] coronary artery without angina pectoris (8) Heel ulcer due to DM Current Visit: No Status: Acute Qualifiers: Diabetes mellitus type: type 2 Laterality: left Non-pressure ulcer stage : with fat layer exposed Qualified Code(s): E11.621 - Type 2 diabetes mellitus with foot ulcer; L97.422 - Non-pressure chronic ulcer of left heel and midfoot with fat layer exposed (9) Sepsis Current Visit: Yes Status: Acute - Time Spent With Patient Total time spent is greater than 50% in coordination of care (as documented) at patient's floor/unit and/or counseling patient: - Constitutional Vitals: Temp Pulse Resp BP Pulse Ox 98.2 F 71 18 168/78 98 02/20/18 07:52 02/20/18 07:52 02/20/18 07:52 02/20/18 07:52 02/20/18 07:52 Internal Medicine: Result - Labs CBC & Chem 7: 02/20/18 04:00 02/20/18 04:00 Labs: Short CBC 02/20/18 Range/Units 04:00 WBC 7.4 (4.3-11.1) K/mcL Hgb 13.1 D (12.9-16.9) g/dL Hct 39.6 (37.5-50.1) % Plt Count 120 L (140-400) K/mcL Neutrophils # 4.3 (1.6-8.9) K/mcL BMP 02/20/18 04:00 Sodium 134 L Potassium 3.9 Chloride 102 Carbon Dioxide 27 BUN 15 Creatinine 1.03 Glucose 205 H Calcium 8.8 - Impressions Impressions Foot MRI 02/19/18 10:56 IMPRESSION: 1. No osteomyelitis. 2. Shallow soft tissue ulceration over the plantar aspect of the heel with mild underlying cellulitis. No sinus tract or drainable fluid collection. D/ / Дмитрий Bush MD / Дмитрий Bush MD Interpreting Provider: Дмитрий Bush MD Echocardiogram 02/20/18 09:00 Impressions: LVEF 65%. Not all LV segments were well visualized, but overall function appears normal. Mild concentric left ventricular hypertrophy. Mild left ventricular diastolic dysfunction. Normal right ventricular structure and function. No pulmonary hypertension. Valves were not well visualized. No obvious significant dysfunction by Doppler. Image quality is inadequate to evaluate for endocarditis. Consider SHAE if clinically indicated. Findings: Study Quality * Technically sub-optimal due to poor echocardiographic windows. Many structures were not well visualized. ECG Findings * Normal sinus rhythm. Left Ventricle * LVEF 65%. Not all LV segments were well visualized, but overall function appears normal. * Grossly normal LV chamber size. * Mild concentric left ventricular hypertrophy. * Mild left ventricular diastolic dysfunction. Right Ventricle * Normal right ventricular structure and function. Left Atrium * Mildly dilated left atrium. Right Atrium * Right atrium is not well visualized. Aortic Valve * Aortic valve not well visualized. * Grossly, the aortic valve appears sclerotic and trileaflet. * No aortic regurgitation. * No aortic stenosis. Mitral Valve * Mitral valve not well visualized. * Grossly, normal mitral valve function. * No mitral regurgitation. * No mitral stenosis. Tricuspid Valve * Tricuspid valve not well visualized. * Trace tricuspid regurgitation. * No pulmonary hypertension. Pulmonic Valve * Pulmonic valve not well visualized. Aorta * Normally sized aortic root. Pericardium * The pericardium appears normal. IVC * The IVC is not well evaluated. Pulmonary Artery * Pulmonary artery not well visualized. - Attending Attestation I examined this patient and my medical decision-making was reviewed with the Resident Physician. I agree with the documented findings, disposition and treatment plan as described except to the extent set forth below. States symptoms are improving. He does not have headache any longer. Currently afebrile. Leukocytosis is improving, glucose more controlled today. Urinalysis is negative for signs of infection. CXR showed possibly mild pulmonary edema, no pneumonia appreciated, no effusions. CT abdomen/pelvis showed no intraabdominal process. Troponin peaked at 0.12 and trended down to 0.08. His baseline troponin level is 0.07. No signs of infection on CT of foot. Lactic acid elevated now resolved. A/P: 1. Sepsis - currently unsure of source, growing GBS and suspect possibly from foot ulcer. 2. Elevated troponin - likely demand ischemia. His baseline is 0.07 and was at highest 0.12 but has since back to 0.08. He has not had any CP since admission. Continue to monitor. 3. Atrial fibrillation 4. Heart failure 5. DM 6. Coronary artery disease 7. COPD - Continue emperic IV antibiotic therapy. De escalate when able, awaiting final cultures. MRI of foot was negative for osteomyelitis. Follow-up blood cultures, monitor vitals and trend WBC. Repeat BCx today - Troponin is near patient's established baseline and he does not complain of chest pain at this time. No need to check troponin further. May need cardiac workup here or as outpatient. Will determine after patient sepsis is treated. - Continue Cardiac medications - Has history documented of atrial fibrillation but he is not on any anticoagulation medication. - Continue basal insulin with sliding scale and diabetic diet
[2018-02-20] MEDS: Aspirin Enteric Coated 81 MG Tablet PO SCH (08:16)
[2018-02-20] MEDS: Insulin DETEMIR 100 UNIT/ML X5UNITS SQ SCH (08:18)
[2018-02-20] MEDS: Isosorbide MONOnitrate (24 HR) 30 MG TAB.ER.24H PO SCH (08:18)
[2018-02-20] MEDS: Insulin LISPRO 300 UNITS/3 ML VIAL SQ SCH ×4 (08:18→20:48)
[2018-02-20] MEDS: Gabapentin 400 MG CAPSULE PO SCH ×3 (08:18→22:23)
[2018-02-20] MEDS: Cefepime HCl 1,000 MG in Water for inj. (sterile) 20 ML 10 ML IVP SCH (16:43)
[2018-02-21] MEDS: Cefepime HCl 1,000 MG in Water for inj. (sterile) 20 ML 10 ML IVP SCH ×2 (01:44→09:00)
[2018-02-21 05:51] LABS: Basophils % 0.6 %; Eosinophils # 0.2 K/mcL (0.0-0.6); Eosinophils % 2.5 %; Hematocrit 40.1 % (37.5-50.1); Hemoglobin 13.3 g/dL (12.9-16.9); Immature Granulocytes % 0.7 % (0-4); Lymphocytes # 3.1 K/mcL (0.6-4.6); Lymphocytes % 45.2 %; Mean Corpuscular HGB Conc 33.2 g/dL (31.6-35.5); Mean Corpuscular Hemoglobin 29.7 pg (28.0-33.3); Mean Corpuscular Volume 89.5 fL (83.0-100.0); Mean Platelet Volume 10.9 fL (9.4-12.4); Monocytes # 0.7 K/mcL (0.0-1.3); Monocytes % 9.9 %; Neutrophils # 2.8 K/mcL (1.6-8.9); Platelet Count 122 K/mcL (140-400); Red Blood Count 4.48 M/mcL (4.19-5.50); Segmented Neutrophils % 41.1 %
[2018-02-21 06:05] LABS: BUN/Creatinine Ratio 17 (6-26); Blood Urea Nitrogen 15 mg/dL (8-23); Calcium 8.9 mg/dL (8.6-10.3); Carbon Dioxide 27 mEq/L (23-29); Chloride 106 mEq/L (98-107); Glucose 173 mg/dL (70-105); Osmolality,Calculated 291 (280-300); Potassium 3.7 mEq/L (3.5-5.1); Sodium 138 mEq/L (136-145); eGFR For African Americans > 60 (> 60); eGFR For Non-African Americans > 60 (> 60)
[2018-02-21] MEDS: *HR* Heparin 5,000 UNIT/ML VIAL SQ SCH ×2 (06:25→17:23)
[2018-02-21] MEDS ORDERED: Furosemide 20 MG TABLET PO PRN (08:15)
[2018-02-21] MEDS: Isosorbide MONOnitrate (24 HR) 30 MG TAB.ER.24H PO SCH (08:35)
[2018-02-21] MEDS: Aspirin Enteric Coated 81 MG Tablet PO SCH (08:35)
[2018-02-21] MEDS: Gabapentin 400 MG CAPSULE PO SCH ×3 (08:36→20:34)
[2018-02-21] MEDS: Insulin DETEMIR 100 UNIT/ML X5UNITS SQ SCH (08:40)
[2018-02-21] MEDS: Insulin LISPRO 300 UNITS/3 ML VIAL SQ SCH ×4 (08:43→20:34)
[2018-02-21] MEDS: Acetaminophen 325 MG TABLET PO PRN (08:57)
[2018-02-21] MEDS: Multivit/Ca/Min/Fe/FA 1 TAB TABLET PO SCH (09:12)
--- NOTE | 2018-02-21 11:33 | Internal Med Progress Note ---
<Honey John - Last Filed: 02/21/18 16:53> Date of Encounter: 02/21/18 Time of Encounter: 11:31 - Assessment and plan (1) Chest pain Current Visit: No Status: Acute Assessment and plan: Patient had mild chest pain for about 1 hour and resolved by itself at admission. Elevated troponin: 0.11, 0.12, 0.08 ECHO 11/04/16: LVEV 60% with normal LV systolic function, atypical septal motion consistent with prior cardiac surgery, moderate concentric LV hypertrophy [facility] 10/10/16: severe 2 vessel CAD, successful PTCA/JOSEPH placement in [place] to LAD S/P CABG 2 of 2 patent bypass grafts Denies CP currently ECHO 02/20: LVEF 65%. Not all LV segments were well visualized, but overall function appears normal. Mild concentric left ventricular hypertrophy. Mild left ventricular diastolic dysfunction. Normal right ventricular structure and function. No pulmonary hypertension. Valves were not well visualized. No obvious significant dysfunction by Doppler. Plan: ACS r/o Continue cardiac monitoring. (2) Diabetes Current Visit: No Status: Chronic Assessment and plan: Patient presents with uncontrolled DMII on U500 200 units BID at home. Presenting glucose 407 Glucose this AM is 169 Plan: Continue daily long acting and SSI insulin Accuchecks ACHS ADA diet Qualifiers: Diabetes mellitus type: type 2 Diabetes mellitus terminal superintendent insulin use: with terminal superintendent use Diabetes mellitus complication status: with neurologic complications Diabetes mellitus complication detail: with polyneuropathy Qualified Code(s): E11.42 - Type 2 diabetes mellitus with diabetic polyneuropathy; Z79.4 - [facility] (current) use of insulin (3) Heel ulcer due to DM Current Visit: No Status: Acute Assessment and plan: Appears dry, no surrounding erythema or purulent drainage. Pt states wound care has been treating x8 months. CT leg: Focal extensive soft tissue swelling/phlegmonous change involving the soft tissues at the posterior left calcaneus, with associated shallow ulceration. 2. No evidence of osteomyelitis. Note that noncontrast CT is relatively insensitive for detection of early osteomyelitis. 3. Diffuse muscle atrophy involving the distal leg and foot. 4. 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 5. Mild tricompartmental osteoarthritis of the left knee is identified on this noncontrast study. MRI negative for osteo, shows mild cellulitis of underlying soft tissues Plan: Wound care Will consult podiatry for eval, pt follows with them outpt Qualifiers: Diabetes mellitus type: type 2 Laterality: left Non-pressure ulcer stage : with fat layer exposed Qualified Code(s): E11.621 - Type 2 diabetes mellitus with foot ulcer; L97.422 - Non-pressure chronic ulcer of left heel and midfoot with fat layer exposed (4) Elevated troponin Current Visit: No Status: Acute Assessment and plan: Management as above. Troponin elevation is also possibly due to demand ischemia caused by sepsis. Patient has chronically elevated troponin. (5) Morbid obesity with BMI of 40.0-44.9, adult Current Visit: No Status: Chronic Assessment and plan: Need lifestyle modification as outpatient (6) CAD (coronary artery disease) Current Visit: No Status: Chronic Assessment and plan: Continue home medications. Rule out ACS as described above Qualifiers: Coronary Disease-Associated Artery/Lesion type: unspecified vessel or lesion type [place] vs. transplanted heart: [place] heart Associated angina: angina presence unspecified Qualified Code(s): I25.10 - Atherosclerotic heart disease of [place] coronary artery without angina pectoris (7) Hypertension Current Visit: No Status: Chronic Assessment and plan: Continue home medications Qualifiers: Hypertension type: essential hypertension Qualified Code(s): I10 - Essential (primary) hypertension (8) DVT prophylaxis Current Visit: No Status: Acute Assessment and plan: Heparin subcutaneously (9) Sepsis Current Visit: Yes Status: Acute Assessment and plan: Patient to meet sepsis criteria with tachycardia (95) and fever. Consideration for left heel wound as source of infection was given at admission , CT left lower leg: Focal extensive soft tissue swelling/phlegmonous change involving the soft tissues at the posterior left calcaneus, with associated shallow ulceration. 2. No evidence of osteomyelitis. Note that noncontrast CT is relatively insensitive for detection of early osteomyelitis. 3. Diffuse muscle atrophy involving the distal leg and foot. 4. 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 5. Mild tricompartmental osteoarthritis of the left knee is identified on this noncontrast study. He was started on IV fluid and IV antibiotics with Vanco and meropenem ( suspected meropenem was chosen for pseudomonal coverage in heel wound.) Will stop meropenem and start cefepime for gram negative and pseudomonal coverage with mild underlying cellulitis of left foot. Blood culture was drawn prior to abx administration positive for GBS. CXR negative UA negative WBC 10.6 Lactic acid: 2.3, 2.1, 2.2, 1.9 Ct abdomen negative MRI head negative MRI foot negative for osteomyelits, shows mild cellulitis of the underlying soft tissues MRSA swab negative Pt has PCN allergy of rash he states occurred as a child, has tolerated cephalosporins during this hospitalization Plan: Discontinue vanc, cefepime Will start rocephin 1gm IV daily, can be discharged on oral cephalexin Continue to monitor vitals, mental status. Qualifiers: Sepsis type: Streptococcus group B Qualified Code(s): A40.1 - Sepsis due to streptococcus, group B - Time Spent With Patient Total time spent is greater than 50% in coordination of care (as documented) at patient's floor/unit and/or counseling patient: - Subjective Interval history: Pt seen and examined. Complains of neuropathic pain in hands and feet. Pt states he takes percocet 10mg at home, request dosing while inpatient. Pt noted increased pain in his hands while straining to have a BM this morning, states "my hands felt like they were going to explode." - Constitutional Vitals: Temp Pulse Resp BP Pulse Ox 97.8 F 66 16 169/85 96 02/21/18 11:08 02/21/18 11:08 02/21/18 11:08 02/21/18 11:08 02/21/18 11:08 General appearance: Present: A&O X 3, morbidly obese, no acute distress, answers questions appropriately - Head Head exam: Present: atraumatic, normocephalic - Eye Eye exam: Present: PERRL, conjuntiva pink, sclera anicteric Pupils: Present: PERRL - Neck Neck exam general surgery: Present: supple, trachea midline. Absent: lymphadenopathy - Respiratory Respiratory exam: Present: CTAB. Absent: accessory muscle use, rales, rhonchi, wheezes - Cardiovascular Cardiovascular exam: Present: RRR, +S1, +S2. Absent: diastolic murmur, gallop, rubs, systolic murmur - GI/Abdominal GI/Abdominal exam: Present: normal bowel sounds, soft, no peritoneal signs. Absent: distended, tenderness - Extremities Exam Extremities exam: Present: normal capillary refill, pedal edema (1+ pitting), warm, radial pulses palpable and symmetrical Additional comments: left heel with dressing C/D/I - Psychiatric Psychiatric exam: Present: agitated - Skin Skin exam: Present: dry, intact Internal Medicine: Result - Labs CBC & Chem 7: 02/21/18 05:11 02/21/18 05:11 Labs: Short CBC 02/21/18 Range/Units 05:11 WBC 6.8 (4.3-11.1) K/mcL Hgb 13.3 (12.9-16.9) g/dL Hct 40.1 (37.5-50.1) % Plt Count 122 L (140-400) K/mcL Neutrophils # 2.8 (1.6-8.9) K/mcL BMP 02/21/18 05:11 Sodium 138 Potassium 3.7 Chloride 106 Carbon Dioxide 27 BUN 15 Creatinine 0.89 Glucose 173 H Calcium 8.9 - Impressions Impressions Echocardiogram 02/20/18 09:00 Impressions: LVEF 65%. Not all LV segments were well visualized, but overall function appears normal. Mild concentric left ventricular hypertrophy. Mild left ventricular diastolic dysfunction. Normal right ventricular structure and function. No pulmonary hypertension. Valves were not well visualized. No obvious significant dysfunction by Doppler. Image quality is inadequate to evaluate for endocarditis. Consider SHAE if clinically indicated. Findings: Study Quality * Technically sub-optimal due to poor echocardiographic windows. Many structures were not well visualized. ECG Findings * Normal sinus rhythm. Left Ventricle * LVEF 65%. Not all LV segments were well visualized, but overall function appears normal. * Grossly normal LV chamber size. * Mild concentric left ventricular hypertrophy. * Mild left ventricular diastolic dysfunction. Right Ventricle * Normal right ventricular structure and function. Left Atrium * Mildly dilated left atrium. Right Atrium * Right atrium is not well visualized. Aortic Valve * Aortic valve not well visualized. * Grossly, the aortic valve appears sclerotic and trileaflet. * No aortic regurgitation. * No aortic stenosis. Mitral Valve * Mitral valve not well visualized. * Grossly, normal mitral valve function. * No mitral regurgitation. * No mitral stenosis. Tricuspid Valve * Tricuspid valve not well visualized. * Trace tricuspid regurgitation. * No pulmonary hypertension. Pulmonic Valve * Pulmonic valve not well visualized. Aorta * Normally sized aortic root. Pericardium * The pericardium appears normal. IVC * The IVC is not well evaluated. Pulmonary Artery * Pulmonary artery not well visualized. Consult Discharge Plan - Plan Referrals: Azul Guillen D[employer] SAL[employer] PLANNER [Primary Care Provider] - <JasonniharikahugoRuchi Radhajero - Last Filed: 02/21/18 18:16> Date of Encounter: 02/21/18 - Assessment and plan (1) Hypertension Current Visit: No Status: Chronic Qualifiers: Hypertension type: essential hypertension Qualified Code(s): I10 - Essential (primary) hypertension (2) Chest pain Current Visit: No Status: Acute (3) Diabetes Current Visit: No Status: Chronic Qualifiers: Diabetes mellitus type: type 2 Diabetes mellitus skilled nursing insulin use: with terminal superintendent use Diabetes mellitus complication status: with neurologic complications Diabetes mellitus complication detail: with polyneuropathy Qualified Code(s): E11.42 - Type 2 diabetes mellitus with diabetic polyneuropathy; 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 transplanted heart: [place] heart Associated angina: angina presence unspecified Qualified Code(s): I25.10 - Atherosclerotic heart disease of [place] coronary artery without angina pectoris (8) Heel ulcer due to DM Current Visit: No Status: Acute Qualifiers: Diabetes mellitus type: type 2 Laterality: left Non-pressure ulcer stage : with fat layer exposed Qualified Code(s): E11.621 - Type 2 diabetes mellitus with foot ulcer; L97.422 - Non-pressure chronic ulcer of left heel and midfoot with fat layer exposed (9) Sepsis Current Visit: Yes Status: Acute - Time Spent With Patient Total time spent is greater than 50% in coordination of care (as documented) at patient's floor/unit and/or counseling patient: - Constitutional Vitals: Temp Pulse Resp BP Pulse Ox 98.0 F 61 16 135/67 96 02/21/18 16:47 02/21/18 16:47 02/21/18 16:47 02/21/18 16:47 02/21/18 16:47 Internal Medicine: Result - Labs CBC & Chem 7: 02/21/18 05:11 02/21/18 05:11 Labs: Short CBC 02/21/18 Range/Units 05:11 WBC 6.8 (4.3-11.1) K/mcL Hgb 13.3 (12.9-16.9) g/dL Hct 40.1 (37.5-50.1) % Plt Count 122 L (140-400) K/mcL Neutrophils # 2.8 (1.6-8.9) K/mcL BMP 02/21/18 05:11 Sodium 138 Potassium 3.7 Chloride 106 Carbon Dioxide 27 BUN 15 Creatinine 0.89 Glucose 173 H Calcium 8.9 - Attending Attestation I examined this patient and my medical decision-making was reviewed with the Resident Physician. I agree with the documented findings, disposition and treatment plan as described except to the extent set forth below.
[2018-02-21] MEDS: *HR* OxyCODONE/APAP 10/325 TABLET PO PRN (15:08)
[2018-02-21] MEDS: cefTRIAXone 2,000 MG in 0.9 % Sodium Chloride Mini Bag 100 ML IVPB SCH (15:10)
--- NOTE | 2018-02-21 17:20 | Podiatry Consult Note ---
Date of Encounter: 02/21/18 Time of Encounter: 16:00 Assessment and Plan (1) Diabetes mellitus type 2 in obese Current visit: Yes Status: Acute (2) Heel ulcer Current visit: No Status: Acute Nonhealing ulceration the plantar aspect of left calcaneus. CT of left foot showed focal extensive soft tissue swelling/phlegmonous change involving soft tissues at the posterior left calcaneus with associated shallow ulceration. MRI of left foot did not show evidence of osteomyeltis, sinus tract or drainable fluid collection. Microbiology 02/19/18 06:21 Peripheral Venipuncture Blood Culture - Final Strep agalactiae - (Group B) 02/19/18 06:21 Peripheral Venipuncture Blood Culture - Final Strep agalactiae - (Group B) WBC: 6.8, temp 98.0 F Plan: Verbal consent obtained, time out performed, all loose nonviable tissue removed from left posterior heel with a sterile tissue nipper and pickup. Loose eschar was removed from the posterior aspect of the left revealing pink, dry and intact skin. During removal of loose nonviable skin, small amount of purulent drainage was expressed from the ulceration to the plantar aspect of the left heel, no odor. Ulcer irrigated with saline, wound cultures were obtained and sent to lab. Calcium alginate applied with 4x4 dry sterile gauze, kerlix and tape. Continue wound care daily. Will follow up with patient tomorrow. Qualifiers: Laterality: left Non-pressure ulcer stage: with necrosis of muscle Qualified Code(s): L97.423 - Non-pressure chronic ulcer of left heel and midfoot with necrosis of muscle (3) Diabetic peripheral neuropathy associated with type 2 diabetes mellitus Current visit: No Status: Chronic History of Present Illness HPI: Mr. Randle is a 67 year old male admitted to [facility] for weakness and fever. Patient has a medical history significant for DM with neuropathy, CAD. Surgical history of stent, CABG and spinal fusion. Podiatry was consulted for an ulceration to the left heel. Patient has a recurrent ulceration of the left heel that has been ongoing since March of 2017. Patient has been treated in wound care with Dr. Dunbar since May of 2017. Patient was last seen 01/26/18 and patient was instructed on wound care with collagen powder and patient was suppose to be placed in a total contact cast at the next appointment. Patient missed appointment in wound care last week. No c/o pain. Admits to fever and weakness prior to admission. An MRI and CT of the left foot were performed upon admission, no evidence of osteomyelitis. Fist set of blood cultures positive for Group B strep agalactiae, second set no growth to date. Past Med Surg Social Fam HX - Past Medical History Medical history: atrial fibrillation, CHF, COPD, coronary artery disease, diabetes, hyperlipidemia, hypertension, myocardial infarction Additional medical history: sleep apnea Psychiatric history: no psych history - Past Surgical History Surgical History: angioplasty/stent, cholecystectomy, coronary bypass (CABG), orthopedic, other Additional surgical history: lower back fusion - Social History Smoking Status: Never smoker Smokeless Tobacco Status: No Alcohol use: rarely Drug use: none - Family History Mother Adopted: No Family Member Ethnicity: Non- Living Status: Hx Family Cardiac Disorders: No Hx Family Respiratory Disorders: Yes (COPD) Hx Family Cancer: Yes Hx Family GI Disorders: No Hx Family Endocrine Disorder: Yes (DM,thyroid) Hx Family Neuromuscular Disorders: Yes (neuropathy) Hx Family Neurologic Disorders: No Hx Family HEENT Disorders: No Hx Family Autoimmune Disorders: No Medications and Allergies Aspirin Enteric Coated [Aspirin EC] 81 mg PO DAILY 04/11/15 [History] Atorvastatin Calcium [Lipitor] 80 mg PO DAILY 04/11/15 [History] Insulin Regular U-500 [HumuLIN R U-500] 38 unit SQ BID 05/23/15 [History] Clopidogrel [Plavix] 75 mg PO DAILY #30 tablet 09/25/16 [Rx] FentaNYL PATCH [Duragesic] 25 mcg TD Q72H 11/30/16 [History] Furosemide [Lasix] 20 mg PO DAILY PRN #20 tablet 12/03/16 [Rx] Gabapentin [Neurontin] 800 mg PO TID #30 capsule 12/03/16 [Rx] Lisinopril [Zestril] 2.5 mg PO DAILY #20 tablet 12/03/16 [Rx] Mv,Minerals/FA/Lycopene/Ginkgo [One Daily For Men 50+ Adv Tab] 1 tab PO DAILY [History] OxyCODONE/APAP 10/325 [Percocet 10/325 MG] 1 each PO BID PRN 02/21/18 [History] 3 Allergy/AdvReac Type Severity Reaction Status Date / Time amitriptyline Allergy Mild Itching Verified 02/19/18 11:13 Penicillins Allergy Mild See Verified 02/21/18 14:13 Comments - Constitutional Constitutional: headache(s), weakness - Cardiovascular Cardiovascular: pedal edema Physical Exam - Constitutional Vitals: Temp Pulse Resp BP Pulse Ox 98.0 F 61 16 135/67 96 02/21/18 16:47 02/21/18 16:47 02/21/18 16:47 02/21/18 16:47 02/21/18 16:47 Exam: General appearance: alert awake oriented X 3. Calm and pleasant, no acute distress.. Vascular: No evidence of cyanosis, pallor or rubor, Edema graded at 1+/4, Skin Temperature warm, No calf pain with manual compression. capillary refill time is immediate to digits. Neurologic: Sensation diminished with light touch to the left foot. Ulcer: Loose dried eschar to the posterior aspect of the left heel, ulceration to the plantar aspect of the left heel 1 cm in diameter, 50 % of wound with connected eschar, 50 % white tissue, small amount of purulent drainage expressed from ulceration to plantar aspect of left heel, no odor, no periwound erythema, no streaking, no fluctuance, no warmth, no cellulitis, no lymphangitis. Results - Labs Result Diagrams: 02/21/18 05:11 02/21/18 05:11 Labs: Abnormal lab results Plt Count 122 K/mcL (140-400) L 02/21/18 05:11 Glucose 173 mg/dL (70-105) H 02/21/18 05:11 POC Glucose 220 mg/dL (70-99) H 02/21/18 11:12 Troponin I 0.08 ng/mL (< 0.04) H* 02/19/18 11:34 B-Natriuretic Peptide 148 pg/mL (Less than 100) H 02/19/18 03:08 Beta-Hydroxybutyric Acd 0.28 mmol/L (0.02-0.27) H 02/19/18 03:08 Ur Specific Caret 1.026 (1.010-1.025) H 02/19/18 04:29 Urine Protein 100 mg/dL (Neg-Trace) H 02/19/18 04:29 Urine Glucose (UA) >=1000 mg/dL (Normal) H 02/19/18 04:29 Urine Blood Moderate (Negative) H 02/19/18 04:29 Urine Microscopic RBC 5-15 per hpf (0-3) H 02/19/18 04:29 Ur Squamous Epith Cells Moderate per lpf (None-Few) H 02/19/18 04:29 Vancomycin Trough 12 mcg/mL (5-10) H 02/21/18 05:11 Streptococcus sp PCR DETECTED (Not Detect) A 02/19/18 06:21 Group B Strep (PCR) DETECTED (Not Detect) A 02/19/18 06:21 H & H 02/21/18 Range/Units 05:11 Hgb 13.3 (12.9-16.9) g/dL Hct 40.1 (37.5-50.1) % All other labs normal. Consult Discharge Plan - Plan Referrals: Azul Guillen [employer]EL REMOVER [Primary Care Provider] -
--- NOTE | 2018-02-21 17:37 | Infectious Disease Consult ---
Date of Encounter: 02/21/18 Time of Encounter: 17:34 Assessment and Plan (1) Bacteremia due to group B Streptococcus Status: Acute Assessment and plan: 2 out of 2 sets positive on 02/19 Source not clear; could be the cellulitis. Patient though tells me that he has been having urinary urgency and his urine does not smell of the same. Urinalysis was nonrevealing. Patient on Rocephin which he is tolerating well. Continue Rocephin 2 g IV every 24 hours. Duration of treatment with antibiotics will be 2 weeks total. Repeat cultures on 02/20 no growth to date. Will consider switching to oral antibiotics if he continues to do clinically well. Monitor labs and for drug toxicity in the meantime. (2) Cellulitis of left lower extremity Status: Acute Assessment and plan: Initial CT showed severe extensive cellulitis and phlegmon Repeat MRI shows no phlegmon or fluid collection. Await podiatry's recommendation. Continue Rocephin for now. I will not broaden the spectrum of antibiotics to vancomycin and cefepime until I discuss with podiatry. If they will do I&D I will wait to start broad- spectrum antibiotics after they I&D the patient. (3) Diabetes mellitus type 2 in obese Status: Acute (4) Obstructive sleep apnea Status: Acute (5) Allergy to antibiotic Status: Acute Assessment and plan: Patient tells me over 40 years ago he had a rash on his left wrist when he took penicillin Tolerating Rocephin (6) Dyslipidemia Status: Acute (7) Hypertension Status: Chronic Qualifiers: Hypertension type: essential hypertension Qualified Code(s): I10 - Essential (primary) hypertension Infectious Disease HPI - Data of Consult Patient: new to practice Consult date: 02/21/18 Requesting Physician: Tri Brown MD Primary Care Provider: Azul Guillen CNP - Consult Narrative Reason for consult: GBS bacteremia History of present illness: Mr. Randle is a 67 year old male Patient is a 67-year-old gentleman who was admitted to [facility] on 02/19/2018 for weakness, fever and chest stating that he was feeling miserable all over and he felt like he was going to , patient was admitted for sepsis. We are consult to today for bacteremia and cellulitis. Patient is a pleasant 14-year-old gentleman who has an extensive past medical history mentioned below including diabetes mellitus type 2 for about 12 years with last hemoglobin A1c around 8.5, diabetic neuropathy, coronary artery disease status post stent and CABG. Morbid obesity and obstructive sleep apnea states that he woke up and he was feeling very weak and tired otherwise aches everywhere headache. Patient described the headache as from both behind his ear is on both sides. Patient denies any neck stiffness or any altered mental status and mentation. He should not states that he lives with his and he has 3 dogs at home. Patient denies any sick contacts. Since arrival, patient has been initially febrile with a MAXIMUM TEMPERATURE of 101.5 Fahrenheit. Patient did not have any tachycardia and no tachypnea. Presenting WBC was 10.6 with 81% neutrophils no bands. Rest of the chemistry revealed normal BUN and creatinine. Slight troponin leak. A urinalysis were obtained which was not suggestive of UTI. Blood cultures were obtained and 2 out of 2 sets on February 19 were positive for group B strep. MRI of the foot on the left did not reveal any osteomyelitis and showed a shallow soft tissue ulceration over the plantar aspect of the heel with mild underlying cellulitis. No sinus tract or drainable fluid collection. Brain MRI did not reveal any acute process. Patient had CT lumbar spine which showed no acute process. Patient had CT abdomen and pelvis which showed no evidence of acute abdominal or pelvic abnormality. CT of the left lower extremity reveals focal extensive soft tissue swelling/phlegmonous changes involving the soft tissue at the posterior left calcaneus without osteomyelitis. Patient was started on broad- spectrum antibiotics initially had vancomycin and meropenem the meropenem was switched to cefepime and currently patient is only on Rocephin. We were asked to evaluate the patients make further recommendations. CC: Tri Brown MD Past Med Surg Social Fam HX - Past Medical History Medical history: atrial fibrillation, CHF, COPD, coronary artery disease, diabetes, hyperlipidemia, hypertension, myocardial infarction Additional medical history: sleep apnea Psychiatric history: no psych history - Past Surgical History Surgical History: angioplasty/stent, cholecystectomy, coronary bypass (CABG), orthopedic, other Additional surgical history: lower back fusion - Social History Smoking Status: Never smoker Smokeless Tobacco Status: No Alcohol use: rarely Drug use: none - Family History Mother Adopted: No Family Member Ethnicity: Non- Living Status: Hx Family Cardiac Disorders: No Hx Family Respiratory Disorders: Yes (COPD) Hx Family Cancer: Yes Hx Family GI Disorders: No Hx Family Endocrine Disorder: Yes (DM,thyroid) Hx Family Neuromuscular Disorders: Yes (neuropathy) Hx Family Neurologic Disorders: No Hx Family HEENT Disorders: No Hx Family Autoimmune Disorders: No Infectious Disease-CN:Meds Aspirin Enteric Coated [Aspirin EC] 81 mg PO DAILY 04/11/15 [History] Atorvastatin Calcium [Lipitor] 80 mg PO DAILY 04/11/15 [History] Insulin Regular U-500 [HumuLIN R U-500] 38 unit SQ BID 05/23/15 [History] Clopidogrel [Plavix] 75 mg PO DAILY #30 tablet 09/25/16 [Rx] FentaNYL PATCH [Duragesic] 25 mcg TD Q72H 11/30/16 [History] Furosemide [Lasix] 20 mg PO DAILY PRN #20 tablet 12/03/16 [Rx] Gabapentin [Neurontin] 800 mg PO TID #30 capsule 12/03/16 [Rx] Lisinopril [Zestril] 2.5 mg PO DAILY #20 tablet 12/03/16 [Rx] Mv,Minerals/FA/Lycopene/Ginkgo [One Daily For Men 50+ Adv Tab] 1 tab PO DAILY [History] OxyCODONE/APAP 10/325 [Percocet 10/325 MG] 1 each PO BID PRN 02/21/18 [History] 3 Allergy/AdvReac Type Severity Reaction Status Date / Time amitriptyline Allergy Mild Itching Verified 02/19/18 11:13 Penicillins Allergy Mild See Verified 02/21/18 14:13 Comments Review of systems: 10 point review of systems done, negative and positive review of system are mentioned in the history of present illness. Exam - Constitutional Vitals: Temp Pulse Resp BP Pulse Ox 98.0 F 61 16 135/67 96 02/21/18 16:47 02/21/18 16:47 02/21/18 16:47 02/21/18 16:47 02/21/18 16:47 General appearance: no acute distress, obese, no febrile - Head Head exam: Present: atraumatic, normocephalic - Eye Eye exam: Present: EOMI, PERRL. Absent: scleral icterus Additional comments: No conjunctival hemorrhage noted - ENT ENT exam: Present: mucous membranes dry Additional comments: Patient has no teeth and does not have dentures he tells me that he chews on his gums - Neck Neck exam: Present: full ROM. Absent: meningismus - Respiratory Respiratory exam: Present: CTAB. Absent: rhonchi, wheezes - Cardiovascular Cardiovascular exam: Present: RRR, +S1, +S2 Additional comments: No murmur appreciated - GI/Abdominal GI/Abdominal exam: Present: normal bowel sounds, soft. Absent: tenderness - Extremities Exam Additional comments: Left lower extremity with a chronic wound and surrounding cellulitis that is really not that impressive. Keep in mind I am seeing the patient and his been on antibiotics for a few days. - Back Exam Back exam: Absent: CVA tenderness (L), CVA tenderness (R), vertebral tenderness - Neurological Exam Neurological exam: Present: alert, oriented X3. Absent: facial droop - Psychiatric Psychiatric exam: Present: normal affect, normal mood - Skin Skin exam: Present: normal color. Absent: rash Additional comments: No endocarditis stigmata Infectious Disease CN: Results - Labs CBC & Chem 7: 02/21/18 05:11 02/21/18 05:11 Cultures: Cultures 02/19/18 06:21 Blood Culture - Final Peripheral Venipuncture Strep agalactiae - (Group B) 02/19/18 06:21 Blood Culture - Final Peripheral Venipuncture Strep agalactiae - (Group B) 02/20/18 16:17 Blood Culture - Preliminary Peripheral Venipuncture Culture is incubating and being continuously monitored for growth. Final report to follow. 02/20/18 16:22 Blood Culture - Preliminary Peripheral Venipuncture Culture is incubating and being continuously monitored for growth. Final report to follow. Serology: Serology 02/20/18 02/19/18 Range/Units 18:25 06:21 Nasal Screen MRSA (PCR) Negative (Negative) A. baumannii (PCR) Not Detected (Not Detect) [place] albicans (PCR) Not Detected (Not Detect) C. glabrata (PCR) Not Detected (Not Detect) C. krusei (PCR) Not Detected (Not Detect) C. parapsilosis (PCR) Not Detected (Not Detect) C. tropicalis (PCR) Not Detected (Not Detect) Enterobacteriac sp PCR Not Detected (Not Detect) E. cloacae complex PCR Not Detected (Not Detect) Enterococcus sp PCR Not Detected (Not Detect) E. coli (PCR) Not Detected (Not Detect) H. influenzae (PCR) Not Detected (Not Detect) Klebsiella oxytoca PCR Not Detected (Not Detect) Klebsiella pneumoniae Not Detected (Not Detect) List. monocytogenes PCR Not Detected (Not Detect) N. meningitidis (PCR) Not Detected (Not Detect) Proteus species (PCR) Not Detected (Not Detect) Serratia marcescens PCR Not Detected (Not Detect) Staphylococcus sp PCR Not Detected (Not Detect) Staph aureus (PCR) Not Detected (Not Detect) mecA-Methicil Res Gene N/A (Not Detect) Streptococcus sp PCR DETECTED A (Not Detect) Group A Strep DNA Not Detected (Not Detect) Group B Strep (PCR) DETECTED A (Not Detect) Strep pneumoniae (PCR) Not Detected (Not Detect) P. aeruginosa (PCR) Not Detected (Not Detect) Brinda/B-Vanco Res Genes N/A (Not Detect) KPC (blaKPC) Detect PCR N/A (Not Detect) Consult Discharge Plan - Plan Referrals: Azul Guillen, STORE PROMOTER [Primary Care Provider] -
[2018-02-21] MEDS ORDERED: Aminoglycoside Consult 1 EACH MC ONE (18:03)
[2018-02-22] MEDS: *HR* OxyCODONE/APAP 10/325 TABLET PO PRN ×2 (02:45→15:36)
[2018-02-22 04:30] LABS: Basophils % 0.3 %; Eosinophils # 0.2 K/mcL (0.0-0.6); Eosinophils % 2.8 %; Hematocrit 37.4 % (37.5-50.1); Hemoglobin 12.5 g/dL (12.9-16.9); Immature Granulocytes % 0.6 % (0-4); Lymphocytes # 2.9 K/mcL (0.6-4.6); Lymphocytes % 37.9 %; Mean Corpuscular HGB Conc 33.4 g/dL (31.6-35.5); Mean Corpuscular Hemoglobin 29.9 pg (28.0-33.3); Mean Corpuscular Volume 89.5 fL (83.0-100.0); Mean Platelet Volume 10.9 fL (9.4-12.4); Monocytes # 0.6 K/mcL (0.0-1.3); Monocytes % 7.7 %; Neutrophils # 3.9 K/mcL (1.6-8.9); Platelet Count 140 K/mcL (140-400); Red Blood Count 4.18 M/mcL (4.19-5.50); Red Cell Distribution Width 13.7 % (11.5-14.5); Segmented Neutrophils % 50.7 %
[2018-02-22 04:53] LABS: BUN/Creatinine Ratio 18 (6-26); Blood Urea Nitrogen 16 mg/dL (8-23); Calcium 8.6 mg/dL (8.6-10.3); Carbon Dioxide 24 mEq/L (23-29); Chloride 105 mEq/L (98-107); Glucose 194 mg/dL (70-105); Osmolality,Calculated 290 (280-300); Potassium 3.5 mEq/L (3.5-5.1); Sodium 137 mEq/L (136-145); eGFR For African Americans > 60 (> 60); eGFR For Non-African Americans > 60 (> 60)
[2018-02-22] MEDS: *HR* Heparin 5,000 UNIT/ML VIAL SQ SCH (06:02)
[2018-02-22 07:03] VITALS: BP 142/69
[2018-02-22] MEDS: Multivit/Ca/Min/Fe/FA 1 TAB TABLET PO SCH (09:07)
[2018-02-22] MEDS: Insulin LISPRO 300 UNITS/3 ML VIAL SQ SCH ×2 (09:07→12:06)
[2018-02-22] MEDS: Isosorbide MONOnitrate (24 HR) 30 MG TAB.ER.24H PO SCH (09:07)
[2018-02-22] MEDS: Gabapentin 400 MG CAPSULE PO SCH ×2 (09:07→15:35)
[2018-02-22] MEDS: Aspirin Enteric Coated 81 MG Tablet PO SCH (09:07)
[2018-02-22] MEDS: Insulin DETEMIR 100 UNIT/ML X5UNITS SQ SCH (09:09)
--- NOTE | 2018-02-22 13:22 | Infectious Disease Progress No ---
Date of Encounter: 02/22/18 Time of Encounter: 13:19 - Assessment and Plan (1) Sepsis Current Visit: Yes Status: Acute The patient had two SIRS criteria on admission plus lactic acidosis. Likely secondary to bacteremia and LLE cellulitis. Improved. Tachycardia and fevers have resolved. Blood cultures drawn 02/19/18 were positive 2/2 sets for GBS. Repeat blood cultures drawn 02/20/15 are NGTD x 2 sets. Qualifiers: Qualified Code(s): A40.1 - Sepsis due to streptococcus, group B (2) Bacteremia due to group B Streptococcus Current Visit: Yes Status: Acute Causative organism: GBS. Source likely LLE cellulitis. Uncomplicated. Blood cultures drawn 02/19/18 were positive 2/2 sets. Repeat blood cultures drawn 02/20/18 are NGTD x 2 sets. Continue Rocephin 2 grams IV daily. Duration of treatment depends on the clinical picture, but likely 14 days from the first set of negative blood cultures. Can switch to PO Keflex 500mg PO QID when ready for discharge to complete antibiotic course. Treat through 03/05/18. (3) Cellulitis of left lower extremity Current Visit: Yes Status: Acute Location: LLE. Causative organism likely GBS. Non-purulent. Source possible left foot ulcer, but clinically it does not appear infected. Initial CT showed severe extensive cellulitis and phlegmon. Repeat MRI shows no phlegmon or fluid collection. Podiatry consulted and following. Appears improved. Continue antibiotics as above. (4) Lactic acidosis Current Visit: Yes Status: Acute Likely secondary to sepsis. Resolved. (5) Foot ulcer, left Current Visit: Yes Status: Acute Podiatry consulted and following. Wound care and activity per the podiatry team. Qualifiers: Qualified Code(s): L97.529 - Non-pressure chronic ulcer of other part of left foot with unspecified severity (6) 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 Current Visit: No Status: Chronic (7) Morbid obesity with BMI of 40.0-44.9, adult Current Visit: No Status: Chronic (8) Peripheral neuropathic pain Current Visit: No Status: Chronic (9) Obstructive sleep apnea Current Visit: Yes Status: Acute (10) Allergy to antibiotic Current Visit: Yes Status: Acute Patient reports a rash when he took PCN over 40 years ago. Seems to be tolerating Rocephin without a problem. - Subjective Interval history: Patient seen and examined sitting up in the bedside chair. No acute events noted overnight. Patient states overall he feels well and wants to go home. Denies fevers, chills, or rigors. Denies chest pain, shortness of breath, or cough. Denies nausea, vomiting, or diarrhea. Denies abdominal pain, urinary complaints, or appetite changes. Denies oral thrush or skin lesions. Reports chronic neuropathy pain to his hands and feet. Infect Dis PN-Objective Data - Labs CBC & Chem 7: 02/22/18 04:11 02/22/18 04:11 Labs: Laboratory Results - last 24 hr 02/20/18 02/21/18 02/21/18 20:06 11:12 16:51 WBC RBC Hgb Hct MCV MCH MCHC RDW Plt Count MPV Immature Gran % Seg Neutrophils % Lymphocytes % Monocytes % Eosinophils % Basophils % Neutrophils # Lymphocytes # Monocytes # Eosinophils # Basophils # Sodium Potassium Chloride Carbon Dioxide BUN Creatinine Est GFR ( Amer) Est GFR (Non-Af Amer) BUN/Creatinine Ratio Glucose POC Glucose 205 H 220 H 221 H Calculated Osmolality Calcium 02/21/18 02/22/18 02/22/18 20:10 04:11 04:11 WBC 7.8 RBC 4.18 L Hgb 12.5 L Hct 37.4 L MCV 89.5 MCH 29.9 MCHC 33.4 RDW 13.7 Plt Count 140 MPV 10.9 Immature Gran % 0.6 Seg Neutrophils % 50.7 Lymphocytes % 37.9 Monocytes % 7.7 Eosinophils % 2.8 Basophils % 0.3 Neutrophils # 3.9 Lymphocytes # 2.9 Monocytes # 0.6 Eosinophils # 0.2 Basophils # 0.0 Sodium 137 Potassium 3.5 Chloride 105 Carbon Dioxide 24 BUN 16 Creatinine 0.88 Est GFR ( Amer) > 60 Est GFR (Non-Af Amer) > 60 BUN/Creatinine Ratio 18 Glucose 194 H POC Glucose 198 H Calculated Osmolality 290 Calcium 8.6 02/22/18 02/22/18 07:14 12:02 WBC RBC Hgb Hct MCV MCH MCHC RDW Plt Count MPV Immature Gran % Seg Neutrophils % Lymphocytes % Monocytes % Eosinophils % Basophils % Neutrophils # Lymphocytes # Monocytes # Eosinophils # Basophils # Sodium Potassium Chloride Carbon Dioxide BUN Creatinine Est GFR ( Amer) Est GFR (Non-Af Amer) BUN/Creatinine Ratio Glucose POC Glucose 162 H 171 H Calculated Osmolality Calcium Cultures: Cultures 02/21/18 16:20 Gram Stain - Final Left Foot 02/19/18 06:21 Blood Culture - Final Peripheral Venipuncture Strep agalactiae - (Group B) 02/19/18 06:21 Blood Culture - Final Peripheral Venipuncture Strep agalactiae - (Group B) 02/20/18 16:17 Blood Culture - Preliminary Peripheral Venipuncture Culture is incubating and being continuously monitored for growth. Final report to follow. 02/20/18 16:22 Blood Culture - Preliminary Peripheral Venipuncture Culture is incubating and being continuously monitored for growth. Final report to follow. Serology 02/20/18 02/19/18 Range/Units 18:25 06:21 Nasal Screen MRSA (PCR) Negative (Negative) A. baumannii (PCR) Not Detected (Not Detect) [place] albicans (PCR) Not Detected (Not Detect) C. glabrata (PCR) Not Detected (Not Detect) C. krusei (PCR) Not Detected (Not Detect) C. parapsilosis (PCR) Not Detected (Not Detect) C. tropicalis (PCR) Not Detected (Not Detect) Enterobacteriac sp PCR Not Detected (Not Detect) E. cloacae complex PCR Not Detected (Not Detect) Enterococcus sp PCR Not Detected (Not Detect) E. coli (PCR) Not Detected (Not Detect) H. influenzae (PCR) Not Detected (Not Detect) Klebsiella oxytoca PCR Not Detected (Not Detect) Klebsiella pneumoniae Not Detected (Not Detect) List. monocytogenes PCR Not Detected (Not Detect) N. meningitidis (PCR) Not Detected (Not Detect) Proteus species (PCR) Not Detected (Not Detect) Serratia marcescens PCR Not Detected (Not Detect) Staphylococcus sp PCR Not Detected (Not Detect) Staph aureus (PCR) Not Detected (Not Detect) mecA-Methicil Res Gene N/A (Not Detect) Streptococcus sp PCR DETECTED A (Not Detect) Group A Strep DNA Not Detected (Not Detect) Group B Strep (PCR) DETECTED A (Not Detect) Strep pneumoniae (PCR) Not Detected (Not Detect) P. aeruginosa (PCR) Not Detected (Not Detect) Brinda/B-Vanco Res Genes N/A (Not Detect) KPC (blaKPC) Detect PCR N/A (Not Detect) Exam - Constitutional Vitals: Temp Pulse Resp BP Pulse Ox 97.9 F 52 16 142/69 93 02/22/18 06:56 02/22/18 06:56 02/22/18 06:56 02/22/18 06:56 02/22/18 06:56 General appearance: cooperative, morbidly obese, no acute distress - Head Head exam: Present: atraumatic, normal inspection, normocephalic - Eye Eye exam: Present: EOMI, normal appearance, PERRL Pupils: Present: normal accommodation - ENT ENT exam: Present: mucous membranes moist - Neck Neck exam: Present: normal inspection - Respiratory Respiratory exam: Present: CTAB. Absent: rales, respiratory distress, rhonchi, wheezes - Cardiovascular Cardiovascular exam: Present: RRR, +S1, +S2 - GI/Abdominal GI/Abdominal exam: Present: distended (obese), normal bowel sounds, soft. Absent: tenderness - Extremities Exam Extremities exam: Present: normal inspection. Absent: joint swelling, pedal edema, tenderness Additional comments: Left foot dressing C/D/I. - Neurological Exam Neurological exam: Present: alert, oriented X3, no focal deficits - Psychiatric Psychiatric exam: Present: normal affect, normal mood - Skin Skin exam: Present: dry, intact, normal color, warm Consult Discharge Plan - Plan Referrals: Azul Guillen [employer] ELECT[employer] TECHNICIAN [Primary Care Provider] - Prescriptions: Cephalexin [Keflex] 500 mg PO QID #44 capsule - Attending Attestation I examined this patient and my medical decision-making was reviewed with the Resident Physician. I agree with the documented findings, disposition and treatment plan as described except to the extent set forth below.
--- NOTE | 2018-02-22 15:19 | Discharge Summary ---
<Leon Caruso - Last Filed: 02/22/18 15:43> Orders not resulted at time of discharge: Pending orders 02/19/18 11:16 Varicella-Zoster Virus PCR Routine 02/19/18 11:34 HSV 1 & 2 Glycoprotein G IgG Routine 02/20/18 16:17 Culture,Blood [BC] Routine 02/21/18 16:20 Culture,Wound [RM] Stat Date of Encounter: 02/22/18 Time of Encounter: 10:00 - Discharge Diagnosis (1) Heel ulcer due to DM Priority: Primary Status: Acute Qualifiers: Diabetes mellitus type: type 2 Laterality: left Non-pressure ulcer stage : with fat layer exposed Qualified Code(s): E11.621 - Type 2 diabetes mellitus with foot ulcer; L97.422 - Non-pressure chronic ulcer of left heel and midfoot with fat layer exposed (2) Chest pain Priority: Secondary Status: Acute (3) Hypertension Priority: Secondary Status: Chronic Qualifiers: Hypertension type: essential hypertension Qualified Code(s): I10 - Essential (primary) hypertension (4) Diabetes Priority: Secondary Status: Chronic Qualifiers: Diabetes mellitus type: type 2 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 transplanted heart: [place] heart Associated angina: angina presence unspecified Qualified Code(s): I25.10 - Atherosclerotic heart disease of [place] coronary artery without angina pectoris (8) DVT prophylaxis Priority: Secondary Status: Acute (9) Sepsis Priority: Primary Status: Acute Qualifiers: Sepsis type: Streptococcus group B Qualified Code(s): A40.1 - Sepsis due to streptococcus, group B Hospital course: Mr. Randle is a 67 year old male with past medical history of type 2 Diabetes , diabetic neuropathy, CAD s/p stenting, CABG; admitted 02/19 for generalized weakness, ACS r/o, and L heel ulcer; patient's troponins were unchanged from baseline (peak of .12); TTE should LVEF of 65%, where was mild LV diastolic dysfunction, patient's chest pain lasted x1 episode for an hour around time of admission and did not return during hospital course. Patient was found to have 2 /2 blood cultures positive for group B strep. His heel was debrided by podiatry , patient received Rocephin IV inpatient and will be discharged with Keflex 500mg po QID until 03/05/18. - Time Spent with Patient Total time spent providing and/or coordinating discharge services: Greater than 30 minutes - Discharge Medications Prescriptions: Cephalexin [Keflex] 500 mg PO QID #44 capsule Home Medications: Aspirin Enteric Coated [Aspirin EC] 81 mg PO DAILY 04/11/15 [History] Atorvastatin Calcium [Lipitor] 80 mg PO DAILY 04/11/15 [History] Insulin Regular U-500 [HumuLIN R U-500] 38 unit SQ BID 05/23/15 [History] Clopidogrel [Plavix] 75 mg PO DAILY #30 tablet 09/25/16 [Rx] FentaNYL PATCH [Duragesic] 25 mcg TD Q72H 11/30/16 [History] Furosemide [Lasix] 20 mg PO DAILY PRN #20 tablet 12/03/16 [Rx] Gabapentin [Neurontin] 800 mg PO TID #30 capsule 12/03/16 [Rx] Lisinopril [Zestril] 2.5 mg PO DAILY #20 tablet 12/03/16 [Rx] Mv,Minerals/FA/Lycopene/Ginkgo [One Daily For Men 50+ Adv Tab] 1 tab PO DAILY [History] OxyCODONE/APAP 10/325 [Percocet 10/325 MG] 1 each PO BID PRN 02/21/18 [History] Cephalexin [Keflex] 500 mg PO QID #44 capsule 02/22/18 [Rx] Allergies/Adverse Reactions: 3 Allergy/AdvReac Type Severity Reaction Status Date / Time amitriptyline Allergy Mild Itching Verified 02/19/18 11:13 Penicillins Allergy Mild See Verified 02/21/18 14:13 Comments Date of admission: 02/19/18 05:52 Primary care physician: Azul Guillen CNP Consults: 02/21/18 11:54 Consult to Podiatry [CONS] Routine Consulting Provider: [facility] Reason for Consult: left heel ulcer, follows podiatry outpt Time Notified: 16:04 Call Completed: Yes 02/21/18 14:16 Consult to Wound Care [CONS] Routine Reason for Consult: wound care left heel ulcer Call Completed: No 02/21/18 17:26 Consult to Infectious Diseases [CONS] Routine Consulting Provider: [facility] Reason for Consult: Bacteremia Call Completed: Yes - Constitutional Vitals: Temp Pulse Resp BP Pulse Ox 97.9 F 52 16 142/69 93 02/22/18 06:56 02/22/18 06:56 02/22/18 06:56 02/22/18 06:56 02/22/18 06:56 General appearance: Present: A&O X 3, morbidly obese, no acute distress, answers questions appropriately - Head Head exam: Present: atraumatic, normal inspection - Eye Eye exam: Present: EOMI, normal appearance - Neck Neck exam general surgery: Present: full ROM. Absent: tenderness - Respiratory Respiratory exam: Present: CTAB. Absent: rhonchi, stridor, wheezes - Cardiovascular Cardiovascular exam: Present: RRR, +S1, +S2. Absent: JVD - GI/Abdominal GI/Abdominal exam: Present: no peritoneal signs. Absent: distended, firm, guarding - Extremities Exam Extremities exam: Present: warm. Absent: calf tenderness Additional comments: L Foot dressing, clean, dry, intact, no discharge - Neurological Exam Neurological exam: Absent: facial droop, speech deficit - Patient Status Disposition: Home, Self-Care Condition: Fair Functional capacity at discharge: independent ambulation (recent debridement of L heel ulcer; to follow podiatry recommendations post-procedure) Overall status at discharge: patient is progressing back to baseline - Discharge Instructions Follow Up With: Azul Guillen CNP [Primary Care Provider] - (office will call him in the morning to set up a follow up appointment.) - Diet and Activity Activity: increase activity as tolerated Diet: advance to your usual diet <Eamon Porter - Last Filed: 02/22/18 16:29> Orders not resulted at time of discharge: Pending orders 02/19/18 11:16 Varicella-Zoster Virus PCR Routine 02/19/18 11:34 HSV 1 & 2 Glycoprotein G IgG Routine 02/20/18 16:17 Culture,Blood [BC] Routine 02/21/18 16:20 Culture,Wound [RM] Stat Date of Encounter: 02/22/18 - Discharge Diagnosis (1) Hypertension Status: Chronic Qualifiers: Hypertension type: essential hypertension Qualified Code(s): I10 - Essential (primary) hypertension (2) Chest pain Status: Acute (3) Diabetes Status: Chronic Qualifiers: Diabetes mellitus type: type 2 Diabetes mellitus fpc insulin use: with fpc use Diabetes mellitus complication status: with neurologic complications Diabetes mellitus complication detail: with polyneuropathy Qualified Code(s): E11.42 - Type 2 diabetes mellitus with diabetic polyneuropathy; Z79.4 - lcsw (current) use of insulin (4) DVT prophylaxis Status: Acute (5) Morbid obesity with BMI of 40.0-44.9, adult Status: Chronic (6) Elevated troponin Status: Acute (7) CAD (coronary artery disease) Status: Chronic Qualifiers: Coronary Disease-Associated Artery/Lesion type: unspecified vessel or lesion type [place] vs. transplanted heart: [place] heart Associated angina: angina presence unspecified Qualified Code(s): I25.10 - Atherosclerotic heart disease of [place] coronary artery without angina pectoris (8) Heel ulcer due to DM Status: Acute Qualifiers: Diabetes mellitus type: type 2 Laterality: left Non-pressure ulcer stage : with fat layer exposed Qualified Code(s): E11.621 - Type 2 diabetes mellitus with foot ulcer; L97.422 - Non-pressure chronic ulcer of left heel and midfoot with fat layer exposed (9) Sepsis Status: Acute Hospital course: Mr. Randle is a 67 year old male - Time Spent with Patient Total time spent providing and/or coordinating discharge services: Date of admission: 02/19/18 05:52 Primary care physician: Azul Guillen CNP Consults: 02/21/18 11:54 Consult to Podiatry [CONS] Routine Consulting Provider: [facility] Reason for Consult: left heel ulcer, follows podiatry outpt Time Notified: 16:04 Call Completed: Yes 02/21/18 14:16 Consult to Wound Care [CONS] Routine Reason for Consult: wound care left heel ulcer Call Completed: No 02/21/18 17:26 Consult to Infectious Diseases [CONS] Routine Consulting Provider: [facility] Reason for Consult: Bacteremia Call Completed: Yes - Constitutional Vitals: Temp Pulse Resp BP Pulse Ox 97.9 F 52 16 142/69 93 02/22/18 06:56 02/22/18 06:56 02/22/18 06:56 02/22/18 06:56 02/22/18 06:56 - Attending Attestation I performed an independent interview and exam of this patient. I agree with the findings, assessment, and plan of Dr. Caruso, Internal medicine resident. Infectious disease input is appreciated. Repeat blood cultures have been negative, and patient will continue with antibiotics in the form of Keflex 500 mg by mouth qid through 03/05/2018 as directed by infectious disease. Diabetic ulcer. All his other issues remained stable. Patient is stable for discharge. 38 minutes spent on discharge and coordination of care. Continue to follow- up with podiatry as arranged.
[2018-02-22] MEDS: cefTRIAXone 2,000 MG in 0.9 % Sodium Chloride Mini Bag 100 ML IVPB SCH (15:36)
--- NOTE | 2018-02-22 17:15 | Podiatry Progress Note ---
Date of Encounter: 02/22/18 Time of Encounter: 12:15 - Assessment and Plan (1) Diabetes mellitus type 2 in obese Current Visit: Yes Status: Acute (2) Heel ulcer Current Visit: No Status: Acute Nonhealing ulceration the plantar aspect of left calcaneus. CT of left foot showed focal extensive soft tissue swelling/phlegmonous change involving soft tissues at the posterior left calcaneus with associated shallow ulceration. MRI of left foot did not show evidence of osteomyeltis, sinus tract or drainable fluid collection. Microbiology 02/19/18 06:21 Peripheral Venipuncture Blood Culture - Final Strep agalactiae - (Group B) 02/19/18 06:21 Peripheral Venipuncture Blood Culture - Final Strep agalactiae - (Group B) WBC: 7.8, temp 97.6 F Plan: Verbal consent obtained, time out performed, all loose nonviable tissue removed from left plantar aspect of heel ulcer with a sterile tissue nipper and pickup down to subcutaneous tissue. Calderon grade 2 ulceration, no signs of bacterial infection. Surgicel applied for hemostasis with 4x4 dry gauze, kerlix and tape. Leave intact for 24 hours. Continue wound care daily. Recommend a total contact cast to the LLE to allow ulcer to heal. Patient has an appointment scheduled with Dr. Dunbar in wound care tomorrow. Qualifiers: Laterality: left Non-pressure ulcer stage: with necrosis of muscle Qualified Code(s): L97.423 - Non-pressure chronic ulcer of left heel and midfoot with necrosis of muscle (3) Diabetic peripheral neuropathy associated with type 2 diabetes mellitus Current Visit: No Status: Chronic Subjective Interval history: Patient is sitting up in chair eating lunch. Patient has a dressing dry and intact to left foot. Patient had a bedside debridement of ulceration to left heel yesterday. No c/o fever, chills, cp, sob or flu like symptoms. Patient states he has an appointment and wound care tomorrow. Objective - Vital Signs Vital Signs: Vital Signs Temp Pulse Resp BP Pulse Ox 02/22/18 06:56 97.9 F 52 16 142/69 93 02/22/18 04:56 97.7 F 51 16 135/61 94 02/22/18 00:12 97.6 F 60 16 124/59 95 02/21/18 20:49 97 02/21/18 20:07 98.8 F 58 15 113/55 97 Intake and Output 02/22/18 02/22/18 02/22/18 07:59 15:59 23:59 Intake Total 480 / 480 Output Total 125 / 125 400 / 400 Balance -125 / -125 80 / 80 Intake: Oral 480 / 480 Output: Urine 125 / 125 400 / 400 Other: Meal Breakfast Percent of Meal Consumed 100% Weight 129.4 kg Blood Glucose* 162 171 277 Patient Weight 02/22/18 23:59 Weight 129.4 kg - Exam Exam: General appearance: alert awake oriented X 3. Calm and pleasant, no acute distress.. Vascular: No evidence of cyanosis, pallor or rubor, Edema graded at 1+/4, Skin Temperature warm, No calf pain with manual compression. capillary refill time is immediate to digits. Neurologic: Sensation diminished with light touch to the left foot. Ulcer: Ulceration to the plantar aspect of the left heel 1 cm in diameter, 50 % of wound with connected eschar, 50 % white tissue, S/p removal of devitalized tissue revealed a calderon grade 2 ulceration, no pus, no odor, no periwound erythema, no streaking, no fluctuance, no warmth, no cellulitis, no lymphangitis. - Lab Result Diagrams: 02/22/18 04:11 02/22/18 04:11 Labs: Abnormal lab results RBC 4.18 M/mcL (4.19-5.50) L 02/22/18 04:11 Hgb 12.5 g/dL (12.9-16.9) L 02/22/18 04:11 Hct 37.4 % (37.5-50.1) L 02/22/18 04:11 Glucose 194 mg/dL (70-105) H 02/22/18 04:11 POC Glucose 171 mg/dL (70-99) H 02/22/18 12:02 Troponin I 0.08 ng/mL (< 0.04) H* 02/19/18 11:34 B-Natriuretic Peptide 148 pg/mL (Less than 100) H 02/19/18 03:08 Beta-Hydroxybutyric Acd 0.28 mmol/L (0.02-0.27) H 02/19/18 03:08 Ur Specific [place] 1.026 (1.010-1.025) H 02/19/18 04:29 Urine Protein 100 mg/dL (Neg-Trace) H 02/19/18 04:29 Urine Glucose (UA) >=1000 mg/dL (Normal) H 02/19/18 04:29 Urine Blood Moderate (Negative) H 02/19/18 04:29 Urine Microscopic RBC 5-15 per hpf (0-3) H 02/19/18 04:29 Ur Squamous Epith Cells Moderate per lpf (None-Few) H 02/19/18 04:29 Vancomycin Trough 12 mcg/mL (5-10) H 02/21/18 05:11 Streptococcus sp PCR DETECTED (Not Detect) A 02/19/18 06:21 Group B Strep (PCR) DETECTED (Not Detect) A 02/19/18 06:21 Microbiology, Last 48 Hours 02/21/18 16:20 Gram Stain - Final Left Foot 02/19/18 06:21 Blood Culture - Final Peripheral Venipuncture Strep agalactiae - (Group B) 02/19/18 06:21 Blood Culture - Final Peripheral Venipuncture Strep agalactiae - (Group B) 02/20/18 16:17 Blood Culture - Preliminary Peripheral Venipuncture Culture is incubating and being continuously monitored for growth. Final report to follow. 02/20/18 16:22 Blood Culture - Preliminary Peripheral Venipuncture Culture is incubating and being continuously monitored for growth. Final report to follow. Consult Discharge Plan - Plan Instructions: Cephalexin (By mouth), Chest Pain (DC), Diabetes Mellitus Type 2 in Adults (DC), Sepsis (DC), Chronic Hypertension (DC) Referrals: Azul Guillen CNP [Primary Care Provider] - (office will call him in the morning to set up a follow up appointment.) Prescriptions: Cephalexin [Keflex] 500 mg PO QID #44 capsule
--- NOTE | 2018-02-22 17:15 | Electrocardiograph Report ---
[place] [id number] Test Date: 2018-02-19 Pat Name: Jesus Randle Department: 104 Room: 2NE24 Gender: M [employer]: NEFTALY : 1950 Requested By: [id number] Order Number: [id number] Reading MD: Alayna Blakely Measurements Intervals Rossiter Rate: 82 P: 18 IN: 227 QRS: 4 QRSD: 97 T: -6 QT: 354 QTc: 393 Interpretive Statements SINUS RHYTHM WITH FIRST DEGREE AV BLOCK MINIMAL ST DEPRESSION Electronically Signed On 02-22-2018 17:13:53 EDT by Alayna Blakely
[2018-02-22] MEDS ORDERED: *HR* FentaNYL PATCH 25 MCG PATCH TD SCH ×2 (19:00→21:00)
[2018-02-23 08:26] LABS: HSV 2 Glycoprotein G IgG 7.07 IV (<=0.90)
== END 2018-02-22 18:04 | disposition home or self-care (01) | DRG 872 ==
LOC: EMEROO 02:35 → 2NENU 02:35
PROVIDERS: ADMIT Internal Medicine; ATTEND Internal Medicine

== ENCOUNTER 2019-06-26 15:36 | Observation (INO) ==
[2019-06-26] MEDS ORDERED: *HR* Dextrose 50 % in Water (Syg) 50 ML SYRINGE ONE (15:45)
[2019-06-26] MEDS ORDERED: Naloxone 0.4 MG/ML INJ ONE (15:49)
[2019-06-26] MEDS ORDERED: 0.9 % Sodium Chloride 1,000 ML ONE (15:49)
[2019-06-26] MEDS ORDERED: Naloxone 0.4 MG/ML INJ IVP ONE (15:55)
[2019-06-26] MEDS ORDERED: *HR* Dextrose 50 % in Water (Syg) 50 ML SYRINGE IVP PRN ×2 (15:59→20:56)
[2019-06-26] MEDS ORDERED: 0.9 % Sodium Chloride 1,000 ML IVC ONE (16:00)
[2019-06-26 16:21] LABS: Basophils % 0.3 %; Eosinophils # 0.1 K/mcL (0.0-0.6); Eosinophils % 0.5 %; Hematocrit 43.7 % (37.5-50.1); Hemoglobin 15.3 g/dL (12.9-16.9); Immature Granulocytes % 0.6 % (0-4); Lymphocytes # 4.2 K/mcL (0.6-4.6); Lymphocytes % 41.9 %; Mean Corpuscular Volume 91.4 fL (83.0-100.0); Mean Platelet Volume 10.8 fL (9.4-12.4); Monocytes # 0.3 K/mcL (0.0-1.3); Monocytes % 3.1 %; Neutrophils # 5.4 K/mcL (1.6-8.9); Platelet Count 216 K/mcL (140-400); Red Blood Count 4.78 M/mcL (4.19-5.50); Red Cell Distribution Width 13.5 % (11.5-14.5); Segmented Neutrophils % 53.6 %; White Blood Count 10.1 K/mcL (4.3-11.1)
[2019-06-26 16:23] LABS: INR 1.1
[2019-06-26 16:26] LABS: Activated Partial Thrombo Time 27.6 Seconds (26.0-36.0)
[2019-06-26 16:30] LABS: ABG Base Excess 3 mEq/L (-2 to 3); ABG HCO3 29 mEq/L (21-27); ABG Oxygen Saturation 98 % (95-98); ABG PCO2 49 mmHg (35-45); ABG PH 7.38 pH Units (7.32-7.45); ABG PO2 103 mmHg (85-104); ABG TCO2 30 mEq/L (20-26)
[2019-06-26 16:42] LABS: Alanine Aminotransferase 33 Units/L (7-52); Albumin 3.5 g/dL (3.5-5.7); Albumin/Globulin Ratio 1.3 (1.1-2.2); Alkaline Phosphatase 51 Units/L (34-104); Aspartate Amino Transferase 25 Units/L (13-39); BUN/Creatinine Ratio 17 (6-26); Bilirubin,Direct 0.2 mg/dL (0.0-0.2); Bilirubin,Indirect 0.6 mg/dL (0.0-1.0); Bilirubin,Total 0.8 mg/dL (0.3-1.0); Blood Urea Nitrogen 22 mg/dL (8-23); Calcium 8.7 mg/dL (8.6-10.3); Carbon Dioxide 29 mEq/L (23-29); Chloride 98 mEq/L (98-107); Creatine Kinase 69 Units/L (30-223); Ethanol < 10 mg/dL (Less than 10); Globulin 2.6 g/dL (2.4-3.5); Glucose 100 mg/dL (70-105); Osmolality,Calculated 281 (280-300); Sodium 134 mEq/L (136-145); Total Protein 6.1 g/dL (6.4-8.9); Troponin I 0.03 ng/mL (< 0.04); eGFR For African Americans > 60 (> 60); eGFR For Non-African Americans 57 (> 60)
[2019-06-26 16:55] LABS: Thyroid Stimulating Hormone 3.808 mcIU/mL (0.340-5.600)
[2019-06-26 16:59] LABS: Bilirubin,Urine Small (Negative); Blood,Urine Negative (Negative); Clarity,Urine Cloudy (Clear); Color,Urine Dark Yellow (Yellow); Glucose,Urine (UA) Normal (Normal); Ketones,Urine Trace mg/dL (Negative); Leukocyte Esterase,Urine Trace (Negative); Nitrite,Urine Negative (Negative); PH,Urine 5.5 pH Units (5.0-8.0); Protein,Urine Trace mg/dL (Neg-Trace); Specific Gravity,Urine 1.024 (1.010-1.025); Urobilinogen,Urine Normal (Normal)
[2019-06-26 17:05] LABS: Amphetamine Screen,Urine Negative ng/mL (Cutoff=1000); Bacteria,Urine None Seen per hpf (None-Few); Barbiturate Screen,Urine Negative ng/mL (Cutoff=200); Benzodiazepines Screen,Urine Negative ng/mL (Cutoff=200); Cannabinoid Screen,Urine Negative ng/mL (Cutoff = 50); Cocaine Screen,Urine Negative ng/mL (Cutoff= 300); Opiate Screen,Urine Negative ng/mL (Cutoff=300); Phencyclidine Screen,Urine Negative ng/mL (Cutoff=25); Squamous Epithelial Cell,Urine Many per lpf (None-Few)
[2019-06-26] MEDS ORDERED: Dextrose Gel 15 GM/37.5 ML TUBE PO PRN ×2 (20:56)
[2019-06-26] MEDS ORDERED: Ringers Solution, Lactated 1,000 ML IVC SCH (21:00)
[2019-06-26] MEDS: Insulin LISPRO 300 UNITS/3 ML VIAL SQ SCH (22:36)
[2019-06-27] MEDS: Gabapentin 400 MG CAPSULE PO SCH ×4 (01:48→21:37)
[2019-06-27] MEDS: *HR* Heparin 5,000 UNIT/ML VIAL SQ SCH ×2 (05:58→17:37)
[2019-06-27 06:02] LABS: Basophils % 0.4 %; Eosinophils # 0.1 K/mcL (0.0-0.6); Eosinophils % 0.7 %; Hematocrit 46.2 % (37.5-50.1); Hemoglobin 15.3 g/dL (12.9-16.9); Immature Granulocytes % 0.6 % (0-4); Lymphocytes # 2.9 K/mcL (0.6-4.6); Lymphocytes % 35.3 %; Mean Corpuscular HGB Conc 33.1 g/dL (31.6-35.5); Mean Corpuscular Hemoglobin 31.5 pg (28.0-33.3); Mean Corpuscular Volume 95.1 fL (83.0-100.0); Mean Platelet Volume 10.3 fL (9.4-12.4); Monocytes # 0.3 K/mcL (0.0-1.3); Monocytes % 3.2 %; Neutrophils # 4.9 K/mcL (1.6-8.9); Platelet Count 173 K/mcL (140-400); Red Blood Count 4.86 M/mcL (4.19-5.50); Red Cell Distribution Width 13.7 % (11.5-14.5); Segmented Neutrophils % 59.8 %; White Blood Count 8.1 K/mcL (4.3-11.1)
[2019-06-27 06:18] LABS: BUN/Creatinine Ratio 22 (6-26); Blood Urea Nitrogen 20 mg/dL (8-23); Calcium 8.8 mg/dL (8.6-10.3); Carbon Dioxide 28 mEq/L (23-29); Chloride 104 mEq/L (98-107); Glucose 73 mg/dL (70-105); Magnesium 1.7 mg/dL (1.6-2.6); Osmolality,Calculated 285 (280-300); Potassium 4.1 mEq/L (3.5-5.1); Sodium 137 mEq/L (136-145); eGFR For African Americans > 60 (> 60); eGFR For Non-African Americans > 60 (> 60)
[2019-06-27] MEDS: Insulin LISPRO 300 UNITS/3 ML VIAL SQ SCH ×4 (07:39→21:38)
[2019-06-27] MEDS: Aspirin 81 MG TAB.CHEW PO SCH (07:50)
[2019-06-27] MEDS: Acetaminophen 325 MG TABLET PO PRN (07:54)
[2019-06-27] MEDS ORDERED: Lisinopril 20 MG TABLET PO SCH (09:00)
[2019-06-27 10:16] LABS: Estimated Average Glucose 278 mg/dl
[2019-06-27] MEDS ORDERED: 0.9 % Sodium Chloride 1,000 ML ONE (18:42)
[2019-06-27] MEDS ORDERED: 0.9 % Sodium Chloride 250 ML IVC ONE ×2 (18:45→19:13)
[2019-06-27] MEDS ORDERED: traMADol 50 MG TABLET PO ONE (19:46)
[2019-06-27] MEDS ORDERED: Insulin DETEMIR 100 UNIT/ML X5UNITS SQ SCH (21:00)
[2019-06-27] MEDS ORDERED: Doxycycline 100 MG CAPSULE PO SCH ×2 (21:00)
[2019-06-27] MEDS: Lactobacillus 1 EACH CAP.SPRINK PO SCH (21:37)
[2019-06-27] MEDS: Triamcinolone Acet 0.1% CRM 15 GM TUBE TP SCH (21:39)
[2019-06-28] MEDS: Acetaminophen 325 MG TABLET PO PRN (04:01)
[2019-06-28] MEDS: *HR* Heparin 5,000 UNIT/ML VIAL SQ SCH (06:06)
[2019-06-28 07:26] VITALS: BP 150/81
[2019-06-28] MEDS ORDERED: Insulin DETEMIR 100 UNIT/ML X5UNITS SQ SCH (09:00)
[2019-06-28] MEDS ORDERED: Metoprolol XL (24 HR) Succ 25 MG TAB.ER.24H PO SCH (09:15)
[2019-06-28] MEDS: Triamcinolone Acet 0.1% CRM 15 GM TUBE TP SCH (09:56)
[2019-06-28] MEDS: Gabapentin 400 MG CAPSULE PO SCH (09:56)
[2019-06-28] MEDS: Aspirin 81 MG TAB.CHEW PO SCH (09:56)
[2019-06-28] MEDS: Lactobacillus 1 EACH CAP.SPRINK PO SCH (09:56)
[2019-06-28] MEDS: Insulin LISPRO 300 UNITS/3 ML VIAL SQ SCH ×2 (10:00→11:43)
== END 2019-06-28 12:37 | disposition home health service (06) ==
LOC: 3BNU 15:36 → EMEROOARM 15:36 → 3BNU 20:50
PROVIDERS: ADMIT Student in an Organized Health Care Education/Training Program; ATTEND Student in an Organized Health Care Education/Training Program

== ENCOUNTER 2019-08-07 10:54 | Inpatient (IN) ==
[2019-08-07 11:32] LABS: Hematocrit 40.8 % (37.5-50.1); Hemoglobin 13.8 g/dL (12.9-16.9); Mean Corpuscular HGB Conc 33.8 g/dL (31.6-35.5); Mean Corpuscular Hemoglobin 32.6 pg (28.0-33.3); Mean Corpuscular Volume 96.5 fL (83.0-100.0); Mean Platelet Volume 10.5 fL (9.4-12.4); Monocytes # 0.3 K/mcL (0.0-1.3); Platelet Count 189 K/mcL (140-400); Red Blood Count 4.23 M/mcL (4.19-5.50); Red Cell Distribution Width 16.5 % (11.5-14.5); White Blood Count 8.7 K/mcL (4.3-11.1)
[2019-08-07 11:59] LABS: Alanine Aminotransferase 28 Units/L (7-52); Albumin 3.4 g/dL (3.5-5.7); Albumin/Globulin Ratio 1.1 (1.1-2.2); Alkaline Phosphatase 74 Units/L (34-104); Aspartate Amino Transferase 22 Units/L (13-39); BUN/Creatinine Ratio 22 (6-26); Bilirubin,Direct 0.5 mg/dL (0.0-0.2); Bilirubin,Indirect 1.1 mg/dL (0.0-1.0); Bilirubin,Total 1.6 mg/dL (0.3-1.0); Blood Urea Nitrogen 24 mg/dL (8-23); Calcium 8.8 mg/dL (8.6-10.3); Carbon Dioxide 27 mEq/L (23-29); Chloride 95 mEq/L (98-107); Globulin 3.2 g/dL (2.4-3.5); Glucose 337 mg/dL (70-105); Lipase 13 Units/L (11-82); Osmolality,Calculated 289 (280-300); Potassium 4.6 mEq/L (3.5-5.1); Sodium 131 mEq/L (136-145); Total Protein 6.6 g/dL (6.4-8.9); Troponin I 0.27 ng/mL (< 0.04); eGFR For African Americans > 60 (> 60); eGFR For Non-African Americans > 60 (> 60)
[2019-08-07 12:07] LABS: Lymphocytes # 2.8 K/mcL (0.6-4.6); Neutrophils # 5.6 K/mcL (1.6-8.9); Platelet Estimate Normal (Normal); Reactive Lymphocytes Present (Not Present); Toxic Granulation Present (Not Present)
[2019-08-07 12:36] LABS: Bilirubin,Urine Negative (Negative); Blood,Urine Negative (Negative); Clarity,Urine Clear (Clear); Color,Urine Yellow (Yellow); Glucose,Urine (UA) >=1000 mg/dL (Normal); Ketones,Urine 40 mg/dL (Negative); Leukocyte Esterase,Urine Negative (Negative); Nitrite,Urine Negative (Negative); Protein,Urine 30 mg/dL (Neg-Trace); Specific Gravity,Urine 1.026 (1.010-1.025); Urobilinogen,Urine Normal (Normal)
[2019-08-07 12:38] LABS: Bacteria,Urine None Seen per hpf (None-Few); Hyaline Casts,Urine None Seen per lpf (None-Few); RBC,Urine 0-3 per hpf (0-3); Squamous Epithelial Cell,Urine Many per lpf (None-Few); WBC,Urine 0-3 per hpf (0-3)
[2019-08-07] MEDS ORDERED: *HR* Heparin 5,000 UNIT/ML VIAL IVP PRN (13:45)
[2019-08-07] MEDS ORDERED: *HR* Heparin 5,000 UNIT/ML VIAL IVP ONE (13:45)
[2019-08-07] MEDS: Heparin 25,000 UNIT/250 ML D5W 25,000 UNIT/250 ML IV.SOLN IVC SCH (14:37)
[2019-08-07] MEDS ORDERED: *HR* FentaNYL (PF) 100 MCG/2 ML VIAL IVP ONE (14:49)
[2019-08-07] MEDS ORDERED: Gabapentin 400 MG CAPSULE PO STA (14:50)
[2019-08-07 14:55] LABS: INR 1.2; Prothrombin Time 13.6 Seconds (9.4-12.1)
[2019-08-07 14:57] LABS: Hematocrit 37.7 % (37.5-50.1); Hemoglobin 12.8 g/dL (12.9-16.9); Mean Corpuscular Hemoglobin 32.7 pg (28.0-33.3); Mean Corpuscular Volume 96.4 fL (83.0-100.0); Mean Platelet Volume 10.4 fL (9.4-12.4); Platelet Count 189 K/mcL (140-400); Red Blood Count 3.91 M/mcL (4.19-5.50); Red Cell Distribution Width 16.6 % (11.5-14.5); White Blood Count 7.5 K/mcL (4.3-11.1)
[2019-08-07] MEDS ORDERED: Nitroglycerin 0.4 MG TAB.SUBL SL PRN (17:10)
[2019-08-07] MEDS ORDERED: Ondansetron 4 MG/2 ML VIAL IVP PRN (17:10)
[2019-08-07] MEDS ORDERED: D5% in Water 1,000 ML IVC PRN (17:26)
[2019-08-07] MEDS ORDERED: Dextrose Gel 15 GM/37.5 ML TUBE PO PRN ×2 (17:26)
[2019-08-07] MEDS ORDERED: *HR* Dextrose 50 % in Water (Syg) 50 ML SYRINGE IVP PRN (17:26)
[2019-08-07] MEDS: Insulin LISPRO 300 UNITS/3 ML VIAL SQ SCH (21:42)
[2019-08-07] MEDS: Gabapentin 400 MG CAPSULE PO SCH (21:42)
[2019-08-07] MEDS: *HR* Heparin 5,000 UNIT/ML VIAL IVP PRN (21:50)
[2019-08-08 04:42] LABS: Hematocrit 35.5 % (37.5-50.1); Hemoglobin 12.4 g/dL (12.9-16.9); Mean Corpuscular HGB Conc 34.9 g/dL (31.6-35.5); Mean Corpuscular Hemoglobin 32.3 pg (28.0-33.3); Mean Corpuscular Volume 92.4 fL (83.0-100.0); Mean Platelet Volume 10.7 fL (9.4-12.4); Platelet Count 217 K/mcL (140-400); Red Blood Count 3.84 M/mcL (4.19-5.50); Red Cell Distribution Width 16.8 % (11.5-14.5); White Blood Count 8.6 K/mcL (4.3-11.1)
[2019-08-08 04:50] LABS: INR 1.2; Prothrombin Time 13.3 Seconds (9.4-12.1)
[2019-08-08 05:05] LABS: Alanine Aminotransferase 22 Units/L (7-52); Albumin 3.1 g/dL (3.5-5.7); Albumin/Globulin Ratio 1.1 (1.1-2.2); Alkaline Phosphatase 70 Units/L (34-104); Aspartate Amino Transferase 17 Units/L (13-39); BUN/Creatinine Ratio 20 (6-26); Bilirubin,Total 1.2 mg/dL (0.3-1.0); Blood Urea Nitrogen 24 mg/dL (8-23); Calcium 7.9 mg/dL (8.6-10.3); Carbon Dioxide 27 mEq/L (23-29); Chloride 94 mEq/L (98-107); Globulin 2.8 g/dL (2.4-3.5); Glucose 305 mg/dL (70-105); Magnesium 1.4 mg/dL (1.6-2.6); Osmolality,Calculated 288 (280-300); Sodium 131 mEq/L (136-145); Total Protein 5.9 g/dL (6.4-8.9); eGFR For African Americans > 60 (> 60); eGFR For Non-African Americans > 60 (> 60)
[2019-08-08 05:19] LABS: Lymphocytes # 3.6 K/mcL (0.6-4.6); Platelet Estimate Normal (Normal); Reactive Lymphocytes Present (Not Present)
[2019-08-08] MEDS: *HR* Heparin 5,000 UNIT/ML VIAL IVP PRN (05:38)
[2019-08-08] MEDS: Insulin LISPRO 300 UNITS/3 ML VIAL SQ SCH ×4 (09:42→22:23)
[2019-08-08] MEDS: Gabapentin 400 MG CAPSULE PO SCH ×3 (10:02→22:24)
[2019-08-08] MEDS: Aspirin Enteric Coated 81 MG Tablet PO SCH (10:02)
[2019-08-08] MEDS: Heparin 25,000 UNIT/250 ML D5W 25,000 UNIT/250 ML IV.SOLN IVC SCH (11:32)
[2019-08-08] MEDS: Isosorbide MONOnitrate (24 HR) 30 MG TAB.ER.24H PO SCH (15:02)
[2019-08-08 18:05] LABS: Bilirubin,Urine Negative (Negative); Blood,Urine Negative (Negative); Clarity,Urine Clear (Clear); Color,Urine Yellow (Yellow); Glucose,Urine (UA) >=1000 mg/dL (Normal); Ketones,Urine Negative (Negative); Leukocyte Esterase,Urine Negative (Negative); Nitrite,Urine Negative (Negative); Protein,Urine 30 mg/dL (Neg-Trace); Specific Gravity,Urine 1.028 (1.010-1.025); Urobilinogen,Urine Normal (Normal)
[2019-08-08 18:07] LABS: Bacteria,Urine None Seen per hpf (None-Few); Hyaline Casts,Urine None Seen per lpf (None-Few); RBC,Urine 0-3 per hpf (0-3); Squamous Epithelial Cell,Urine Many per lpf (None-Few); WBC,Urine 0-3 per hpf (0-3)
[2019-08-09] MEDS: Heparin 25,000 UNIT/250 ML D5W 25,000 UNIT/250 ML IV.SOLN IVC SCH ×2 (03:26→20:30)
[2019-08-09 05:00] LABS: Hematocrit 34.9 % (37.5-50.1); Hemoglobin 11.9 g/dL (12.9-16.9); Mean Corpuscular HGB Conc 34.1 g/dL (31.6-35.5); Mean Corpuscular Hemoglobin 32.9 pg (28.0-33.3); Mean Corpuscular Volume 96.4 fL (83.0-100.0); Mean Platelet Volume 10.9 fL (9.4-12.4); Platelet Count 219 K/mcL (140-400); Red Blood Count 3.62 M/mcL (4.19-5.50); Red Cell Distribution Width 16.7 % (11.5-14.5)
[2019-08-09 05:01] LABS: White Blood Count 14.1 K/mcL (4.3-11.1)
[2019-08-09 05:19] LABS: Bilirubin,Total 1.3 mg/dL (0.3-1.0); Calcium 7.9 mg/dL (8.6-10.3); Globulin 3.1 g/dL (2.4-3.5); Potassium 4.1 mEq/L (3.5-5.1); Total Protein 6.1 g/dL (6.4-8.9)
[2019-08-09] MEDS ORDERED: Regadenoson 0.4 MG/5 ML SYRINGE IVP ONE (06:04)
[2019-08-09] MEDS ORDERED: 0.9 % Sodium Chloride 500 ML IVC SCH (08:30)
[2019-08-09] MEDS: Gabapentin 400 MG CAPSULE PO SCH ×3 (08:52→20:48)
[2019-08-09] MEDS: Isosorbide MONOnitrate (24 HR) 30 MG TAB.ER.24H PO SCH (08:52)
[2019-08-09] MEDS: Aspirin Enteric Coated 81 MG Tablet PO SCH (08:52)
[2019-08-09] MEDS: Insulin LISPRO 300 UNITS/3 ML VIAL SQ SCH ×4 (08:53→20:49)
[2019-08-09] MEDS ORDERED: Perflutren Lipid Microsphere 1.3 ML in 0.9 % Sodium Chloride 8.7 ML IVP ONE (09:37)
[2019-08-09] MEDS ORDERED: Perflutren Lipid Microsphere 2 ML VIAL ONE (09:40)
[2019-08-09] MEDS: Insulin DETEMIR 100 UNIT/ML X5UNITS SQ SCH ×2 (10:16→20:49)
[2019-08-09] MEDS: *HR* Heparin 5,000 UNIT/ML VIAL IVP PRN (22:54)
[2019-08-10 05:18] LABS: Hematocrit 30.5 % (37.5-50.1); Hemoglobin 10.5 g/dL (12.9-16.9); Mean Corpuscular HGB Conc 34.4 g/dL (31.6-35.5); Mean Corpuscular Hemoglobin 32.4 pg (28.0-33.3); Mean Corpuscular Volume 94.1 fL (83.0-100.0); Mean Platelet Volume 10.9 fL (9.4-12.4); Neutrophils # 12.2 K/mcL (1.6-8.9); Nucleated Red Blood Cells 0.1 /100 WBC (0); Platelet Count 238 K/mcL (140-400); Red Blood Count 3.24 M/mcL (4.19-5.50); Red Cell Distribution Width 17.1 % (11.5-14.5); White Blood Count 19.1 K/mcL (4.3-11.1)
[2019-08-10 05:40] LABS: Lymphocytes # 5.4 K/mcL (0.6-4.6); Monocytes # 1.5 K/mcL (0.0-1.3); Platelet Estimate Normal (Normal); Reactive Lymphocytes Present (Not Present)
[2019-08-10 05:41] LABS: Anisocytosis 1+ (Not Present); Large Platelets Present (Not Present); Polychromasia 1+ (Not Present)
[2019-08-10 06:01] LABS: C-Reactive Protein > 300 mg/L (Less than 10); Magnesium 1.8 mg/dL (1.6-2.6); Phosphorous 2.2 mg/dL (2.7-4.5)
[2019-08-10 06:04] LABS: Albumin 2.7 g/dL (3.5-5.7); Albumin/Globulin Ratio 0.9 (1.1-2.2); Bilirubin,Total 1.2 mg/dL (0.3-1.0); Calcium 7.7 mg/dL (8.6-10.3); Total Protein 5.7 g/dL (6.4-8.9)
[2019-08-10] MEDS ORDERED: 0.9 % Sodium Chloride 500 ML IVC ONE (07:31)
[2019-08-10] MEDS ORDERED: 0.9 % Sodium Chloride 1,000 ML ONE (07:32)
[2019-08-10 08:11] LABS: Hematocrit 27.9 % (37.5-50.1); Hemoglobin 9.7 g/dL (12.9-16.9); Mean Corpuscular HGB Conc 34.8 g/dL (31.6-35.5); Mean Corpuscular Hemoglobin 33.2 pg (28.0-33.3); Mean Corpuscular Volume 95.5 fL (83.0-100.0); Nucleated Red Blood Cells 0.1 /100 WBC (0); Platelet Count 237 K/mcL (140-400); Red Blood Count 2.92 M/mcL (4.19-5.50); Red Cell Distribution Width 17.2 % (11.5-14.5); White Blood Count 18.5 K/mcL (4.3-11.1)
[2019-08-10 08:18] LABS: INR 1.4; Prothrombin Time 15.7 Seconds (9.4-12.1)
[2019-08-10 08:21] LABS: Activated Partial Thrombo Time 56.7 Seconds (26.0-36.0)
[2019-08-10 08:56] LABS: Monocytes # 1.9 K/mcL (0.0-1.3); Neutrophils # 13.3 K/mcL (1.6-8.9); Platelet Estimate Normal (Normal); Toxic Granulation Present (Not Present)
[2019-08-10 08:57] LABS: Anisocytosis 1+ (Not Present)
[2019-08-10] MEDS ORDERED: Pantoprazole 40 MG VIAL IVP ONE (08:59)
[2019-08-10] MEDS ORDERED: levoFLOXacin 750 MG/150 ML 750 MG/150 ML BAG IVPB SCH (09:00)
[2019-08-10] MEDS ORDERED: Lidocaine -MPF 2% 5 ML VIAL INFILT ONE (09:07)
[2019-08-10] MEDS ORDERED: *HR* Propofol 200 MG/20 ML VIAL IVP ONE (09:07)
[2019-08-10] MEDS ORDERED: *HR* Phenylephrine 10 MG/ML VIAL IVC ONE (09:07)
[2019-08-10 09:47] LABS: Hemoglobin 9.4 g/dL (12.9-16.9); Mean Corpuscular HGB Conc 34.8 g/dL (31.6-35.5); Mean Corpuscular Hemoglobin 32.5 pg (28.0-33.3); Mean Corpuscular Volume 93.4 fL (83.0-100.0); Mean Platelet Volume 10.7 fL (9.4-12.4); Nucleated Red Blood Cells 0.1 /100 WBC (0); Platelet Count 198 K/mcL (140-400); Red Blood Count 2.89 M/mcL (4.19-5.50); Red Cell Distribution Width 17.1 % (11.5-14.5); White Blood Count 17.1 K/mcL (4.3-11.1)
[2019-08-10] MEDS: Gabapentin 400 MG CAPSULE PO SCH ×3 (09:53→20:25)
[2019-08-10 10:09] LABS: Albumin 2.5 g/dL (3.5-5.7); Albumin/Globulin Ratio 0.9 (1.1-2.2); Bilirubin,Direct 0.5 mg/dL (0.0-0.2); Bilirubin,Indirect 0.6 mg/dL (0.0-1.0); Bilirubin,Total 1.1 mg/dL (0.3-1.0); Calcium 7.3 mg/dL (8.6-10.3); Globulin 2.7 g/dL (2.4-3.5); Potassium 4.1 mEq/L (3.5-5.1); Total Protein 5.2 g/dL (6.4-8.9)
[2019-08-10 10:44] LABS: Lymphocytes # 4.1 K/mcL (0.6-4.6); Reactive Lymphocytes Present (Not Present); Toxic Granulation Present (Not Present)
[2019-08-10 10:45] LABS: Anisocytosis 1+ (Not Present); Platelet Estimate Normal (Normal)
[2019-08-10 10:46] LABS: Polychromasia 1+ (Not Present)
[2019-08-10 10:56] LABS: Estimated Average Glucose 255 mg/dl
[2019-08-10] MEDS: Pantoprazole 40 MG in 0.9 % Sodium Chloride Mini Bag 100 ML IVC SCH ×3 (11:08→20:25)
[2019-08-10] MEDS: MetroNIDAZOLE 500 MG/100 ML 500 MG/100 ML BAG IVPB SCH ×2 (11:11→20:26)
[2019-08-10] MEDS: *HR* OxyCODONE/APAP 10/325 TABLET PO PRN ×2 (11:46→18:06)
[2019-08-10] MEDS: Insulin LISPRO 300 UNITS/3 ML VIAL SQ SCH ×3 (11:49→23:44)
[2019-08-10] MEDS ORDERED: 0.9 % Sodium Chloride 250 ML ONE (14:44)
[2019-08-10 15:12] LABS: Basophils % 0.3 %; Hematocrit 28.3 % (37.5-50.1); Hemoglobin 10.1 g/dL (12.9-16.9); Immature Granulocytes % 4.5 % (0-4); Lymphocytes # 2.2 K/mcL (0.6-4.6); Lymphocytes % 15.1 %; Mean Corpuscular HGB Conc 35.7 g/dL (31.6-35.5); Mean Corpuscular Hemoglobin 32.7 pg (28.0-33.3); Mean Corpuscular Volume 91.6 fL (83.0-100.0); Mean Platelet Volume 10.8 fL (9.4-12.4); Monocytes # 1.2 K/mcL (0.0-1.3); Monocytes % 8.3 %; Neutrophils # 10.4 K/mcL (1.6-8.9); Nucleated Red Blood Cells 0.1 /100 WBC (0); Platelet Count 188 K/mcL (140-400); Red Blood Count 3.09 M/mcL (4.19-5.50); Red Cell Distribution Width 16.7 % (11.5-14.5); Segmented Neutrophils % 71.8 %; White Blood Count 14.5 K/mcL (4.3-11.1)
[2019-08-10] MEDS ORDERED: 0.9 % Sodium Chloride 500 ML ONE (15:53)
[2019-08-10] MEDS ORDERED: Piperacillin/Tazobactam 3.375 GM in 0.9 % Sodium Chloride Mini Bag 100 ML IVPB SCH (16:00)
[2019-08-10 16:19] LABS: Platelet Estimate Normal (Normal); Reactive Lymphocytes Present (Not Present)
[2019-08-10 16:22] LABS: Anisocytosis 1+ (Not Present)
[2019-08-10] MEDS ORDERED: *HR* EPINEPHrine 1 MG/10 ML SYRINGE ONE (16:27)
[2019-08-10] MEDS ORDERED: *HR* EPINEPHrine 1 MG/10 ML SYRINGE INTRATRACH PRN (16:42)
[2019-08-10] MEDS ORDERED: Pantoprazole 40 MG VIAL IVP SCH (18:00)
[2019-08-10 19:26] LABS: Basophils # 0.1 K/mcL (0.0-0.2); Basophils % 0.5 %; Hematocrit 31.7 % (37.5-50.1); Hemoglobin 10.8 g/dL (12.9-16.9); Immature Granulocytes % 5.6 % (0-4); Lymphocytes # 1.9 K/mcL (0.6-4.6); Lymphocytes % 12.6 %; Mean Corpuscular HGB Conc 34.1 g/dL (31.6-35.5); Mean Corpuscular Hemoglobin 32.3 pg (28.0-33.3); Mean Corpuscular Volume 94.9 fL (83.0-100.0); Mean Platelet Volume 10.8 fL (9.4-12.4); Monocytes # 1.1 K/mcL (0.0-1.3); Monocytes % 7.2 %; Neutrophils # 10.9 K/mcL (1.6-8.9); Platelet Count 176 K/mcL (140-400); Red Blood Count 3.34 M/mcL (4.19-5.50); Red Cell Distribution Width 16.5 % (11.5-14.5); Segmented Neutrophils % 74.1 %; White Blood Count 14.7 K/mcL (4.3-11.1)
[2019-08-10 19:57] LABS: Dohle Bodies Present (Not Present)
[2019-08-10 19:58] LABS: Toxic Granulation Present (Not Present)
[2019-08-11] MEDS: *HR* OxyCODONE/APAP 10/325 TABLET PO PRN ×3 (00:20→12:44)
[2019-08-11] MEDS ORDERED: Saline Nasal Spray 44 ML BOTTLE NS PRN ×2 (00:54→17:50)
[2019-08-11] MEDS: Pantoprazole 40 MG in 0.9 % Sodium Chloride Mini Bag 100 ML IVC SCH ×2 (01:10→06:21)
[2019-08-11 01:32] LABS: Basophils # 0.1 K/mcL (0.0-0.2); Basophils % 0.5 %; Hematocrit 30.7 % (37.5-50.1); Hemoglobin 10.8 g/dL (12.9-16.9); Immature Granulocytes % 3.9 % (0-4); Lymphocytes # 2.2 K/mcL (0.6-4.6); Lymphocytes % 14.4 %; Mean Corpuscular HGB Conc 35.2 g/dL (31.6-35.5); Mean Corpuscular Volume 91.1 fL (83.0-100.0); Monocytes # 0.7 K/mcL (0.0-1.3); Monocytes % 4.8 %; Neutrophils # 11.4 K/mcL (1.6-8.9); Nucleated Red Blood Cells 0.1 /100 WBC (0); Platelet Count 197 K/mcL (140-400); Red Blood Count 3.37 M/mcL (4.19-5.50); Red Cell Distribution Width 16.7 % (11.5-14.5); Segmented Neutrophils % 76.4 %; White Blood Count 14.9 K/mcL (4.3-11.1)
[2019-08-11 01:55] LABS: Anisocytosis 1+ (Not Present); Microcytosis Present (Not Present); Platelet Estimate Normal (Normal); Polychromasia 1+ (Not Present); Reactive Lymphocytes Present (Not Present)
[2019-08-11] MEDS: MetroNIDAZOLE 500 MG/100 ML 500 MG/100 ML BAG IVPB SCH ×3 (03:32→20:17)
[2019-08-11 04:05] LABS: Hematocrit 34.3 % (37.5-50.1); Hemoglobin 12.1 g/dL (12.9-16.9); Mean Corpuscular HGB Conc 35.3 g/dL (31.6-35.5); Mean Corpuscular Hemoglobin 32.3 pg (28.0-33.3); Mean Corpuscular Volume 91.5 fL (83.0-100.0); Mean Platelet Volume 10.9 fL (9.4-12.4); Platelet Count 184 K/mcL (140-400); Red Blood Count 3.75 M/mcL (4.19-5.50); Red Cell Distribution Width 16.9 % (11.5-14.5); White Blood Count 15.5 K/mcL (4.3-11.1)
[2019-08-11 04:20] LABS: Alanine Aminotransferase 16 Units/L (7-52); Albumin 2.5 g/dL (3.5-5.7); Albumin/Globulin Ratio 0.8 (1.1-2.2); Alkaline Phosphatase 92 Units/L (34-104); Aspartate Amino Transferase 17 Units/L (13-39); BUN/Creatinine Ratio 36 (6-26); Bilirubin,Total 1.3 mg/dL (0.3-1.0); Blood Urea Nitrogen 45 mg/dL (8-23); Calcium 7.8 mg/dL (8.6-10.3); Carbon Dioxide 25 mEq/L (23-29); Chloride 102 mEq/L (98-107); Glucose 207 mg/dL (70-105); Osmolality,Calculated 288 (280-300); Potassium 3.7 mEq/L (3.5-5.1); Sodium 130 mEq/L (136-145); Total Protein 5.5 g/dL (6.4-8.9); eGFR For African Americans > 60 (> 60); eGFR For Non-African Americans 57 (> 60)
[2019-08-11] MEDS: Insulin LISPRO 300 UNITS/3 ML VIAL SQ SCH ×4 (06:16→20:17)
[2019-08-11] MEDS: Gabapentin 400 MG CAPSULE PO SCH ×3 (08:01→20:16)
[2019-08-11] MEDS ORDERED: Dextrose Gel 15 GM/37.5 ML TUBE PO PRN ×4 (08:52→17:50)
[2019-08-11] MEDS ORDERED: D5% in Water 1,000 ML IVC PRN ×2 (08:52→17:50)
[2019-08-11] MEDS ORDERED: *HR* Dextrose 50 % in Water (Syg) 50 ML SYRINGE IVP PRN ×2 (08:52→17:50)
[2019-08-11] MEDS: Sucralfate 1 GM TABLET PO SCH ×3 (12:18→20:16)
[2019-08-11 12:25] LABS: Acinetobacter baumannii by PCR Not Detected (Not Detect); Candida albicans by PCR Not Detected (Not Detect); Candida glabrata by PCR Not Detected (Not Detect); Candida krusei by PCR Not Detected (Not Detect); Candida parapsilosis by PCR Not Detected (Not Detect); Candida tropicalis by PCR Not Detected (Not Detect); Enterobacter cloacae Cmplx PCR Not Detected (Not Detect); Enterobacteriaceae by PCR Not Detected (Not Detect); Enterococcus by PCR Not Detected (Not Detect); Escherichia coli by PCR Not Detected (Not Detect); Klebsiella oxytoca by PCR Not Detected (Not Detect); Klebsiella pneumoniae by PCR Not Detected (Not Detect); Proteus by PCR Not Detected (Not Detect); Pseudomonas aeruginosa by PCR Not Detected (Not Detect); Serratia marcescens by PCR Not Detected (Not Detect); Staphylococcus aureus by PCR DETECTED (Not Detect); Streptococcus agalactiae(B)PCR Not Detected (Not Detect); Streptococcus by PCR Not Detected (Not Detect); Streptococcus pneumoniae PCR Not Detected (Not Detect); Streptococcus pyogenes (A) PCR Not Detected (Not Detect); blaKPC Carbapenem-Resist Gene Not Detected (Not Detect); mecA Methicillin-Resist Gene DETECTED (Not Detect); vanA/B Vancomycin-Resist Genes Not Detected (Not Detect)
[2019-08-11] MEDS ORDERED: Ondansetron 4 MG/2 ML VIAL IVP PRN (17:50)
[2019-08-11] MEDS ORDERED: Nitroglycerin 0.4 MG TAB.SUBL SL PRN (17:50)
[2019-08-11] MEDS ORDERED: *HR* EPINEPHrine 1 MG/10 ML SYRINGE INTRATRACH PRN (17:50)
[2019-08-11] MEDS ORDERED: Insulin LISPRO 300 UNITS/3 ML VIAL SQ SCH (21:00)
[2019-08-12] MEDS ORDERED: Acetaminophen 325 MG TABLET PO PRN (01:11)
[2019-08-12] MEDS: Pantoprazole 40 MG in 0.9 % Sodium Chloride Mini Bag 100 ML IVC SCH (01:13)
[2019-08-12] MEDS: MetroNIDAZOLE 500 MG/100 ML 500 MG/100 ML BAG IVPB SCH ×3 (03:40→20:31)
[2019-08-12] MEDS: *HR* OxyCODONE/APAP 10/325 TABLET PO PRN ×3 (04:11→22:50)
[2019-08-12 04:36] LABS: Basophils # 0.1 K/mcL (0.0-0.2); Basophils % 0.7 %; Hematocrit 33.4 % (37.5-50.1); Hemoglobin 11.3 g/dL (12.9-16.9); Immature Granulocytes % 5.3 % (0-4); Lymphocytes # 4.3 K/mcL (0.6-4.6); Lymphocytes % 25.3 %; Mean Corpuscular HGB Conc 33.8 g/dL (31.6-35.5); Mean Corpuscular Hemoglobin 32.5 pg (28.0-33.3); Mean Platelet Volume 10.9 fL (9.4-12.4); Monocytes # 1.2 K/mcL (0.0-1.3); Monocytes % 7.1 %; Nucleated Red Blood Cells 0.4 /100 WBC (0); Platelet Count 228 K/mcL (140-400); Red Blood Count 3.48 M/mcL (4.19-5.50); Red Cell Distribution Width 17.3 % (11.5-14.5); Segmented Neutrophils % 61.6 %; White Blood Count 17.1 K/mcL (4.3-11.1)
[2019-08-12 04:50] LABS: Neutrophils # 10.5 K/mcL (1.6-8.9)
[2019-08-12 04:52] LABS: Alanine Aminotransferase 23 Units/L (7-52); Albumin 2.7 g/dL (3.5-5.7); Albumin/Globulin Ratio 0.9 (1.1-2.2); Alkaline Phosphatase 110 Units/L (34-104); Aspartate Amino Transferase 39 Units/L (13-39); BUN/Creatinine Ratio 22 (6-26); Bilirubin,Total 1.1 mg/dL (0.3-1.0); Blood Urea Nitrogen 28 mg/dL (8-23); Calcium 7.9 mg/dL (8.6-10.3); Carbon Dioxide 24 mEq/L (23-29); Chloride 98 mEq/L (98-107); Globulin 3.1 g/dL (2.4-3.5); Glucose 225 mg/dL (70-105); Magnesium 1.8 mg/dL (1.6-2.6); Osmolality,Calculated 287 (280-300); Phosphorous 1.6 mg/dL (2.7-4.5); Potassium 4.2 mEq/L (3.5-5.1); Sodium 132 mEq/L (136-145); Total Protein 5.8 g/dL (6.4-8.9); eGFR For African Americans > 60 (> 60); eGFR For Non-African Americans 56 (> 60)
[2019-08-12 05:32] LABS: Reactive Lymphocytes Present (Not Present)
[2019-08-12 05:33] LABS: Polychromasia 1+ (Not Present); Toxic Granulation Present (Not Present)
[2019-08-12 05:34] LABS: Platelet Estimate Normal (Normal)
[2019-08-12] MEDS ORDERED: Acetaminophen 325 MG TABLET PO SCH (06:00)
[2019-08-12] MEDS: Sucralfate 1 GM TABLET PO SCH ×4 (07:57→22:50)
[2019-08-12] MEDS: Insulin LISPRO 300 UNITS/3 ML VIAL SQ SCH ×6 (07:57→20:31)
[2019-08-12] MEDS: Gabapentin 400 MG CAPSULE PO SCH ×3 (07:59→20:32)
[2019-08-12 10:25] LABS: Hematocrit 30.6 % (37.5-50.1); Mean Corpuscular HGB Conc 32.7 g/dL (31.6-35.5); Mean Corpuscular Hemoglobin 31.9 pg (28.0-33.3); Mean Corpuscular Volume 97.8 fL (83.0-100.0); Mean Platelet Volume 10.4 fL (9.4-12.4); Nucleated Red Blood Cells 0.4 /100 WBC (0); Platelet Count 184 K/mcL (140-400); Red Blood Count 3.13 M/mcL (4.19-5.50); Red Cell Distribution Width 17.3 % (11.5-14.5); White Blood Count 13.2 K/mcL (4.3-11.1)
[2019-08-12 11:25] LABS: Lymphocytes # 2.4 K/mcL (0.6-4.6); Neutrophils # 10.8 K/mcL (1.6-8.9); Platelet Estimate Slight Decrease (Normal)
[2019-08-12 11:26] LABS: Polychromasia 1+ (Not Present); Reactive Lymphocytes Present (Not Present)
[2019-08-12] MEDS: Insulin DETEMIR 100 UNIT/ML X5UNITS SQ SCH (20:31)
[2019-08-13 04:33] LABS: Hematocrit 30.9 % (37.5-50.1); Hemoglobin 10.5 g/dL (12.9-16.9); Mean Corpuscular Hemoglobin 31.9 pg (28.0-33.3); Mean Corpuscular Volume 93.9 fL (83.0-100.0); Platelet Count 209 K/mcL (140-400); Red Blood Count 3.29 M/mcL (4.19-5.50); Red Cell Distribution Width 17.2 % (11.5-14.5); White Blood Count 14.5 K/mcL (4.3-11.1)
[2019-08-13] MEDS: MetroNIDAZOLE 500 MG/100 ML 500 MG/100 ML BAG IVPB SCH ×3 (04:40→21:05)
[2019-08-13 04:50] LABS: Alanine Aminotransferase 21 Units/L (7-52); Albumin 2.4 g/dL (3.5-5.7); Albumin/Globulin Ratio 0.7 (1.1-2.2); Alkaline Phosphatase 107 Units/L (34-104); Aspartate Amino Transferase 32 Units/L (13-39); BUN/Creatinine Ratio 18 (6-26); Bilirubin,Total 0.9 mg/dL (0.3-1.0); Blood Urea Nitrogen 20 mg/dL (8-23); Calcium 7.9 mg/dL (8.6-10.3); Carbon Dioxide 27 mEq/L (23-29); Chloride 100 mEq/L (98-107); Globulin 3.3 g/dL (2.4-3.5); Glucose 183 mg/dL (70-105); Magnesium 1.6 mg/dL (1.6-2.6); Osmolality,Calculated 281 (280-300); Phosphorous 2.3 mg/dL (2.7-4.5); Potassium 3.9 mEq/L (3.5-5.1); Sodium 132 mEq/L (136-145); Total Protein 5.7 g/dL (6.4-8.9); Vancomycin,Random 12 mcg/mL; eGFR For African Americans > 60 (> 60); eGFR For Non-African Americans > 60 (> 60)
[2019-08-13] MEDS ORDERED: Gadolinium Contrast Agent (WT Based) IV PRN ×2 (07:19→10:10)
[2019-08-13] MEDS: Gabapentin 400 MG CAPSULE PO SCH ×3 (09:22→21:01)
[2019-08-13] MEDS: Sucralfate 1 GM TABLET PO SCH ×4 (09:22→21:01)
[2019-08-13] MEDS: Insulin LISPRO 300 UNITS/3 ML VIAL SQ SCH ×7 (09:22→21:24)
[2019-08-13] MEDS ORDERED: 0.9 % Sodium Chloride 1,000 ML IVC SCH (10:15)
[2019-08-13] MEDS: *HR* OxyCODONE/APAP 10/325 TABLET PO PRN (12:30)
[2019-08-13] MEDS: Doxycycline 100 MG CAPSULE PO SCH (21:01)
[2019-08-13] MEDS: Insulin DETEMIR 100 UNIT/ML X5UNITS SQ SCH (21:25)
[2019-08-14] MEDS: *HR* OxyCODONE/APAP 10/325 TABLET PO PRN (02:55)
[2019-08-14] MEDS: MetroNIDAZOLE 500 MG/100 ML 500 MG/100 ML BAG IVPB SCH ×3 (03:45→21:04)
[2019-08-14 04:17] LABS: Hematocrit 29.9 % (37.5-50.1); Hemoglobin 9.8 g/dL (12.9-16.9); Mean Corpuscular HGB Conc 32.8 g/dL (31.6-35.5); Mean Corpuscular Hemoglobin 31.9 pg (28.0-33.3); Mean Corpuscular Volume 97.4 fL (83.0-100.0); Mean Platelet Volume 10.4 fL (9.4-12.4); Platelet Count 212 K/mcL (140-400); Red Blood Count 3.07 M/mcL (4.19-5.50); Red Cell Distribution Width 17.2 % (11.5-14.5); White Blood Count 13.1 K/mcL (4.3-11.1)
[2019-08-14 04:38] LABS: Alanine Aminotransferase 19 Units/L (7-52); Albumin 2.2 g/dL (3.5-5.7); Albumin/Globulin Ratio 0.6 (1.1-2.2); Alkaline Phosphatase 126 Units/L (34-104); Aspartate Amino Transferase 33 Units/L (13-39); BUN/Creatinine Ratio 15 (6-26); Bilirubin,Total 0.9 mg/dL (0.3-1.0); Blood Urea Nitrogen 15 mg/dL (8-23); Calcium 7.5 mg/dL (8.6-10.3); Carbon Dioxide 24 mEq/L (23-29); Chloride 103 mEq/L (98-107); Globulin 3.4 g/dL (2.4-3.5); Glucose 176 mg/dL (70-105); Magnesium 1.4 mg/dL (1.6-2.6); Osmolality,Calculated 281 (280-300); Phosphorous 2.7 mg/dL (2.7-4.5); Potassium 3.7 mEq/L (3.5-5.1); Sodium 133 mEq/L (136-145); Total Protein 5.6 g/dL (6.4-8.9); eGFR For African Americans > 60 (> 60); eGFR For Non-African Americans > 60 (> 60)
[2019-08-14] MEDS ORDERED: Lidocaine Viscous Oral Soln 15 ML SOLUTION MM PRN (09:07)
[2019-08-14] MEDS ORDERED: 0.9 % Sodium Chloride 500 ML IVC ONE (09:08)
[2019-08-14] MEDS: *HR* Midazolam HCl 5 MG/5 ML VIAL IVP PRN ×5 (09:45→10:05)
[2019-08-14] MEDS: *HR* FentaNYL (PF) 100 MCG/2 ML VIAL IVP PRN ×4 (09:45→10:15)
[2019-08-14] MEDS ORDERED: Gadolinium Contrast Agent (WT Based) IV PRN ×2 (10:25→12:45)
[2019-08-14] MEDS ORDERED: Acetaminophen 325 MG TABLET PO PRN (10:45)
[2019-08-14] MEDS ORDERED: *HR* OxyCODONE/APAP 10/325 TABLET PO PRN (10:46)
[2019-08-14] MEDS: Sucralfate 1 GM TABLET PO SCH ×4 (11:08→20:12)
[2019-08-14] MEDS: Insulin LISPRO 300 UNITS/3 ML VIAL SQ SCH ×5 (11:09→20:39)
[2019-08-14] MEDS: Gabapentin 400 MG CAPSULE PO SCH ×3 (11:46→21:24)
[2019-08-14] MEDS ORDERED: D5% in 0.9% NACL 1,000 ML IVC SCH (12:30)
[2019-08-14 14:03] LABS: ABG Base Excess 6 mEq/L (-2 to 3); ABG HCO3 29 mEq/L (21-27); ABG Oxygen Saturation 94 % (95-98); ABG PCO2 35 mmHg (35-45); ABG PH 7.52 pH Units (7.32-7.45); ABG PO2 63 mmHg (85-104); ABG TCO2 30 mEq/L (20-26)
[2019-08-14 14:43] LABS: Hematocrit 30.9 % (37.5-50.1)
[2019-08-14] MEDS ORDERED: *HR* HYDROmorphone (PF) 1 MG/ML SYRINGE IVP ONE (15:31)
[2019-08-14 20:20] LABS: Hematocrit 33.2 % (37.5-50.1); Hemoglobin 11.1 g/dL (12.9-16.9)
[2019-08-14] MEDS: Insulin DETEMIR 100 UNIT/ML X5UNITS SQ SCH (21:23)
[2019-08-14] MEDS: Doxycycline 100 MG CAPSULE PO SCH (21:24)
[2019-08-15] MEDS: *HR* HYDROmorphone (PF) 1 MG/ML SYRINGE IVP PRN ×3 (05:11→15:33)
[2019-08-15] MEDS: MetroNIDAZOLE 500 MG/100 ML 500 MG/100 ML BAG IVPB SCH ×2 (05:11→12:33)
[2019-08-15 05:43] LABS: Hematocrit 29.8 % (37.5-50.1); Hemoglobin 10.1 g/dL (12.9-16.9); Mean Corpuscular HGB Conc 33.9 g/dL (31.6-35.5); Mean Corpuscular Volume 94.3 fL (83.0-100.0); Mean Platelet Volume 10.2 fL (9.4-12.4); Platelet Count 206 K/mcL (140-400); Red Blood Count 3.16 M/mcL (4.19-5.50); White Blood Count 12.1 K/mcL (4.3-11.1)
[2019-08-15] MEDS ORDERED: Vancomycin 1,000 MG, Sodium Chloride IRRigation 1,000 ML IR ONE (06:00)
[2019-08-15 06:02] LABS: Alanine Aminotransferase 18 Units/L (7-52); Albumin 2.2 g/dL (3.5-5.7); Albumin/Globulin Ratio 0.6 (1.1-2.2); Alkaline Phosphatase 133 Units/L (34-104); Aspartate Amino Transferase 34 Units/L (13-39); BUN/Creatinine Ratio 15 (6-26); Bilirubin,Total 0.8 mg/dL (0.3-1.0); Blood Urea Nitrogen 13 mg/dL (8-23); Calcium 7.4 mg/dL (8.6-10.3); Carbon Dioxide 26 mEq/L (23-29); Chloride 103 mEq/L (98-107); Globulin 3.7 g/dL (2.4-3.5); Glucose 194 mg/dL (70-105); Magnesium 1.4 mg/dL (1.6-2.6); Osmolality,Calculated 295 (280-300); Phosphorous 2.1 mg/dL (2.7-4.5); Potassium 3.9 mEq/L (3.5-5.1); Sodium 140 mEq/L (136-145); Total Protein 5.9 g/dL (6.4-8.9); eGFR For African Americans > 60 (> 60); eGFR For Non-African Americans > 60 (> 60)
[2019-08-15] MEDS ORDERED: Metoprolol XL (24 HR) Succ 25 MG TAB.ER.24H PO SCH (09:00)
[2019-08-15] MEDS: Sucralfate 1 GM TABLET PO SCH ×3 (10:14→15:33)
[2019-08-15] MEDS: Gabapentin 400 MG CAPSULE PO SCH ×2 (10:14→15:32)
[2019-08-15] MEDS: Insulin LISPRO 300 UNITS/3 ML VIAL SQ SCH ×3 (10:28→17:15)
[2019-08-15 11:23] VITALS: BP 167/83
[2019-08-15] MEDS ORDERED: Aminoglycoside Consult 1 EACH MC ONE (18:24)
== END 2019-08-15 18:25 | disposition short-term general hospital (02) | DRG 377 ==
LOC: EMEROOARM 10:54 → 3ANU 10:54 → SUATTDRO 15:26 → 3ANU 16:10 → SUATTDRO 08-08 15:57 → ICNU 08-10 08:08 → 2ANU 08-13 00:36
PROVIDERS: ADMIT Family Medicine; ATTEND Internal Medicine

== ENCOUNTER 2019-11-30 06:27 | Inpatient (IN) ==
[~2019-11-30 06:27] MED LIST: Vancomycin 1,000 MG, Sodium Chloride IRRigation 1,000 ML IR ONE
[2019-11-30] MEDS ORDERED: Heparin 1,000 UNITS/500 mL 0 ML ONE (06:46)
[2019-11-30] MEDS ORDERED: Clindamycin 900 MG/50 ML 900 MG/50 ML IV.SOLN IVPB ONE (07:03)
[2019-11-30] MEDS ORDERED: Lidocaine -MPF 2% 2 ML VIAL ONE ×3 (07:06→07:33)
[2019-11-30] MEDS ORDERED: Lidocaine HCL 4 ML Topical Solution (Laryng-O-Jet Kit Sterile Pak) TP ONE (07:06)
[2019-11-30] MEDS ORDERED: *HR* FentaNYL (PF) 100 MCG/2 ML VIAL ONE (07:06)
[2019-11-30] MEDS ORDERED: *HR* Phenylephrine 10 MG/ML VIAL ONE (07:06)
[2019-11-30] MEDS ORDERED: Ondansetron 4 MG/2 ML VIAL ONE (07:06)
[2019-11-30] MEDS ORDERED: Dexamethasone 4 MG/ML VIAL ONE (07:06)
[2019-11-30] MEDS ORDERED: Protamine Sulfate 50 MG/5 ML VIAL IVP ONE (07:07)
[2019-11-30] MEDS ORDERED: Heparin 1,000 UNITS/500 mL 1,000 ML ONE (07:07)
[2019-11-30] MEDS ORDERED: *HR* Propofol 200 MG/20 ML VIAL IVP ONE (07:07)
[2019-11-30] MEDS ORDERED: Bupivacaine-MPF 0.25% 10 ML VIAL ONE (07:07)
[2019-11-30] MEDS ORDERED: *HR* Midazolam HCl 2 MG/2 ML VIAL ONE (07:07)
[2019-11-30] MEDS ORDERED: *HR* Remifentanil 1 MG VIAL IVP ONE ×2 (07:07→10:05)
[2019-11-30] MEDS ORDERED: *HR* Heparin 5,000 UNIT/ML VIAL ONE ×2 (07:08→10:21)
[2019-11-30] MEDS ORDERED: *HR* Rocuronium Bromide 50 MG/5 ML VIAL ONE (07:08)
[2019-11-30] MEDS ORDERED: *HR* Succinylcholine 200 MG/10 ML VIAL IVP ONE (07:08)
[2019-11-30] MEDS ORDERED: Ringers Solution, Lactated 1,000 ML IVC SCH (07:15)
[2019-11-30] MEDS ORDERED: Famotidine 20 MG/2 ML VIAL IVP ONE (07:22)
[2019-11-30] MEDS ORDERED: Acetaminophen IV 1,000 MG/100 ML INFUS..BTL IVPB ONE (07:22)
[2019-11-30] MEDS ORDERED: *HR* Vasopressin 20 UNIT/ML VIAL ONE (07:25)
[2019-11-30] MEDS ORDERED: NiCARdipine 2.5 MG/10 ML Syringe IVPB ONE (07:25)
[2019-11-30] MEDS ORDERED: EPHEDrine 50 MG/ML VIAL ONE (07:34)
[2019-11-30] MEDS ORDERED: *HR* PHENYLEPHRINE 1,000 MCG/10 ML SYRINGE IVP ONE (08:25)
[2019-11-30] MEDS ORDERED: Ondansetron 4 MG/2 ML VIAL IVP ONE (08:47)
[2019-11-30] MEDS ORDERED: *HR* HYDROmorphone PF 0.5 MG/0.5 ML SYRINGE IVP PRN (08:47)
[2019-11-30] MEDS ORDERED: *HR* Labetalol 20 MG/4 ML SYRINGE IVP PRN ×2 (08:48→13:29)
[2019-11-30] MEDS ORDERED: D5% in Water 1,000 ML IVC PRN ×2 (12:45→13:29)
[2019-11-30] MEDS ORDERED: Dextrose Gel 15 GM/37.5 ML TUBE PO PRN ×4 (12:45→13:29)
[2019-11-30] MEDS ORDERED: *HR* Dextrose 50 % in Water (Syg) 50 ML SYRINGE IVP PRN ×2 (12:45→13:29)
[2019-11-30] MEDS ORDERED: *HR* HYDROcodone/Acet 5/325 mg TABLET PO PRN (13:29)
[2019-11-30] MEDS ORDERED: Naloxone 0.4 MG/ML INJ IVP PRN (13:29)
[2019-11-30] MEDS ORDERED: Acetaminophen 325 MG TABLET PO PRN (13:29)
[2019-11-30] MEDS ORDERED: *HR* OxyCODONE Immed Rel 5 MG TABLET PO PRN (13:29)
[2019-11-30] MEDS ORDERED: 0.9 % Sodium Chloride 1,000 ML IVC SCH (13:29)
[2019-11-30] MEDS: ceFAZolin 2,000 MG in 0.9 % Sodium Chloride 100 ML IVPB SCH ×2 (14:34→23:32)
[2019-11-30] MEDS: Gabapentin 400 MG CAPSULE PO SCH ×2 (15:16→20:36)
[2019-11-30] MEDS: Sucralfate 1 GM TABLET PO SCH ×2 (15:22→20:36)
[2019-11-30] MEDS ORDERED: Insulin LISPRO 300 UNITS/3 ML VIAL SQ SCH ×3 (16:30→21:00)
[2019-11-30] MEDS: Insulin LISPRO 300 UNITS/3 ML VIAL SQ SCH (17:28)
[2019-11-30] MEDS: *HR* Metoprolol 5 MG/5 ML VIAL IVP SCH (18:16)
[2019-11-30] MEDS ORDERED: Chloraseptic Spray 177 ML BOTTLE MM PRN (18:47)
[2019-12-01] MEDS: *HR* Metoprolol 5 MG/5 ML VIAL IVP SCH ×2 (00:36→04:02)
[2019-12-01] MEDS ORDERED: *HR* Heparin 5,000 UNIT/ML VIAL SQ SCH ×2 (06:00)
[2019-12-01] MEDS: Sucralfate 1 GM TABLET PO SCH ×2 (08:17→12:14)
[2019-12-01] MEDS: Gabapentin 400 MG CAPSULE PO SCH (08:17)
[2019-12-01] MEDS: Insulin LISPRO 300 UNITS/3 ML VIAL SQ SCH ×2 (08:18→12:14)
[2019-12-01 10:56] VITALS: BP 121/66
[2019-12-01] MEDS ORDERED: lisinopriL 10 MG TABLET PO SCH (18:00)
== END 2019-12-01 12:10 | disposition home or self-care (01) | DRG 39 ==
LOC: SAMDAY 06:27 → 3NENU 13:22
PROVIDERS: ADMIT Surgery; ATTEND Surgery

== ENCOUNTER 2019-12-03 14:07 | Inpatient (IN) ==
[2019-12-03] MEDS ORDERED: Isovue-370 500 ML BOTTLE IVP ONE (15:21)
[2019-12-03] MEDS ORDERED: Cefepime HCl 2,000 MG in Water for inj. (sterile) 20 ML IVP STA (15:23)
[2019-12-03 15:33] LABS: Basophils % 0.3 %; Eosinophils # 0.1 K/mcL (0.0-0.6); Eosinophils % 1.8 %; Hematocrit 35.2 % (37.5-50.1); Hemoglobin 10.9 g/dL (12.9-16.9); Immature Granulocytes % 0.3 % (0-4); Lymphocytes # 1.9 K/mcL (0.6-4.6); Mean Corpuscular Hemoglobin 30.4 pg (28.0-33.3); Mean Corpuscular Volume 98.3 fL (83.0-100.0); Mean Platelet Volume 10.1 fL (9.4-12.4); Monocytes # 0.6 K/mcL (0.0-1.3); Monocytes % 8.1 %; Neutrophils # 4.2 K/mcL (1.6-8.9); Platelet Count 191 K/mcL (140-400); Red Blood Count 3.58 M/mcL (4.19-5.50); Red Cell Distribution Width 14.6 % (11.5-14.5); Segmented Neutrophils % 61.5 %; White Blood Count 6.8 K/mcL (4.3-11.1)
[2019-12-03] MEDS ORDERED: Aminoglycoside Consult 1 EACH MC ONE (15:35)
[2019-12-03 15:53] LABS: BUN/Creatinine Ratio 14 (6-26); Blood Urea Nitrogen 12 mg/dL (8-23); Calcium 9.1 mg/dL (8.6-10.3); Carbon Dioxide 28 mEq/L (23-29); Chloride 103 mEq/L (98-107); Glucose 154 mg/dL (70-105); Osmolality,Calculated 289 (280-300); Potassium 3.9 mEq/L (3.5-5.1); Sodium 138 mEq/L (136-145); eGFR For African Americans > 60 (> 60); eGFR For Non-African Americans > 60 (> 60)
[2019-12-03] MEDS ORDERED: Acetaminophen 325 MG TABLET PO PRN (17:38)
[2019-12-03] MEDS ORDERED: Naloxone 0.4 MG/ML INJ IVP PRN (17:38)
[2019-12-03] MEDS ORDERED: D5% in Water 1,000 ML IVC PRN (17:40)
[2019-12-03] MEDS ORDERED: Dextrose Gel 15 GM/37.5 ML TUBE PO PRN ×2 (17:40)
[2019-12-03] MEDS ORDERED: *HR* Dextrose 50 % in Water (Syg) 50 ML SYRINGE IVP PRN (17:40)
[2019-12-03] MEDS ORDERED: lisinopriL 10 MG TABLET PO SCH (18:21)
[2019-12-03] MEDS ORDERED: Insulin LISPRO 300 UNITS/3 ML VIAL SQ SCH (21:00)
[2019-12-03] MEDS ORDERED: Aspirin Enteric Coated 81 MG Tablet PO SCH (21:45)
[2019-12-04] MEDS ORDERED: Gabapentin 300 MG CAPSULE GTUBE ONE (03:19)
[2019-12-04 04:43] LABS: Basophils % 0.2 %; Eosinophils # 0.1 K/mcL (0.0-0.6); Eosinophils % 2.3 %; Hematocrit 35.3 % (37.5-50.1); Hemoglobin 11.1 g/dL (12.9-16.9); Immature Granulocytes % 0.6 % (0-4); Lymphocytes # 1.2 K/mcL (0.6-4.6); Lymphocytes % 24.9 %; Mean Corpuscular HGB Conc 31.4 g/dL (31.6-35.5); Mean Corpuscular Volume 95.4 fL (83.0-100.0); Mean Platelet Volume 9.8 fL (9.4-12.4); Monocytes # 0.5 K/mcL (0.0-1.3); Monocytes % 9.8 %; Platelet Count 169 K/mcL (140-400); Red Cell Distribution Width 14.3 % (11.5-14.5); Segmented Neutrophils % 62.2 %; White Blood Count 4.8 K/mcL (4.3-11.1)
[2019-12-04 05:01] LABS: BUN/Creatinine Ratio 13 (6-26); Blood Urea Nitrogen 9 mg/dL (8-23); Calcium 9.1 mg/dL (8.6-10.3); Carbon Dioxide 29 mEq/L (23-29); Chloride 104 mEq/L (98-107); Glucose 122 mg/dL (70-105); Osmolality,Calculated 290 (280-300); Potassium 3.5 mEq/L (3.5-5.1); Sodium 140 mEq/L (136-145); eGFR For African Americans > 60 (> 60); eGFR For Non-African Americans > 60 (> 60)
[2019-12-04] MEDS: Insulin LISPRO 300 UNITS/3 ML VIAL SQ SCH ×2 (08:10→12:09)
[2019-12-04 08:14] LABS: Estimated Average Glucose 169 mg/dl
[2019-12-04] MEDS ORDERED: Chloraseptic Spray 177 ML BOTTLE MM PRN (08:46)
[2019-12-04] MEDS ORDERED: Gabapentin 300 MG CAPSULE GTUBE SCH (09:00)
[2019-12-04] MEDS ORDERED: Gabapentin 400 MG CAPSULE GTUBE SCH (09:00)
[2019-12-04] MEDS ORDERED: cefTRIAXone 1,000 MG in Water for inj. (sterile) 10 ML IVP SCH (09:00)
[2019-12-04] MEDS ORDERED: Aspirin 81 MG TAB.CHEW GTUBE SCH (09:30)
[2019-12-04] MEDS ORDERED: lisinopriL 10 MG TABLET GTUBE SCH (09:30)
[2019-12-04 10:45] VITALS: BP 95/56
== END 2019-12-04 15:36 | disposition home health service (06) | DRG 91 ==
LOC: SUATTDRO → EMEROOARM 14:07 → 3ANU 14:07 → OBSVTOIN 17:59 → 3ANU 19:04
PROVIDERS: ADMIT Internal Medicine; ATTEND Internal Medicine

== ENCOUNTER 2020-09-03 07:17 | Observation (INO) ==
[2020-09-03] MEDS ORDERED: Ipratropium/Albuterol Neb 3 ML IH ONE (07:24)
[2020-09-03] MEDS ORDERED: Aspirin 81 MG TAB.CHEW PO STA (07:26)
[2020-09-03] MEDS ORDERED: methylPREDNISolone 125 MG/2 ML VIAL IVP ONE (07:26)
[2020-09-03] MEDS: 0.9 % Sodium Chloride 1,000 ML IVC SCH ×2 (07:46→18:19)
[2020-09-03] MEDS ORDERED: *HR* FentaNYL (PF) 100 MCG/2 ML VIAL IVP ONE ×2 (08:00→08:43)
[2020-09-03 08:02] LABS: Basophils % 0.5 %; Eosinophils # 0.1 K/mcL (0.0-0.6); Eosinophils % 0.7 %; Hematocrit 36.2 % (37.5-50.1); Hemoglobin 11.8 g/dL (12.9-16.9); Immature Granulocytes % 3.6 % (0-4); Lymphocytes # 3.2 K/mcL (0.6-4.6); Mean Corpuscular HGB Conc 32.6 g/dL (31.6-35.5); Mean Corpuscular Hemoglobin 29.6 pg (28.0-33.3); Mean Corpuscular Volume 90.7 fL (83.0-100.0); Mean Platelet Volume 10.1 fL (9.4-12.4); Monocytes # 0.6 K/mcL (0.0-1.3); Monocytes % 7.3 %; Neutrophils # 3.5 K/mcL (1.6-8.9); Platelet Count 119 K/mcL (140-400); Red Blood Count 3.99 M/mcL (4.19-5.50); Red Cell Distribution Width 13.9 % (11.5-14.5); Segmented Neutrophils % 45.9 %; White Blood Count 7.5 K/mcL (4.3-11.1)
[2020-09-03 08:17] LABS: INR 1.2; Prothrombin Time 13.4 Seconds (9.4-12.1)
[2020-09-03 08:19] LABS: Activated Partial Thrombo Time 27.6 Seconds (26.0-36.0)
[2020-09-03 08:22] LABS: Alanine Aminotransferase 10 Units/L (7-52); Albumin 3.7 g/dL (3.5-5.7); Albumin/Globulin Ratio 1.1 (1.1-2.2); Alkaline Phosphatase 81 Units/L (34-104); Aspartate Amino Transferase 40 Units/L (13-39); BUN/Creatinine Ratio 27 (6-26); Bilirubin,Direct 0.2 mg/dL (0.0-0.2); Bilirubin,Indirect 0.5 mg/dL (0.0-1.0); Bilirubin,Total 0.7 mg/dL (0.3-1.0); Blood Urea Nitrogen 27 mg/dL (8-23); Calcium 9.6 mg/dL (8.6-10.3); Carbon Dioxide 24 mEq/L (23-29); Chloride 102 mEq/L (98-107); Globulin 3.5 g/dL (2.4-3.5); Glucose 93 mg/dL (70-105); Lactate Dehydrogenase 674 Units/L (140-271); Magnesium 1.6 mg/dL (1.6-2.6); Osmolality,Calculated 289 (280-300); Phosphorous 2.3 mg/dL (2.7-4.5); Potassium 3.9 mEq/L (3.5-5.1); Sodium 137 mEq/L (136-145); Total Protein 7.2 g/dL (6.4-8.9); Troponin I 0.03 ng/mL (< 0.04); eGFR For African Americans > 60 (> 60); eGFR For Non-African Americans > 60 (> 60)
[2020-09-03] MEDS ORDERED: 0.9 % Sodium Chloride 1,000 ML IVC ONE ×2 (08:40→08:54)
[2020-09-03] MEDS ORDERED: Isovue-370 500 ML BOTTLE IVP ONE (08:40)
[2020-09-03 08:48] LABS: Bacteria,Urine Few per hpf (None-Few); Bilirubin,Urine Negative (Negative); Blood,Urine Negative (Negative); Clarity,Urine Clear (Clear); Color,Urine Light-Yellow (Yellow); Glucose,Urine (UA) Normal (Normal); Hyaline Casts,Urine Few per lpf (None Seen); Ketones,Urine Negative (Negative); Leukocyte Esterase,Urine Moderate (Negative); Mucus,Urine Few per lpf (None-Few); Nitrite,Urine Negative (Negative); PH,Urine 5.5 pH Units (5.0-8.0); Protein,Urine Trace mg/dL (Neg-Trace); RBC,Urine 0-3 per hpf (0-3); Squamous Epithelial Cell,Urine Few per hpf (None-Few); Urobilinogen,Urine Normal (Normal); WBC,Urine 30-50 per hpf (0-3)
[2020-09-03 09:06] LABS: C-Reactive Protein 32 mg/L (Less than 10)
[2020-09-03] MEDS ORDERED: *HR* Heparin 5,000 UNIT/ML VIAL IVP PRN ×2 (10:03)
[2020-09-03] MEDS ORDERED: *HR* Heparin 5,000 UNIT/ML VIAL IVP ONE (10:03)
[2020-09-03] MEDS ORDERED: Naloxone 0.4 MG/ML INJ IVP PRN (10:08)
[2020-09-03] MEDS ORDERED: Perflutren Lipid Microsphere 1.3 ML in 0.9 % Sodium Chloride 8.7 ML IVP PRN (10:10)
[2020-09-03] MEDS ORDERED: D5% in Water 1,000 ML IVC PRN (10:15)
[2020-09-03] MEDS ORDERED: *HR* Dextrose 50 % in Water (Vial) 50 ML VIAL IVP PRN (10:15)
[2020-09-03] MEDS ORDERED: Heparin 25,000UNIT/250ML 1/2NS 25,000 UNIT/250 ML IV.SOLN IVC SCH (10:15)
[2020-09-03] MEDS ORDERED: Dextrose Gel 15 GM/37.5 ML TUBE PO PRN ×2 (10:15)
[2020-09-03 11:03] LABS: Hemoglobin 11.2 g/dL (12.9-16.9); Heparin anti-factor XA UFH < 0.04 IU/mL (0.30-0.70); INR 1.3; Prothrombin Time 14.9 Seconds (9.4-12.1)
[2020-09-03 11:05] LABS: Hematocrit 34.4 % (37.5-50.1); Immature Platelets 3.1 % (1.1-6.1); Mean Corpuscular HGB Conc 32.6 g/dL (31.6-35.5); Mean Corpuscular Hemoglobin 30.4 pg (28.0-33.3); Mean Corpuscular Volume 93.2 fL (83.0-100.0); Mean Platelet Volume 9.8 fL (9.4-12.4); Red Blood Count 3.69 M/mcL (4.19-5.50); Red Cell Distribution Width 13.7 % (11.5-14.5); White Blood Count 5.6 K/mcL (4.3-11.1)
[2020-09-03] MEDS: Insulin LISPRO 300 UNITS/3 ML VIAL SUBQ SCH ×2 (12:00→18:19)
[2020-09-03] MEDS ORDERED: Acetaminophen 325 MG TABLET PO PRN (13:09)
[2020-09-03] MEDS ORDERED: *HR* HYDROcodone/Acet 5/325 mg TABLET PO PRN (13:09)
[2020-09-03] MEDS ORDERED: Potassium Phosphate 44 MEQ in 0.9 % Sodium Chloride 250 ML IVPB ONE (14:26)
[2020-09-03] MEDS: Gabapentin 400 MG CAPSULE PO SCH ×2 (14:39→20:04)
[2020-09-03] MEDS: *HR* OxyCODONE Immed Rel 5 MG TABLET PO PRN ×2 (14:40→20:44)
[2020-09-03] MEDS: Apixaban 5 MG TABLET PO SCH (20:04)
[2020-09-03] MEDS: Doxycycline 100 MG CAPSULE PO SCH (20:05)
[2020-09-03] MEDS ORDERED: Insulin LISPRO 300 UNITS/3 ML VIAL SUBQ SCH (21:00)
[2020-09-04 04:57] LABS: Basophils % 0.1 %; Eosinophils % 0.1 %; Hematocrit 34.7 % (37.5-50.1); Hemoglobin 10.9 g/dL (12.9-16.9); Immature Platelets 4.5 % (1.1-6.1); Lymphocytes # 0.9 K/mcL (0.6-4.6); Lymphocytes % 12.4 %; Mean Corpuscular HGB Conc 31.4 g/dL (31.6-35.5); Mean Corpuscular Volume 92.3 fL (83.0-100.0); Mean Platelet Volume 10.2 fL (9.4-12.4); Monocytes # 0.5 K/mcL (0.0-1.3); Monocytes % 7.5 %; Platelet Count 105 K/mcL (140-400); Red Blood Count 3.76 M/mcL (4.19-5.50); Red Cell Distribution Width 13.4 % (11.5-14.5); Segmented Neutrophils % 75.9 %; White Blood Count 6.9 K/mcL (4.3-11.1)
[2020-09-04 04:59] LABS: Neutrophils # 5.2 K/mcL (1.6-8.9)
[2020-09-04 05:15] LABS: BUN/Creatinine Ratio 31 (6-26); Blood Urea Nitrogen 24 mg/dL (8-23); Calcium 8.5 mg/dL (8.6-10.3); Carbon Dioxide 25 mEq/L (23-29); Chloride 104 mEq/L (98-107); Glucose 132 mg/dL (70-105); Osmolality,Calculated 286 (280-300); Potassium 4.5 mEq/L (3.5-5.1); Sodium 135 mEq/L (136-145); eGFR For African Americans > 60 (> 60); eGFR For Non-African Americans > 60 (> 60)
[2020-09-04 05:16] LABS: Chol/HDL Ratio 7.5 (0-4.9)
[2020-09-04] MEDS: 0.9 % Sodium Chloride 1,000 ML IVC SCH (09:22)
[2020-09-04] MEDS: Doxycycline 100 MG CAPSULE PO SCH (09:24)
[2020-09-04] MEDS: Gabapentin 400 MG CAPSULE PO SCH (09:25)
[2020-09-04] MEDS: Apixaban 5 MG TABLET PO SCH (09:26)
[2020-09-04 09:28] LABS: Estimated Average Glucose 134 mg/dl; Hemoglobin A1C 6.3 %
[2020-09-04] MEDS: Insulin LISPRO 300 UNITS/3 ML VIAL SUBQ SCH ×2 (09:30→12:30)
[2020-09-04 11:32] VITALS: BP 154/73
== END 2020-09-04 15:45 | disposition home health service (06) ==
LOC: CDU 07:17 → EMEROOARM 07:17 → SUATTDRO 10:12 → CDU 11:24 → 2NENU 09-04 01:07
PROVIDERS: ADMIT Internal Medicine; ATTEND Internal Medicine